=== PATIENT | female | born 2000 | race Caucasian/White ===

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

== ENCOUNTER 2020-01-02 17:16 | Emergency (ER) | payer MEDICAID, SELFPAY ==
[2020-01-02 17:26] VITALS: BP 118/65; PULSE 107; RESP 18; TEMP 36.7; O2SAT 96
--- NOTE | 2020-01-02 17:37 | ED.GENADUL_ITS ---
Discharge Plan Disposition Patient Disposition: HOME Condition: Good Discharge Details Chief Complaint: EarProblem Clinical Impression: Strep pharyngitis Primary Care Provider: Monica Vuong ED Provider: Tyler Liao Home Meds and New Rx's Prescriptions: New amoxicillin-pot clavulanate [Augmentin] 875-125 mg tablet 1 tab PO BID Qty: 20 RF: 0 loratadine 10 mg capsule 10 mg PO DAILY Qty: 14 RF: 0 No Action Nexplanon 68 mg implant 1 implant SBD ONCE Qty: 1 RF: 0 Discharge Instructions Instructions: Strep Throat (ED) Additional Instructions: At this time you do have notable strep throat. You have no mono, and your flu test is negative. Please take the Augmentin as directed. Please take [id number] 10 mg loratadine every day to help with the congestion in your ear. Please take 800 mg of ibuprofen and 600 mg of Tylenol together every 6 hours to help with the pain. Drink plenty of fluids. If you notice any worsening of your symptoms, or any new symptoms such as vomiting, diarrhea, fever, chills, shortness of breath, chest pain, numbness, weakness, or fainting , please return immediately to the emergency department for reevaluation. Please follow up with your primary care provider as soon as possible for reassessment and reevaluation. As always, it was a pleasure participating in your medical care today. Referrals: Monica Vuong [Primary Care Provider] - Discharge Data Discharge Date/Time-TO BE ENTERED AT DEPARTURE: 01/02/20 18:50 Medical Decision Making 19-year-old female presents with 18 hours of throat pain and left-sided ear pain. Physical exam demonstrates an enlarged left tonsil, but palpation shows no evidence of peritonsillar mass or abscess, uvula is midline. No signs of airway compromise or drooling or stridor. No meningeal signs. Left ear d emonstrates mild erythema and serous fluid with minimal bulging. Strep test is positive, influenza is negative, Monospot test is negative. Signs and symptoms clinically consistent with strep throat, and mild left ear irritation. Recommend NSAIDs, loratadine for drainage, and Augmentin. First dose of Augmentin was given here. Discussed red flags for which to return. I have extensively reviewed the treatment plan and discharge instructions with the patient. I have addressed all patient concerns at this time. The patient was made aware of what symptoms to monitor for that would warrant a return to the emergency department. Discussed the plan with the patient, they demonstrate verbal understanding and agreement with our assessment and plan at this time. HPI General Date/Time Provider Initiated Documentation: 01/02/20 17:28 . HPI Narrative: 19-year-old female presents today for evaluation of sore throat and left ear pain. Symptoms have been present for the last 18 to 24 hours. Started with a mild left-sided sore throat and then has now caused ear pressure and ear pain with no discharge. She denies any neck pain or headache. She denies any cough, shortness of breath, she does admit to subjective fever and chills. She does admit to fatigue, but not severe or debilitating. She denies any recent contacts with mono. She denies any difficulty breathing or swallowing. No other complaints at this time. Related Data Home Medications Medication Instructions Recorded Confirmed etonogestrel 68 mg subdermal 1 implant SBD ONCE #1 each 11/02/18 11/11/19 implant amoxicillin-pot clavulanate 1 tab PO BID #20 tab 01/02/20 [Augmentin] loratadine 10 mg PO DAILY #14 cap 01/02/20 Previous Rx's Medication Instructions Recorded etonogestrel 68 mg subdermal 1 implant SBD ONCE #1 each 11/02/18 implant amoxicillin-pot clavulanate 1 tab PO BID #20 tab 01/02/20 [Augmentin] loratadine 10 mg PO DAILY #14 cap 01/02/20 Allergies Allergy/AdvReac Type Severity Reaction Status Date / Time No Known Allergies Allergy Unverified 01/02/20 17:31 General Stated Complaint: EarProblem SHEEBA: 4 Review of Systems All systems reviewed & are unremarkable except as noted in HPI and below [facility] Social History Smoking/Tobacco Use Status: Current every day Tobacco Type: e-cigarettes Alcohol Intake: current Alcohol Intake frequency: holidays/special occasions only Drug use: Rarely Substance use type: marijuana Do you feel safe at home: Yes Do you feel safe in your relationship?: Yes Female Reproductive History Menstrual control method: none and implanted History History 2 Para 1 Hx # Term Pregnancies Multiple births Hx # Pregnancies Ectopic pregnancies AB induced Hx Number of Living Children AB spontaneous Exam Narrative Exam Narrative: 1.Const: Well-nourished, Well-developed, appearing stated age 2.Eyes: PERRL, no conjunctival injection, and symmetrical lids. 3.ENT: Atraumatic external nose and ears. Moist MM. Neck: Symmetric, trachea midline, No thyromegaly. Patient does demonstrate a notably enlarged left tonsil, however direct palpation shows no evidence of peritonsillar abscess, swelling, or fluctuance. Uvula is midline. Mild exudate noted on tonsil on the left, minimal exudate noted on the right. No other lesions. No evidence of airway compromise or drooling. No swelling or mass in the neck. Left ear demonstrates notable erythema, minimal clear serous fluid, minimal bulging, no purulent fluid. Patient demonstrates good movement of cervical neck. There is no nuchal rigidity, no nuchal tenderness. Patient is able to flex the neck without any difficulty or significant pain. Negative Kernig's and Brudzinski sign. 4.CVS: +S1/S2, No murmurs or gallops. Peripheral pulses 2+ and equal in all extremities. Brisk capillary refill in all extremities. 5.RESP: Unlabored respiratory effort. Clear to auscultation bilaterally. No wheezes rales or rhonchi 6.GI: Soft, Nontender/Nondistended, No hepatosplenomegaly. No guarding or rebound. 7.MSK: Normocephalic/Atraumatic, Extremities w/o deformity or ttp No cyanosis or clubbing, Normal movement of all extremities 8.Skin: Warm, Dry. No rashes or lesions. 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 Sensation grossly intact, no focal neurologic deficits. 10.Psych: (AAO) x3. Appropriate mood and affect Course Vital Signs Vital signs: Vital Signs Temperature 36.7 C 01/02/20 17: Pulse 107 H 01/02/20 17: Respiratory Rate 18 01/02/20 17: Blood Pressure 118/65 01/02/20 17: Pulse Oximetry 96 01/02/20 17: Temperature 36.7 C 01/02/20 17: Temperature Source Skin 01/02/20 17: Pulse 107 H 01/02/20 17:26 Respiratory Rate 18 01/02/20 17:26 Respiratory Effort Non-Labored 01/02/20 17:29 Blood Pressure 118/65 01/02/20 17:26 Blood Pressure Position Sitting 01/02/20 17:26 Pulse Oximetry 96 01/02/20 17:26 Oxygen Delivery Method Room Air 01/02/20 17:26 Oxygen Flow Rate 0 01/02/20 17:26 Pain Level 9 01/02/20 17:30 Lab/Test Results Lab/Test Results: 01/02/20 17:33 Nasopharynx Influenza Types A,B Antigen - Pending
[2020-01-02 18:10] LABS: Mono Screening Negative (Negative)
[2020-01-02] MEDS: Ibuprofen 800 MG TAB PO (18:23)
[2020-01-02] MEDS: Acetaminophen 500 MG TAB 1000 MG PO (18:23)
[2020-01-02] MEDS: Amoxicillin 875/Clav. 125 TAB PO (18:33)
== END 2020-01-02 18:50 | disposition home or self-care (01) ==
PROVIDERS: Emergency Provider Student in an Organized Health Care Education/Training Program; PCP Nurse Practitioner Family
DX: J02.0 Streptococcal pharyngitis (principal); H92.02 Otalgia, left ear
CPT/HCPCS: 36415; 87449; 87880; 99283; 86308

== ENCOUNTER 2020-02-10 11:57 | Emergency (ER) | payer MEDICAID, SELFPAY ==
[2020-02-10 12:01] VITALS: BP 129/85; PULSE 81; RESP 16; TEMP 36.3; O2SAT 96
--- NOTE | 2020-02-10 12:26 | W.ED.GENAD ---
Discharge Plan Disposition Patient Disposition: HOME Condition: Stable Discharge Details Chief Complaint: Sorethroat Clinical Impression: Pharyngitis Primary Care Provider: Monica Vuong ED Provider: Orlando Culver Home Meds and New Rx's Prescriptions: New amoxicillin-pot clavulanate 875-125 mg tablet 1 tab PO BID 10 Days Qty: 20 RF: 0 Continued Nexplanon 68 mg implant 1 implant SBD ONCE Qty: 1 RF: 0 No Action amoxicillin-pot clavulanate [Augmentin] 875-125 mg tablet 1 tab PO BID Qty: 14 RF: 0 amoxicillin-pot clavulanate [Augmentin] 875-125 mg tablet 1 tab PO BID Qty: 20 RF: 0 Discharge Instructions Instructions: Pharyngitis (ED) Additional Instructions: Small, frequent sips of fluids to maintain hydration Tylenol and/or ibuprofen as needed for pain or discomfort. Return for difficulty swallowing, worsening discomfort, or any other acute concerns Stop the previously prescribed amoxicillin. We will place you on Augmentin. You are given a single one-time dose of long-acting steroid aid in decreasing your inflammatory response. Medical Decision Making 19-year-old female with history of previous strep pharyngitis, now with 3 days of recurrent symptoms which she was placed on amoxicillin by her primary care. She has right ear discomfort and right throat discomfort. She denied a change to voice, no drooling, no difficulty breathing. Her exam is reassuring but is consistent with a mild pharyngitis. Do not feel that repeat strep swab will assist in management. I will provide her with a one-time dose of dexamethasone for its anti-inflammatory properties and switch her to previously tolerated course of Augmentin. She is stable and appropriate for discharge. Addendum: Received a call from the pharmacy, that the patient had already been taking Augmentin. She was switched to azithromycin. HPI General Mode of arrival: ambulatory. Date/Time Provider Initiated Documentation: 02/10/20 12:14. Limitations to Documentation: no limitations. Information obtained by: patient. History of Present Illness 19 year old F presents to the emergency department with the chief complaint of Right sore throat for 3 days, on amoxicillin, described as similar to prior episodes, Quality is described as dull, and is localized to the neck. Patient reports no radiation. Patient started experiencing this day(s) and it has been constant. No relieving factors improve symptom(s), No exacerbating factors reported . Patient notes loss of appetite; denies chest pain, cough, fever/chills, malaise, nausea/vomiting and shortness of breath. Patient did receive the following treatments prior to arrival, other (Amoxicillin) Related Data Home Medications Medication Instructions Recorded Confirmed etonogestrel 68 mg subdermal 1 implant SBD ONCE #1 each 11/02/18 02/10/20 implant amoxicillin-pot clavulanate 1 tab PO BID #20 tab 01/02/20 02/10/20 [Augmentin] amoxicillin 875 mg-potassium 1 tab PO BID #14 tab 02/08/20 02/10/20 clavulanate 125 mg tablet amoxicillin-pot clavulanate 1 tab PO BID 10 Days #20 tab 02/10/20 Previous Rx's Medication Instructions Recorded etonogestrel 68 mg subdermal 1 implant SBD ONCE #1 each 11/02/18 implant amoxicillin-pot clavulanate 1 tab PO BID #20 tab 01/02/20 [Augmentin] amoxicillin 875 mg-potassium 1 tab PO BID #14 tab 02/08/20 clavulanate 125 mg tablet amoxicillin-pot clavulanate 1 tab PO BID 10 Days #20 tab 02/10/20 Allergies Allergy/AdvReac Type Severity Reaction Status Date / Time No Known Allergies Allergy Unverified 01/02/20 17:31 General Stated Complaint: Sorethroat SHEEBA: 4 Review of Systems Narrative: No cough, no travel, otherwise well. [facility], LAT[facility] Medical History Depression Headache PREMENSTRAL Suicide attempt Social History Smoking/Tobacco Use Status: Current every day Tobacco Type: e-cigarettes Alcohol Intake: current Alcohol Intake frequency: holidays/special occasions only Drug use: Rarely Substance use type: marijuana Do you feel safe at home: Yes Do you feel safe in your relationship?: Yes Female Reproductive History Menstrual control method: none and implanted History History 2 Para 1 Hx # Term Pregnancies Multiple births Hx # Pregnancies Ectopic pregnancies AB induced Hx Number of Living Children AB spontaneous Exam Narrative Exam Narrative: GEN: awake, alert, oriented 3. Pleasant, well groomed, interactive. HEAD: Normocephalic, atraumatic ENT: Mucous membranes moist, oropharynx with mildly enlarged tonsils, no asymmetry, mild erythema, no significant exudate, tympanic membranes clear, External ear exam unremarkable EYES: PERRL, EOMI NECK: Full ROM, no MONET, no menigismus CHEST/RESP: Nontender, clear to auscultation bilateral, no wheeze/rhonchi/rales CARDIOVASCULAR: RRR, no murmur, rub isaias. 2+ Rad pulse bilateral EXT: Full ROM, no edema, no rash Neuro: Grossly normal neurologic exam, conversant, interactive. Psych: Speech fluent, thoughts congruent, affect normal Course Vital Signs Vital signs: Vital Signs Temperature 36.3 C L 02/10/20 12:01 Pulse 81 02/10/20 12:01 Respiratory Rate 16 02/10/20 12:01 Blood Pressure 129/85 02/10/20 12:01 Pulse Oximetry 96 02/10/20 12:01 Temperature 36.3 C L 02/10/20 12:01 Temperature Source Tympanic 02/10/20 12:01 Pulse 81 02/10/20 12:01 Respiratory Rate 16 02/10/20 12:01 Respiratory Effort Non-Labored 02/10/20 12:06 Blood Pressure 129/85 02/10/20 12:01 Blood Pressure Position Sitting 02/10/20 12:01 Pulse Oximetry 96 02/10/20 12:01 Oxygen Delivery Method Room Air 02/10/20 12:01 Oxygen Flow Rate 0 02/10/20 12:01 Pain Level 8 02/10/20 12:01
[2020-02-10] MEDS: Dexamethasone 4 MG TAB 8 MG PO (12:33)
== END 2020-02-10 12:40 | disposition home or self-care (01) ==
PROVIDERS: Emergency Provider Emergency Medicine; PCP Nurse Practitioner Family
DX: J02.9 Acute pharyngitis, unspecified (principal)
CPT/HCPCS: 99283; J8540

== ENCOUNTER 2020-02-27 10:41 | Emergency (ER) | payer MEDICAID, SELFPAY ==
[2020-02-27 10:45] VITALS: BP 110/61; PULSE 100; RESP 16; TEMP 36.2; O2SAT 95
[2020-02-27 10:48] VITALS: RESP 16; TEMP 36.2; O2SAT 95
--- NOTE | 2020-02-27 10:50 | ED.GENADUL_ITS ---
Discharge Plan Disposition Patient Disposition: HOME Condition: Stable Discharge Details Chief Complaint: Nausea/Vomit/Diar Clinical Impression: Nausea & vomiting, Diarrhea Primary Care Provider: Monica Vuong ED Provider: Rk Munroe Home Meds and New Rx's Prescriptions: New ondansetron HCl [Zofran] 4 mg tablet 4 mg PO Q8H PRNQty: 10 RF: 0 No Action amoxicillin-pot clavulanate [Augmentin] 875-125 mg tablet 1 tab PO BID Qty: 14 RF: 0 Nexplanon 68 mg implant 1 implant SBD ONCE Qty: 1 RF: 0 amoxicillin-pot clavulanate [Augmentin] 875-125 mg tablet 1 tab PO BID Qty: 20 RF: 0 Discharge Instructions Instructions: Acute Diarrhea (ED), Acute Nausea and Vomiting (ED) Additional Instructions: Zofran as directed. [id number] Imodium as directed. Clear liquid diet, advance as tolerated. Please watch for new or worsening symptoms and return to the ER for any concerns. I strongly recommend reaching out your primary care provider for prompt outpatient reevaluation next available appointment. Medical Decision Making 19-year-old female reports nausea, vomiting, diarrhea for the past 6-7 hours. Denies any pain whatsoever. Denies fever. Denies recent travel or sick exposure. Clinically she appears well, nontoxic, no clinical signs of dehydration. Abdomen is soft, nonsurgical. She does report drinking over the past 48 hours more alcohol than she typically does, this certainly could play into her diagnosis such as a alcoholic gastritis. Given her benign abdomen, diagnoses such as cholecystitis, appendicitis, etc. far less likely. Does not seem to be related, no lower abdominal discomfort whatsoever. Very well could be a gastroenteritis. Will give IV fluids, Zofran, obtain routine laboratory values and reassess. Patient is already chewing on ice and reques ting water. Laboratory values are unremarkable for emergent process. Upon reevaluation she was chewing ice and drinking a small bit of water. She reports objectively feeling better but did have one episode of dry heaving. 10 mg IV Reglan given. Upon reevaluation she tolerated ice and water without difficulty, no more dry heaving. Patient reports that she feels relatively better, remains pain-free. Discussed that symptoms have been only present for the past 7 hours or so and that this very well may last for 2-3 days. Recommend clear liquid diet, advancing as tolerated. [id number] Imodium for diarrhea although she has had no diarrhea here in the ER. Will provide prescription for Zofran. Patient comfortable this plan and has no additional questions or concerns Medical Records Medical records reviewed: Yes I reviewed the patient's medical records. HPI General Mode of arrival: ambulatory . Date/Time Provider Initiated Documentation: 02/27/20 10:42 . Limitations to Documentation: no limitations . Information obtained by: patient . HPI Narrative: 19-year-old female presented to the ER reporting nausea, vomiting, diarrhea that began around 4:00 this morning. She denies any pain whatsoever. Denies recent travel or sick contacts. She reports that 2 days ago she had 5 or 6 alcoholic drinks, again yesterday she had 5 or 6 alcoholic drinks, last drink was around 11 PM. She reports that she stayed up all night and did not sleep whatsoever. Her symptoms then began around 4 AM. She denies any fever, abdominal pain, back pain, dysuria, hematuria. Reports 10 episodes of nausea and/or vomiting since 4 AM. She denies any vaginal bleeding or discharge. No additional concerns at this time Related Data Home Medications Medication Instructions Recorded Confirmed etonogestrel 68 mg subdermal 1 implant SBD ONCE #1 each 11/02/18 02/10/20 implant amoxicillin-pot clavulanate 1 tab PO BID #20 tab 01/02/20 02/10/20 [Augmentin] amoxicillin 875 mg-potassium 1 tab PO BID #14 tab 02/08/20 02/10/20 clavulanate 125 mg tablet ondansetron HCl [Zofran] 4 mg PO Q8H PRN #10 tab 02/27/20 Previous Rx's Medication Instructions Recorded etonogestrel 68 mg subdermal 1 implant SBD ONCE #1 each 11/02/18 implant amoxicillin-pot clavulanate 1 tab PO BID #20 tab 01/02/20 [Augmentin] amoxicillin 875 mg-potassium 1 tab PO BID #14 tab 02/08/20 clavulanate 125 mg tablet ondansetron HCl [Zofran] 4 mg PO Q8H PRN #10 tab 02/27/20 Allergies Allergy/AdvReac Type Severity Reaction Status Date / Time No Known Allergies Allergy Unverified 01/02/20 17:31 General Stated Complaint: Nausea/Vomit/Diar SHEEBA: 3 Review of Systems Constitutional Constitutional: Denies fatigue, Denies fever(s) and Denies headache(s) ENT Ears, Nose, Mouth, and Throat: Denies headache(s) and Denies sore throat Cardiovascular Cardiovascular: Denies chest pain and Denies dyspnea Respiratory Respiratory: Denies cough and Denies dyspnea Gastrointestinal Gastrointestinal: Denies abdominal pain, Reports diarrhea, Reports nausea and Reports vomiting Genitourinary Genitourinary: Denies dysuria and Denies vaginal discharge Musculoskeletal Musculoskeletal: Denies back pain and Denies myalgias Integumentary/Breasts Skin/Breast: Denies rash Neurologic Neurologic: Denies headache(s) Endocrine Endocrine: Denies fatigue [facility] Medical History Depression Headache PREMENSTRAL Suicide attempt Surgical History D&E Social History Smoking/Tobacco Use Status: Current every day Tobacco Type: e-cigarettes Alcohol Intake: never Drug use: Rarely Substance use type: does not use Do you feel safe at home: Yes Do you feel safe in your relationship?: Yes Female Reproductive History Menstrual control method: none and implanted History History 2 Para 1 Hx # Term Pregnancies Multiple births Hx # Pregnancies Ectopic pregnancies AB induced Hx Number of Living Children AB spontaneous Exam Const General: cooperative, healthy appearing, comfortable and no acute distress Orientation: alert, awake and oriented x3 HENMT Head: normal to inspection, normocephalic and atraumatic Mouth: moist mucous membranes Throat: posterior oropharynx normal Eyes Conjunctivae: conjunctivae normal Neck Neck: normal visual inspection, full ROM, trachea midline and supple Resp Effort & Inspection: normal respiratory effort and able to speak in complete sentences Auscultation: clear to auscultation bilaterally Cardio Rate: regular rate Rhythm: regular rhythm GI Inspection: normal to inspection Palpation: soft, not firm, no guarding, not rigid and nontender Auscultation: normal bowel sounds Back/Spine/Pelvis Back: no CVA tenderness and No back tenderness Skin General skin exam: no rashes or lesions noted Neuro General: patient alert, patient awake, moves all extremities and no focal motor deficits Cognition: normal cognition Speech: speech normal Gait: normal gait Motor: muscle tone normal throughout Sensory Exam: no sensory deficits noted Psych Appearance: grossly normal Mental Status: mental status grossly normal Course Vital Signs Vital signs: Vital Signs Temperature 36.2 C L 02/27/20 10:45 Pulse 100 H 02/27/20 10:45 Respiratory Rate 16 02/27/20 10:45 Blood Pressure 110/61 02/27/20 10:45 Pulse Oximetry 95 02/27/20 10:45 Temperature 36.2 C L 02/27/20 10:45 Temperature Source Tympanic 02/27/20 10:45 Pulse 100 H 02/27/20 10:45 Respiratory Rate 16 02/27/20 10:45 Respiratory Effort Non-Labored 02/27/20 10:47 Blood Pressure 110/61 02/27/20 10:45 Blood Pressure Position Sitting 02/27/20 10:45 Pulse Oximetry 95 02/27/20 10:45 Oxygen Delivery Method Room Air 02/27/20 10:45 Oxygen Flow Rate 0 02/27/20 10:45 Pain Level 0 02/27/20 10:45
[2020-02-27] MEDS: Normal Saline 1,000 ML 1000 ML IV (11:04)
[2020-02-27] MEDS: Ondansetron 4 MG/2 ML VIAL IVP (11:04)
--- NOTE | 2020-02-27 11:05 | NUR.NOTE ---
Nursing Note: One IV is located in the Left FA. Left AC was charted incorrectly.
[2020-02-27 11:22] LABS: Abs Immature Grans 0.03 k/cumm (0.0-0.09); Absolute Basophil Count 0.04 k/cumm (0.0-0.2); Absolute Eosinophil Count 0.08 k/cumm (0.0-0.7); Absolute Lymphocyte Count 1.53 k/cumm (1.2-3.4); Absolute Monocyte Count 0.39 k/cumm (0.11-0.7); Absolute Neutrophil Count 8.28 k/cumm (1.2-6.7); Basophils % 0.4; Eosinophils % 0.8; HCT 43.1 % (36.0-46.0); HGB 15.2 g/dL (12.0-15.5); Immature Grans % 0.3 %; Lymphocytes % 14.8; Mean Corp. HGB Concentration 35.3 g/dL (32.0-36.0); Mean Corpuscular Hemoglobin 31.7 pg (27.0-33.0); Mean Corpuscular Volume 89.8 fL (80-95); Mean Platelet Volume 10.8 fL (8.0-11.0); Monocytes % 3.8; Neutrophils % 79.9; Platelet Count 375 x1000/uL (130-400); RBC Distribution Width 13.3 % (11.7-14.6); White Blood Cell Count 10.35 k/cumm (4.4-10.8)
[2020-02-27 11:37] LABS: ALT 26 U/L (14-59); AST 21 U/L (15-37); Albumin 4.6 g/dL (3.4-5.0); Alkaline Phosphatase 88 U/L (46-116); Anion Gap 14.8 mmol/L (3-11); BUN 10 mg/dL (7-18); Bilirubin, Total 0.5 mg/dL (0.2-1.0); CO2 22.2 mmol/L (21.0-32.0); CREATININE 0.98 mg/dL (0.55-1.02); Calcium 9.4 mg/dL (8.5-10.1); Chloride 103 mmol/L (98-107); Glucose 114 mg/dL (74-106); Lipase 46 U/L (73-393); Sodium 140 mmol/L (136-145); Total Protein 8.9 g/dL (6.4-8.2)
[2020-02-27] MEDS: Metoclopramide 10 MG/2 ML VIAL IVP (11:55)
[2020-02-27 12:01] LABS: Bilirubin Negative (Negative); Blood Negative (Negative); Clarity Clear (Clear); Glucose Negative (Negative); Ketones Negative (Negative); Leukocyte Esterase Trace (Negative); Nitrite Negative (Negative); Specific Gravity 1.015 (1.005-1.025); Urobilinogen 0.2 EU/dL (Up TO 0.2); pH 8.5 (5-8)
[2020-02-27 12:02] LABS: Epithelial Cells Many HPF (Negative)
[2020-02-27 12:03] LABS: C & S Indicated? No/Sq. Contamination
== END 2020-02-27 12:40 | disposition home or self-care (01) ==
PROVIDERS: Emergency Provider Physician Assistant; PCP Nurse Practitioner Family
DX: R11.2 Nausea with vomiting, unspecified (principal); R19.7 Diarrhea, unspecified
CPT/HCPCS: 80053; 81025; 83690; 96361; 96374; 96375; 99284; 81003; 81015; 85025; J2405; J2765

== ENCOUNTER 2021-04-08 15:33 | Emergency (ER) | payer MEDICAID, SELFPAY ==
[2021-04-08 15:45] VITALS: BP 120/83; PULSE 98; RESP 20; TEMP 36.5; O2SAT 97
--- NOTE | 2021-04-08 15:55 | ED.GENADUL_ITS ---
Discharge Plan Disposition Patient Disposition: HOME Condition: Improving Discharge Details Clinical Impression: Acute bronchitis Primary Care Provider: Monica Vuong ED Provider: Zaida Fraga Home Meds and New Rx's Prescriptions: New prednisone 20 mg tablet See Rx Instructions .ROUTE .COMPLEX Qty: 12 RF: 0 benzonatate [Tessalon Perles] 100 mg capsule 100 mg PO TID PRN (Reason: cough) Qty: 14 RF: 0 albuterol sulfate 90 mcg/actuation aerosol powdr breath activated 2 inh IH Q6H PRN (Reason: shortness of breath or wheezing) Qty: 1 RF: 0 amoxicillin-pot clavulanate [Augmentin] 875-125 mg tablet 1 tab PO BID 7 Days Qty: 14 RF: 0 Continued Nexplanon 68 mg implant 1 implant SBD ONCE Qty: 1 RF: 0 Discharge Instructions Instructions: Acute Bronchitis (ED) Additional Instructions: Drink plenty of fluids and get plenty of rest. Alternate tylenol and motrin as needed and directed for pain. Your prescriptions have been sent electronically to your pharmacy. Call the pharmacy to make sure your prescriptions are ready before pickup. Take the prescriptions as directed. If you have no relief in symptoms over the next 2 days, you can start the oral antibiotics and take as directed until finished. Follow-up with your primary care doctor in 1 week. Return to the emergency department with any worsening or new concerning symptoms. Discharge Data Discharge Physician: Zaida Fraga Medical Decision Making <Zaida Fraga, - Last Filed: 04/08/21 17:53> 20-year-old female with a history of exercise-induced asthma presents for cough and shortness of breath for the past 4 days. Patient appears comfortable and nontoxic. She is afebrile. She is speaking in full sentences. She has inspiratory and expiratory wheezing with rhonchi throughout. Normal ENT exam. History and presentation does not appear consistent with PE or ACS. Suspect most likely bronchitis and/or underlying pneumonia. We will give a DuoNeb, oral steroids and obtain a urine test and chest x-ray. Chest x-ray negative. Urine preg negative. Patient reassessed and she feels much better and feels good to go home. Prescriptions for oral steroids, Tessalon Perles and albuterol inhaler sent electronically to her pharmacy. She has plenty of albuterol inhaler at home. A prescription for antibiotics was also sent to the pharmacy as she vapes and occasionally smokes marijuana. She is advised that she can start with the oral steroids 1st, and if her symptoms not improve in the next 2 days, to consider starting the antibiotics. Advised to follow up with the primary care doctor for re-evaluation. Usual and customary return precautions given prior to discharge. Medical Records Medical records reviewed: Yes I reviewed the patient's medical records. Imaging Data Radiologic Study: Radiologist's impression: XR Chest Exam date and time: 04/08/2021 4:20 PM Age: 20 years old Clinical indication: Other: Cough, wheezing, SOB, R/O acute disease TECHNIQUE: Imaging protocol: XR of the chest. Views: 2 views. COMPARISON: CR XR CHEST 1V IN DI DEPT 11/11/2019 2:14 PM FINDINGS: Lungs: The lungs are clear. There is no pulmonary vascular congestion. Pleural spaces: There are no pleural effusions present. There is no evidence of pneumothorax. Heart/Mediastinum: The cardiomediastinal silhouette is within normal limits. Bones/joints: Unremarkable. IMPRESSION: No active cardiopulmonary disease identified. Lab Data Lab results reviewed: Yes I reviewed the patient's lab results. HPI <Zaida Fraga, - Last Filed: 04/08/21 17:53> General Mode of arrival: ambulatory . Date/Time Provider Initiated Documentation: 04/08/21 15:34 . Limitations to Documentation: no limitations . Information obtained by: patient . HPI Narrative: Patient is a 20-year-old female with a history of exercise-induced asthma presents with cough with yellow sputum, shortness of breath, wheezing and chest pain that occurs with coughing for the past several days. Patient states her symptoms started with scratchy dry throat and then progressed to cough. She states cough is occasionally dry but sometimes productive of yellow sputum. She states sometimes her cough is continual and so forceful that she vomits. She states the cough is worse when she lays down at night. She states the wheezing is bothering her the most. She states the chest pain only occurs with coughing. She denies any chest pain at present. Patient was seen at the [facility] for symptoms and had a neb treatment with improvement of her symptoms. She was referred here for further evaluation. Related Data Home Medications Medication Instructions Recorded Confirmed etonogestrel 68 mg subdermal 1 implant SBD ONCE #1 each 11/02/18 04/08/21 implant albuterol sulfate 2 inh IH Q6H PRN #1 each 04/08/21 amoxicillin-pot clavulanate 1 tab PO BID 7 Days #14 tab 04/08/21 [Augmentin] benzonatate [Tessalon Perles] 100 mg PO TID PRN #14 cap 04/08/21 prednisone See Rx Instructions .ROUTE 04/08/21 .COMPLEX #12 tab Previous Rx's Medication Instructions Recorded etonogestrel 68 mg subdermal 1 implant SBD ONCE #1 each 11/02/18 implant albuterol sulfate 2 inh IH Q6H PRN #1 each 04/08/21 amoxicillin-pot clavulanate 1 tab PO BID 7 Days #14 tab 04/08/21 [Augmentin] benzonatate [Tessalon Perles] 100 mg PO TID PRN #14 cap 04/08/21 prednisone See Rx Instructions .ROUTE 04/08/21 .COMPLEX #12 tab Allergies Allergy/AdvReac Type Severity Reaction Status Date / Time No Known Allergies Allergy Unverified 04/08/21 15:52 General Stated Complaint: RespSymp SHEEBA: 3 Review of Systems <Zaida Fraga DO - Last Filed: 04/08/21 17:53> All systems reviewed & are unremarkable except as noted in HPI and below Constitutional Constitutional: Reports as per HPI, Denies chills and Denies fever(s) Eyes Eyes: Denies blurry vision ENT Ears, Nose, Mouth, and Throat: Denies dizziness, Denies sore throat and Denies throat swelling Cardiovascular Cardiovascular: Denies chest pain and Reports dyspnea Respiratory Respiratory: Reports cough and Reports dyspnea Gastrointestinal Gastrointestinal: Denies abdominal pain, Denies diarrhea and Denies vomiting Genitourinary Genitourinary: Denies hematuria and Denies dysuria Musculoskeletal Musculoskeletal: Denies back pain and Denies numbness Integumentary/Breasts Skin/Breast: Denies lesions and Denies rash Neurologic Neurologic: Denies dizziness, Denies localized weakness and Denies numbness Allergic/Immunologic Allergic/Immunologic: Denies throat swelling PFS <DO Melida Villarreal Last Filed: 04/08/21 17:53> Medical History (Updated 04/08/21 @ 17:42 by Zaida Fraga DO) Depression Headache PREMENSTRAL Suicide attempt Surgical History D&E Social History Smoking/Tobacco Use Status: Current every day Tobacco Type: e-cigarettes Smoking risk assessment performed?: Yes Alcohol Intake: never Drug use: Rarely Substance use type: does not use Do you feel safe at home: Yes Do you feel safe in your relationship?: Yes Female Reproductive History Menstrual control method: none and implanted History History 2 Para 1 Hx # Term Pregnancies Multiple births Hx # Pregnancies Ectopic pregnancies AB induced Hx Number of Living Children AB spontaneous Exam <Zaida Fraga DO - Last Filed: 04/08/21 17:53> Const General: cooperative, healthy appearing and no acute distress HENMT Head: normal to inspection Face and sinus: normal facial exam Eyes General: appearance normal, both eyes and all related structures Pupils: PERRL EOM: EOM intact bilaterally Neck Neck: normal visual inspection and No submandibular swelling Lymphatic: no lymphadenopathy noted Chest Chest: normal inspection of the chest and no tenderness Resp Effort & Inspection: normal respiratory effort and able to speak in complete sentences Auscultation: rhonchi and wheezes expiratory wheezes and inspiratory wheezes Cardio Rate: regular rate Rhythm: regular rhythm GI Inspection: normal to inspection Palpation: soft, not firm, not rigid and nontender Auscultation: normal bowel sounds Skin General skin exam: no rashes or lesions noted Neuro General: patient alert, patient awake and patient oriented x3 Cognition: normal cognition Speech: speech normal Motor: muscle tone normal throughout Sensory Exam: no sensory deficits noted Extrem General: normal to inspection, full ROM, capillary refill normal, no calf tenderness bilaterally and no edema Psych Appearance: grossly normal Mental Status: mental status grossly normal Speech and Movement: speech and movement normal Affect: normal affect Course <Zaida Fraga DO - Last Filed: 04/08/21 17:53> Vital Signs Vital signs: Vital Signs Temperature 97.7 F 04/08/21 15:45 Pulse 98 H 04/08/21 15:45 Respiratory Rate 20 04/08/21 15:45 Blood Pressure 120/83 04/08/21 15:45 Pulse Oximetry 97 04/08/21 15:45 Temperature 97.7 F 04/08/21 15:45 Temperature Source Temporal Artery Scan 04/08/21 15:45 Pulse 98 H 04/08/21 15:45 Respiratory Rate 20 04/08/21 15:45 Respiratory Effort Non-Labored 04/08/21 15:53 Blood Pressure 120/83 04/08/21 15:45 Blood Pressure Position Sitting 04/08/21 15:45 Pulse Oximetry 97 04/08/21 15:45 Oxygen Delivery Method Room Air 04/08/21 15:45 Oxygen Flow Rate 0 04/08/21 15:45 Pain Level 6 04/08/21 15:45
--- NOTE | 2021-04-08 16:15 | DI.RAD_ITS ---
Exam(s) XR CHEST 2V PA LATERAL EXAM: XR CHEST 2V PA LATERAL CLINICAL HISTORY: cough, wheezing, sob, r/o acute disease TECHNIQUE: 2D digital imaging was performed. COMPARISON: No exams were available for comparison FINDINGS: MEDIASTINUM: Normal. HEART: Normal. PULMONARY VASCULATURE: Normal. LUNGS: Clear. PLEURAL SPACE: No pleural effusion or pneumothorax. BONE:Within normal limits for the patient's age. OTHER FINDINGS:Normal. IMPRESSION: No acute pulmonary findings. DATA REPOSITORY: RADIATION DOSE DELIVERED:
[2021-04-08] MEDS: predniSONE 20 MG TAB 60 MG PO (16:52)
[2021-04-08] MEDS: Albuterol/Ipratropium 3 ML UPD VIAL UPD (16:52)
[2021-04-08] MEDS: Ketorolac 60 MG/2 ML VIAL IM (16:52)
--- NOTE | 2021-04-08 17:16 | DI.VRAD_ITS ---
PROCEDURE INFORMATION: Exam: XR Chest Exam date and time: 04/08/2021 4:20 PM Age: 20 years old Clinical indication: Other: Cough, wheezing, SOB, R/O acute disease TECHNIQUE: Imaging protocol: XR of the chest. Views: 2 views. COMPARISON: CR XR CHEST 1V IN DI DEPT 11/11/2019 2:14 PM FINDINGS: Lungs: The lungs are clear. There is no pulmonary vascular congestion. Pleural spaces: There are no pleural effusions present. There is no evidence of pneumothorax. Heart/Mediastinum: The cardiomediastinal silhouette is within normal limits. Bones/joints: Unremarkable. IMPRESSION: No active cardiopulmonary disease identified. Dictated and Authenticated by: Alexys Carey MD. Ordering:SHIKHA Cerda MD
[2021-04-08 23:32] VITALS: BP 120/83; PULSE 98; RESP 20; TEMP 36.5; O2SAT 97
== END 2021-04-08 17:50 | disposition home or self-care (01) ==
PROVIDERS: Emergency Provider Physician Assistant; PCP Nurse Practitioner Family
DX: J20.9 Acute bronchitis, unspecified (principal)
CPT/HCPCS: 81025; 94640; 96372; 99284; 71046; 99283; J1885; J7512; J7620

== ENCOUNTER 2021-04-08 17:07 | Outpatient (REF) | payer MEDICAID, SELFPAY ==
[2021-04-10 13:43] LABS: COVID-19 RT-PCR UVMMC Result Negative (Negative)
== END 2021-04-08 17:08 | disposition home or self-care (01) ==
LOC: LBN 17:07
PROVIDERS: PCP Nurse Practitioner Family; Visit Provider Physician Assistant Medical
DX: Z20.822 Contact with and (suspected) exposure to COVID-19 (principal); J06.9 Acute upper respiratory infection, unspecified
CPT/HCPCS: U0003

== ENCOUNTER 2021-05-16 08:06 | Emergency (ER) | payer MEDICAID, SELFPAY ==
[2021-05-16 08:11] VITALS: BP 120/76; PULSE 92; RESP 18; TEMP 36.6; O2SAT 95
--- NOTE | 2021-05-16 08:14 | ED.GENADUL_ITS ---
Discharge Plan Disposition Patient Disposition: HOME Condition: Stable Discharge Details Clinical Impression: Cough Primary Care Provider: Monica Vuong ED Provider: Rk Munroe Home Meds and New Rx's Prescriptions: New prednisone 20 mg tablet 60 mg PO DAILY 5 Days Qty: 15 RF: 0 loratadine-pseudoephedrine [Claritin-D 24 Hour] 10-240 mg tablet extended release 24 hr 1 tab PO DAILY Qty: 14 RF: 0 Continued Nexplanon 68 mg implant 1 implant SBD ONCE Qty: 1 RF: 0 albuterol sulfate 90 mcg/actuation aerosol powdr breath activated 2 inh IH Q6H PRN (Reason: shortness of breath or wheezing) Qty: 1 RF: 0 Discharge Instructions Instructions: Acute Cough (ED) Additional Instructions: Chest x-ray is being read by radiology, if official read is positive I will contact you and initiate antibiotic therapy. Otherwise I would like you to take prednisone and Claritin-D as directed. Zlob-oiy-lsiuavm Tylenol and/or Motrin for discomfort as directed. Gnty-bpy-lkhomvj cough medication such as Delsym for symptomatic control as directed. I would also like you to quit vaping. Please watch for new or worsening symptoms and return to the ER for any concerns. Be sure not to use your albuterol inhaler any more than directed. Lastly, contact your primary care provider on Tuesday to discuss your ongoing symptoms and need for outpatient reevaluation. Discharge Data Discharge Date/Time-TO BE ENTERED AT DEPARTURE: 05/16/21 10:06 Medical Decision Making 20-year-old female, current vapor, history of exercise-induced asthma, presents with cough over the past 3 days. Clinically she appears well, nontoxic, is afebrile, heart rate in the 90s, O2 sat in the mid to high 90s on room air. Patient has been using her albuterol inhaler more than directed, did have a few scattered wheezes that cleared with coughing. Will obtain chest x-ray to rule out pneumonia and obtain a Covid swab. No breathing treatment required now I had initially ordered a POC test. Patient reports that she has not been sexually active for at least 2 years, will obtain x-ray without test. X-ray read by me as negative, awaiting official x-ray The pat has been delayed because of high volume, will not make the patient wait any longer. We will provide her a prescription for a dose burst of steroids, antihistamine and decongestant, and recommend [id number]-[id number] Tylenol and/or Motrin as well as a cough suppressant. If x-rays over read by radiology as positive I will personally call the patient. We did discuss the importance of quarantine until Covid test has come back negative. We also discussed vaping cessation. X-ray read by radiology as negative after the patient was discharged. No need to initiate antibiotics Medical Records Medical records reviewed: Yes I reviewed the patient's medical records. Imaging Data Radiologic Study: Attestation: I personally reviewed and interpreted this imaging study as follows: Imaging: X-Ray Radiologist's impression: Exam: XR Chest Exam date and time: 05/16/2021 8:40 AM Age: 20 years old Clinical indication: Cough TECHNIQUE: Imaging protocol: XR of the chest. Views: 1 view. COMPARISON: CR XR CHEST 2V PA LATERAL 04/08/2021 5:01 PM FINDINGS: Lungs: Unremarkable. No consolidation. Pleural spaces: Unremarkable. No pleural effusion. No pneumothorax. Heart/Mediastinum: Unremarkable. No cardiomegaly. Bones/joints: Unremarkable. IMPRESSION: No acute findings HPI General Mode of arrival: ambulatory . Date/Time Provider Initiated Documentation: 05/16/21 08:07 . Limitations to Documentation: no limitations . Information obtained by: patient . HPI Narrative: This is a 20-year-old female, past medical history that includes asthma, depression, currently vapes daily, presenting to the ER complaining of a 3-day history of cough, runny nose, ear congestion, mild clear-yellow sputum. Patient states that she has been using her albuterol inhaler more than directed. She was seen in the ER in early April for similar symptoms, ended up taking Tessalon Perles and prednisone, never filled the antibiotic prescription. She states that her symptoms are resolved completely. Denies recent illness or contacts. Reports that she has had the Covid vaccine. She denies fever, chest pain, shortness of breath, pain or swelling in her legs Related Data Home Medications Medication Instructions Recorded Confirmed etonogestrel 68 mg subdermal 1 implant SBD ONCE #1 each 11/02/18 05/16/21 implant albuterol sulfate 2 inh IH Q6H PRN #1 each 04/08/21 05/16/21 loratadine-pseudoephedrine 1 tab PO DAILY #14 tab 05/16/21 [Claritin-D 24 Hour] prednisone 60 mg PO DAILY 5 Days #15 tab 05/16/21 Previous Rx's Medication Instructions Recorded etonogestrel 68 mg subdermal 1 implant SBD ONCE #1 each 11/02/18 implant albuterol sulfate 2 inh IH Q6H PRN #1 each 04/08/21 loratadine-pseudoephedrine 1 tab PO DAILY #14 tab 05/16/21 [Claritin-D 24 Hour] prednisone 60 mg PO DAILY 5 Days #15 tab 05/16/21 Allergies Allergy/AdvReac Type Severity Reaction Status Date / Time No Known Allergies Allergy Unverified 05/16/21 08:18 General SHEEBA: 3 Review of Systems Constitutional Constitutional: Denies fever(s) ENT Ears, Nose, Mouth, and Throat: Denies sore throat Cardiovascular Cardiovascular: Denies chest pain and Denies dyspnea Respiratory Respiratory: Reports cough and Denies dyspnea Gastrointestinal Gastrointestinal: Denies abdominal pain, Denies nausea and Denies vomiting Integumentary/Breasts Skin/Breast: Denies erythema [facility] Medical History Depression Headache PREMENSTRAL Suicide attempt Surgical History D&E Social History Smoking/Tobacco Use Status: Current every day Tobacco Type: e-cigarettes Smoking risk assessment performed?: Yes Alcohol Intake: never Drug use: Occasionally Substance use type: marijuana Do you feel safe at home: Yes Do you feel safe in your relationship?: Yes Female Reproductive History Menstrual control method: none and implanted History History 2 Para 1 Hx # Term Pregnancies Multiple births Hx # Pregnancies Ectopic pregnancies AB induced Hx Number of Living Children AB spontaneous Exam Const General: cooperative, healthy appearing, comfortable and no acute distress Orientation: alert and awake HENMT Head: normal to inspection, normocephalic and atraumatic Ears: external ears normal, TM's normal bilaterally and EAC's normal Face and sinus: normal facial exam Mouth: moist mucous membranes Throat: posterior oropharynx normal Eyes General: appearance normal, both eyes and all related structures Conjunctivae: conjunctivae normal Neck Neck: normal visual inspection, full ROM, trachea midline and supple Resp Effort & Inspection: normal respiratory effort and able to speak in complete sentences Auscultation: wheezes (Scattered, rare, clear with coughing) Cardio Rate: regular rate Rhythm: regular rhythm Skin General skin exam: no rashes or lesions noted Neuro General: patient alert, patient awake, moves all extremities and no focal motor deficits Sensory Exam: no sensory deficits noted Psych Appearance: grossly normal Mental Status: mental status grossly normal
--- NOTE | 2021-05-16 08:30 | DI.RAD_ITS ---
Exam(s) XR PORTABLE CHEST AP EXAM: XR PORTABLE CHEST AP CLINICAL HISTORY: cough TECHNIQUE: 2D digital imaging was performed. COMPARISON: CR,XR XR CHEST 2V PA LATERAL from 04/08/2021 FINDINGS: MEDIASTINUM: Normal. HEART: Normal. PULMONARY VASCULATURE: Normal. LUNGS: Clear. PLEURAL SPACE: No pleural effusion or pneumothorax. BONE:Within normal limits for the patient's age. OTHER FINDINGS:Normal. IMPRESSION: No acute pulmonary findings. DATA REPOSITORY: RADIATION DOSE DELIVERED:
--- NOTE | 2021-05-16 08:46 | NUR.NOTE ---
reports she is unable to void, states she has not been sexually active in years. provider notified and will proceed with xray
[2021-05-16 09:15] VITALS: RESP 15; O2SAT 95
[2021-05-16 10:03] VITALS: BP 114/69; PULSE 88; RESP 16; TEMP 36.5; O2SAT 97
--- NOTE | 2021-05-16 10:10 | DI.VRAD_ITS ---
PROCEDURE INFORMATION: Exam: XR Chest Exam date and time: 05/16/2021 8:40 AM Age: 20 years old Clinical indication: Cough TECHNIQUE: Imaging protocol: XR of the chest. Views: 1 view. COMPARISON: CR XR CHEST 2V PA LATERAL 04/08/2021 5:01 PM FINDINGS: Lungs: Unremarkable. No consolidation. Pleural spaces: Unremarkable. No pleural effusion. No pneumothorax. Heart/Mediastinum: Unremarkable. No cardiomegaly. Bones/joints: Unremarkable. IMPRESSION: No acute findings. Dictated and Authenticated by: Riley Alan MD. Ordering:SARA Beckman MD
[2021-05-17 11:59] LABS: COVID-19 RT-PCR UVMMC Result Negative (Negative)
== END 2021-05-16 10:06 | disposition home or self-care (01) ==
PROVIDERS: Emergency Provider Physician Assistant; PCP Nurse Practitioner Family
DX: R05 Cough (principal); F17.290 Nicotine dependence, other tobacco product, uncomplicated; Z20.822 Contact with and (suspected) exposure to COVID-19; Z03.818 Encounter for observation for suspected exposure to other biological agents ruled out
CPT/HCPCS: 99283; U0003; 71045

== ENCOUNTER 2021-08-12 07:34 | Emergency (ER) | payer MEDICAID, SELFPAY ==
[2021-08-12 07:51] VITALS: BP 131/83; PULSE 95; RESP 16; TEMP 36.5; O2SAT 97
--- NOTE | 2021-08-12 07:54 | W.ED.GENAD ---
Discharge Plan Disposition Patient Disposition: HOME Condition: Stable Discharge Details Clinical Impression: Bronchitis Primary Care Provider: Kalpesh Gusman ED Provider: Rk Munroe Home Meds and New Rx's Prescriptions: New prednisone 20 mg tablet 60 mg PO DAILY 5 Days Qty: 15 RF: 0 Continued Nexplanon 68 mg implant 1 implant SBD ONCE Qty: 1 RF: 0 albuterol sulfate 90 mcg/actuation aerosol powdr breath activated 2 inh IH Q6H PRN (Reason: shortness of breath or wheezing) Qty: 1 RF: 0 loratadine-pseudoephedrine [Claritin-D 24 Hour] 10-240 mg tablet extended release 24 hr 1 tab PO DAILY Qty: 14 RF: 0 Discharge Instructions Instructions: Acute Bronchitis (ED) Additional Instructions: Prednisone as directed. Fcwt-rgk-qqxsnnd medications for symptomatic control such as cough medication, antihistamine, and decongestant. I do recommend a smoking-and vaping. Chest x-ray unremarkable, no clear indication for antibiotic therapy. Covid test is pending. Please watch for new or worsening symptoms and return to the ER for any concerns. Otherwise I recommend reaching out your primary care provider to discuss your ER visit, ongoing symptoms, and need for outpatient reevaluation. Medical Decision Making 21-year-old female, past medical history of asthma, current vapor every day, presents to the ER for 4-day history of simply not feeling well, nasal congestion, cough, shortness of breath, yellow sputum. She has taken her albuterol and abxy-yem-bpgtirm [place]yn[place] with little relief. Clinically she appears well, nontoxic, pulse in the 90s, respiration 16, afebrile, O2 sat 97% on room air, full sentences. No indication for emergent breathing treatment. Will obtain a send out Covid swab and obtain 1 view chest x-ray to rule out pneumonia. If chest x-ray is unremarkable, likely viral in nature. Given her wheezing, current smoking, history of asthma, I do believe a burst dose of steroids is reasonable. Also recommend that she takes vtmi-hmz-niichpn cough medication, antihistamines and decongestants as directed. Patient comfortable with this plan and has no additional questions or concerns. Chest x-ray read by me confirmed by radiology as negative. No clear indication for antibiotics. Will provide burst dose of steroids, recommend hkem-ckl-cbulufa medications, and we did discuss smoking cessation. Standard discharge and return precautions provided This documentation was generated using [employer] dictation system, please disregard any oddities of phrase or misspellings. Medical Records Medical records reviewed: Yes I reviewed the patient's medical records. Imaging Data Radiologic Study: Attestation: I personally reviewed and interpreted this imaging study as follows: Imaging: X-Ray Radiologist's impression: EXAM XR PORTABLE CHEST AP CLINICAL HISTORY cough TECHNIQUE 2D digital imaging was performed of the chest. [One image] was obtained. [An AP view] was obtained. COMPARISON [CR,XR XR PORTABLE CHEST AP from 05/16/2021] [] FINDINGS MEDIASTINUM: [Normal.] [] HEART: [Normal.] [] PULMONARY VASCULATURE: [Normal.] [] LUNGS: [Clear.] [] PLEURAL SPACE: [No pleural effusion or pneumothorax.] [] BONE:[Within normal limits for the patient's age.] [] OTHER FINDINGS:[Normal.] [] IMPRESSION [No acute pulmonary findings HPI General Mode of arrival: ambulatory. Date/Time Provider Initiated Documentation: 08/12/21 07:54. Limitations to Documentation: no limitations. Information obtained by: patient. HPI Narrative: This is a 21-year-old female, past medical history that includes asthma, anxiety and depression, which she describes as multiple episodes of bronchitis, presenting to the ER today for evaluation of a cough over the past 4 days, productive with a yellow sputum, nasal congestion, simply not feeling well. She has used bujz-orb-muwhzja [place]yn[place] cold medication and her inhaler as directed. She denies headache, fever, ear pain, sore throat, chest pain, abdominal pain, nausea, dysuria, diarrhea, skin rash, pain or swelling in her leg. Patient states that she has had episodes where she coughs so harshly that she does vomit. Patient admits to vaping daily and smoking marijuana daily. She is vaccinated for Covid. States that her son was exposed to Covid last week at school but he tested negative. She denies any obvious sick contacts or recent travel. Patient states this feels the same as when she had bronchitis last time. Related Data Home Medications Medication Instructions Recorded Confirmed etonogestrel 68 mg subdermal 1 implant SBD ONCE #1 each 11/02/18 08/12/21 implant albuterol sulfate 2 inh IH Q6H PRN #1 each 04/08/21 08/12/21 loratadine-pseudoephedrine 1 tab PO DAILY #14 tab 05/16/21 08/12/21 [Claritin-D 24 Hour] prednisone 60 mg PO DAILY 5 Days #15 tab 08/12/21 Previous Rx's Medication Instructions Recorded etonogestrel 68 mg subdermal 1 implant SBD ONCE #1 each 11/02/18 implant albuterol sulfate 2 inh IH Q6H PRN #1 each 04/08/21 loratadine-pseudoephedrine 1 tab PO DAILY #14 tab 05/16/21 [Claritin-D 24 Hour] prednisone 60 mg PO DAILY 5 Days #15 tab 08/12/21 Allergies Allergy/AdvReac Type Severity Reaction Status Date / Time No Known Allergies Allergy Unverified 08/12/21 07:56 General SHEEBA: 4 Review of Systems Constitutional Constitutional: Denies fever(s) and Denies headache(s) ENT Ears, Nose, Mouth, and Throat: Denies headache(s), Denies neck pain and Denies sore throat Cardiovascular Cardiovascular: Denies chest pain and Reports dyspnea Respiratory Respiratory: Reports cough and Reports dyspnea Gastrointestinal Gastrointestinal: Denies abdominal pain, Denies nausea and Reports vomiting Genitourinary Genitourinary: Denies dysuria Musculoskeletal Musculoskeletal: Denies back pain and Denies neck pain Integumentary/Breasts Skin/Breast: Denies rash Neurologic Neurologic: Denies headache(s) [facility] Medical History (Updated 08/12/21 @ 09:16 by MIARA Mc) Depression Headache PREMENSTRAL Suicide attempt Surgical History D&E Social History Smoking/Tobacco Use Status: Current every day Tobacco Type: e-cigarettes Smoking risk assessment performed?: Yes Alcohol Intake: never Drug use: Occasionally Substance use type: marijuana Do you feel safe at home: Yes Do you feel safe in your relationship?: Yes Female Reproductive History Menstrual control method: none and implanted History History 2 Para 1 Hx # Term Pregnancies Multiple births Hx # Pregnancies Ectopic pregnancies AB induced Hx Number of Living Children AB spontaneous Exam Const General: cooperative, healthy appearing, comfortable and no acute distress Orientation: alert and awake [facility] Head: normal to inspection, normocephalic and atraumatic Ears: external ears normal, TM's normal bilaterally and EAC's normal General nose exam: external nose normal and nasal discharge clear Face and sinus: normal facial exam Mouth: oral mucosae normal and moist mucous membranes Teeth and gingiva: dentition normal Throat: posterior oropharynx normal Eyes General: appearance normal, both eyes and all related structures Conjunctivae: conjunctivae normal Neck Neck: normal visual inspection, full ROM, no meningeal signs, trachea midline and supple Resp Effort & Inspection: normal respiratory effort, able to speak in complete sentences and cough Quality of cough: dry (mild) Auscultation: wheezes (Rare, scattered throughout. Primarily clear with coughing) Cardio Rate: regular rate Rhythm: regular rhythm Skin General skin exam: no rashes or lesions noted Neuro General: patient alert, patient awake, moves all extremities and no focal motor deficits Cognition: normal cognition Speech: speech normal Gait: normal gait Sensory Exam: no sensory deficits noted Extrem General: normal to inspection, full ROM, no pedal edema and no calf tenderness Psych Appearance: grossly normal Mental Status: mental status grossly normal
--- NOTE | 2021-08-12 08:15 | DI.RAD_ITS ---
Exam(s) XR PORTABLE CHEST AP EXAM: XR PORTABLE CHEST AP CLINICAL HISTORY: cough TECHNIQUE: 2D digital imaging was performed of the chest. One image was obtained. An AP view was ob tained. COMPARISON: CR,XR XR PORTABLE CHEST AP from 05/16/2021 FINDINGS: MEDIASTINUM: Normal. HEART: Normal. PULMONARY VASCULATURE: Normal. LUNGS: Clear. PLEURAL SPACE: No pleural effusion or pneumothorax. BONE:Within normal limits for the patient's age. OTHER FINDINGS:Normal. IMPRESSION: No acute pulmonary findings. DATA REPOSITORY: RADIATION DOSE DELIVERED:
[2021-08-13 11:31] LABS: COVID-19 RT-PCR UVMMC Result Negative (Negative)
== END 2021-08-12 10:22 | disposition home or self-care (01) ==
PROVIDERS: Emergency Provider Physician Assistant; PCP Physician Assistant
DX: J20.9 Acute bronchitis, unspecified (principal); F17.290 Nicotine dependence, other tobacco product, uncomplicated; Z20.822 Contact with and (suspected) exposure to COVID-19
CPT/HCPCS: 99283; U0003; 71045

== ENCOUNTER 2021-10-14 16:38 | Outpatient (REF) | payer MEDICAID, SELFPAY ==
[2021-10-16 11:22] LABS: COVID-19 RT-PCR UVMMC Result Negative (Negative)
== END 2021-10-14 16:39 | disposition home or self-care (01) ==
LOC: LBN 16:38
PROVIDERS: PCP Physician Assistant; Visit Provider Nurse Practitioner Family
DX: Z20.822 Contact with and (suspected) exposure to COVID-19 (principal); R06.02 Shortness of breath
CPT/HCPCS: U0003

== ENCOUNTER 2021-12-01 17:52 | Emergency (ER) | payer MEDICAID, SELFPAY ==
[2021-12-01] VITALS (34 sets, daily range): BP systolic 101–119; BP diastolic 48–103; PULSE 86–148; RESP 9–40; TEMP 36.7–37.1; O2SAT 88–100
--- NOTE | 2021-12-01 18:30 | DI.RAD_ITS ---
Exam(s) XR PORTABLE CHEST AP EXAM: XR PORTABLE CHEST AP CLINICAL HISTORY: cough, shortness of breath. TECHNIQUE: 2D digital imaging was performed. COMPARISON: CR XR PORTABLE CHEST AP from 08/12/2021 FINDINGS: Heart size is upper normal. The mediastinum is not widened. Lungs are clear. No infiltrates nor obvious pleural effusions. IMPRESSION: No acute pulmonary findings on this single AP portable view of the chest. DATA REPOSITORY: RADIATION DOSE DELIVERED: All CT scans at this facility use at least one of these dose optimization techniques: automated exposure control; mA and/or kV adjustment per patient size (includes targeted e xams where dose is matched to clinical indication); or iterative reconstruction.
[2021-12-01] MEDS: predniSONE 20 MG TAB 40 MG PO (18:44)
[2021-12-01] MEDS: Albuterol/Ipratropium 3 ML UPD VIAL ×2 (18:44→18:45)
--- NOTE | 2021-12-01 18:48 | NUR.NOTE ---
Nursing Note: Pt finished nebulizer treatments, states feels much better, O2 sat 96% RA, Lung sounds - slight wheeze t/o, provider aware.
--- NOTE | 2021-12-01 19:03 | NUR.NOTE ---
Nursing Note: technician support [employer] to room for portable CXR.
--- NOTE | 2021-12-01 19:25 | DI.VRAD_ITS ---
PROCEDURE INFORMATION: Exam: XR Chest Exam date and time: 12/01/2021 6:34 PM Age: 21 years old Clinical indication: Other: Cough, shortness of breath TECHNIQUE: Imaging protocol: XR of the chest. Views: 1 view. COMPARISON: CR XR PORTABLE CHEST AP 08/12/2021 8:54 AM FINDINGS: Lungs: The lungs are clear. There is no pulmonary vascular congestion. Pleural spaces: There are no pleural effusions present. There is no evidence of pneumothorax. Heart/Mediastinum: The cardiomediastinal silhouette is within normal limits. Bones/joints: There may be minimal broad-based lower thoracic dextroscoliosis. IMPRESSION: No active cardiopulmonary disease identified. Dictated and Authenticated by: Alexys Carey MD. Ordering:CHRIST Colmenares MD
[2021-12-01] MEDS: Albuterol 2.5 MG/3 ML INH SOLN VIAL UPD (19:55)
[2021-12-01] MEDS: Ondansetron O.D.T. 4 MG TABEF PO (19:55)
--- NOTE | 2021-12-01 20:05 | W.ED.GENAD ---
Discharge Plan Disposition Patient Disposition: HOME Condition: Good Discharge Details Clinical Impression: Asthma, Bronchitis Primary Care Provider: Kalpesh Gusman ED Provider: Dedra Liu Home Meds and New Rx's Prescriptions: New prednisone 20 mg tablet 40 mg PO DAILY Qty: 10 RF: 0 Flovent Diskus 50 mcg/actuation blister with device 1 inh inhalation BID Qty: 60 RF: 0 albuterol sulfate 90 mcg/actuation HFA aerosol inhaler 1 inh inhalation ONCE Qty: 6.7 RF: 0 Continued Nexplanon 68 mg implant 1 implant SBD ONCE Qty: 1 RF: 0 albuterol sulfate 90 mcg/actuation aerosol powdr breath activated 2 inh IH Q6H PRN (Reason: shortness of breath or wheezing) Qty: 1 RF: 0 loratadine-pseudoephedrine [Claritin-D 24 Hour] 10-240 mg tablet extended release 24 hr 1 tab PO DAILY Qty: 14 RF: 0 Discharge Instructions Instructions: Asthma (ED), Acute Bronchitis (ED) Additional Instructions: Use the inhaler, 2 puffs with spacer every 4-6 hours Take the prednisone, you received a dose this evening, take your next dose tomorrow Increase fluid hydration I have written you for another albuterol inhaler should you need it Follow-up with the musical instrument mechanic listed below and your primary care physician Start taking the Flovent after you complete the prednisone Please return immediately should you have new or worsening complaints 48-hour recheck recommended Stand Alone Forms: PENDING COVID-19 TESTING, Work Release Referrals: Kiley Latham MD [ [facility] STAFF PHYSICIAN] - Discharge Data Discharge Date/Time-TO BE ENTERED AT DEPARTURE: 12/01/21 22:14 Medical Decision Making Patient appears well, but she is in mild respiratory distress Her heart rate initially is 97 Her oxygen saturation is 88% on room air She has inspiratory and expiratory wheezes and is mildly tachypneic She states that she actually feels better than when she presented previously for these episodes She has used her albuterol on several occasions this evening without alleviation in her symptoms. Patient was given 2 DuoNeb treatment and 1 additional albuterol treatment She has notably tachycardic after administration of duo nebs and albuterol, ~140s, she would not tachycardic and my suspicions for DVT is quite low as I suspect this was medication induced Covid swab is pending at this time I observe patient for approximately 3 and half hours as her disposition was not initially straightforward, however she is feeling marked improvement, her ambulatory saturation is 92% and she is requesting discharge home She does have family is able to observe and she will return immediately should she have new or worsening complaints He did think she will respond well to steroid, and placed on several days of steroids Given her current symptoms and a 21-year-old female, I do think she needs follow-up with pulmonology, and will place her on a Flovent inhaler after she has completed the prednisone for her keep her I will also give her another rescue inhaler with spacer, she is instructed on how to use spacer She will return immediately should she have new or worsening complaints She will use her albuterol inhaler, 2 puffs every 4 6 hours with spacer, she will use her prednisone taper I see no evidence of pneumonia or indication for antibiotics at this time Long discussion regarding need for smoking cessation performed HPI General Mode of arrival: ambulatory. Date/Time Provider Initiated Documentation: 12/01/21 18:05. Limitations to Documentation: no limitations. Information obtained by: patient. HPI Narrative: This 21-year-old female with history of bronchitis, tobacco dependence presents with report of cough and shortness of breath with wheezing, started 4 days prior to arrival. Denies any known sick contacts. Covid vaccinated and boosters. Denies fever or chills. Denies any hemoptysis. Has been using an inhaler at home without spacer. Denies prior history of coagulopathy. Denies any associated pleuritic chest pain. States her symptom presentation is similar to her prior episodes of bronchitis and feels as though she has these episodes every 3 months. 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 She states that she has been using her mother's albuterol inhaler. Denies recent flights, surgeries, long drives. Denies any pain or swelling. Related Data Home Medications Medication Instructions Recorded Confirmed etonogestrel 68 mg subdermal 1 implant SBD ONCE #1 each 11/02/18 12/01/21 implant albuterol sulfate 2 inh IH Q6H PRN #1 each 04/08/21 12/01/21 loratadine-pseudoephedrine 1 tab PO DAILY #14 tab 05/16/21 12/01/21 [Claritin-D 24 Hour] albuterol sulfate 1 inh INHALATION ONCE #6.7 g 12/01/21 fluticasone propionate [Flovent 1 inh INHALATION BID #60 ea 12/01/21 Diskus] prednisone 40 mg PO DAILY #10 tab 12/01/21 Previous Rx's Medication Instructions Recorded etonogestrel 68 mg subdermal 1 implant SBD ONCE #1 each 11/02/18 implant albuterol sulfate 2 inh IH Q6H PRN #1 each 04/08/21 loratadine-pseudoephedrine 1 tab PO DAILY #14 tab 05/16/21 [Claritin-D 24 Hour] albuterol sulfate 1 inh INHALATION ONCE #6.7 g 12/01/21 fluticasone propionate [Flovent 1 inh INHALATION BID #60 ea 12/01/21 Diskus] prednisone 40 mg PO DAILY #10 tab 12/01/21 Allergies Allergy/AdvReac Type Severity Reaction Status Date / Time No Known Allergies Allergy Unverified 12/01/21 18:08 General Stated Complaint: RespSymp SHEEBA: 3 Review of Systems All systems reviewed & are unremarkable except as noted in HPI and below PFSH All Active Problems (Updated 12/01/21 @ 21:55 by MAIRA Rey) Acute bronchitis (Acute) Cough (Acute) Bronchitis (Acute) Asthma (Chronic) Bronchitis (Acute) Tonsillitis (Acute) Strep pharyngitis (Acute) High risk sexual behavior in adolescent (Acute) Routine medical exam (Acute 01/07/14) Ureteral stone (Acute 04/09/16) Supervision of normal first (Acute 06/26/15) Psychosocial stressors (Acute 01/17/17) Primigravida in third trimester (Acute 12/22/15) Positive depression screening (Acute 09/03/14) 15 PUPP (pruritic urticarial papules and plaques of ) (Acute 01/12/16) Migraine headache (Acute 09/24/14) Encounter for visit (Acute 03/25/16) Encounter for management and injection of injectable progestin contraceptive (Acute 10/25/16) Difficulty of mother performing (Acute 10/25/16) Depression (Acute 01/07/14) Academic underachievement (Acute 09/24/14) related back pain in third trimester, antepartum (Acute) Medical History (Updated 12/01/21 @ 21:55 by MAIRA Rey) Depression Headache PREMENSTRAL Suicide attempt Surgical History D&E Social History Smoking/Tobacco Use Status: Current every day Tobacco Type: e-cigarettes Smoking risk assessment performed?: Yes Alcohol Intake: never Drug use: Occasionally Substance use type: marijuana Do you feel safe at home: Yes Do you feel safe in your relationship?: Yes Female Reproductive History Menstrual control method: none and implanted History History 2 Para 1 Hx # Term Pregnancies Multiple births Hx # Pregnancies Ectopic pregnancies AB induced Hx Number of Living Children AB spontaneous Exam Const General: cooperative, comfortable and no acute distress Chest Chest: normal inspection of the chest Resp Effort & Inspection: able to speak in complete sentences and tachypneic Auscultation: diminished lung sounds and wheezes Cardio Rate: regular rate Rhythm: regular rhythm Heart Sounds: no murmurs GI Inspection: normal to inspection Skin General skin exam: no rashes or lesions noted Neuro General: patient alert and patient oriented x3 Extrem Other: No calf swelling or tenderness Course Vital Signs Vital signs: Vital Signs Temperature 36.8 C 12/01/21 18:05 Pulse 97 H 12/01/21 18:05 Respiratory Rate 16 12/01/21 18:05 Blood Pressure 119/103 H 12/01/21 18:05 Pulse Oximetry 88 L 12/01/21 18:05 Temperature 36.8 C 12/01/21 18:05 Temperature Source Temporal Artery Scan 12/01/21 18:05 Pulse 112 H 12/01/21 19:16 Pulse 113 H 12/01/21 19:50 Respiratory Rate 18 12/01/21 19:50 Respiratory Effort Non-Labored 12/01/21 18:08 Respiratory Depth Normal 12/01/21 18:08 Blood Pressure 118/82 12/01/21 19:16 Blood Pressure Mean 88 12/01/21 19:16 Blood Pressure Position Sitting 12/01/21 18:05 Pulse Oximetry 95 12/01/21 19:50 Oxygen Delivery Method Room Air 12/01/21 18:05 Oxygen Flow Rate 0 12/01/21 18:05 Pain Level 8 12/01/21 18:05
[2021-12-03 13:28] LABS: COVID-19 RT-PCR UVMMC Result Negative (Negative)
== END 2021-12-01 22:14 | disposition home or self-care (01) ==
PROVIDERS: Emergency Provider Physician Assistant; PCP Physician Assistant
DX: J45.909 Unspecified asthma, uncomplicated (principal); J20.9 Acute bronchitis, unspecified; R06.03 Acute respiratory distress; R06.82 Tachypnea, not elsewhere classified; R05.1 Acute cough; F17.210 Nicotine dependence, cigarettes, uncomplicated
CPT/HCPCS: 94640; 99283; U0003; 71045; J7512; J7613; J7620

== ENCOUNTER → 2022-03-16 12:32 | Outpatient (CLI) | payer MEDICAID, SELFPAY ==
--- NOTE | 2022-03-16 14:46 | DI.CT_ITS ---
Exam(s) CT ABDOMEN PELVIS WO EXAM: CT ABDOMEN PELVIS WO CLINICAL HISTORY: ABD PAIN R10.9. TECHNIQUE: Imaging Protocol: Axial computed tomography images with coronal and sagittal reformatted images were created and reviewed CONTRAST MATERIAL: Intravenous: none Oral: Yes COMPARISON: CT ABD PELVIS WITH CONTRAST from 04/07/2016 FINDINGS: VISUALIZED LUNG BASES: No nodules nor pleural effusions evident. ABDOMEN: There is no ascites. LIVER: There are no obvious focal hepatic lesions evident of this noninfused study. GALLBLADDER/BILIARY: No obvious gallbladder pathology. CBD is not dilated. PANCREAS: No evidence of pancreatic mass nor dilatation of the pancreatic duct. SPLEEN: Spleen is not enlarged. No obvious intrasplenic lesions. ADRENALS: There are no significant adrenal masses. KIDNEYS:No cysts evident. No solid renal masses. No calculi in left kidney. There is a tiny 2 eddie meter nonobstructive calculi in the right kidney. ABDOMINAL AORTA: Abdominal aorta is not enlarged. LYMPH NODES: There is no retroperitoneal nor paraaortic adenopathy. ABDOMINAL WALL: No evidence of significant anterior abdominal wall nor inguinal hernia. GI: There is no evidence of bowel obstruction, free air, nor abscess. PELVIS: LYMPH NODES: There is no intrapelvic nor inguinal adenopathy. GI: No evidence of appendicitis.No evidence of sigmoid diverticulitis. URINARY BLADDER: No calculi nor obvious masses evident REPRODUCTIVE: Uterus appears unremarkable as does the left adnexa. There is a cyst in the right ovar y which measures 5 by 4 x 4.5 cm. No free fluid. OSSEOUS: No significant osseous lesions. No fractures. IMPRESSION: 1. There is a 5 x 4 cm cyst in the right ovary. No free fluid. Left ovary unremarkable. 2. There is a small 2 millimeter nonobstructive calculus in lower pole of the right kidney. I note t hat this patient had a large obstructive calculus in the lower right ureter as seen on CT scan of Apr. 3. No ascites evident. RADIATION DOSE DELIVERED: 829.8mGy.cm Total DLP DATA REPOSITORY: All CT scans at this facility are submitted to the National Radiology Data Registry (NRDR) Dose Index Registry (DIR) with the [employer] (ACR). RADIATION OPTIMIZATION: All CT scans at this facility use at least one of these dose optimization te chniques: automated exposure control; mA and/or kV adjustment per patient size (includes targeted exa ms where dose is matched to clinical indication); or iterative reconstruction.
[2022-03-16] MEDS: Barium Sulfate 2% W/V-Berry Smoothie 450 ML BTL 400 ML PO (14:57)
== END ==
PROVIDERS: PCP Physician Assistant; Visit Provider Nurse Practitioner Family
DX: R10.9 Unspecified abdominal pain (principal); N20.0 Calculus of kidney; N83.291 Other ovarian cyst, right side
CPT/HCPCS: 74176

== ENCOUNTER 2022-03-16 19:15 | Outpatient (REF) | payer MEDICAID, SELFPAY ==
[2022-03-16 14:16] LABS: Abs Immature Grans 0.03 10^3/uL (0.0-0.06); Absolute Basophil Count 0.07 10^3/uL (0.0-0.2); Absolute Eosinophil Count 0.95 10^3/uL (0.0-0.7); Absolute Monocyte Count 0.81 10^3/uL (0.1-0.8); Absolute Neutrophil Count 6.17 10^3/uL (1.2-6.7); Basophils % 0.7; Eosinophils % 9.2; HCT 42.3 % (36.0-46.0); HGB 14.1 g/dL (11.2-15.7); Immature Grans % 0.3; Lymphocytes % 22.3; MCH 29.8 pg (27.0-33.0); MCHC 33.3 % (32.0-36.0); MCV 89 fL (80-95); MPV 11.5 fL (8.0-11.0); Monocytes % 7.8; Neutrophils % 59.7; Platelet Count 246 10^3/uL (130-400); RBC 4.73 10^6/uL (3.93-5.22); RDW 13.2 % (11.7-14.6); RDW-SD 43.8 fL; WBC 10.33 10^3/uL (4.4-10.8)
[2022-03-16 14:28] LABS: ALT 29 U/L (14-59); AST 20 U/L (15-37); Albumin 4.2 g/dL (3.4-5.0); Alkaline Phosphatase 77 U/L (46-116); Amylase 58 U/L (25-115); Anion Gap 9.9 mmol/L (3-11); BUN 8 mg/dL (7-18); Bilirubin, Total 0.4 mg/dL (0.2-1.0); CO2 24.1 mmol/L (21.0-32.0); CREATININE 0.7 mg/dL (0.55-1.02); Calcium 8.8 mg/dL (8.5-10.1); Chloride 106 mmol/L (98-107); Glucose 78 mg/dL (74-106); Lipase 55 U/L (73-393); Potassium 3.6 mmol/L (3.5-5.1); Sodium 140 mmol/L (136-145); Total Protein 7.4 g/dL (6.4-8.2)
== END 2022-03-16 19:16 | disposition home or self-care (01) ==
LOC: LBN 19:15
PROVIDERS: PCP Physician Assistant; Visit Provider Nurse Practitioner Family
DX: R10.9 Unspecified abdominal pain (principal)
CPT/HCPCS: 80053; 83690; 82150; 85025

== ENCOUNTER → 2022-05-21 00:45 | Outpatient (CLI) | payer MEDICAID, SELFPAY | PROVIDERS: PCP Physician Assistant; Visit Provider Obstetrics & Gynecology ==

== ENCOUNTER 2022-08-22 15:35 | Emergency (ER) | payer MEDICAID, SELFPAY ==
[2022-08-22 15:50] VITALS: BP 119/70; PULSE 76; RESP 16; TEMP 36.9; O2SAT 97
--- NOTE | 2022-08-22 16:51 | ED.GENADUL_ITS ---
Discharge Plan Disposition Patient Disposition: HOME Condition: Stable Discharge Details Clinical Impression: COVID-19 Primary Care Provider: Kalpesh Gusman ED Provider: Dedra Liu Home Meds and New Rx's Prescriptions: New ondansetron HCl 4 mg tablet 4 mg PO Q8H PRN PRN3 Days Qty: 10 0RF dicyclomine 10 mg capsule 10 mg PO TID Qty: 10 0RF Continued Nexplanon 68 mg implant 1 implant SBD ONCE Qty: 1 0RF Rx Instructions: as a single dose sumatriptan [Imitrex] 20 mg/actuation spray,non-aerosol 20 mg intranasal Q2H PRN Rx Instructions: administer into one nostril as a single dose; if 2nd dose needed,administer into other nostril after at least 2 hrs, NTE 2 doses (40 mg) per episode Xulane 150-35 mcg/24 hr patch weekly 1 patch transdermal QWEEK Qty: 3 12RF Rx Instructions: apply once weekly for 3 weeks of a 4-week cycle Flovent Diskus 50 mcg/actuation blister with device 1 inh inhalation BID Qty: 60 0RF albuterol sulfate 90 mcg/actuation HFA aerosol inhaler 1 inh inhalation ONCE Qty: 6.7 0RF Discharge Instructions Instructions: Viral Syndrome (ED) Additional Instructions: Please continue to wear a mask until you are symptom free, even if you have reached the 10-day estephanie Take Zofran as needed for nausea and vomiting Take Bentyl as needed for pain You may also try taking Tums to see if it helps your symptoms Follow-up with your doctor if pain persistent greater than 7 days Return earlier should you have new or worsening complaints Stand Alone Forms: Work Release Discharge Data Discharge Date/Time-TO BE ENTERED AT DEPARTURE: 08/22/22 17:12 Medical Decision Making Patient has COVID, she is aware that her illness along its course She is supplied with a work note and isolation precautions She appears well sounds, she has mild abdominal tenderness, she will take Zofran as needed for nausea and vomiting She had return precautions reviewed and expressed understanding HPI General Date/Time Provider Initiated Documentation: 08/22/22 16:27 . HPI Narrative: This 22-year-old female presents with upper respiratory symptoms, cough, nausea and vomiting for the past 7 days. She was diagnosed with COVID today. Today history of asthma but is on day 7 of her illness. Denies any pelvic pain or vaginal bleeding. She also is complaining of some intermittent epigastric pain. Denies pain at this time. Vaccinated for COVID Related Data Home Medications Medication Instructions Recorded Confirmed etonogestrel 68 mg subdermal 1 implant subdermal ONCE #1 ea 11/02/18 03/23/22 implant (Nexplanon) albuterol sulfate 90 mcg/actuation 1 inh inhalation ONCE #6.7 grams 12/01/21 03/23/22 aerosol inhaler fluticasone propionate 50 1 inh inhalation BID #60 ea 12/01/21 03/23/22 mcg/actuation blister powder for inhalation (Flovent Diskus) norelgestromin 150 mcg-e.estradiol 1 patch transdermal QWEEK #3 ea 03/23/22 03/23/22 35 mcg/24 hr weekly transderm patch (Xulane) sumatriptan 20 mg/actuation nasal 20 mg intranasal Q2H PRN 03/23/22 03/23/22 spray (Imitrex) dicyclomine 10 mg capsule 10 mg PO TID #10 caps 08/22/22 ondansetron HCl 4 mg tablet 4 mg PO Q8H PRN PRN 3 days #10 tabs 08/22/22 Previous Rx's Medication Instructions Recorded etonogestrel 68 mg subdermal 1 implant subdermal ONCE #1 ea 11/02/18 implant (Nexplanon) albuterol sulfate 90 mcg/actuation 1 inh inhalation ONCE #6.7 grams 12/01/21 aerosol inhaler fluticasone propionate 50 1 inh inhalation BID #60 ea 12/01/21 mcg/actuation blister powder for inhalation (Flovent Diskus) norelgestromin 150 mcg-e.estradiol 1 patch transdermal QWEEK #3 ea 03/23/22 35 mcg/24 hr weekly transderm patch (Xulane) dicyclomine 10 mg capsule 10 mg PO TID #10 caps 08/22/22 ondansetron HCl 4 mg tablet 4 mg PO Q8H PRN PRN 3 days #10 tabs 08/22/22 Allergies Allergy/AdvReac Type Severity Reaction Status Date / Time No Known Allergies Allergy Unverified 03/23/22 09:46 General Stated Complaint: GenMedical SHEEBA: 3 Review of Systems All systems reviewed & are unremarkable except as noted in HPI and below PFSH All Active Problems (Updated 08/22/22 @ 16:55 by MAIRA Rey) COVID-19 (Acute) IBS (irritable bowel syndrome) (Chronic) Pelvic pain (Acute) Right ovarian cyst (Acute) Ureteral stone (Acute 04/09/16) Medical History (Updated 08/22/22 @ 16:55 by MAIRA Rey) Bronchitis Cough Depression (01/07/14) Migraine headache (09/24/14) Psychosocial stressors (01/17/17) Suicide attempt Tonsillitis Surgical History D&E Social History (Updated 03/23/22 @ 10:08 by Gabi Rausch) Smoking/Tobacco Use Status: Current every day Tobacco Type: e-cigarettes Smoking risk assessment performed?: Yes Alcohol Intake: current Alcohol Intake frequency: holidays/special occasions only Drug use: Daily Substance use type: marijuana Household members: family Number of Children: 1 current occupation: [employer] Sexually active: Yes Do you think of yourself as: straight/heterosexual Current gender identity: female What type of physical activity do you participate in: none Do you feel safe at home: Yes Do you feel safe in your relationship?: Yes Female Reproductive History Menstrual Age of Menarche: 10 Duration of menses: >10 days control method: none and implanted History History 2 Para 1 Hx # Term Pregnancies Multiple births Hx # Pregnancies Ectopic pregnancies AB induced Hx Number of Living Children AB spontaneous Past Pregnancies Del. Date GA/Weeks # Preg Succ Route Wgt Sex Labor Lgth Anesth esia Location [facility] 02/12/16 40 No vaginal 4082.331 g Male [facility] Delivery Date: 02/12/16 Last Updated by: Gabi Marinoett Exam Const General: cooperative, comfortable and no acute distress HENMT Mouth: oral mucosae normal Eyes Sclera: sclerae normal Resp Effort & Inspection: normal respiratory effort Auscultation: clear to auscultation bilaterally Cardio Rate: regular rate Rhythm: regular rhythm Skin General skin exam: no rashes or lesions noted Course Vital Signs Vital signs: Vital Signs Temperature 36.9 C 08/22/22 15:50 Pulse 76 08/22/22 15:50 Respiratory Rate 16 08/22/22 15:50 Blood Pressure 119/70 08/22/22 15:50 Pulse Oximetry 97 08/22/22 15:50 Temperature 36.9 C 08/22/22 15:50 Pulse 76 08/22/22 15:50 Respiratory Rate 16 08/22/22 15:50 Blood Pressure 119/70 08/22/22 15:50 Blood Pressure Position Sitting 08/22/22 15:50 Pulse Oximetry 97 08/22/22 15:50 Oxygen Delivery Method Room Air 08/22/22 15:50 Oxygen Flow Rate 0 08/22/22 15:50
[2022-08-22 16:54] VITALS: RESP 17
== END 2022-08-22 17:12 | disposition home or self-care (01) ==
PROVIDERS: Emergency Provider Physician Assistant; PCP Physician Assistant
DX: U07.1 COVID-19 (principal); F17.290 Nicotine dependence, other tobacco product, uncomplicated
CPT/HCPCS: 81025; 99283; 99284

== ENCOUNTER 2022-09-22 07:45 | Emergency (ER) | payer MEDICAID, SELFPAY ==
[2022-09-22 07:57] VITALS: BP 118/71; PULSE 75; RESP 18; TEMP 36.5; O2SAT 99
--- NOTE | 2022-09-22 08:33 | W.ED.GENAD ---
Discharge Plan Disposition Patient Disposition: Home Condition: Stable Discharge Details Clinical Impression: Vaginal bleeding Primary Care Provider: Kalpesh Gusman ED Provider: Rk Munroe Home Meds and New Rx's Prescriptions: Continued sumatriptan [Imitrex] 20 mg/actuation spray,non-aerosol 20 mg intranasal Q2H PRN Rx Instructions: administer into one nostril as a single dose; if 2nd dose needed,administer into other nostril after at least 2 hrs, NTE 2 doses (40 mg) per episode Flovent Diskus 50 mcg/actuation blister with device 1 inh inhalation BID Qty: 60 0RF albuterol sulfate 90 mcg/actuation HFA aerosol inhaler 1 inh inhalation ONCE Qty: 6.7 0RF dicyclomine 10 mg capsule 10 mg PO TID Qty: 10 0RF Discharge Instructions Instructions: Abnormal (Dysfunctional) Uterine Bleeding (ED) Additional Instructions: Laboratory values at this time reveal no obvious emergent process. [id number] anti-inflammatory medication as directed. Please watch for new or worsening symptoms and return to the ER for any concerns. I strongly recommend that you contact your women's health team later today to discuss your ER visit, ongoing symptoms, and need for outpatient reevaluation. Medical Decision Making This is a 22-year-old female, past medical history of IBS, right-sided ovarian cyst, chronic back pain, presenting to the ER reporting that her menstrual cycle began yesterday which was an appropriate time, although has been heavier bleeding than usual associated with some cramping, slightly worse on the right side. Patient states that she has had something like this in the past, diagnosed with a right ovarian cyst and was scheduled to have an outpatient ultrasound and follow-up with [employer] but life got busy. Today she wonders if the ovarian cyst may have gotten slightly larger. She denies recent illness or trauma, other signs of easy bleeding. She has not taken any medications for her symptoms. Patient states that previously she had an IUD and had a control implant in her arm but that was removed at a minimum of several months ago. She reports that she is sexually active with 1 partner, no risk of STDs. Clinically she appears well, nontoxic, abdomen soft, nontender, certainly nonsurgical, vital signs are hemodynamically stable. Based upon her overall presentation, extremely low suspicion for acute anemia, vaginal hemorrhage, ectopic , ovarian torsion, etc. Plan is to obtain routine screening laboratory values including CBC, CMP, urinalysis and test. If unremarkable will provide IV Toradol, recommend she contact her [employer] team to discuss her history of ovarian cyst, irregular bleeding, and need for outpatient follow-up. At this time given that she is hemodynamically stable, labs are unremarkable, abdomen is soft, nontender, I see no clear indication for emergent ultrasound here in the ER. Patient later tells me that her primary concern today is the amount of blood that she is losing, has a history of anemia, and is concerned of this. She was once again reassured that she appears hemodynamically stable. Discussed benign work-up with patient. Laboratory values are unremarkable for any obvious emergent process, no evidence of anemia. She received 30 IV Toradol. Standard discharge and return precautions were provided. Patient understands, is agreeable to this plan, and has no additional questions or concerns upon discharge. This documentation was generated using [employer]master dictation system, please disregard any oddities of phrase or misspellings. Medical Records Medical records reviewed: Yes I reviewed the patient's medical records. Lab Data Lab results reviewed: Yes I reviewed the patient's lab results. Labs: Laboratory Tests Range/Units 09/22/22 09/22/22 09/22/22 08:35 08:43 08:43 WBC (4.4-10.8) 10^3/uL 7.66 RBC (3.93-5.22) 10^6/uL 4.56 Hgb (11.2-15.7) g/dL 13.9 Hct (36.0-46.0) % 41.2 MCV (80-95) fL 90 MCH (27.0-33.0) pg 30.5 MCHC (32.0-36.0) % 33.7 RDW (11.7-14.6) % 13.4 Plt Count (130-400) 10^3/uL 267 MPV (8.0-11.0) fL 10.2 Immature Gran % 0.1 Neutrophils % 40.6 Lymphocytes % 39.2 Monocytes % 7.2 Eosinophils % 11.7 Basophils % 1.2 Nucleated RBC % (0.0-0.3) % 0.0 Absolute Neutrophils (1.2-6.7) 10^3/uL 3.11 Absolute Lymphocytes (1.2-3.4) 10^3/uL 3.00 Absolute Monocytes (0.1-0.8) 10^3/uL 0.55 Absolute Eosinophils (0.0-0.7) 10^3/uL 0.90 H Absolute Basophils (0.0-0.2) 10^3/uL 0.09 Sodium (136-145) mmol/L 143 Potassium (3.5-5.1) mmol/L 3.7 Chloride (98-107) mmol/L 106 Carbon Dioxide (21.0-32.0) mmol/L 28.1 Anion Gap (3-11) mmol/L 8.9 BUN (7-18) mg/dL 14 Creatinine (0.55-1.02) mg/dL 0.8 Est GFR (CKD-EPI 2020) (mL/min/1.73m2) 106.77 Glucose (74-106) mg/dL 83 Calcium (8.5-10.1) mg/dL 8.9 Total Bilirubin (0.2-1.0) mg/dL 0.2 AST (15-37) U/L 13 L ALT (14-59) U/L 19 Alkaline Phosphatase (46-116) U/L 71 Total Protein (6.4-8.2) g/dL 7.4 Albumin (3.4-5.0) g/dL 3.9 Urine Color (Yellow) Yellow Urine Clarity (Clear) Clear Urine pH (5-8) 7.0 Ur Specific [place] (1.005-1.025) >= 1.030 H Urine Protein (Negative) mg/dL Negative Urine Ketones (Negative) mg/dL Negative Urine Blood (Negative) Small H Urine Nitrite (Negative) Negative Urine Bilirubin (Negative) Negative Urine Urobilinogen (Up TO 0.2) EU/dL 0.2 Ur Leukocyte Esterase (Negative) Negative Urine RBC (0-2) HPF 3-5 H Urine WBC (0-5) HPF Negative Ur Epithelial Cells (Negative) HPF Few Urine Crystals (Negative) HPF Negative Urine Bacteria (Negative) HPF Negative Urine Casts (Negative) LPF Negative Urine Mucus (Negative) Trace Ur Culture Indicated? No Urine Glucose (Negative) mg/dL Negative Sign Out No HPI General Mode of arrival: ambulatory. Date/Time Provider Initiated Documentation: 09/22/22 08:04. Limitations to Documentation: no limitations. Information obtained by: patient and family. History of Present Illness 22 year old F presents to the emergency department with the chief complaint of Lower abdominal pain, vaginal bleeding, described as moderate, with intensity rated at 4. Quality is described as aching, and is localized to the abdomen and pelvis. Patient reports no radiation. Patient started experiencing this day(s) (1) and it has been intermittent. No relieving factors improve symptom(s), No exacerbating factors reported . Patient notes nausea/vomiting (Nausea, no vomiting). Patient did receive the following treatments prior to arrival, none Related Data Home Medications Medication Instructions Recorded Confirmed albuterol sulfate 90 mcg/actuation 1 inh inhalation ONCE #6.7 grams 12/01/21 09/22/22 aerosol inhaler fluticasone propionate 50 1 inh inhalation BID #60 ea 12/01/21 09/22/22 mcg/actuation blister powder for inhalation (Flovent Diskus) sumatriptan 20 mg/actuation nasal 20 mg intranasal Q2H PRN 03/23/22 09/22/22 spray (Imitrex) dicyclomine 10 mg capsule 10 mg PO TID #10 caps 08/22/22 09/22/22 Previous Rx's Medication Instructions Recorded albuterol sulfate 90 mcg/actuation 1 inh inhalation ONCE #6.7 grams 12/01/21 aerosol inhaler fluticasone propionate 50 1 inh inhalation BID #60 ea 12/01/21 mcg/actuation blister powder for inhalation (Flovent Diskus) dicyclomine 10 mg capsule 10 mg PO TID #10 caps 08/22/22 Allergies Allergy/AdvReac Type Severity Reaction Status Date / Time No Known Allergies Allergy Unverified 09/22/22 08:03 General Stated Complaint: [employer] SHEEBA: 3 Review of Systems Constitutional Constitutional: Denies fever(s) and Denies weakness Cardiovascular Cardiovascular: Denies chest pain and Denies dyspnea Respiratory Respiratory: Denies dyspnea Gastrointestinal Gastrointestinal: Reports abdominal pain, Denies melena, Denies hematochezia, Reports diarrhea (Chronic) and Denies vomiting Genitourinary Genitourinary: Reports abnormal vaginal bleeding, Denies dysuria and Denies vaginal discharge Musculoskeletal Musculoskeletal: Reports back pain (Chronic) Integumentary/Breasts Skin/Breast: Denies rash Neurologic Neurologic: Denies weakness Hematologic/Lymphatic Hematologic/Lymphatic: Denies easy bleeding and Denies easy bruising PFSH All Active Problems (Updated 09/22/22 @ 09:06 by MAIRA Mc) COVID-19 (Acute) Vaginal bleeding (Acute) IBS (irritable bowel syndrome) (Chronic) Pelvic pain (Acute) Right ovarian cyst (Acute) Ureteral stone (Acute 04/09/16) Medical History Bronchitis Cough Depression (01/07/14) Migraine headache (09/24/14) Psychosocial stressors (01/17/17) Suicide attempt Tonsillitis Surgical History D&E Social History Smoking/Tobacco Use Status: Current every day Tobacco Type: e-cigarettes Smoking risk assessment performed?: Yes Alcohol Intake: current Alcohol Intake frequency: holidays/special occasions only Drug use: Daily Substance use type: marijuana Household members: family Number of Children: 1 current occupation: [employer] Sexually active: Yes Do you think of yourself as: straight/heterosexual Current gender identity: female What type of physical activity do you participate in: none Do you feel safe at home: Yes Do you feel safe in your relationship?: Yes Female Reproductive History Menstrual Age of Menarche: 10 Duration of menses: >10 days control method: none and implanted History History 2 Para 1 Hx # Term Pregnancies Multiple births Hx # Pregnancies Ectopic pregnancies AB induced Hx Number of Living Children AB spontaneous Past Pregnancies Del. Date GA/Weeks # Preg Succ Route Wgt Sex Labor Lgth Anesthesia Location Prov [facility] 02/12/16 40 No vaginal 4082.331 g Male [facility] Delivery Date: 02/12/16 Last Updated by: Gabi Salgado Exam Const General: cooperative, healthy appearing, comfortable and no acute distress Orientation: alert and awake HENMT Head: normal to inspection, normocephalic and atraumatic Face and sinus: normal facial exam Mouth: moist mucous membranes Eyes General: appearance normal, both eyes and all related structures Conjunctivae: conjunctivae normal Neck Neck: normal visual inspection, full ROM, trachea midline and supple Resp Effort & Inspection: normal respiratory effort and able to speak in complete sentences Auscultation: clear to auscultation bilaterally Cardio Rate: regular rate Rhythm: regular rhythm GI Inspection: normal to inspection Palpation: soft, not firm, no guarding, no pulsatile masses and nontender Auscultation: normal bowel sounds General: deferred Back/Spine/Pelvis Back: no CVA tenderness and No back tenderness Skin General skin exam: no rashes or lesions noted Neuro General: patient alert, patient awake, moves all extremities and no focal motor deficits Cognition: normal cognition Speech: speech normal Gait: normal gait Sensory Exam: no sensory deficits noted Psych Appearance: grossly normal Mental Status: mental status grossly normal Course Vital Signs Vital signs: Vital Signs Temperature 36.5 C 09/22/22 07:57 Pulse 75 09/22/22 07:57 Respiratory Rate 18 09/22/22 07:57 Blood Pressure 118/71 09/22/22 07:57 Pulse Oximetry 99 09/22/22 07:57 Temperature 36.5 C 09/22/22 07:57 Temperature Source Temporal Artery Scan 09/22/22 07:57 Pulse 75 09/22/22 07:57 Respiratory Rate 18 09/22/22 07:57 Respiratory Effort Non-Labored 09/22/22 08:01 Blood Pressure 118/71 09/22/22 07:57 Blood Pressure Position Sitting 09/22/22 07:57 Pulse Oximetry 99 09/22/22 07:57 Oxygen Delivery Method Room Air 09/22/22 07:57 Oxygen Flow Rate 0 09/22/22 07:57 Pain Level 7 09/22/22 08:04
[2022-09-22 08:47] LABS: Bilirubin Negative (Negative); Blood Small (Negative); Clarity Clear (Clear); Glucose Negative (Negative); Ketones Negative (Negative); Leukocyte Esterase Negative (Negative); Nitrite Negative (Negative); Specific Gravity >= 1.030 (1.005-1.025); Urobilinogen 0.2 EU/dL (Up TO 0.2)
[2022-09-22 08:50] LABS: Abs Immature Grans 0.01 10^3/uL (0.0-0.06); Absolute Basophil Count 0.09 10^3/uL (0.0-0.2); Absolute Monocyte Count 0.55 10^3/uL (0.1-0.8); Absolute Neutrophil Count 3.11 10^3/uL (1.2-6.7); Basophils % 1.2; Eosinophils % 11.7; HCT 41.2 % (36.0-46.0); HGB 13.9 g/dL (11.2-15.7); Immature Grans % 0.1; Lymphocytes % 39.2; MCH 30.5 pg (27.0-33.0); MCHC 33.7 % (32.0-36.0); MCV 90 fL (80-95); MPV 10.2 fL (8.0-11.0); Monocytes % 7.2; Neutrophils % 40.6; Platelet Count 267 10^3/uL (130-400); RBC 4.56 10^6/uL (3.93-5.22); RDW 13.4 % (11.7-14.6); RDW-SD 44.6 fL; WBC 7.66 10^3/uL (4.4-10.8)
[2022-09-22 08:53] LABS: Bacteria Negative HPF (Negative); C & S Indicated? No; Casts Negative LPF (Negative); Crystals Negative HPF (Negative); Epithelial Cells Few HPF (Negative); Mucus Trace (Negative); WBC Negative HPF (0-5)
[2022-09-22] MEDS: Ketorolac 30 MG/ML VIAL IVP (09:05)
[2022-09-22 09:13] LABS: ALT 19 U/L (14-59); AST 13 U/L (15-37); Albumin 3.9 g/dL (3.4-5.0); Alkaline Phosphatase 71 U/L (46-116); Anion Gap 8.9 mmol/L (3-11); BUN 14 mg/dL (7-18); Bilirubin, Total 0.2 mg/dL (0.2-1.0); CO2 28.1 mmol/L (21.0-32.0); CREATININE 0.8 mg/dL (0.55-1.02); Calcium 8.9 mg/dL (8.5-10.1); Chloride 106 mmol/L (98-107); Estimated GFR 106.77 (mL/min/1.73m2); Glucose 83 mg/dL (74-106); Potassium 3.7 mmol/L (3.5-5.1); Sodium 143 mmol/L (136-145); Total Protein 7.4 g/dL (6.4-8.2)
== END 2022-09-22 09:37 | disposition home or self-care (01) ==
PROVIDERS: Emergency Provider Physician Assistant; PCP Physician Assistant
DX: N92.0 Excessive and frequent menstruation with regular cycle (principal); R10.9 Unspecified abdominal pain
CPT/HCPCS: 36415; 80053; 81025; 96374; 99284; 81003; 81015; 85025; 99283; J1885

== ENCOUNTER 2022-11-24 06:45 | Emergency (ER) | payer MEDICAID, SELFPAY ==
[2022-11-24 06:47] VITALS: BP 153/101; PULSE 86; RESP 20; TEMP 36.7; O2SAT 98
--- NOTE | 2022-11-24 07:30 | DI.RAD_ITS ---
Exam(s) XR PORTABLE CHEST AP EXAM: XR PORTABLE CHEST AP CLINICAL HISTORY: cough. TECHNIQUE: 2D digital imaging was performed. COMPARISON: CR,XR XR PORTABLE CHEST AP from 12/01/2021 FINDINGS: Single AP portable view. Heart size is upper normal. The mediastinum is not widened. Lungs are clear. No infiltrates nor obvious pleural effusions. IMPRESSION: No acute pulmonary findings on this single AP portable view of the chest. DATA REPOSITORY: RADIATION DOSE DELIVERED:
--- NOTE | 2022-11-24 07:36 | ED.GENADUL_ITS ---
Discharge Plan Disposition Patient Disposition: Home Condition: Stable Discharge Details Clinical Impression: Asthma exacerbation, Cough Primary Care Provider: Kalpesh Gusman ED Provider: Selvin Wilson Home Meds and New Rx's Prescriptions: New prednisone 20 mg tablet 60 mg PO DAILY 4 Days Qty: 12 0RF Continued sumatriptan [Imitrex] 20 mg/actuation spray,non-aerosol 20 mg intranasal Q2H PRN Rx Instructions: administer into one nostril as a single dose; if 2nd dose needed,administer into other nostril after at least 2 hrs, NTE 2 doses (40 mg) per episode Flovent Diskus 50 mcg/actuation blister with device 1 inh inhalation BID Qty: 60 0RF albuterol sulfate 90 mcg/actuation HFA aerosol inhaler 1 inh inhalation ONCE Qty: 6.7 0RF dicyclomine 10 mg capsule 10 mg PO TID Qty: 10 0RF Discharge Instructions Instructions: Asthma (ED) Additional Instructions: IF you still have symptoms Tuesday follow up with your primary care provider if you feel more ill, have worsening shortness of breath return to the emergency department Medical Decision Making 22 yo female with hx of asthma, ibs, who comes in with 2 days of feeling wheezing and shortness of breath and intermittent cough. no fevers, chills, chest pain/pressure, leg swelling. She used her inhaler without significant relief so came here. She arrives stable speaking in full sentences in no distress. No jvd, no leg swelling, no calf tenderness. She has diffuse wheezing in both lung torres, no murmurs. Given history and exam suspect asthma exacerba tion in the setting of a viral uri, will treat with duoneb, prednisone, and obtain xray and poc covid/flu. She has no findings on exam or history to suggest chf, acs. She is wells low and perc negative so doubt PE as well pt feels better, only has mild apical wheezing bilaterally now, xray unremarkable and poc covid/flu negative. She is stable for d/c, advised to f/u with pcp, return precautions given Differential Diagnosis Differential Diagnosis: uri, asthma exacerbation, pneumonia Imaging Data Radiologic Study: Attestation: I personally reviewed and interpreted this imaging study as follows: Imaging: X-Ray My impression: no acute findings Lab Data Lab results reviewed: Yes I reviewed the patient's lab results. HPI General Mode of arrival: ambulatory . Date/Time Provider Initiated Documentation: 11/24/22 06:46 . Limitations to Documentation: no limitations . Information obtained by: patient . History of Present Illness 22 year old F presents to the emergency department with the chief complaint of wheezing, described as moderate, Patient started experiencing this day(s) (2) and it has been constant. No relieving factors improve symptom(s), No exacerbating factors reported . Patient notes cough; denies chest pain and fever/chills. Patient did receive the following treatments prior to arrival, none Related Data Home Medications Medication Instructions Recorded Confirmed albuterol sulfate 90 mcg/actuation 1 inh inhalation ONCE #6.7 grams 12/01/21 11/24/22 aerosol inhaler fluticasone propionate 50 1 inh inhalation BID #60 ea 12/01/21 11/24/22 mcg/actuation blister powder for inhalation (Flovent Diskus) sumatriptan 20 mg/actuation nasal 20 mg intranasal Q2H PRN 03/23/22 11/24/22 spray (Imitrex) dicyclomine 10 mg capsule 10 mg PO TID #10 caps 08/22/22 11/24/22 prednisone 20 mg tablet 60 mg PO DAILY 4 days #12 tabs 11/24/22 Previous Rx's Medication Instructions Recorded albuterol sulfate 90 mcg/actuation 1 inh inhalation ONCE #6.7 grams 12/01/21 aerosol inhaler fluticasone propionate 50 1 inh inhalation BID #60 ea 12/01/21 mcg/actuation blister powder for inhalation (Flovent Diskus) dicyclomine 10 mg capsule 10 mg PO TID #10 caps 08/22/22 prednisone 20 mg tablet 60 mg PO DAILY 4 days #12 tabs 11/24/22 Allergies Allergy/AdvReac Type Severity Reaction Status Date / Time No Known Allergies Allergy Unverified 09/22/22 08:03 General Stated Complaint: RespSymp SHEEBA: 4 Review of Systems All systems reviewed & are unremarkable except as noted in HPI and below Constitutional Constitutional: Denies chills, Denies fever(s) and Denies weakness Cardiovascular Cardiovascular: Denies chest pain Gastrointestinal Gastrointestinal: Denies abdominal pain, Denies nausea and Denies vomiting Integumentary/Breasts Skin/Breast: Denies rash Neurologic Neurologic: Denies weakness Psychiatric Psychiatric: Denies depression PFSH All Active Problems (Updated 11/24/22 @ 09:09 by Selvin Wilson MD) COVID-19 (Acute) Asthma exacerbation (Acute) Cough (Acute) IBS (irritable bowel syndrome) (Chronic) Pelvic pain (Acute) Right ovarian cyst (Acute) Ureteral stone (Acute 04/09/16) Medical History Bronchitis Cough Depression (01/07/14) Migraine headache (09/24/14) Psychosocial stressors (01/17/17) Suicide attempt Tonsillitis Surgical History D&E Social History Smoking/Tobacco Use Status: Current every day Tobacco Type: e-cigarettes Smoking risk assessment performed?: Yes Alcohol Intake: current Alcohol Intake frequency: holidays/special occasions only Drug use: Daily Substance use type: marijuana Household members: family Number of Children: 1 current occupation: [employer] Sexually active: Yes Do you think of yourself as: straight/heterosexual Current gender identity: female What type of physical activity do you participate in: none Do you feel safe at home: Yes Do you feel safe in your relationship?: Yes Female Reproductive History Menstrual Age of Menarche: 10 Duration of menses: >10 days control method: none and implanted History History 2 Para 1 Hx # Term Pregnancies Multiple births Hx # Pregnancies Ectopic pregnancies AB induced Hx Number of Living Children AB spontaneous Past Pregnancies Del. Date GA/Weeks # Preg Succ Route Wgt Sex Labor Lgth Anesth esia Location [facility] 02/12/16 40 No vaginal 4082.331 g Male [facility] Delivery Date: 02/12/16 Last Updated by: Gabi Salgado Exam Const General: no acute distress Orientation: alert HENMT Head: normal to inspection Ears: external ears normal General nose exam: external nose normal Mouth: moist mucous membranes Eyes General: appearance normal, both eyes and all related structures Neck Neck: normal visual inspection Resp Effort & Inspection: normal respiratory effort and able to speak in complete sentences Auscultation: wheezes Cardio Rate: regular rate Heart Sounds: no murmurs Skin General skin exam: no rashes or lesions noted Neuro General: patient alert and patient oriented x3 Extrem General: normal to inspection Psych Mental Status: mental status grossly normal Course Vital Signs Vital signs: Vital Signs Temperature 36.7 C 11/24/22 06:47 Pulse 86 11/24/22 06:47 Respiratory Rate 20 11/24/22 06:47 Blood Pressure 153/101 H 11/24/22 06:47 Pulse Oximetry 98 11/24/22 06:47 Temperature 36.7 C 11/24/22 06:47 Temperature Source Tympanic 11/24/22 06:47 Pulse 86 11/24/22 06:47 Respiratory Rate 20 11/24/22 06:47 Respiratory Effort 11/24/22 06:53 Blood Pressure 153/101 H 11/24/22 06:47 Blood Pressure Position Sitting 11/24/22 06:47 Pulse Oximetry 98 11/24/22 06:47 Oxygen Delivery Method Room Air 11/24/22 06:47 Oxygen Flow Rate 0 11/24/22 06:47 Pain Level 6 11/24/22 06:47
[2022-11-24] MEDS: predniSONE 20 MG TAB 60 MG PO (07:43)
[2022-11-24 08:39] VITALS: RESP 4
[2022-11-24] MEDS: Albuterol/Ipratropium 3 ML UPD VIAL UPD (08:39)
== END 2022-11-24 09:16 | disposition home or self-care (01) ==
PROVIDERS: Emergency Provider Emergency Medicine; PCP Physician Assistant
DX: J45.901 Unspecified asthma with (acute) exacerbation (principal); Z79.51 Long term (current) use of inhaled steroids
CPT/HCPCS: 81025; 94640; 99283; 71045; 99284; J7512; J7620

== ENCOUNTER 2023-02-23 05:25 | Emergency (ER) | payer MEDICAID, SELFPAY ==
[2023-02-23 05:28] VITALS: BP 113/76; PULSE 70; RESP 17; TEMP 36.7; O2SAT 99
[2023-02-23 05:34] VITALS: RESP 16
--- NOTE | 2023-02-23 05:40 | ED.GENADUL_ITS ---
Discharge Plan Disposition Patient Disposition: Home Condition: Good Discharge Details Clinical Impression: Asthma exacerbation Primary Care Provider: Kalpesh Gusman ED Provider: Tyler Liao Home Meds and New Rx's Prescriptions: New prednisone 50 mg tablet 50 mg PO DAILY Qty: 5 0RF No Action sumatriptan [Imitrex] 20 mg/actuation spray,non-aerosol 20 mg intranasal Q2H PRN Rx Instructions: administer into one nostril as a single dose; if 2nd dose needed,administer into other nostril after at least 2 hrs, NTE 2 doses (40 mg) per episode Flovent Diskus 50 mcg/actuation blister with device 1 inh inhalation BID Qty: 60 0RF albuterol sulfate 90 mcg/actuation HFA aerosol inhaler 1 inh inhalation ONCE Qty: 6.7 0RF dicyclomine 10 mg capsule 10 mg PO TID Qty: 10 0RF Discharge Instructions Instructions: Asthma (ED) Additional Instructions: At this time your symptoms appear consistent with a mild asthma exacerbation. Please take the Symbicort inhaler, 2 puffs every 12 hours. If you do not notice any improvement over the next 48 to 72 hours, please take the prednisone as directed. You can continue to use your albuterol inhaler every 6 hours as needed. If you notice any worsening of your symptoms, or any new symptoms such as vomiting, diarrhea, fever, chills, shortness of breath, chest pain, numbness, weakness, or fainting , please return immediately to the emergency department for reevaluation. Please follow up with your primary care provider as soon as possible for reassessment and reevaluation. As always, it was a pleasure participating in your medical care today. Referrals: Kalpesh Gusman [Primary Care Provider] - Discharge Data Discharge Date/Time-TO BE ENTERED AT DEPARTURE: 02/23/23 05:55 Medical Decision Making 22-year-old female with a past medical history of asthma, right ovarian cyst, irritable bowel syndrome, presents today for evaluation of shortness of breath. Patient states that for the last week she has had what she feels is worsening of her asthma. It worsens during the evening. And will occasionally worsen when she is working. It is always resolved with breathing treatments and her inhaler, but it seems to be getting more frequent. She uses her albuterol inhaler only occasionally, 1 time per day for the last week. She denies any vomiting. She denies any pleuritic pain. She denies any hemoptysis. She does admit to mild cough. She denies any numbness or tingling. She does vape, but does not use tobacco products. No history of blood clots or PE. No oral contraceptive use. Denies PE risk factors such as recent long car rides, immobilization, recent surgery, prior history of DVT or PE, family history of PE or DVT, morbid obesity, exogenous estrogen and smoking, hemoptysis, history of cancer. Physical exam demonstrates well-appearing female, vital signs normal, PERC score 0. Wells score 0. Symptoms inconsistent with PE. Lungs are relatively clear. No significant wheezing rales or rhonchi. Bedside ultrasound was performed and demonstrates no evidence of B-lines or consolidation. Vital signs normal. Suspect mild asthma. As her symptoms appear to be on helped by her albuterol inhaler, I do feel that transition to a long-acting beta agonist with an inhaled steroid would be beneficial. We will start the patient on Symbicort. We will give a prescription for prednisone 50 mg daily for the next 5 days. Symptoms appear clinically inconsistent with pneumonia and are instead consistent with mild asthma exacerbation. Discussed red flags for which to return. I have extensively reviewed the treatment plan and discharge instructions with the patient. I have addressed all patient concerns at this time. The patient was made aware of what symptoms to monitor for that would warrant a return to the emergency department. Discussed the plan with the patient, they demonstrate verbal understanding and agreement with our assessment and plan at this time. The documentation in this chart was dictated using [employer]ur[employer] dictation software. Please excuse any dictation errors. HPI General Date/Time Provider Initiated Documentation: 02/23/23 05:28 . HPI Narrative: 22-year-old female with a past medical history of asthma, right ovarian cyst, irritable bowel syndrome, presents today for evaluation of shortness of breath. Patient states that for the last week she has had what she feels is worsening of her asthma. It worsens during the evening. And will occasionally worsen when she is working. It is always resolved with breathing treatments and her inhaler, but it seems to be getting more frequent. She uses her albuterol inhaler only occasionally, 1 time per day for the last week. She denies any vomiting. She denies any pleuritic pain. She denies any hemoptysis. She does admit to mild cough. She denies any numbness or tingling. She does vape, but does not use tobacco products. No history of blood clots or PE. No oral contraceptive use. Denies PE risk factors such as recent long car rides, immobilization, recent surgery, prior history of DVT or PE, family history of PE or DVT, morbid obesity, exogenous estrogen and smoking, hemoptysis, history of cancer. Related Data Home Medications Medication Instructions Recorded Confirmed albuterol sulfate 90 mcg/actuation 1 inh inhalation ONCE #6.7 grams 12/01/21 02/23/23 aerosol inhaler fluticasone propionate 50 1 inh inhalation BID #60 ea 12/01/21 02/23/23 mcg/actuation blister powder for inhalation (Flovent Diskus) sumatriptan 20 mg/actuation nasal 20 mg intranasal Q2H PRN 03/23/22 02/23/23 spray (Imitrex) dicyclomine 10 mg capsule 10 mg PO TID #10 caps 08/22/22 02/23/23 prednisone 50 mg tablet 50 mg PO DAILY #5 tabs 02/23/23 Previous Rx's Medication Instructions Recorded albuterol sulfate 90 mcg/actuation 1 inh inhalation ONCE #6.7 grams 12/01/21 aerosol inhaler fluticasone propionate 50 1 inh inhalation BID #60 ea 12/01/21 mcg/actuation blister powder for inhalation (Flovent Diskus) dicyclomine 10 mg capsule 10 mg PO TID #10 caps 08/22/22 prednisone 50 mg tablet 50 mg PO DAILY #5 tabs 02/23/23 Allergies Allergy/AdvReac Type Severity Reaction Status Date / Time No Known Allergies Allergy Unverified 09/22/22 08:03 General Stated Complaint: SOB SHEEBA: 3 Review of Systems All systems reviewed & are unremarkable except as noted in HPI and below PFSH All Active Problems COVID-19 (Acute) Asthma exacerbation (Acute) IBS (irritable bowel syndrome) (Chronic) Pelvic pain (Acute) Right ovarian cyst (Acute) Ureteral stone (Acute 04/09/16) Medical History Bronchitis Cough Depression (01/07/14) Migraine headache (09/24/14) Psychosocial stressors (01/17/17) Suicide attempt -2013 Tonsillitis Surgical History D&E Social History Smoking/Tobacco Use Status: Current every day Tobacco Type: e-cigarettes Smoking risk assessment performed?: Yes Alcohol Intake: current Alcohol Intake frequency: holidays/special occasions only Drug use: Daily Substance use type: marijuana Household members: family Number of Children: 1 current occupation: [employer] Sexually active: Yes Do you think of yourself as: straight/heterosexual Current gender identity: female What type of physical activity do you participate in: none Do you feel safe at home: Yes Do you feel safe in your relationship?: Yes Female Reproductive History Menstrual Age of Menarche: 10 Duration of menses: >10 days control method: none and implanted History History 2 Para 1 Hx # Term Pregnancies Multiple births Hx # Pregnancies Ectopic pregnancies AB induced Hx Number of Living Children AB spontaneous Past Pregnancies Del. Date GA/Weeks # Preg Succ Route Wgt Sex Labor Lgth Anesth esia Location [facility] 02/12/16 40 No vaginal 4082.331 g Male [facility] Delivery Date: 02/12/16 Last Updated by: Gabi Salgado Exam Narrative Exam Narrative: 1.Const: Well-nourished, Well-developed, appearing stated age 2.Eyes: PERRL, no conjunctival injection, and symmetrical lids. 3.ENT: Atraumatic external nose and ears. Moist MM. Neck: Symmetric, trachea midline, No thyromegaly. 4.CVS: +S1/S2, No murmurs or gallops. Peripheral pulses 2+ and equal in all extremities. Brisk capillary refill in all extremities. 5.RESP: Unlabored respiratory effort. Clear to auscultation bilaterally. No wheezes rales or rhonchi 6.GI: Soft, Nontender/Nondistended, No hepatosplenomegaly. No guarding or rebound. 7.MSK: Normocephalic/Atraumatic, Extremities w/o deformity or ttp No cyanosis or clubbing, Normal movement of all extremities 8.Skin: Warm, Dry. No rashes or lesions. 9.Neuro: herpetologist II-XII grossly intact. Sensation grossly intact, no focal neurologic deficits. 10.Psych: (AAO) x3. Appropriate mood and affect Course Vital Signs Vital signs: Vital Signs Temperature 36.7 C 02/23/23 05:28 Pulse 70 02/23/23 05:28 Respiratory Rate 17 02/23/23 05:28 Blood Pressure 113/76 02/23/23 05:28 Pulse Oximetry 99 02/23/23 05:28 Temperature 36.7 C 02/23/23 05:28 Temperature Source Temporal Artery Scan 02/23/23 05:28 Pulse 70 02/23/23 05:28 Respiratory Rate 16 02/23/23 05:34 Respiratory Effort Normal 02/23/23 05:34 Respiratory Depth Normal 02/23/23 05:34 Respiratory Pattern Normal 02/23/23 05:34 Blood Pressure 113/76 02/23/23 05:28 Blood Pressure Position Sitting 02/23/23 05:28 Pulse Oximetry 99 02/23/23 05:28 Oxygen Delivery Method Room Air 02/23/23 05:28 Oxygen Flow Rate 0 02/23/23 05:28 Pain Level 2 02/23/23 05:28
[2023-02-23] MEDS: Budesonide/Formoterol 160/4.5 6 GM 60 PUFF INH IH (05:50)
== END 2023-02-23 05:55 | disposition home or self-care (01) ==
LOC: ER 05:43
PROVIDERS: Emergency Provider Student in an Organized Health Care Education/Training Program; PCP Physician Assistant
DX: J45.901 Unspecified asthma with (acute) exacerbation (principal); F17.290 Nicotine dependence, other tobacco product, uncomplicated; Z79.51 Long term (current) use of inhaled steroids
CPT/HCPCS: 94640; 99283; 99284

== ENCOUNTER 2023-03-02 17:38 | Outpatient (REF) | payer MEDICAID, SELFPAY ==
[2023-03-02 20:24] LABS: HCT 39.5 % (36.0-46.0); HGB 14.1 g/dL (11.2-15.7); MCHC 35.7 % (32.0-36.0); MCV 87 fL (80-95); MPV 10.9 fL (8.0-11.0); Platelet Count 317 10^3/uL (130-400); RBC 4.55 10^6/uL (3.93-5.22); RDW 12.9 % (11.7-14.6); WBC 10.09 10^3/uL (4.4-10.8)
[2023-03-02 20:35] LABS: Iron 56 ug/dL (50-170)
[2023-03-02 20:46] LABS: Anion Gap 10.4 mmol/L (3-11); BUN 10 mg/dL (7-18); CO2 24.6 mmol/L (21.0-32.0); CREATININE 0.9 mg/dL (0.55-1.02); Calcium 9.5 mg/dL (8.5-10.1); Chloride 105 mmol/L (98-107); FREE T4 1.26 ng/dL (0.76-1.46); Glucose 81 mg/dL (74-106); Potassium 3.3 mmol/L (3.5-5.1); Sodium 140 mmol/L (136-145); TSH 1.52 uIU/mL (0.36-3.74)
== END 2023-03-02 17:39 | disposition home or self-care (01) ==
LOC: NCHCN 17:38
PROVIDERS: PCP Physician Assistant; Visit Provider Physician Assistant
DX: R53.83 Other fatigue (principal)
CPT/HCPCS: 80048; 85027; 83540; 84439; 84443

== ENCOUNTER 2023-09-25 17:22 | Emergency (ER) | payer MEDICAID, SELFPAY ==
[2023-09-25 17:26] VITALS: BP 132/71; PULSE 109; RESP 16; TEMP 36.9; O2SAT 100
--- NOTE | 2023-09-25 17:31 | ED.GENADUL_ITS ---
Discharge Plan Disposition Patient Disposition: Home Discharge Details Clinical Impression: Acute left otitis media Primary Care Provider: Kalpesh Gusman ED Provider: Lul Kruger Home Meds and New Rx's Prescriptions: New amoxicillin 875 mg tablet 875 mg PO BID Qty: 14 0RF No Action sumatriptan [Imitrex] 20 mg/actuation spray,non-aerosol 20 mg intranasal Q2H PRN Rx Instructions: administer into one nostril as a single dose; if 2nd dose needed,administer into other nostril after at least 2 hrs, NTE 2 doses (40 mg) per episode Flovent Diskus 50 mcg/actuation blister with device 1 inh inhalation BID Qty: 60 0RF albuterol sulfate 90 mcg/actuation HFA aerosol inhaler 1 inh inhalation ONCE Qty: 6.7 0RF Discharge Instructions Instructions: Ear Infection (ED) Additional Instructions: You may continue to take [id number] acetaminophen or ibuprofen as discussed for discomfort. Please take antibiotics as prescribed and for the full course of medication. Return to the emergency department for any new or significant worsening of symptoms otherwise if not improving by the end of your antibiotics follow-up with your primary care provider for recheck as needed Stand Alone Forms: Work Release Referrals: Kalpesh Gusman [Primary Care Provider] - (As needed for reassessment) Discharge Data Discharge Date/Time-TO BE ENTERED AT DEPARTURE: 09/25/23 17:43 Medical Decision Making Patient presenting to the emergency department for chief complaint of left ear pain. Patient reports 3 days ago she had beginning stages of left ear pain but and has been using [id number] medications but she has noted significant increase of discomfort and lack of improvement of symptoms. Patient states some associated intermittent dizziness otherwise denies all other symptoms. No significant contributing past medical history of concern. Physical exam shows findings consistent with left otitis media. Small amount of cerumen present bilateral but feel that removal will significantly worsen patient's discomfort at this time. Patient placed upon amoxicillin for otitis media that has not cleared in 3 days of conservative management and discussed with patient after resolution cerumen removal on an outpatient basis. After discussion of diagnosis and plan of care patient has no further needs, questions, or concerns and states clear understanding to return to the emergency department for any worsening symptoms. This documentation was generated using Aubreyation system, please disregard any oddities of phrase or misspellings. HPI General Mode of arrival: ambulatory . Date/Time Provider Initiated Documentation: 09/25/23 17:31 . Limitations to Documentation: no limitations . Information obtained by: patient and RN notes reviewed . History of Present Illness 23 year old F presents to the emergency department with the chief complaint of Left ear pain, described as moderate and severe, and is localized to the left. Patient started experiencing this day(s) (3) and it has been constant. No relieving factors improve symptom(s), No exacerbating factors reported . Patient notes no other symptoms.. Patient did receive the following treatments prior to arrival, NSAID Related Data Home Medications Medication Instructions Recorded Confirmed albuterol sulfate 90 mcg/actuation 1 inh inhalation ONCE #6.7 grams 12/01/21 09/25/23 aerosol inhaler fluticasone propionate 50 1 inh inhalation BID #60 ea 12/01/21 09/25/23 mcg/actuation blister powder for inhalation (Flovent Diskus) sumatriptan 20 mg/actuation nasal 20 mg intranasal Q2H PRN 03/23/22 09/25/23 spray (Imitrex) amoxicillin 875 mg tablet 875 mg PO BID #14 tabs 09/25/23 Previous Rx's Medication Instructions Recorded albuterol sulfate 90 mcg/actuation 1 inh inhalation ONCE #6.7 grams 12/01/21 aerosol inhaler fluticasone propionate 50 1 inh inhalation BID #60 ea 12/01/21 mcg/actuation blister powder for inhalation (Flovent Diskus) amoxicillin 875 mg tablet 875 mg PO BID #14 tabs 09/25/23 Allergies Allergy/AdvReac Type Severity Reaction Status Date / Time No Known Allergies Allergy Unverified 09/25/23 17:31 General Stated Complaint: EarProblem SHEEBA: 3 Review of Systems Constitutional Constitutional: Denies chills, Denies fever(s), Denies headache(s) and Denies malaise ENT Ears, Nose, Mouth, and Throat: Reports as per HPI, Reports dizziness, Denies ear discharge, Reports otalgia, Denies headache(s), Denies hoarseness, Denies nasal congestion, Denies sore throat and Denies throat swelling Respiratory Respiratory: Denies cough Gastrointestinal Gastrointestinal: Denies nausea and Denies vomiting Neurologic Neurologic: Reports dizziness and Denies headache(s) Allergic/Immunologic Allergic/Immunologic: Denies throat swelling PFSH All Active Problems Acute left otitis media (Acute) COVID-19 (Acute) IBS (irritable bowel syndrome) (Chronic) Pelvic pain (Acute) Right ovarian cyst (Acute) Ureteral stone (Acute 04/09/16) Medical History Bronchitis Cough Tonsillitis Psychosocial stressors (01/17/17) Migraine headache (09/24/14) Depression (01/07/14) Suicide attempt Surgical History D&E Social History Smoking/Tobacco Use Status: Current every day Tobacco Type: e-cigarettes Smoking risk assessment performed?: Yes Alcohol Intake: current Alcohol Intake frequency: holidays/special occasions only Drug use: Daily Substance use type: marijuana Household members: family Housing: house Number of Children: 1 current occupation: [employer] Sexually active: Yes Do you think of yourself as: straight/heterosexual Current gender identity: female What type of physical activity do you participate in: none Do you feel safe at home: Yes Do you feel safe in your relationship?: Yes Female Reproductive History Menstrual Age of Menarche: 10 Duration of menses: >10 days control method: none and implanted History History 2 Para 1 Hx # Term Pregnancies Multiple births Hx # Pregnancies Ectopic pregnancies AB induced Hx Number of Living Children AB spontaneous Past Pregnancies Del. Date GA/Weeks # Preg Succ Route Wgt Sex Labor Lgth Anesth esia Location Prov [facility] 02/12/16 40 No vaginal 4082.331 g Male [facility] Delivery Date: 02/12/16 Last Updated by: Gabi Salgado Exam Const General: cooperative, comfortable and no acute distress Orientation: alert and awake HENMT Head: normal to inspection, normocephalic and atraumatic Ears: hearing grossly normal bilaterally, TM normal on the right, mastoids normal, EAC abnormal (Small amount of cerumen bilateral) and TM abnormal bulging on the left, erythematous on the left and with loss of landmarks on the left General nose exam: external nose normal Face and sinus: no erythema Mouth: oral mucosae normal, no drooling, no muffled voice and no trismus Throat: posterior oropharynx normal Neck Neck: normal visual inspection, full ROM, no lymphadenopathy, no meningeal signs, trachea midline and supple Resp Effort & Inspection: normal respiratory effort and able to speak in complete sentences Skin General skin exam: no rashes or lesions noted and dry skin (warm) Neuro General: patient alert, patient awake and patient oriented x3 Speech: speech normal
[2023-09-25] MEDS: Amoxicillin 875 MG TAB PO (17:35)
== END 2023-09-25 17:43 | disposition home or self-care (01) ==
PROVIDERS: Emergency Provider Nurse Practitioner Family; PCP Physician Assistant
DX: H66.92 Otitis media, unspecified, left ear (principal)
CPT/HCPCS: 99283; 99284

== ENCOUNTER 2023-11-13 16:25 | Emergency (ER) | payer MEDICAID, SELFPAY ==
[2023-11-13 16:27] VITALS: BP 126/93; PULSE 131; O2SAT 98
[2023-11-13 16:34] VITALS: RESP 24
[2023-11-13] MEDS: Ondansetron 4 MG/2 ML VIAL IVP (16:53)
[2023-11-13] MEDS: diazePAM 10 MG/2 ML SYR 5 MG IVP (16:56)
[2023-11-13] MEDS: ALPRAZolam 0.5 MG TAB (17:09)
[2023-11-13] MEDS: Normal Saline 1,000 ML 1000 ML IV (17:10)
[2023-11-13] MEDS: Normal Saline Flush 10 ML SYR IVP (17:15)
[2023-11-13 17:20] VITALS: O2SAT 98
--- NOTE | 2023-11-13 17:27 | ED.GENADUL_ITS ---
HPI General Stated Complaint: GenMedical SHEEBA: 3 Date/Time Provider Initiated Documentation: 11/13/23 16:41. Limitations to Documentation: altered mental status. Information obtained by: patient and family. HPI Narrative: 23-year-old female with out significant past medical history presents for evaluation after accidentally and unknowingly ingesting hallucinogenic mushrooms. She reports that her cousin was really visiting recently and left food in the refrigerator. She ate this food not knowing that it had mushrooms in it. She states that she feels very uncomfortable. She feels very anxious. She says that she just wants it to stop. She is unable to tell me how much she ate or what the dosing of the mushrooms may have been. Boyfriend at bedside confirms the story. Related Data Home Medications Medication Instructions Recorded Confirmed albuterol sulfate 90 mcg/actuation 1 inh inhalation ONCE #6.7 grams 12/01/21 09/25/23 aerosol inhaler fluticasone propionate 50 1 inh inhalation BID #60 ea 12/01/21 09/25/23 mcg/actuation blister powder for inhalation (Flovent Diskus) sumatriptan 20 mg/actuation nasal 20 mg intranasal Q2H PRN 03/23/22 09/25/23 spray (Imitrex) amoxicillin 875 mg tablet 875 mg PO BID #14 tabs 09/25/23 Previous Rx's Medication Instructions Recorded albuterol sulfate 90 mcg/actuation 1 inh inhalation ONCE #6.7 grams 12/01/21 aerosol inhaler fluticasone propionate 50 1 inh inhalation BID #60 ea 12/01/21 mcg/actuation blister powder for inhalation (Flovent Diskus) amoxicillin 875 mg tablet 875 mg PO BID #14 tabs 09/25/23 Allergies Allergy/AdvReac Type Severity Reaction Status Date / Time No Known Allergies Allergy Unverified 11/13/23 16:30 PFSH All Active Problems (Updated 11/13/23 @ 18:07 by Petey Martinez MD) Anxiety (Chronic) Mushrooms causing toxic effect (Acute) COVID-19 (Acute) IBS (irritable bowel syndrome) (Chronic) Pelvic pain (Acute) Right ovarian cyst (Acute) Ureteral stone (Acute 04/09/16) Medical History Bronchitis Cough Tonsillitis Psychosocial stressors (01/17/17) Migraine headache (09/24/14) Depression (01/07/14) Suicide attempt Surgical History D&E Social History Smoking/Tobacco Use Status: Current every day Tobacco Type: e-cigarettes Smoking risk assessment performed?: Yes Alcohol Intake: current Alcohol Intake frequency: holidays/special occasions only Drug use: Daily Substance use type: marijuana Household members: family Housing: house Number of Children: 1 current occupation: [employer] Sexually active: Yes Do you think of yourself as: straight/heterosexual Current gender identity: female What type of physical activity do you participate in: none Do you feel safe at home: Yes Do you feel safe in your relationship?: Yes Female Reproductive History Menstrual Age of Menarche: 10 Duration of menses: >10 days control method: none and implanted History History 2 Para 1 Hx # Term Pregnancies Multiple births Hx # Pregnancies Ectopic pregnancies AB induced Hx Number of Living Children AB spontaneous Past Pregnancies Del. Date GA/Weeks # Preg Succ Route Wgt Sex Labor Lgth Anesth esia Location [facility] 02/12/16 40 No vaginal 4082.331 g Male [facility] Delivery Date: 02/12/16 Last Updated by: Gabi Salgado Exam Narrative Exam Narrative: Review of Systems: All systems reviewed & are unremarkable except as noted in HPI and below Well-developed, crying NACT PERRL, pupil sizes 4 to 5 mm bilaterally normal conjunctiva Tachycardia Unlabored respiratory effort, no hypoxia Nondistended abdomen Extremities w/o deformity, no cyanosis, no edema No rashes or lesions. no focal neurologic deficits Crying anxious, not responding to internal stimuli Course Vital Signs Vital signs: Vital Signs Pulse 131 H 11/13/23 16:27 Blood Pressure 126/93 H 11/13/23 16:27 Pulse Oximetry 98 11/13/23 16:27 Pulse 131 H 11/13/23 16:27 Respiratory Rate 24 11/13/23 16:34 Respiratory Pattern Tachypnea 11/13/23 16:34 Blood Pressure 126/93 H 11/13/23 16:27 Blood Pressure Position Sitting 11/13/23 16:27 Pulse Oximetry 98 11/13/23 17:20 Oxygen Delivery Method Room Air 11/13/23 17:20 Oxygen Flow Rate 0 11/13/23 16:27 Medical Decision Making Emergent evaluation of altered mental status secondary to hallucinogenic mushroom ingestion. There is no evidence of psychosis or trauma at this time. Patient just feels slightly anxious and agitated and wants me to take this feeling away. She is hemodynamically stable. Tachycardia likely secondary to her anxiety. IV was placed, fluids and benzodiazepines given. Will monitor for symptom improvement. 1730: Patient has received medications and states she is feeling much better. Lights turned down and advised her to rest we will continue to monitor. 1810: Patient reports that she is feeling much much better and would like to go home and continue resting. She will be discharged with 2 doses of 0.5 mg Ativan to take as needed for persistent symptoms. She is encouraged to drink lots of water and avoid taking any other drugs or alcohol. Quality:[facility] Health Related Social Needs: No Data to Display Discharge Plan Disposition Patient Disposition: Home Discharge Details Clinical Impression: Mushrooms causing toxic effect, Anxiety Primary Care Provider: Kalpesh Gusman ED Provider: Petey Martinez Home Meds and New Rx's Prescriptions: No Action sumatriptan [Imitrex] 20 mg/actuation spray,non-aerosol 20 mg intranasal Q2H PRN Rx Instructions: administer into one nostril as a single dose; if 2nd dose needed,administer into other nostril after at least 2 hrs, NTE 2 doses (40 mg) per episode amoxicillin 875 mg tablet 875 mg PO BID Qty: 14 0RF Flovent Diskus 50 mcg/actuation blister with device 1 inh inhalation BID Qty: 60 0RF albuterol sulfate 90 mcg/actuation HFA aerosol inhaler 1 inh inhalation ONCE Qty: 6.7 0RF Discharge Instructions Additional Instructions: Drink lots of water over the next few days. When you go home tonight, keep lights and sounds to a minimum. Reduce any excessive stimulation. You were discharged with 2 pills of Ativan to take as needed for continued anxiety.
[2023-11-13] MEDS: LORazepam 0.5 MG TAB PO (18:14)
[2023-11-13 18:17] VITALS: BP 106/60; PULSE 77; RESP 16; TEMP 36.2; O2SAT 98
== END 2023-11-13 18:23 | disposition home or self-care (01) ==
PROVIDERS: Emergency Provider Emergency Medicine; PCP Physician Assistant
DX: F41.9 Anxiety disorder, unspecified (principal); R41.82 Altered mental status, unspecified; T62.0X1A Toxic effect of ingested mushrooms, accidental (unintentional), initial encounter
CPT/HCPCS: 96361; 96374; 96375; 99284; 99283; J2405; J3360

== ENCOUNTER 2023-12-17 18:33 | Emergency (ER) | payer MEDICAID, SELFPAY ==
[2023-12-17 18:36] VITALS: BP 122/87; PULSE 112; RESP 18; TEMP 37.1; O2SAT 96
--- NOTE | 2023-12-17 18:45 | RT.EKG_ITS ---
APPROVED REPORT Exam: Resting ECG Reason for Exam: shaking Patient Location: E HR:78 bpm ECG Measurements Heart Rate 78 AXIS KS 140 P 45 QRSd 93 QRS 50 QT 382 T 30 QTc 436 Conclusion Sinus rhythm...normal P axis, V-rate 60- 99
--- OUTSIDE RECORDS SUMMARY | 2023-12-17 18:50 | XMS_ITS | Continuity of Care Document ---
Author Name Unknown Organization [facility] Address [address] [place] [address] Encounter LTTL_NH FIN NBR [id number] Date(s): 09/01/22 - 09/01/[address] [address]- Encounter Diagnosis Asthma exacerbation(Discharge Diagnosis) - 09/01/22 Discharge Disposition: Home or Self Care Attending Physician: Steven Baig MD Admitting Physician: Steven Baig MD Allergies, Adverse Reactions, Alerts No Known Medication Allergies Functional Status 09/01/22 Other exposure to Infectious Disease COV ID-19 Symptoms Present Medications albuterol 0 Refill(s) Start Date: 08/14/22 Status: Ordered azithromycin 250 mg oral tablet See Instruction, Oral, Daily, take 2 tabs on day 1 and 1 tabs on day 2-5, # 6 tab, 0 Refill(s), Pharmacy: [facility] #[id number], 157, cm, 09/01/22 12:34:00 EDT, Height/Length Dosing, 66, kg, 09/01/22 12:34:00 EDT, Weight Dosing Start Date: 09/01/22 Status: Ordered Combivent Respimat CFC free 20 mcg-100 mcg/inh inhalation aerosol 2 puffs, Inhale, QID, PRN shortness of breath, # 1 EA, 0 Refill(s), Pharmacy: [facility] #[id number], 157, cm, 09/01/22 12:34:00 EDT, Height/Length Dosing, 66, kg, 09/01/22 12:34:00 EDT, Weight Dosing Start Date: 09/01/22 Status: Ordered predniSONE 10 mg oral tablet See Instructions, 40mg PO QD x3 days, 30mg PO QDx 3days, 20mg PO QD x3days, 10mg PO QDx3 days, # 30cap, 0 Refill(s), Pharmacy: [facility] #[id number], 157, cm, 09/01/22 12:34:00 EDT, Height/Length Dosing, 66, kg, 09/01/22 12:34:00 EDT, Weight Do... Start Date: 09/01/22 Status: Ordered Results Laboratory List Name Date Test Urine Qual 09/01/22 SARS-CoV-2 (Covid-19) AG (Nerissa) POCT Most recent to oldest [Reference Range]: 1 SARS-CoV or CoV-2 (COVID-19) Ag (Nerissa) [Negative] Negative (09/01/22 12:58 PM) Employed in healthcare? Unknown *NA* (09/01/22 12:58 PM) Symptomatic as defined by CDC? Unknown *NA* (09/01/22 12:58 PM) Date of onset (Lab) Unknown *NA* (09/01/22 12:58 PM) Hospitalized due to COVID-19? Unknown *NA* (09/01/22 12:58 PM) In ICU? Unknown *NA* (09/01/22 12:58 PM) Group care resident? Unknown *NA* (09/01/22 12:58 PM) status? Unknown *NA* (09/01/22 12:58 PM) U hCG Ql [Negative] Negative (09/01/22 1:42 PM) Radiology Reports * Exam Date Time Procedure Performing Provider Status 09/01/22 2:36 PM XR Chest 2 Views Estella Miguel; Royce ( Verified) Notes: (XR Chest 2 Views) Reason For Exam: cough XR Chest 2 Views EXAM DESCRIPTION: XR Chest 2 Views 09/01/2022 INDICATION: COUGH TECHNIQUE: PA and lateral views of the chest. COMPARISON: 08/14/2022 FINDINGS: The lungs are well expanded and clear with no focal consolidation or pulmonary edema. The cardiomediastinal contour and pleural margins are within normal limits. IMPRESSION: No active chest disease. JOB #: [id number] Final Signed by: Lc Sykes MD Signed (Electronic Signature): 09/01/2022 2:51 pm Vital Signs Most recent to oldest [Reference Range]: 1 Temperature Temporal Artery [36-38 Deg C ] 36.6 Deg C (09/01/22 12:21 PM) Peripheral Pulse Rate [60-100 bpm] 80 bp m (09/01/22 12:21 PM) Respiratory Rate [12-24 br/min] 22 br/mi n (09/01/22 12:21 PM) Blood Pressure [90-140/60-90 mmHg] 121/7 0mmHg (09/01/22 12:21 PM) Weight 66.00 kg (09/01/22 12:21 PM) Weight Dosing 66.00 kg (09/01/22 12:34 PM) Height 157.000 cm (09/01/22 12:21 PM) Height/Length Dosing 157.000 cm (09/01/22 12:34 PM) Social History Social History Type Response Tobacco Current everyday tob acco user Tobacco Use:. Sex Hospital Discharge Instructions Patient Education 09/01/2022 13:54:25 Asthma, Adult Asthma, Adult Asthma is a long-term (chronic) condition that causes recurrent episodes in which the airways become tight and narrow. The airways are the passages that lead from the nose and mouth down into the lungs. Asthma episodes, also called asthma attacks, can cause coughing, wheezing, shortness of breath, and chest pain. The airways can also fill with mucus. During an attack, it can be difficult to breathe. Asthma attacks can range from minor to life threatening. Asthma cannot be cured, but medicines and lifestyle changes can help control it and treat acute attacks. What are the causes? This condition is believed to be caused by inherited (genetic) and environmental factors, but its exact cause is not known. There are many things that can bring on an asthma attack or make asthma symptoms worse (triggers). Asthma triggers are different for each person. Common triggers include: ??? Mold. ??? Dust. ??? Cigarette smoke. ??? Cockroaches. ??? Things that can cause allergy symptoms (allergens), such as animal dander or pollen from trees or grass. ??? Air pollutants such as household lacquer shader, wood smoke, smog, or chemical odors. ??? Cold air, weather changes, and winds (which increase molds and pollen in the air). ??? Strong emotional expressions such as crying or laughing hard. ??? Stress. ??? Certain medicines (such as aspirin) or types of medicines (such as beta-blockers). ??? Sulfites in foods and drinks. Foods and drinks that may contain sulfites include dried fruit, potato chips, and sparkling grape juice. ??? Infections or inflammatory conditions such as the flu, a cold, or inflammation of the nasal membranes (rhinitis). ??? Gastroesophageal reflux disease (GERD). ??? Exercise or strenuous activity. What are the signs or symptoms? Symptoms of this condition may occur right after asthma is triggered or many hours later. Symptoms include: ??? Wheezing. This can sound like whistling when you breathe. ??? Excessive nighttime or credit associate coughing. ??? Frequent or severe coughing with a common cold. ??? Chest tightness. ??? Shortness of breath. ??? Tiredness (fatigue) with minimal activity. How is this diagnosed? This condition is diagnosed based on: ??? Your medical history. ??? A physical exam. ??? Tests, which may include: ??? Lung function studies and pulmonary studies (spirometry). These tests can evaluate the flow of air in your lungs. ??? Allergy tests. ??? Imaging tests, such as X-rays. How is this treated? There is no cure for this condition, but treatment can help control your symptoms. Treatment for asthma usually involves: ??? Identifying and avoiding your asthma triggers. ??? Using medicines to control your symptoms. Generally, two types of medicines are used to treat asthma: ??? Controller medicines. These help prevent asthma symptoms from occurring. They are usually takenevery day. ??? Fast-acting reliever or rescue medicines. These quickly relieve asthma symptoms by widening thenarrow and tight airways. They are used as needed and provide short-term relief. ??? Using supplemental oxygen. This may be needed during a severe episode. ??? Using other medicines, such as: ??? Allergy medicines, such as antihistamines, if your asthma attacks are triggered by allergens. ??? Immune medicines (immunomodulators). These are medicines that help control the immune system. ??? Creating an asthma action plan. An asthma action plan is a written plan for managing and treating your asthma attacks. This plan includes: ??? A list of your asthma triggers and how to avoid them. ??? Information about when medicines should be taken and when their dosage should be changed. ??? Instructions about using a device called a peak flow meter. A peak flow meter measures how wellthe lungs are working and the severity of your asthma. It helps you monitor your condition. Follow these instructions at home: Controlling your home environment Control your home environment in the following ways to help avoid triggers and prevent asthma attacks: ??? Change your heating and air conditioning filter regularly. ??? Limit your use of fireplaces and wood stoves. ??? Get rid of pests (such as roaches and mice) and their droppings. ??? Throw away plants if you see mold on them. ??? Clean floors and dust surfaces regularly. Use unscented cleaning products. ??? Try to have someone else vacuum for you regularly. Stay out of rooms while they are being vacuumed and for a short while afterward. If you vacuum, use a dust mask from a [employer] store, a double-layered or microfilter vacuum smoking pipes cleaner bag, or a vacuum smoking pipes cleaner with a HEPA filter. ??? Replace carpet with wood, tile, or vinyl sina. Carpet can trap dander and dust. ??? Use allergy-proof pillows, mattress covers, and box spring covers. ??? Keep your bedroom a trigger-free room. ??? Avoid pets and keep windows closed when allergens are in the air. ??? Wash beddings every week in hot water and dry them in a dryer. ??? Use blankets that are made of polyester or cotton. ??? Clean bathrooms and darshan with bleach. If possible, have someone repaint the quinonez in these rooms with mold-resistant paint. Stay out of the rooms that are being cleaned and painted. ??? Wash your hands often with soap and water. If soap and water are not available, use hand professor of engineering. ??? Do not allow anyone to smoke in your home. General instructions ??? Take ohpy-nbr-pfcaadw and prescription medicines only as told by your health care provider. ??? Speak with your health care provider if you have questions about how or when to take the medicines. ??? Make note if you are requiring more frequent dosages. ??? Do not use any products that contain nicotine or tobacco, such as cigarettes and e-cigarettes. If you need help quitting, ask your health care provider. Also, avoid being exposed to secondhand smoke. ??? Use a peak flow meter as told by your health care provider. Record and keep track of the readings. ??? Understand and use the asthma action plan to help minimize, or stop an asthma attack, without needing to seek medical care. ??? Make sure you stay up to date on your yearly vaccinations as told by your health care provider.This may include vaccines for the flu and pneumonia. ??? Avoid outdoor activities when allergen counts are high and when air quality is low. ??? Wear a ski mask that covers your nose and mouth during outdoor winter activities. Exercise indoors on cold days if you can. ??? Warm up before exercising, and take time for a cool-down period after exercise. ??? Keep all follow-up visits as told by your health care provider. This is important. Where to find more information ??? For information about asthma, turn to the Centers for Disease Control and Prevention at www.cdc.gov/asthma/faqs ??? For air quality information, turn to AirNow at airnow.gov Contact a health care provider if: ??? You have wheezing, shortness of breath, or a cough even while you are taking medicine to prevent attacks. ??? The mucus you cough up (sputum) is thicker than usual. ??? Your sputum changes from clear or white to yellow, green, michelle, or bloody. ??? Your medicines are causing side effects, such as a rash, itching, swelling, or trouble breathing. ??? You need to use a reliever medicine more than 2???3 times a week. ??? Your peak flow reading is still at 50???79% of your personal best after following your action plan for 1 hour. ??? You have a fever. Get help right away if: ??? You are getting worse and do not respond to treatment during an asthma attack. ??? You are short of breath when at rest or when doing very little physical activity. ??? You have difficulty eating, drinking, or talking. ??? You have chest pain or tightness. ??? You develop a fast heartbeat or palpitations. ??? You have a bluish color to your lips or fingernails. ??? You are light-headed or dizzy, or you faint. ??? Your peak flow reading is less than 50% of your personal best. ??? You feel too tired to breathe normally. Summary ??? Asthma is a long-term (chronic) condition that causes recurrent episodes in which the airways become tight and narrow. These episodes can cause coughing, wheezing, shortness of breath, and chest pain. ??? Asthma cannot be cured, but medicines and lifestyle changes can help control it and treat acuteattacks. ??? Make sure you understand how to avoid triggers and how and when to use your medicines. ??? Asthma attacks can range from minor to life threatening. Get help right away if you have an asthma attack and do not respond to treatment with your usual rescue medicines. This information is not intended to replace advice given to you by your health care provider. Make sure you discuss any questions you have with your health care provider. Document Revised: 07/24/2021 Document Reviewed: 02/25/2021 [employer] Patient Education ?? 2021 [employer]. Follow Up Care 09/01/2022 12:21:35 With:Follow up with primary care provider Address:Unknown When:1 month XR Chest 2 Views * Lc Sykes MD: VERIFY, VERIFY Event Display: Report EXAM DESCRIPTION: XR Chest 2 Views 09/01/2022 INDICATION: COUGH TECHNIQUE: PA and lateral views of the chest. COMPARISON: 08/14/2022 FINDINGS: The lungs are well expanded and clear with no focal consolidation or pulmonary edema. The cardiomediastinal contour and pleural margins are within normal limits. IMPRESSION: No active chest disease. JOB #: [id number] Final Signed by: Lc Sykes MD Signed (Electronic Signature): 09/01/2022 2:51 pm
--- OUTSIDE RECORDS SUMMARY | 2023-12-17 18:51 | XMS_ITS | Continuity of Care Document ---
Author Name Unknown Organization [facility] Address [address] [place] [address] Encounter LTTL_NH FIN NBR [id number] Date(s): 08/14/22 - 08/14/22 [facility] [address] [place], [place] [address] Encounter Diagnosis Asthma exacerbation(Discharge Diagnosis) - 08/14/22 Nausea(Discharge Diagnosis) - 08/14/22 Discharge Disposition: Discharge to Hospice-Home Allergies, Adverse Reactions, Alerts No Known Medication Allergies Functional Status 08/14/22 Other exposure to Infectious Disease Non e Medications !-Zofran ODT 4 mg oral tablet, disintegrating 4 mg = 1 tab, Oral, every 8 hr, PRN as needed for nausea/vomiting, # 12 tab, 0 Refill(s) Start Date: 08/14/22 Status: Ordered !-Zofran ODT 4 mg oral tablet, disintegrating 4 mg = 1 tab, Oral, every 8 hr, PRN as needed for nausea/vomiting, # 12 tab, 0 Refill(s), Pharmacy:[facility] #[id number], 160, cm, 08/14/22 15:02:00 EDT, Height/Length Dosing, 68.04, kg, 08/14/22 15:02:00 EDT, Weight Dosing Start Date: 08/14/22 Status: Ordered albuterol 0 Refill(s) Start Date: 08/14/22 Status: Ordered predniSONE 10 mg oral tablet See Instruction, Oral, Daily, 4 tabs daily x3 days, 3 tabs daily x3 days, 2 tabs daily x3 days, 1 tab daily x3 days, # 30 tab, 0 Refill(s) Start Date: 08/14/22 Status: Ordered predniSONE 10 mg oral tablet See Instruction, Oral, Daily, 4 tabs daily x3 days, 3 tabs daily x3 days, 2 tabs daily x3 days, 1 tab daily x3 days, # 30 tab, 0 Refill(s), Pharmacy: [facility] #[id number], 160, cm, 08/14/22 15:02:00 EDT, Height/Length Dosing, 68.04, kg, ... Start Date: 08/14/22 Status: Ordered Mental Status 08/14/22 Eye Opening Response Riley Spontaneous ly Best Verbal Response Riley Oriented Best Motor Response Friendship Obeys comman ds Riley Coma Score 15 Results Laboratory List Name Date Test Urine Qual 08/14/22 SARS-CoV-2 (Covid-19) AG (Nerissa) POCT Urinalysis with Micro if Indicated and C ulture if Indicated 08/14/22 .Manual Differential (LTTL) 08/14/22 CBC w/ Diff 08/14/22 Comprehensive Metabolic Panel 08/14/22 Lipase Level 08/14/22 Most recent to oldest [Reference Range]: 1 WBC [4.8-10.8 K/mcL] 10.8 K/mcL (08/14/22 3:47 PM) RBC [4.20-6.10 Million/mcL] 4.55 Million /mcL (08/14/22 3:47 PM) Segs Man 51 *NA* (08/14/22 3:47 PM) Lymph Man 31 *NA* (08/14/22 3:47 PM) [place] Man 4 *NA* (08/14/22 3:47 PM) Eos Man 11 *NA* (08/14/22 3:47 PM) BUN [8-26 mg/dL] 13 mg/dL (08/14/22 3:47 PM) UA Color [Yellow] Yellow (08/14/22 4:20 PM) Glucose Level [74-106 mg/dL] 83 mg/dL (08/14/22 3:47 PM) Lymph, Atyp Man 3 *NA* (08/14/22 3:47 PM) Potassium Level [3.5-5.1 mmol/L] 3.6 mmo l/L (08/14/22 3:47 PM) MCV [80.0-99.0 fL] 88.4 fL (08/14/22 3:47 PM) UA Urobilinogen [0.2] 0.2 (08/14/22 4:20 PM) RBC Morph [Normal] Normal (08/14/22 3:47 PM) UA Bili [Negative] Negative (08/14/22 4:20 PM) UA Ketones [Negative] Negative (08/14/22 4:20 PM) AST [15-41 IntlUnit/L] 24 IntlUnit/L (08/14/22 3:47 PM) ALT [14-54 IntlUnit/L] 19 IntlUnit/L (08/14/22 3:47 PM) MCHC [32.0-36.0 g/dL] 34.6 g/dL (08/14/22 3:47 PM) Osmolality [275-295 mOsm/kg] 273 mOsm/kg *LOW* (08/14/22 3:47 PM) Sodium Level [134-143 mmol/L] 137 mmol/L (08/14/22 3:47 PM) UA Leuk Est [Negative] Negative (08/14/22 4:20 PM) UA Nitrite [Negative] Negative (08/14/22 4:20 PM) UA Glucose [Negative] Negative (08/14/22 4:20 PM) Hct [37.0-52.0 %] 40.2 % (08/14/22 3:47 PM) Lipase Level [18-51 unit/L] 35 unit/L (08/14/22 3:47 PM) Calcium Level [8.9-10.3 mg/dL] 9.6 mg/dL (08/14/22 3:47 PM) Albumin Level [3.5-5.0 g/dL] 4.5 g/dL (08/14/22 3:47 PM) Protein Total [6.5-8.1 g/dL] 7.9 g/dL (08/14/22 3:47 PM) UA Protein [Negative] Negative (08/14/22 4:20 PM) MCH [27.0-31.0 pg] 30.5 pg (08/14/22 3:47 PM) Bilirubin Total [0.2-1.2 mg/dL] 0.8 mg/d L (08/14/22 3:47 PM) Hgb [12.0-18.0 g/dL] 13.9 g/dL (08/14/22 3:47 PM) Alk Phos [38-130 IntlUnit/L] 62 IntlUnit /L (08/14/22 3:47 PM) UA Blood [Negative] Negative (08/14/22 4:20 PM) MPV [7.4-10.4 fL] 10.3 fL (08/14/22 3:47 PM) UA Spec Grav 1.020 *NA* (08/14/22 4:20 PM) Platelets [130-400 K/mcL] 339 K/mcL (08/14/22 3:47 PM) CO2 [22-32 mmol/L] 25 mmol/L (08/14/22 3:47 PM) UA pH 7.00 *NA* (08/14/22 4:20 PM) eGFR Non-AA 127 *NA* (08/14/22 3:47 PM) eGFR AA 127 *NA* (08/14/22 3:47 PM) UA Appear [Clear] Cloudy *ABN* (08/14/22 4:20 PM) Chloride Level [98-111 mmol/L] 103 mmol/ L (08/14/22 3:47 PM) RDW-CV [11.5-14.5 %] 13.0 % (08/14/22 3:47 PM) A/G Ratio 1.3 *NA* (08/14/22 3:47 PM) BUN/Creat Ratio [8.0-20.0] 19.4 (08/14/22 3:47 PM) Globulin 3.4 *NA* (08/14/22 3:47 PM) Urine Srce Clean Catch (08/14/22 4:20 PM) Abs Baso Man 0 *NA* (08/14/22 3:47 PM) Abs Eos Man 1 *NA* (08/14/22 3:47 PM) Abs Lymph Man 3 *NA* (08/14/22 3:47 PM) Abs [place] Man 0 *NA* (08/14/22 3:47 PM) Abs Neut Man 6 *NA* (08/14/22 3:47 PM) Creatinine Level [0.44-1.00 mg/dL] 0.67 mg/dL (08/14/22 3:47 PM) Plt Estimation Normal (08/14/22 3:47 PM) SARS-CoV or CoV-2 (COVID-19) Ag (Nerissa) [Negative] Negative (08/14/22 4:30 PM) Employed in healthcare? Unknown *NA* (08/14/22 4:30 PM) Symptomatic as defined by CDC? Unknown *NA* (08/14/22 4:30 PM) Date of onset (Lab) Unknown *NA* (08/14/22 4:30 PM) Hospitalized due to COVID-19? Unknown *NA* (08/14/22 4:30 PM) In ICU? Unknown *NA* (08/14/22 4:30 PM) Group care resident? Unknown *NA* (08/14/22 4:30 PM) status? Unknown *NA* (08/14/22 4:30 PM) Anion Gap [3.0-12.0] 9.0 (08/14/22 3:47 PM) Baso Man 0 *NA* (08/14/22 3:47 PM) U hCG Ql [Negative] Negative (08/14/22 4:38 PM) Radiology Reports * Exam Date Time Procedure Performing Provider Status 08/14/22 5:12 PM XR Chest 2 Views Selvin Eckert; Au th (Verified) Notes: (XR Chest 2 Views) Reason For Exam: Abdominal Pain XR Chest 2 Views PROCEDURE INFORMATION: Exam: XR Chest Exam date and time: 08/14/2022 5:12 PM Age: 22 years old Clinical indication: Other: Abdominal pain TECHNIQUE: Imaging protocol: Radiologic exam of the chest. Views: 2 views. COMPARISON: CT CHEST WO CONTRAST 07/13/2022 9:12 AM FINDINGS: Lungs: Unremarkable. No consolidation. Pleural spaces: Unremarkable. No pleural effusion. No pneumothorax. Heart/Mediastinum: Unremarkable. No cardiomegaly. Bones/joints: Unremarkable. IMPRESSION: No acute findings. THIS DOCUMENT HAS BEEN ELECTRONICALLY SIGNED BY PANTERA MORALES MD on 08/14/2022 06:30 PM Final Signed by: DomainUser, Generated Signed (Electronic Signature): 08/14/2022 6:30 pm Vital Signs Most recent to oldest [Reference Range]: 1 2 Temperature Temporal Artery [36-38 Deg C ] 36.8 Deg C (08/14/22 2:48 PM) Peripheral Pulse Rate [60-100 bpm] 75 bp m (08/14/22 4:32 PM) 56 bpm *LOW* (08/14/22 2:48 PM) Respiratory Rate [12-24 br/min] 16 br/mi n (08/14/22 4:32 PM) 16 br/min (08/14/22 2:48 PM) Blood Pressure [90-140/60-90 mmHg] 109/6 5mmHg (08/14/22 4:32 PM) 115/92mmHg (08/14/22 2:48 PM) Patient Position BP Sitting (08/14/22 4:32 PM) Weight 68.04 kg (08/14/22 2:48 PM) Weight Dosing 68.04 kg (08/14/22 3:02 PM) Height 160.000 cm (08/14/22 2:48 PM) Height/Length Dosing 160.000 cm (08/14/22 3:02 PM) Social History Social History Type Response Tobacco Current everyday tob acco user Tobacco Use:. Sex Hospital Discharge Instructions Follow Up Care 08/14/2022 14:48:50 With:Return to the Emergency Department Address: When: only if needed With:Follow up with primary care provider Address: When: only if needed XR Chest 2 Views * Vahe, Generated: VERIFY, VERIFY Event Display: Report PROCEDURE INFORMATION: Exam: XR Chest Exam date and time: 08/14/2022 5:12 PM Age: 22 years old Clinical indication: Other: Abdominal pain TECHNIQUE: Imaging protocol: Radiologic exam of the chest. Views: 2 views. COMPARISON: CT CHEST WO CONTRAST 07/13/2022 9:12 AM FINDINGS: Lungs: Unremarkable. No consolidation. Pleural spaces: Unremarkable. No pleural effusion. No pneumothorax. Heart/Mediastinum: Unremarkable. No cardiomegaly. Bones/joints: Unremarkable. IMPRESSION: No acute findings. THIS DOCUMENT HAS BEEN ELECTRONICALLY SIGNED BY PANTERA MORALES MD on 08/14/2022 06:30 PM Final Signed by: Sukumar Cotter Signed (Electronic Signature): 08/14/2022 6:30 pm
--- OUTSIDE RECORDS SUMMARY | 2023-12-17 18:51 | XMS_ITS | Continuity of Care Document ---
Author Name Unknown Organization [facility] Address [address] [place] [address] Encounter [facility] FIN NBR [id number] Date(s): 11/24/22 - 11/24/22 [facility] [address] [place] [address], [place] [address] Encounter Diagnosis Asthma exacerbation(Discharge Diagnosis) - 11/24/22 Discharge Disposition: Home or Self Care Attending Physician: Fariba Kline MD Admitting Physician: Fariba Kline MD Allergies, Adverse Reactions, Alerts No Known Medication Allergies Functional Status 11/24/22 Other exposure to Infectious Disease Non e Medications albuterol 0 Refill(s) Start Date: 08/14/22 Status: Ordered albuterol 2.5 mg/3 mL (0.083%) inhalation solution 2.5 mg = 3 mL, NEB, every 6 hr, PRN as needed for wheezing, # 90 mL, 0 Refill(s), Pharmacy: [facility], 158, cm, 11/24/22 20:13:00 EST, Height/Length Dosing, 65.77, kg, 11/24/22 20:13:00 EST, Weight Dosing Start Date: 11/24/22 Status: Ordered azithromycin 250 mg oral tablet See Instruction, Oral, Daily, take 2 tabs on day 1 and 1 tabs on day 2-5, # 6 tab, 0 Refill(s), Pharmacy: [facility] #[id number], 157, cm, 09/01/22 12:34:00 EDT, Height/Length Dosing, 66, kg, 09/01/22 12:34:00 EDT, Weight Dosing Start Date: 09/01/22 Status: Ordered azithromycin 250 mg oral tablet 250 mg = 1 tab, Oral, Daily, # 4 tab, 0 Refill(s), Pharmacy: [facility], 158, cm, 11/24/22 20:13:00 EST, Height/Length Dosing, 65.77, kg, 11/24/22 20:13:00 EST, Weight Dosing Start Date: 11/24/22 Stop Date: 11/28/22 Status: Ordered Combivent Respimat CFC free 20 mcg-100 mcg/inh inhalation aerosol 2 puffs, Inhale, QID, PRN shortness of breath, # 1 EA, 0 Refill(s), Pharmacy: [facility] #[id number], 157, cm, 09/01/22 12:34:00 EDT, Height/Length Dosing, 66, kg, 09/01/22 12:34:00 EDT, Weight Dosing Start Date: 09/01/22 Status: Ordered predniSONE 10 mg oral tablet See Instructions, 40mg PO QD x3 days, 30mg PO QDx 3days, 20mg PO QD x3days, 10mg PO QDx3 days, # 30cap, 0 Refill(s), Pharmacy: [facility] #[id number], 157, cm, 09/01/22 12:34:00 EDT, Height/Length Dosing, 66, kg, 09/01/22 12:34:00 EDT, Weight Do... Start Date: 09/01/22 Status: Ordered Vital Signs Most recent to oldest [Reference Range]: 1 2 3 Temperature Temporal Artery [36-38 Deg C] 36.7 Deg C (11/24/22 7:55 PM) Peripheral Pulse Rate [60-100 bpm] 90 bpm (11/24/22 9:56 PM) 90 bpm (11/24/22 9:19 PM) 90 bpm (11/24/22 7:55 PM) Respiratory Rate [12-24 br/min] 22 br/min (11/24/22 7:55 PM) Blood Pressure [90-140/60-90 mmHg] 113/80mmHg (11/24/22 9:56 PM) 97/54mmHg (11/24/22 9:19 PM) 118/75mmHg (11/24/22 7:55 PM) Mean Arterial Pressure Cuff 91 mmHg (11/24/22 9:56 PM) 68 mmHg (11/24/22 9:19 PM) Weight Dosing 65.77 kg (11/24/22 8:13 PM) Weight Estimated 65.77 kg (11/24/22 7:55 PM) Height/Length Dosing 158.000 cm (11/24/22 8:13 PM) Height/Length Estimated 158.000 cm (11/24/22 7:55 PM) Social History Social History Type Response Tobacco Current everyday tob acco user Tobacco Use:. Sex Hospital Discharge Instructions Patient Education 11/24/2022 21:03:51 How to Use a Nebulizer, Adult How to Use a Nebulizer, Adult A nebulizer is a device that turns liquid medicine into a mist or vapor that you can breathe in (inhale). This medicine helps to open the air passages in your lungs. You may need to use a nebulizer if you have an acute breathing illness, such as pneumonia. A nebulizer may also be used to treat chronic conditions, such as asthma or chronic obstructive pulmonarydisease (COPD). There are different kinds of nebulizers. With some nebulizers, you breathe in medicine through a mouthpiece. With others, you get medicine through a mask that fits over your nose and mouth. What are the risks? If you use a nebulizer that does not fit right or is not cleaned properly, it can cause some problems, including: ??? Infection. ??? Eye irritation. ??? Delivery of too much medicine or not enough medicine. ??? Mouth irritation. Supplies needed: ??? Air compressor (nebulizer machine). ??? Nebulizer medicine cup (reservoir)and tubing. ??? Mouthpiece or face mask. ??? Soap and water. ??? Sterile or distilled water. ??? Clean towel. How to use a nebulizer Preparing a nebulizer Take these steps before using your nebulizer: 1. Read the piggery worker's instructions for your nebulizer, as machines vary. 2. Check your medicine. Make sure it has not and is not damaged in any way. 3. Wash your hands with soap and water. 4. Put all of the parts of your nebulizer on a sturdy, flat surface. 5. Connect the tubing to the nebulizer machine and to the reservoir. 6. Measure the liquid medicine according to instructions from your health care provider. Pour the liquid into the reservoir. 7. Attach the mouthpiece or mask. 8. Test the nebulizer by turning it on to make sure that a spray comes out. Then, turn it off. Using a nebulizer Be sure to stop the machine at any time if you start coughing or if the medicine foams or bubbles. 1. Sit in an upright, relaxed position. 2. If your nebulizer has a mask, put it over your nose and mouth. It should fit somewhat snugly, with no gaps around the nose or cheeks where medicine could escape. If you use a mouthpiece, put it inyour mouth. Press your lips firmly around the mouthpiece. 3. Turn on the nebulizer. 4. Some nebulizers have a finger valve. If yours does, cover up the air hole so the air gets to thenebulizer. 5. Once the medicine begins to mist out, take slow, deep breaths. If there is a finger valve, release it at the end of your breath. 6. Continue taking slow, deep breaths until the medicine in the nebulizer is gone and no mist appears. Cleaning a nebulizer The nebulizer and all of its parts must be kept very clean. If the nebulizer and its parts are not cleaned properly, bacteria can grow inside of them. If you inhale the bacteria, you can get sick. Follow the piggery worker's instructions for cleaning your nebulizer. For most nebulizers, you should follow these guidelines: ??? Clean the mouthpiece or mask and the reservoir by: ??? Rinsing them after each use. Use sterile or distilled water. ??? Washing them 1???2 times a week using soap and warm water. ??? Do not wash the tubing. ??? After you rinse or wash them, place the parts on a clean towel and let them air-dry completely.After they dry, reconnect the pieces and turn the nebulizer on without any medicine in it. Doing this will blow air through the equipment to help dry it out. ??? Store the nebulizer in a clean and dust-free place. ??? Check the filter at least one time every week. Replace the filter if it looks dirty. Follow these instructions at home ??? Use your nebulizer only as told by your health care provider. Do not use the nebulizer more than directed by your health care provider. ??? Do not use any products that contain nicotine or tobacco, such as cigarettes, e-cigarettes, andchewing tobacco. If you need help quitting, ask your health care provider. ??? Keep all follow-up visits as told by your health care provider. This is important. Where to find more information ? ? Allergy & Asthma Network: allergyasthmanetwork.org ??? [employer]: www.lung.org Contact a health care provider if: ??? You have trouble using the nebulizer. ??? Your nebulizer foams or stops working. ??? Your nebulizer does not create a mist after you add medicine and turn it on. Get help right away if: ??? You continue to have trouble breathing. ??? Your breathing gets worse during a nebulizer treatment. These symptoms may represent a serious problem that is an emergency. Do not wait to see if the symptoms will go away. Get medical help right away. Call your local emergency services (911 in the [place] Do not drive yourself to the hospital. Summary ??? A nebulizer is a device that turns liquid medicine into a mist (vapor) that you can breathe in (inhale). ??? Measure the liquid medicine according to instructions from your health care provider. Pour the liquid into the part of the nebulizer that holds the medicine (reservoir). ??? Once the medicine begins to mist out, take slow, deep breaths. ??? Rinse or wash the mouthpiece or mask and the reservoir after each use, and allow them to air-dry completely. This information is not intended to replace advice given to you by your health care provider. Make sure you discuss any questions you have with your health care provider. Document Revised: 07/06/2021 Document Reviewed: 12/03/2020 [employer] Patient Education ?? 2021 [employer]. 11/24/2022 21:03:45 Pulse Oximetry Pulse Oximetry Pulse oximetry is a technology that measures the oxygen saturation level in the blood through the skin without the need for a blood sample. This may also be referred to as oxygen level. The device used to measure the oxygen level is called a pulse oximeter. This device also measures the heart rate (pulse). Pulse oximetry helps to assess: ??? Current oxygen level, including low blood oxygen levels (hypoxemia). ??? The need for or effectiveness of oxygen therapy or other treatments, including the need for more or less oxygen. ??? Blood flow (circulation) to different parts of the body. ??? Oxygen level during activity. What are the benefits? Benefits of pulse oximetry include: ??? Not needing a blood sample to measure the oxygen level. ??? The test does not hurt. ??? Having the option to measure oxygen level continuously or as needed. ??? An alarm to tell you when your oxygen levels are out of range if pulse oximetry is continuous. What are the risks? The risks associated with pulse oximetry are rare. However, there is a risk of skin sores if the sensor is left in the same spot for long periods of time. What happens during the test? Pulse oximetry is done using a pulse oximeter device with a light sensor attached. ??? One side of the sensor passes a red beam of light through the skin, and the other side of the sensor measures the amount of light that is absorbed while it passes through. The sensor is connectedto the pulse oximeter. ??? The pulse oximeter uses the information from the sensor to calculate the percentage of blood cells carrying oxygen in the blood. ??? The sensor is placed on an area of the body where the beam of light can easily pass through theskin. ??? For adults and children, the sensor is usually a clip placed on a finger, with the light centered over the nail bed. The sensor may also be placed on an earlobe or toe. ??? For babies, the sensor is usually a sticky tape strip that is placed around areas such as the sole of a foot or the palm of a hand. What can I expect after the test? The pulse oximetry results should be available right away. ??? If your pulse oximetry results are low, you may need to use oxygen. ??? The pulse oximetry results are a percentage. The normal value may vary depending on your medical condition. ??? Most healthy people have oxygen saturation levels between 95% and 100%. ??? Low oxygen saturation levels are below 90%. This may happen in people with lung conditions, such as long-term (chronic) obstructive pulmonary disease (COPD). What can affect the accuracy of the oximetry reading? Pulse oximetry depends on the amount of light absorbed as it passes through skin tissue. Because ofthis, the accuracy of this measurement can be affected by one or more of the following: ??? Factors such as: ??? Dark nail tajik or artificial nails. ??? Very dark skin. ??? Shivering or too much movement. ??? Bright, artificial lighting. ??? Chronic smoking and recent breathing-in (inhalation) of smoke or carbon monoxide. ??? Conditions such as: ??? Cool skin or poor blood flow to the area where the sensor is placed. ??? Sweating or very warm skin in the area where the sensor is placed. ??? Anemia, or low levels of hemoglobin or red blood cells. ??? Polycythemia vera. This is a bone marrow disease that causes high levels of red blood cells, white blood cells, and platelets. If a more accurate measurement is needed, a blood sample will be taken. Summary ??? Pulse oximetry uses a device to measure the oxygen level in the blood. ??? Pulse oximetry does not hurt. The risks associated with pulse oximetry are rare. ??? Most healthy people have oxygen levels between 95% and 100%. A low oxygen saturation level is below 90%. ??? People with low oxygen levels may need supplemental oxygen. This information is not intended to replace advice given to you by your health care provider. Make sure you discuss any questions you have with your health care provider. Document Revised: 01/26/2022 Document Reviewed: 01/26/2022 [employer] [facility] Patient Education ?? 2021 [employer]. 11/24/2022 21:03:36 Asthma, Adult Asthma, Adult Asthma is a [...] grass. ??? Air pollutants such as household environmental health technologist, wood smoke, smog, or chemical odors. ??? [...] when you breathe. ??? Excessive nighttime or rehabilitation therapist coughing. ??? Frequent or severe coughing with [...] vacuum, use a dust mask from a hardware store, a double-layered or microfilter vacuum airplane cleaner bag, or a vacuum airplane cleaner with a HEPA filter. ??? Replace [...] and water are not available, use hand architectural draftsman. ??? Do not allow anyone to smoke in your home. General instructions ??? Take culu-tzw-dphyrdk and prescription medicines only as told by [...] provider. Document Revised: 07/24/2021 Document Reviewed: 02/25/2021 [employer] Patient Education ?? 2021 [employer]. Follow Up Care 11/24/2022 19:55:30 With:Follow-up with your primary care Address: When:1 week Comments:Follow-up with your primary care as needed, they will be able to reevaluate if necessaryReturn to ED if concerns Physician Emergency department Note * MAIRA Harris: PERFORM Event Display: ED Note Physician Authored Date: [id number] LENNY MURPHY :2000 Age:22 years Sex:Female Visit Date:11/24/2022 Basic Information Time Seen: MAIRA Harris / 11/24/2022 20:10 Chief Complaint Pt to ED With complaints of SOB x2 days and hemoptisis. Pt was seen for same at [facility] and diagnosed with bronchitis. Pt has been started on prednisone and antibiotics and has had one dose of each. Pt reports anxiety. History Of Present Illness: Patient is alert oriented moderately ill-appearing female who presents the emergency department having been evaluated??earlier today by [facility] and found to have bronchitis.?? Patient has history of asthma utilizes??albuterol inhaler??and has frequent??exacerbations.?? She is just not closely followed by primary care per her admission Patient returns here for further evaluation??as she is closer to this hospital feels as though her breath is worsening??and felt as though she needed to be reevaluated.?? She has had no fevers but has had congestion and cough she notes some blood-tinged sputum??but was told that her x-ray was negative??for pneumonia. ??They treated her with steroids at that time and??azithromycin and sent her??tofollow-up with primary care. Review of Systems: Upper respiratory symptoms as stated HPI Physical Exam Vitals & Measurements T:??36.7?C ??(Temporal Artery)?? HR:??90??(Peripheral)?? RR:??22?? BP:??113/80?? SpO2:??95%?? HT:??158.000??cm?? WT:??65.77??kg??(Estimated)?? Pain Score:??5?? O2 Therapy:??Room air?? Patient alert oriented age-appropriate well-nourished nontoxic Normocephalic atraumatic Neck supple nontender EOM intact, PERRLA, sclera nonicteric Clear to auscultation bilaterally Regular rate and rhythm no murmurs Normal gait and station, normal strength all extremities Neuro exam intact without focal deficit Appropriate mood and affect Medical Decision Making: She has had a single DuoNeb and a single albuterol nebulizer treatment here, she is given a repeat dose of steroids here in the emergency department??and after approximately 2 hours she feels significantly better. ??Her oxygen remains 94% consistently.?? She has had several episodes where she dips below but this is when she is laying on her side and in a position. Patient feels comfortable with discharge and will follow up with her primary care. Procedure No Qualifying Data Assessment/Plan 1.??Asthma exacerbation??J45.901 Patient at this time??will be continually evaluated by primary care,??at this time??she will be given a prescription for albuterol nebulizer treatments which she will??purchase nebulizer at the pharmacy tomorrow and utilize this. ??She will continue to utilize her nebulizer treatments??as needed thereafter. ??She will utilize her albuterol tonight until this can be achieved She will be given a prescription for azithromycin which she states was not called into the pharmacyand will continue the 40 mg of prednisone that was??called into the pharmacy for her from [facility]. ??She will return to the emergency department for any new or worsening symptoms. Orders: albuterol 2.5 mg/3 mL (0.083%) inhalation solution, 2.5 mg = 3 mL, NEB, every 6 hr, PRN as needed for wheezing, # 90 mL, 0 Refill(s), Pharmacy: [facility], 158, cm, 11/24/22 20:13:00 EST,Height/Length Dosing, 65.77, kg, 11/24/22 20:13:00 EST, Weight Dosing azithromycin 250 mg oral tablet, 250 mg = 1 tab, Oral, Daily, # 4 tab, 0 Refill(s), Pharmacy: [facility], 158, cm, 11/24/22 20:13:00 EST, Height/Length Dosing, 65.77, kg, 11/24/22 20:13:00 EST, Weight Dosing Discharge Patient, 11/24/22 22:01:00 EST Patient Education How to Use a Nebulizer, Adult Pulse Oximetry Asthma, Adult Follow Up With When Contact Information Follow-up with your primary care Within 1 week Additional Instructions: Follow-up with your primary care as needed, they will be able to reevaluate if necessary Return to ED if concerns Medication Reconciliation Changed albuterol ?? albuterol (albuterol 2.5 mg/3 mL (0.083%) inhalation solution)3 Milliliters Nebulized inhalation (inhale using nebulizer) every 6 hours as needed as needed for wheezing. Refills: 0. ?? azithromycin (azithromycin 250 mg oral tablet)1 tab Oral (given by mouth) every day for 4 Days. Refills: 0. ?? azithromycin (azithromycin 250 mg oral tablet)See Instruction Oral (given by mouth) every day. take2 tabs on day 1 and 1 tabs on day 2-5. Refills: 0. ?? Unchanged ipratropium-albuterol (Combivent Respimat CFC free 20 mcg-100 mcg/inh inhalation aerosol)2 Puffs Inhale (breathe in) 4 times a day as needed shortness of breath. Refills: 0. ?? predniSONE (predniSONE 10 mg oral tablet)40mg PO QD x3 days, 30mg PO QDx 3days, 20mg PO QD x3days, 10mg PO QDx3 days. Refills: 0. Problem List/Past Medical History Ongoing No qualifying data Historical No qualifying data Medication Administration Given albuterol, 2.5 mg, NEB ipratropium-albuterol 0.5 mg-2.5 mg/3 mL inhalation solution, 3 mL, NEB predniSONE, 40 mg, Oral Allergies No Known Medication Allergies Social History Electronic Cigarette/Vaping Electronic Cigarette Use: Use, within last 90 days. Substance Use Marijuana Tobacco Current everyday tobacco user Tobacco Use:. Electronically Signed on 11/24/22 10:55 PM MAIRA Harris Emergency department Discharge instructions * MAIRA Harris: PERFORM Event Display: ED Discharge Information Authored Date: [id number] LENNY MURPHY :2000 Age:22 years Sex:Female Visit Date:11/24/2022 Discharge Instructions We would like to thank you for allowing us to assist you with your healthcare needs. The following includes patient education materials and information regarding your injury/illness. Diagnosis from Today's Visit Asthma exacerbation Discharge Vitals Temperature??(Temporal Artery) 98.1 ??F (36.7 ??C) Heart Rate??(Peripheral) 90 Respiratory Rate?? 22 Blood Pressure?? 113/80?? Height?? 62.20 in (158.000 cm) Weight??(Estimated) 145.02 lb (65.77 kg) Allergies No Known Medication Allergies What to Do Next Instructions from Your Care Team Medications have been sent to the pharmacy We will use [facility] pharmacy as I know that they have nebulizers for sale.?? Pick 1 up tomorrow to utilize in place of your inhaler Continue your steroids as prescribed Azithromycin is sent to the pharmacy as well Return to the emergency department for??any concerning findings??and oxygenation less than 90% consistently. You Need to Schedule the Following Appointments Follow Up with??Follow-up with your primary care When:??Within 1 week Why: Follow-up with your primary care as needed, they will be able to reevaluate if necessary Return to ED if concerns You were treated today on an emergency basis; it may be schneider to contact your primary care provider to notify them of your visit today. You may have been referred to your regular doctor or a specialist, please follow up as instructed. If your condition worsens or you can't get in to see the doctor, contact the Emergency Department. Medications What How Much When Instructions Next Dose Changed albuterol Changed albuterol (albuterol 2.5 mg/ 3 mL (0.083%) inhalation solution) 3 Milliliters Nebulized inhalation (inhale using nebulizer) Every 6 hours as needed for as needed for wheezing Pickup at [facility] Changed azithromycin (azithromycin 250 mg oral tablet) See Instruction Oral (given by mouth) Every day take 2 tabs on day 1 and 1 tabs on day 2-5 ?? Changed azithromycin (azithromycin 250 mg oral tablet) 1 tab Oral (given by mouth) Every day Duration: 4 Days Pickup at [facility] Unchanged ipratropium-albuterol (Combivent Respimat CFC free 20 mcg-100 mcg/ inh inhalation aerosol) 2 Puffs Inhale (breathe in) 4 times a day as needed for shortness of breath Unchanged predniSONE (predniSONE 10 mg oral tablet) See instructions 40mg PO QD x3 days, 30mg PO QDx 3days, 20mg PO QD x3days, 10mg PO QDx3 days ?? Pharmacy Information [facility]: [address] [place] [address] [phone] Education Materials How to Use a Nebulizer, Adult A nebulizer is a device that turns liquid medicine into a mist or vapor that you can breathe in (inhale). This medicine helps to open the air passages in your lungs. You may need to use a nebulizer if you have an acute breathing illness, such as pneumonia. A nebulizer may also be used to treat chronic conditions, such as asthma or chronic obstructive pulmonarydisease (COPD). There are different kinds of nebulizers. With some nebulizers, you breathe in medicine through a mouthpiece. With others, you get medicine through a mask that fits over your nose and mouth. What are the risks? If you use a nebulizer that does not fit right or is not cleaned properly, it can cause some problems, including: ? Infection. ? Eye irritation. ? Delivery of too much medicine or not enough medicine. ? Mouth irritation. Supplies needed: ? Air compressor (nebulizer machine). ? Nebulizer medicine cup (reservoir)and tubing. ? Mouthpiece or face mask. ? Soap and water. ? Sterile or distilled water. ? Clean towel. How to use a nebulizer Preparing a nebulizer Take these steps before using your nebulizer: 1.?? Read the piggery worker's instructions for your nebulizer, as machines vary. 2.?? Check your medicine. Make sure it has not and is not damaged in any way. 3.?? Wash your hands with soap and water. 4.?? Put all of the parts of your nebulizer on a sturdy, flat surface. 5.?? Connect the tubing to the nebulizer machine and to the reservoir. 6.?? Measure the liquid medicine according to instructions from your health care provider. Pour the liquid into the reservoir. 7.?? Attach the mouthpiece or mask. 8.?? Test the nebulizer by turning it on to make sure that a spray comes out. Then, turn it off. Using a nebulizer Be sure to stop the machine at any time if you start coughing or if the medicine foams or bubbles. 1.?? Sit in an upright, relaxed position. 2.?? If your nebulizer has a mask, put it over your nose and mouth. It should fit somewhat snugly, with no gaps around the nose or cheeks where medicine could escape. If you use a mouthpiece, put it in your mouth. Press your lips firmly around the mouthpiece. 3.?? Turn on the nebulizer. 4.?? Some nebulizers have a finger valve. If yours does, cover up the air hole so the air gets to the nebulizer. 5.?? Once the medicine begins to mist out, take slow, deep breaths. If there is a finger valve, release it at the end of your breath. 6.?? Continue taking slow, deep breaths until the medicine in the nebulizer is gone and no mist appears. Cleaning a nebulizer The nebulizer and all of its parts must be kept very clean. If the nebulizer and its parts are not cleaned properly, bacteria can grow inside of them. If you inhale the bacteria, you can get sick. Follow the piggery worker's instructions for cleaning your nebulizer. For most nebulizers, you should follow these guidelines: ? Clean the mouthpiece or mask and the reservoir by: ? Rinsing them after each use. Use sterile or distilled water. ? Washing them 1???2 times a week using soap and warm water. ? Do not wash the tubing. ? After you rinse or wash them, place the parts on a clean towel and let them air- dry completely. After they dry, reconnect the pieces and turn the nebulizer on without any medicine in it. Doing this will blow air through the equipment to help dry it out. ? Store the nebulizer in a clean and dust-free place. ? Check the filter at least one time every week. Replace the filter if it looks dirty. Follow these instructions at home ? Use your nebulizer only as told by your health care provider. Do not use the nebulizer more than directed by your health care provider. ? Do not use any products that contain nicotine or tobacco, such as cigarettes, e- cigarettes, and chewing tobacco. If you need help quitting, ask your health care provider. ? Keep all follow-up visits as told by your health care provider. This is important. Where to find more information ? Allergy & Asthma Network: allergyasthmanetwork.org ? [employer]: www.lung.org Contact a health care provider if: ? You have trouble using the nebulizer. ? Your nebulizer foams or stops working. ? Your nebulizer does not create a mist after you add medicine and turn it on. Get help right away if: ? You continue to have trouble breathing. ? Your breathing gets worse during a nebulizer treatment. These symptoms may represent a serious problem that is an emergency. Do not wait to see if the symptoms will go away. Get medical help right away. Call your local emergency services (911 in the [place] Do not drive yourself to the hospital. Summary ? A nebulizer is a device that turns liquid medicine into a mist (vapor) that you can breathe in (inhale). ? Measure the liquid medicine according to instructions from your health care provider. Pour the liquid into the part of the nebulizer that holds the medicine (reservoir). ? Once the medicine begins to mist out, take slow, deep breaths. ? Rinse or wash the mouthpiece or mask and the reservoir after each use, and allow them to air-dry completely. This information is not intended to replace advice given to you by your health care provider. Make sure you discuss any questions you have with your health care provider. Document Revised: 07/06/2021 Document Reviewed: 12/03/2020 [employer] Patient Education ?? 2021 [employer] Pulse Oximetry Pulse oximetry is a technology that measures the oxygen saturation level in the blood through the skin without the need for a blood sample. This may also be referred to as oxygen level. The device used to measure the oxygen level is called a pulse oximeter. This device also measures the heart rate (pulse). Pulse oximetry helps to assess: ? Current oxygen level, including low blood oxygen levels (hypoxemia). ? The need for or effectiveness of oxygen therapy or other treatments, including the need for more orless oxygen. ? Blood flow (circulation) to different parts of the body. ? Oxygen level during activity. What are the benefits? Benefits of pulse oximetry include: ? Not needing a blood sample to measure the oxygen level. ? The test does not hurt. ? Having the option to measure oxygen level continuously or as needed. ? An alarm to tell you when your oxygen levels are out of range if pulse oximetry is continuous. What are the risks? The risks associated with pulse oximetry are rare. However, there is a risk of skin sores if the sensor is left in the same spot for long periods of time. What happens during the test? Pulse oximetry is done using a pulse oximeter device with a light sensor attached. ? One side of the sensor passes a red beam of light through the skin, and the other side of the sensor measures the amount of light that is absorbed while it passes through. The sensor is connected to the pulse oximeter. ? The pulse oximeter uses the information from the sensor to calculate the percentage of blood cells carrying oxygen in the blood. ? The sensor is placed on an area of the body where the beam of light can easily pass through the skin. ? For adults and children, the sensor is usually a clip placed on a finger, with the light centered over the nail bed. The sensor may also be placed on an earlobe or toe. ? For babies, the sensor is usually a sticky tape strip that is placed around areas such as the sole of a foot or the palm of a hand. What can I expect after the test? The pulse oximetry results should be available right away. ? If your pulse oximetry results are low, you may need to use oxygen. ? The pulse oximetry results are a percentage. The normal value may vary depending on your medical condition. ? Most healthy people have oxygen saturation levels between 95% and 100%. ? Low oxygen saturation levels are below 90%. This may happen in people with lung conditions, such aslong-term (chronic) obstructive pulmonary disease (COPD). What can affect the accuracy of the oximetry reading? Pulse oximetry depends on the amount of light absorbed as it passes through skin tissue. Because ofthis, the accuracy of this measurement can be affected by one or more of the following: ? Factors such as: ? Dark nail tajik or artificial nails. ? Very dark skin. ? Shivering or too much movement. ? Bright, artificial lighting. ? Chronic smoking and recent breathing-in (inhalation) of smoke or carbon monoxide. ? Conditions such as: ? Cool skin or poor blood flow to the area where the sensor is placed. ? Sweating or very warm skin in the area where the sensor is placed. ? Anemia, or low levels of hemoglobin or red blood cells. ? Polycythemia vera. This is a bone marrow disease that causes high levels of red blood cells, white blood cells, and platelets. If a more accurate measurement is needed, a blood sample will be taken. Summary ? Pulse oximetry uses a device to measure the oxygen level in the blood. ? Pulse oximetry does not hurt. The risks associated with pulse oximetry are rare. ? Most healthy people have oxygen levels between 95% and 100%. A low oxygen saturation level is below90%. ? People with low oxygen levels may need supplemental oxygen. This information is not intended to replace advice given to you by your health care provider. Make sure you discuss any questions you have with your health care provider. Document Revised: 01/26/2022 Document Reviewed: 01/26/2022 [employer] Patient Education ?? 2021 [employer] Asthma, Adult Asthma is a long-term (chronic) [...] different for each person. Common triggers include: ? Mold. ? Dust. ? Cigarette smoke. ? Cockroaches. ? Things that can cause allergy symptoms (allergens), such as animal dander or pollen from trees or grass. ? Air pollutants such as household environmental health technologist, wood smoke, smog, or chemical odors. ? Cold air, weather changes, and winds (which increase molds and pollen in the air). ? Strong emotional expressions such as crying or laughing hard. ? Stress. ? Certain medicines (such as aspirin) or types of medicines (such as beta-blockers). ? Sulfites in foods and drinks. Foods and drinks that may contain sulfites include dried fruit, potato chips, and sparkling grape juice. ? Infections or inflammatory conditions such as the flu, a cold, or inflammation of the nasal membranes (rhinitis). ? Gastroesophageal reflux disease (GERD). ? Exercise or strenuous activity. What are the signs or symptoms? Symptoms of this condition may occur right after asthma is triggered or many hours later. Symptoms include: ? Wheezing. This can sound like whistling when you breathe. ? Excessive nighttime or rehabilitation therapist coughing. ? Frequent or severe coughing with a common cold. ? Chest tightness. ? Shortness of breath. ? Tiredness (fatigue) with minimal activity. How is this diagnosed? This condition is diagnosed based on: ? Your medical history. ? A physical exam. ? Tests, which may include: ? Lung function studies and pulmonary studies (spirometry). These tests can evaluate the flow of air in your lungs. ? Allergy tests. ? Imaging tests, such as X-rays. How is this treated? There is no cure for this condition, but treatment can help control your symptoms. Treatment for asthma usually involves: ? Identifying and avoiding your asthma triggers. ? Using medicines to control your symptoms. Generally, two types of medicines are used to treat asthma: ? Controller medicines. These help prevent asthma symptoms from occurring. They are usually taken every day. ? Fast-acting reliever or rescue medicines. These quickly relieve asthma symptoms by widening the narrow and tight airways. They are used as needed and provide short-term relief. ? Using supplemental oxygen. This may be needed during a severe episode. ? Using other medicines, such as: ? Allergy medicines, such as antihistamines, if your asthma attacks are triggered by allergens. ? Immune medicines (immunomodulators). These are medicines that help control the immune system. ? Creating an asthma action plan. An asthma action plan is a written plan for managing and treating your asthma attacks. This plan includes: ? A list of your asthma triggers and how to avoid them. ? Information about when medicines should be taken and when their dosage should be changed. ? Instructions about using a device called a peak flow meter. A peak flow meter measures how well thelungs are working and the severity of your asthma. It helps you monitor your condition. Follow these instructions at home: Controlling your home environment Control your home environment in the following ways to help avoid triggers and prevent asthma attacks: ? Change your heating and air conditioning filter regularly. ? Limit your use of fireplaces and wood stoves. ? Get rid of pests (such as roaches and mice) and their droppings. ? Throw away plants if you see mold on them. ? Clean floors and dust surfaces regularly. Use unscented cleaning products. ? Try to have someone else vacuum for you regularly. Stay out of rooms while they are being vacuumed and for a short while afterward. If you vacuum, use a dust mask from a hardware store, a double-layered or microfilter vacuum airplane cleaner bag, or a vacuum airplane cleaner with a HEPA filter. ? Replace carpet with wood, tile, or vinyl sina. Carpet can trap dander and dust. ? Use allergy-proof pillows, mattress covers, and box spring covers. ? Keep your bedroom a trigger-free room. ? Avoid pets and keep windows closed when allergens are in the air. ? Wash beddings every week in hot water and dry them in a dryer. ? Use blankets that are made of polyester or cotton. ? Clean bathrooms and darshan with bleach. If possible, have someone repaint the quinonez in these rooms with mold-resistant paint. Stay out of the rooms that are being cleaned and painted. ? Wash your hands often with soap and water. If soap and water are not available, use hand architectural draftsman. ? Do not allow anyone to smoke in your home. General instructions ? Take [id number] and prescription medicines only as told by your health care provider. ? Speak with your health care provider if you have questions about how or when to take the medicines. ? Make note if you are requiring more frequent dosages. ? Do not use any products that contain nicotine or tobacco, such as cigarettes and e-cigarettes. If you need help quitting, ask your health care provider. Also, avoid being exposed to secondhand smoke. ? Use a peak flow meter as told by your health care provider. Record and keep track of the readings. ? Understand and use the asthma action plan to help minimize, or stop an asthma attack, without needing to seek medical care. ? Make sure you stay up to date on your yearly vaccinations as told by your health care provider. This may include vaccines for the flu and pneumonia. ? Avoid outdoor activities when allergen counts are high and when air quality is low. ? Wear a ski mask that covers your nose and mouth during outdoor winter activities. Exercise indoors on cold days if you can. ? Warm up before exercising, and take time for a cool-down period after exercise. ? Keep all follow-up visits as told by your health care provider. This is important. Where to find more information ? For information about asthma, turn to the Centers for Disease Control and Prevention at www.cdc.gov/asthma/faqs ? For air quality information, turn to [employer] at airCoContest.gov Contact a health care provider if: ? You have wheezing, shortness of breath, or a cough even while you are taking medicine to prevent attacks. ? The mucus you cough up (sputum) is thicker than usual. ? Your sputum changes from clear or white to yellow, green, michelle, or bloody. ? Your medicines are causing side effects, such as a rash, itching, swelling, or trouble breathing. ? You need to use a reliever medicine more than 2???3 times a week. ? Your peak flow reading is still at 50???79% of your personal best after following your action plan for 1 hour. ? You have a fever. Get help right away if: ? You are getting worse and do not respond to treatment during an asthma attack. ? You are short of breath when at rest or when doing very little physical activity. ? You have difficulty eating, drinking, or talking. ? You have chest pain or tightness. ? You develop a fast heartbeat or palpitations. ? You have a bluish color to your lips or fingernails. ? You are light-headed or dizzy, or you faint. ? Your peak flow reading is less than 50% of your personal best. ? You feel too tired to breathe normally. Summary ? Asthma is a long-term (chronic) condition that causes recurrent episodes in which the airways become tight and narrow. These episodes can cause coughing, wheezing, shortness of breath, and chest pain. ? Asthma cannot be cured, but medicines and lifestyle changes can help control it and treat acute attacks. ? Make sure you understand how to avoid triggers and how and when to use your medicines. ? Asthma attacks can range from minor to [...] provider. Document Revised: 07/24/2021 Document Reviewed: 02/25/2021 [employer] Patient Education ?? 2021 [employer] Tests Performed Medications and Immunizations Administered Given albuterol, 2.5 mg, NEB ipratropium-albuterol 0.5 mg-2.5 mg/3 mL inhalation solution, 3 mL, NEB predniSONE, 40 mg, Oral Patient/Nail Setter Signature Patient Name:LENNY MURPHY I have received this information and my questions have been answered. Patient/Nail Setter Name: Patient/Nail Setter Signature: Relationship to Patient: Witness Name/Signature: Date: Electronically Signed on: 11/24/2022 22:04 ESTSigned by:
--- OUTSIDE RECORDS SUMMARY | 2023-12-17 18:51 | XMS_ITS | Continuity of Care Document ---
Author Name Unknown Organization [facility] Address [address] [place] [address] Encounter [facility] NBR [id number] Date(s): 01/16/23 - 01/16/23 [facility] [address] [place], [place] [address] Encounter Diagnosis Vaginal discharge(Discharge Diagnosis) - 01/16/23 Dyspareunia in female(Discharge Diagnosis) - 01/16/23 Musculoskeletal chest pain(Discharge Diagnosis) - 01/16/23 Wheezing(Discharge Diagnosis) - 01/16/23 Discharge Disposition: Home or Self Care Attending Physician: Blanca Templeton PA-C Allergies, Adverse Reactions, Alerts No Known Medication Allergies Assessment and Plan Future Scheduled Tests Laboratory* Vaginitis Panel DNA Probe (BD Affirm) 01/16/23 * Chlamydia trachomatis and Neisseria gonorrhoeae (GeneXpert) 01/16/23 Functional Status 01/16/23 Other exposure to Infectious Disease Non e Medications albuterol 0 Refill(s) Start Date: 08/14/22 Status: Ordered albuterol 2.5 mg/3 mL (0.083%) inhalation solution 2.5 mg = 3 mL, NEB, every 6 hr, PRN as needed for wheezing, # 90 mL, 0 Refill(s), Pharmacy: [facility], 158, cm, 11/24/22 20:13:00 EST, Height/Length Dosing, 65.77, kg, 11/24/22 20:13:00 EST, Weight Dosing Start Date: 11/24/22 Status: Ordered azithromycin 250 mg oral tablet See Instruction, Oral, Daily, take 2 tabs on day 1 and 1 tabs on day 2-5, # 6 tab, 0 Refill(s), Pharmacy: [facility] #[id number], 157, cm, 09/01/22 12:34:00 EDT, Height/Length Dosing, 66, kg, 09/01/22 12:34:00 EDT, Weight Dosing Start Date: 09/01/22 Status: Ordered azithromycin 250 mg oral tablet 250 mg = 1 tab, Oral, Daily, # 4 tab, 0 Refill(s), Pharmacy: [facility], 158, cm, 11/24/22 20:13:00 EST, Height/Length Dosing, 65.77, kg, 11/24/22 20:13:00 EST, Weight Dosing Start Date: 11/24/22 Stop Date: 11/28/22 Status: Ordered Combivent Respimat CFC free 20 mcg-100 mcg/inh inhalation aerosol 2 puffs, Inhale, QID, PRN shortness of breath, # 1 EA, 0 Refill(s), [id number], 157, cm, 09/01/22 12:34:00 EDT, Height/Length Dosing, 66, kg, 09/01/22 12:34:00 EDT, Weight Dosing Start Date: 09/01/22 Status: Ordered metroNIDAZOLE 0.75% vaginal gel with applicator 1 anne, VAG, every night at bedtime, # 70 g, 0 Refill(s), Pharmacy: [id number], 158, cm, 11/24/22 20:13:00 EST, Height/Length Dosing, 65.77, kg, 11/24/22 20:13:00 EST, Weight Dosing Start Date: 01/16/23 Stop Date: 01/21/23 Status: Ordered predniSONE 10 mg oral tablet See Instruction, Oral, Daily, 4 tabs daily x3 days, 3 tabs daily x3 days, 2 tabs daily x3 days, 1 tab daily x3 days, # 30 tab, 0 Refill(s), Pharmacy: [facility], 158, cm, 11/24/22 20:13:00 EST,Height/Length Dosing, 65.77, kg, 11/24/22 20:13:00... Start Date: 01/16/23 Status: Ordered predniSONE 10 mg oral tablet See Instructions, 40mg PO QD x3 days, 30mg PO QDx 3days, 20mg PO QD x3days, 10mg PO QDx3 days, # 30cap, 0 Refill(s), Pharmacy: [facility] #[id number], 157, cm, 09/01/22 12:34:00 EDT, Height/Length Dosing, 66, kg, 09/01/22 12:34:00 EDT, Weight Do... Start Date: 09/01/22 Status: Ordered Vital Signs Most recent to oldest [Reference Range]: 1 Temperature Tympanic [36.6-37.9 Deg C] 3 6.7 Deg C (01/16/23 9:06 AM) Peripheral Pulse Rate [60-100 bpm] 79 bp m (01/16/23 9:06 AM) Respiratory Rate [12-24 br/min] 16 br/mi n (01/16/23 9:06 AM) Blood Pressure [90-140/60-90 mmHg] 110/7 4mmHg (01/16/23 9:06 AM) Weight 74.39 kg (01/16/23 9:06 AM) Weight Measured (lbs) 164.002 lb (01/16/23 9:06 AM) Height 160.02 cm (01/16/23 9:06 AM) Height/Length Measured (inches) 63 inch (01/16/23 9:06 AM) BSA Measured 1.82 m2 (01/16/23 9:06 AM) Body Mass Index 29.05 kg/m2 (01/16/23 9:06 AM) Social History Social History Type Response Tobacco Current everyday tob acco user Tobacco Use:. Sex Hospital Discharge Instructions Patient Education 01/16/2023 08:49:21 Chest Wall Pain Chest Wall Pain Chest wall pain is pain in or around the bones and muscles of your chest. Sometimes, an injury causes this pain. Excessive coughing or overuse of arm and chest muscles may also cause chest wall pain.Sometimes, the cause may not be known. This pain may take several weeks or longer to get better. Follow these instructions at home: Managing pain, stiffness, and swelling ??? If directed, put ice on the painful area: ??? Put ice in a plastic bag. ??? Place a towel between your skin and the bag. ??? Leave the ice on for 20 minutes, 2???3 times per day. Activity ??? Rest as told by your health care provider. ??? Avoid activities that cause pain. These include any activities that use your chest muscles or your abdominal and side muscles to lift heavy items. Ask your health care provider what activities are safe for you. General instructions ??? Take gjpq-kae-ltubynm and prescription medicines only as told by your health care provider. ??? Do not use any products that contain nicotine or tobacco, such as cigarettes, e-cigarettes, andchewing tobacco. These can delay healing after injury. If you need help quitting, ask your health care provider. ??? Keep all follow-up visits as told by your health care provider. This is important. Contact a health care provider if: ??? You have a fever. ??? Your chest pain becomes worse. ??? You have new symptoms. Get help right away if: ??? You have nausea or vomiting. ??? You feel sweaty or light-headed. ??? You have a cough with mucus from your lungs (sputum) or you cough up blood. ??? You develop shortness of breath. These symptoms may represent a serious problem that is an emergency. Do not wait to see if the symptoms will go away. Get medical help right away. Call your local emergency services (911 in the [place] Do not drive yourself to the hospital. Summary ??? Chest wall pain is pain in or around the bones and muscles of your chest. ??? Depending on the cause, it may be treated with ice, rest, medicines, and avoiding activities that cause pain. ??? Contact a health care provider if you have a fever, worsening chest pain, or new symptoms. ??? Get help right away if you feel light-headed or you develop shortness of breath. These symptomsmay be an emergency. This information is not intended to replace advice given to you by your health care provider. Make sure you discuss any questions you have with your health care provider. Document Revised: 01/08/2022 Document Reviewed: 01/08/2022 Elsevier Patient Education ?? 2021 [employer] Physician Outpatient Note * Blanca Templeton PA-C: PERFORM Event Display: Office Clinic Note Physician Authored Date: [id number] LISA MURPHY :2000 Age:22 years Sex:Female Visit Date:01/16/2023 Chief Complaint Pt presents with sensation of chest caving in whenever she does anything strenuous x 1 week. Works at [employer]. Notes pulsating pelvic pain, especially when she has sex, present for past 3 mornings and rest of day. History of Present Illness Patient is a 22-year-old female history of??asthma??and tobacco use that presents to the urgent care office today with??5 to 6-day history of??nonradiating??anterior chest pain??which she describes as a??soreness. ??Pain is worse??with coughing??and when she raises her upper extremities??above her head or carries??any weight. ??In the last week she has??ceased vaping, and noted a dry nonproductive cough.?? Associated wheezing and tightness??that responds well to albuterol??but is needing to usethe albuterol??multiple times a day.?No exertional chest pain, shortness of breath or dizziness.?No fever chills, nausea or vomiting. ??Not on oral contraceptive. ??No recent travel. ??No recent procedure??surgery. ??No history of DVT or PE.?? No family history of sudden cardiac . ?? She is also been experiencing 3 days of??anterior??pelvic pain that is worse??after intercourse.?Associated??malodorous??discharge. ??Menses are regular,??just 2 weeks ago.?? Not on OCP.?Same sexual partner for the last 2 years.?? No history of STI in the past.?? She has had ovarian cysts,feels similar. ??No history of endometriosis. Physical Exam Vitals & Measurements T:??36.7?C ??(Tympanic)?? HR:??79??(Peripheral)?? RR:??16?? BP:??110/74?? SpO2:??98%?? HT:??160.02??cm?? WT:??74.39??kg?? BMI:??29.05?? Pain Score:??7?? BSA:??1.82?? Medical Decision Making: Chest pain: 22-year-old female??with 1 week history of??nonexertional??chest pain??with wheezing.?Differential includes musculoskeletal etiology versus??pleuritic (coughing - asthma) versus anxiety.?She is low risk for??pulmonary embolism, dissection, pneumothorax, esophageal rupture, AMI??giv en her age??and lack of risk factors. ??She has normal vital signs here in the office, good clinical appearance. ??I do not recommend any work-up at this time. ??I will start her on??oral prednisone??for symptom management.?? Side effects of prednisone were discussed with patient. ?? Acute pelvic pain: 22-year-old sexually active female??with 3 days of anterior pelvic pain??worse with intercourse??with associated??discharge.?? Affirm positive for Gardnerella, consistent with bacterial vaginosis.?? Start Flagyl suppositories??x5 nights.?? If there is persistent pelvic pain, she should consider??following up with [facility]OL SPECIALIST.?? Patient agreeable with this plan. Assessment/Plan 1.??Vaginal discharge??N89.8 Ordered: metroNIDAZOLE 0.75% vaginal gel with applicator, 1 anne, VAG, every night at bedtime, # 70 g, 0 Refill(s), Pharmacy: [facility] #[facility], 158, cm, 11/24/22 20:13:00 EST, Height/Length Dosing, 65.77, kg, 11/24/22 20:13:00 EST, Weight Dosing predniSONE 10 mg oral tablet, See Instruction, Oral, Daily, 4 tabs daily x3 days, 3 tabs daily x3 days, 2 tabs daily x3 days, 1 tab daily x3 days, # 30 tab, 0 Refill(s), Pharmacy: [facility] #[facility], 158, cm, 11/24/22 20:13:00 EST, Height/Length Dosing, 65.77, kg, 11/24/22 20:13:00... Chlamydia trachomatis and Neisseria gonorrhoeae (GeneXpert), Urine, Routine Collect, 01/16/23, Once, Nurse collect, Print Label, Vaginal discharge, Order for future visit HCG, Urine POC, 01/16/23 9:31:00 EDT, Vaginal discharge, 01/16/23 9:31:00 EDT Vaginitis Panel DNA Probe (BD Affirm), Vaginal, Routine Collect, 01/16/23, Once, Nurse collect, Print Label, Vaginal discharge, Order for future visit ?? 2.??Dyspareunia in female??N94.10 Ordered: metroNIDAZOLE 0.75% vaginal gel with applicator, 1 anne, VAG, every night at bedtime, # 70 g, 0 Refill(s), Pharmacy: [facility], 158, cm, 11/24/22 20:13:00 EST, Height/Length Dosing, 65.77, kg, 11/24/22 20:13:00 EST, Weight Dosing predniSONE 10 mg oral tablet, See Instruction, Oral, Daily, 4 tabs daily x3 days, 3 tabs daily x3 days, 2 tabs daily x3 days, 1 tab daily x3 days, # 30 tab, 0 Refill(s), Pharmacy: [facility], 158, cm, 11/24/22 20:13:00 EST, Height/Length Dosing, 65.77, kg, 11/24/22 20:13:00... ?? 3.??Musculoskeletal chest pain??R07.89 Ordered: metroNIDAZOLE 0.75% vaginal gel with applicator, 1 anne, VAG, every night at bedtime, # 70 g, 0 Refill(s), Pharmacy: [facility] #[facility], 158, cm, 11/24/22 20:13:00 EST, Height/Length Dosing, 65.77, kg, 11/24/22 20:13:00 EST, Weight Dosing predniSONE 10 mg oral tablet, See Instruction, Oral, Daily, 4 tabs daily x3 days, 3 tabs daily x3 days, 2 tabs daily x3 days, 1 tab daily x3 days, # 30 tab, 0 Refill(s), Pharmacy: [facility] #[facility], 158, cm, 11/24/22 20:13:00 EST, Height/Length Dosing, 65.77, kg, 11/24/22 20:13:00... ?? 4.??Wheezing??R06.2 Ordered: metroNIDAZOLE 0.75% vaginal gel with applicator, 1 anne, VAG, every night at bedtime, # 70 g, 0 Refill(s), Pharmacy: [facility] #[facility], 158, cm, 11/24/22 20:13:00 EST, Height/Length Dosing, 65.77, kg, 11/24/22 20:13:00 EST, Weight Dosing predniSONE 10 mg oral tablet, See Instruction, Oral, Daily, 4 tabs daily x3 days, 3 tabs daily x3 days, 2 tabs daily x3 days, 1 tab daily x3 days, # 30 tab, 0 Refill(s), Pharmacy: [facility] #[facility], 158, cm, 11/24/22 20:13:00 EST, Height/Length Dosing, 65.77, kg, 11/24/22 20:13:00... ?? Patient Instructions To whom it may concern, ? Please excuse Lisa's absence from work??today January 16, 2023 due to illness. ?? Blanca Templeton PA-C Future Orders Chlamydia trachomatis and Neisseria gonorrhoeae (GeneXpert), Urine, Routine Collect, 01/16/23, Once, Nurse collect, Print Label, Vaginal discharge, Order for future visit Vaginitis Panel DNA Probe (BD Affirm), Vaginal, Routine Collect, 01/16/23, Once, Nurse collect, Print Label, Vaginal discharge, Order for future visit Patient Education Chest Wall Pain Problem List/Past Medical History Ongoing No qualifying data Historical No qualifying data Medications albuterol albuterol 2.5 mg/3 mL (0.083%) inhalation solution, 2.5 mg= 3 mL, NEB, every 6 hr, PRN azithromycin 250 mg oral tablet, See Instruction, Oral, Daily azithromycin 250 mg oral tablet, 250 mg= 1 tab, Oral, Daily Combivent Respimat CFC free 20 mcg-100 mcg/inh inhalation aerosol, 2 puffs, Inhale, QID, PRN metroNIDAZOLE 0.75% vaginal gel with applicator, 1 anne, VAG, every night at bedtime predniSONE 10 mg oral tablet, See Instruction, Oral, Daily predniSONE 10 mg oral tablet, See Instructions Allergies No Known Medication Allergies Social History Electronic Cigarette/Vaping Electronic Cigarette Use: Use, within last 90 days. Substance Use Marijuana Tobacco Current everyday tobacco user Tobacco Use:. Electronically Signed on 01/16/23 02:40 PM Blanca Templeton PA-C Outpatient Summary note * Blanca Templeton PA-C: PERFORM Event Display: Ambulatory Patient Summary Authored Date: [id number] LISA MURPHY :2000 Age:22 years Sex:Female Visit Date:01/16/2023 Ambulatory Visit Instructions We would like to thank you for allowing us to assist you with your healthcare needs. The following includes patient education materials and information regarding your injury/illness. After you leave the office, you may get your health information including your test results, physician notes and discharge information by accessing your Patient Portal. Your Next Steps Instructions From Your Care Team To whom it may concern, ? Please excuse Lisa's absence from work??today January 16, 2023 due to illness. ?? Blanca Templeton PA-C Medications What How Much When Why Instructions Changed predniSONE (predniSONE 10 mg oral tablet) See Instruction Oral (given by mouth) Every day Vaginal discharge Dyspareunia in female Musculoskeletal chest pain Wheezing 4 tabs daily x3 days, 3 tabs daily x3 days, 2 tabs daily x3 days, 1 tab daily x3 days ?? Pickup at [id number] Changed predniSONE (predniSONE 10 mg oral tablet) See instructions 40mg PO QD x3 days, 30mg PO QDx 3days, 20mg PO QD x3days, 10mg PO QDx3 days ?? Unchanged albuterol Unchanged albuterol (albuterol 2.5 mg/ 3 mL (0.083%) inhalation solution) 3 Milliliters Nebulized inhalation (inhale using nebulizer) Every 6 hours as needed for as needed for wheezing Unchanged azithromycin (azithromycin 250 mg oral tablet) See Instruction Oral (given by mouth) Every day take 2 tabs on day 1 and 1 tabs on day 2-5 ?? Unchanged azithromycin (azithromycin 250 mg oral tablet) 1 tab Oral (given by mouth) Every day Duration: 4 Days Unchanged ipratropium-albuterol (Combivent Respimat CFC free 20 mcg-100 mcg/ inh inhalation aerosol) 2 Puffs Inhale (breathe in) 4 times a day as needed for shortness of breath Pharmacy Information [facility]: [id number] [facility] [place], [place] [id number] [phone] Your Summary Your Diagnosis Vaginal discharge Dyspareunia in female Musculoskeletal chest pain Wheezing Your Care Team Attending Physician - Blanca Templeton PA-C Discharge Vitals Temperature??(Tympanic) 98.1 ??F (36.7 ??C) Heart Rate??(Peripheral) 79 Respiratory Rate?? 16 Blood Pressure?? 110/74?? Height?? 63.00 in (160.02 cm) Weight?? 164.03 lb (74.39 kg) BMI?? 29.05 Allergies No Known Medication Allergies Education Materials Chest Wall Pain Chest wall pain is pain in or around the bones and muscles of your chest. Sometimes, an injury causes this pain. Excessive coughing or overuse of arm and chest muscles may also cause chest wall pain.Sometimes, the cause may not be known. This pain may take several weeks or longer to get better. Follow these instructions at home: Managing pain, stiffness, and swelling ? If directed, put ice on the painful area: ? Put ice in a plastic bag. ? Place a towel between your skin and the bag. ? Leave the ice on for 20 minutes, 2???3 times per day. Activity ? Rest as told by your health care provider. ? Avoid activities that cause pain. These include any activities that use your chest muscles or your abdominal and side muscles to lift heavy items. Ask your health care provider what activities are safe for you. General instructions ? Take kcgh-daw-fkyhcbn and prescription medicines only as told by your health care provider. ? Do not use any products that contain nicotine or tobacco, such as cigarettes, e- cigarettes, and chewing tobacco. These can delay healing after injury. If you need help quitting, ask your health care provider. ? Keep all follow-up visits as told by your health care provider. This is important. Contact a health care provider if: ? You have a fever. ? Your chest pain becomes worse. ? You have new symptoms. Get help right away if: ? You have nausea or vomiting. ? You feel sweaty or light-headed. ? You have a cough with mucus from your lungs (sputum) or you cough up blood. ? You develop shortness of breath. These symptoms may represent a serious problem that is an emergency. Do not wait to see if the symptoms will go away. Get medical help right away. Call your local emergency services (911 in the [place] Do not drive yourself to the hospital. Summary ? Chest wall pain is pain in or around the bones and muscles of your chest. ? Depending on the cause, it may be treated with ice, rest, medicines, and avoiding activities that cause pain. ? Contact a health care provider if you have a fever, worsening chest pain, or new symptoms. ? Get help right away if you feel light-headed or you develop shortness of breath. These symptoms maybe an emergency. This information is not intended to replace advice given to you by your health care provider. Make sure you discuss any questions you have with your health care provider. Document Revised: 01/08/2022 Document Reviewed: 01/08/2022 [employer] Patient Education ?? 2021 [employer]. Electronically Signed on: 01/16/2023 10:02 EDTSigned by:TAMI Templeton PA-C: PERFORM Event Display: Ambulatory Patient Summary Authored Date: [id number] LISA MURPHY :2000 Age:22 years Sex:Female Visit Date:01/16/2023 Ambulatory Visit Instructions We would like to thank you for allowing us to assist you with your healthcare needs. The following includes patient education materials and information regarding your injury/illness. After you leave the office, you may get your health information including your test results, physician notes and discharge information by accessing your Patient Portal. Your Next Steps Instructions From Your Care Team To whom it may concern, ? Please excuse Lisa's absence from work??today January 16, 2023 due to illness. ?? Blanca Templeton PA-C You Need to Complete the Following Chlamydia trachomatis and Neisseria gonorrhoeae (GeneXpert), Urine, Routine Collect, 01/16/23, Once, Nurse collect, Print Label, Vaginal discharge, Order for future visit Vaginitis Panel DNA Probe (BD Affirm), Vaginal, Routine Collect, 01/16/23, Once, Nurse collect, Print Label, Vaginal discharge, Order for future visit Medications What How Much When Instructions Unchanged albuterol Unchanged albuterol (albuterol 2.5 mg/ 3 mL (0.083%) inhalation solution) 3 Milliliters Nebulized inhalation (inhale using nebulizer) Every 6 hours as needed for as needed for wheezing Unchanged azithromycin (azithromycin 250 mg oral tablet) See Instruction Oral (given by mouth) Every day take 2 tabs on day 1 and 1 tabs on day 2-5 ?? Unchanged azithromycin (azithromycin 250 mg oral tablet) 1 tab Oral (given by mouth) Every day Duration: 4 Days Unchanged ipratropium-albuterol (Combivent Respimat CFC free 20 mcg-100 mcg/ inh inhalation aerosol) 2 Puffs Inhale (breathe in) 4 times a day as needed for shortness of breath Unchanged predniSONE (predniSONE 10 mg oral tablet) See instructions 40mg PO QD x3 days, 30mg PO QDx 3days, 20mg PO QD x3days, 10mg PO QDx3 days ?? Your Summary Your Diagnosis Vaginal discharge Dyspareunia in female Musculoskeletal chest pain Wheezing Your Care Team Attending Physician - Blanca Templeton PA-C Discharge Vitals Temperature??(Tympanic) 98.1 ??F (36.7 ??C) Heart Rate??(Peripheral) 79 Respiratory Rate?? 16 Blood Pressure?? 110/74?? Height?? 63.00 in (160.02 cm) Weight?? 164.03 lb (74.39 kg) BMI?? 29.05 Allergies No Known Medication Allergies Education Materials Chest Wall Pain Chest wall pain is pain in or around the bones and muscles of your chest. Sometimes, an injury causes this pain. Excessive coughing or overuse of arm and chest muscles may also cause chest wall pain.Sometimes, the cause may not be known. This pain may take several weeks or longer to get better. Follow these instructions at home: Managing pain, stiffness, and swelling ? If directed, put ice on the painful area: ? Put ice in a plastic bag. ? Place a towel between your skin and the bag. ? Leave the ice on for 20 minutes, 2???3 times per day. Activity ? Rest as told by your health care provider. ? Avoid activities that cause pain. These include any activities that use your chest muscles or your abdominal and side muscles to lift heavy items. Ask your health care provider what activities are safe for you. General instructions ? Take zjtd-sqo-xomrvzf and prescription medicines only as told by your health care provider. ? Do not use any products that contain nicotine or tobacco, such as cigarettes, e- cigarettes, and chewing tobacco. These can delay healing after injury. If you need help quitting, ask your health care provider. ? Keep all follow-up visits as told by your health care provider. This is important. Contact a health care provider if: ? You have a fever. ? Your chest pain becomes worse. ? You have new symptoms. Get help right away if: ? You have nausea or vomiting. ? You feel sweaty or light-headed. ? You have a cough with mucus from your lungs (sputum) or you cough up blood. ? You develop shortness of breath. These symptoms may represent a serious problem that is an emergency. Do not wait to see if the symptoms will go away. Get medical help right away. Call your local emergency services (911 in the [place] Do not drive yourself to the hospital. Summary ? Chest wall pain is pain in or around the bones and muscles of your chest. ? Depending on the cause, it may be treated with ice, rest, medicines, and avoiding activities that cause pain. ? Contact a health care provider if you have a fever, worsening chest pain, or new symptoms. ? Get help right away if you feel light-headed or you develop shortness of breath. These symptoms maybe an emergency. This information is not intended to replace advice given to you by your health care provider. Make sure you discuss any questions you have with your health care provider. Document Revised: 01/08/2022 Document Reviewed: 01/08/2022 [employer] Patient Education ?? 2021 [employer] Electronically Signed on: 01/16/2023 10:00 EDTSigned by: Patient Care team information Care Team Related Persons Name: CARLENE MURPHY
--- OUTSIDE RECORDS SUMMARY | 2023-12-17 18:51 | XMS_ITS | Continuity of Care Document ---
Author Name Unknown Organization [facility] Address [address] [place] [address] Care Team Providers Care Legal Compliance Officer Name Role Phone SARA BONILLA RPA Primary Care Physician Encounter [facility]_IA FIN NBR [id number] Date(s): 09/07/23 - 09/07/[address] [address]- Encounter Diagnosis Asthma exacerbation(Discharge Diagnosis) - 09/07/23 Unspecified asthma with (acute) exacerbation(Final) - Personal history of nicotine dependence(Final) - Discharge Disposition: Home or Self Care Attending Physician: Steven Baig MD Admitting Physician: Steven Baig MD Allergies, Adverse Reactions, Alerts No Known Medication Allergies Assessment and Plan Future Scheduled Tests Laboratory* Vaginitis Panel DNA Probe (BD Affirm) 01/16/23 * Chlamydia trachomatis and Neisseria gonorrhoeae (GeneXpert) 01/16/23 Medications albuterol 0 Refill(s) Start Date: 08/14/22 Status: Ordered albuterol 2.5 mg/3 mL (0.083%) inhalation solution 2.5 mg = 3 mL, NEB, every 6 hr, PRN as needed for wheezing, # 90 mL, 0 Refill(s), Pharmacy: [facility], 158, cm, 11/24/22 20:13:00 EST, Height/Length Dosing, 65.77, kg, 11/24/22 20:13:00 EST, Weight Dosing Start Date: 11/24/22 Status: Ordered azithromycin 250 mg oral tablet See Instruction, Oral, Daily, take 2 tabs on day 1 and 1 tabs on day 2-5, # 6 tab, 0 Refill(s), Pharmacy: [facility] #[id number], 157, cm, 09/01/22 12:34:00 EDT, Height/Length Dosing, 66, kg, 09/01/22 12:34:00 EDT, Weight Dosing Start Date: 09/01/22 Status: Ordered Combivent Respimat CFC free 20 mcg-100 mcg/inh inhalation aerosol 2 puffs, Inhale, QID, PRN shortness of breath, # 1 EA, 0 Refill(s), Pharmacy: [facility] #[id number], 157, cm, 09/01/22 12:34:00 EDT, Height/Length Dosing, 66, kg, 09/01/22 12:34:00 EDT, Weight Dosing Start Date: 09/01/22 Status: Ordered predniSONE 20 mg oral tablet 60 mg = 3 tab, Oral, Daily, # 15 tab, 0 Refill(s), Pharmacy: [facility] #[id number], 158, cm, 09/07/23 14:47:00 EDT, Height, 72.5, kg, 09/07/23 14:47:00 EDT, Weight Dosing Start Date: 09/07/23 Stop Date: 09/12/23 Status: Ordered Mental Status 09/07/23 Eye Opening Response Riley Spontaneous ly Best Verbal Response [place] Oriented Best Motor Response Riley Obeys comman ds Riley Coma Score 15 Problem List No Known Problems Vital Signs Most recent to oldest [Reference Range]: 1 2 3 Temperature Temporal Artery [36-38 Deg C] 36 Deg C (09/07/23 2:39 PM) Peripheral Pulse Rate [60-100 bpm] 82 bpm (09/07/23 3:30 PM) 74 bpm (09/07/23 3:00 PM) 70 bpm (09/07/23 2:39 PM) Respiratory Rate [12-24 br/min] 18 br/min (09/07/23 2:39 PM) Blood Pressure [90-140/60-90 mmHg] 113/85mmHg (09/07/23 3:30 PM) 93/65mmHg (09/07/23 3:00 PM) 118/88mmHg (09/07/23 2:39 PM) Mean Arterial Pressure, Cuff [65-140 mmHg] 94 mmHg (09/07/23 3:30 PM) 74 mmHg (09/07/23 3:00 PM) 98 mmHg (09/07/23 2:39 PM) Mean Arterial Pressure Cuff 96 mmHg (09/07/23 3:30 PM) 75 mmHg (09/07/23 3:00 PM) Weight 72.50 kg (09/07/23 2:39 PM) Weight Dosing 72.50 kg (09/07/23 2:47 PM) Height 158.000 cm (09/07/23 2:47 PM) 158.000 cm (09/07/23 2:39 PM) Body Mass Index 29.000 kg/m2 (09/07/23 2:39 PM) Social History Social History Type Response Tobacco Former tobacco user Tobacco Use:. Sex Hospital Discharge Instructions Patient Education 09/07/2023 15:33:50 Asthma, Adult Asthma, Adult Asthma is a long-term (chronic) condition that causes recurrent episodes in which the lower airwaysin the lungs become tight and narrow. The narrowing is caused by inflammation and tightening of thesmooth muscle around the lower airways. Asthma episodes, also called asthma attacks or asthma flares, may cause coughing, making high-pitched whistling sounds when you breathe, most often when you breathe out (wheezing), shortness of breath, and chest pain. The airways may produce extra mucus caused by the inflammation and irritation. During an attack, it can be difficult to breathe. Asthma attacks can range from minor to life-threatening. Asthma cannot be cured, but medicines and lifestyle changes can help control it and treat acute attacks. It is important to keep your asthma well controlled so the condition does not interfere with your daily life. What are the causes? This condition is believed to be caused by inherited (genetic) and environmental factors, but its exact cause is not known. What can trigger an asthma attack? Many things can bring on an asthma attack or make symptoms worse. These triggers are different for every person. Common triggers include: ??? Allergens and irritants like mold, dust, pet dander, cockroaches, pollen, air pollution, and chemical odors. ??? Cigarette smoke. ??? Weather changes and cold air. ??? Stress and strong emotional responses such as crying or laughing hard. ??? Certain medications such as aspirin or beta blockers. ??? Infections and inflammatory conditions, such as the flu, a cold, pneumonia, or inflammation of the nasal membranes (rhinitis). ??? Gastroesophageal reflux disease (GERD). What are the signs or symptoms? Symptoms may occur right after exposure to an asthma trigger or hours later and can vary by person.Common signs and symptoms include: ??? Wheezing. ??? Trouble breathing (shortness of breath). ??? Excessive nighttime or identifier horse coughing. ??? Chest tightness. ??? Tiredness (fatigue) with minimal activity. ??? Difficulty talking in complete sentences. ??? Poor exercise tolerance. How is this diagnosed? This condition is diagnosed based on: ??? A physical exam and your medical history. ??? Tests, which may include: ??? Lung function studies to evaluate the flow of air in your lungs. ??? Allergy tests. ??? Imaging tests, such as X-rays. How is this treated? There is no cure, but symptoms can be controlled with proper treatment. Treatment usually involves: ??? Identifying and avoiding your asthma triggers. ??? Inhaled medicines. Two types are commonly used to treat asthma, depending on severity: ??? Controller medicines. These help prevent asthma symptoms from occurring. They are taken every day. ??? Fast-acting reliever or rescue medicines. These quickly relieve asthma symptoms. They are used as needed and provide short-term relief. ??? Using other medicines, such as: ??? Allergy medicines, such as antihistamines, if your asthma attacks are triggered by allergens. ??? Immune medicines (immunomodulators). These are medicines that help control the immune system. ??? Using supplemental oxygen. This is only needed during a severe episode. ??? Creating an asthma action plan. An [...] your condition. Follow these instructions at home: ??? Take myns-mku-pwzwkjn and prescription medicines only as told by your health care provider. ??? Stay up to date on all vaccinations as recommended by your healthcare provider, including vaccines for the flu and pneumonia. ??? Use a peak flow meter and keep track of your peak flow readings. ??? Understand and use your asthma action plan to address any asthma flares. ??? Do not smoke or allow anyone to smoke in your home. Contact a health care provider if: ??? You have wheezing, shortness of breath, or a cough that is not responding to medicines. ??? Your medicines are causing side effects, such as a rash, itching, swelling, or trouble breathing. ??? You need to use a reliever medicine more than 2???3 times a week. ??? Your peak flow reading is still at 50???79% of your personal best after following your action plan for 1 hour. ??? You have a fever and shortness of breath. Get help right away if: ??? You [...] You feel too tired to breathe normally. These symptoms may be an emergency. Get help right away. Call 911. ??? Do not wait to see if the symptoms will go away. ??? Do not drive yourself to the hospital. Summary ??? Asthma is a long-term (chronic) condition that causes recurrent episodes in which the airways become tight and narrow. Asthma episodes, also called asthma attacks or asthma flares, can cause coughing, wheezing, shortness of breath, and chest pain. ??? Asthma cannot be cured, but medicines and lifestyle changes can help keep it well controlled and prevent asthma flares. ??? Make sure you understand how to avoid triggers and how and when to use your medicines. ??? Asthma attacks can range from minor to life-threatening. Get help right away if you have an asthma attack and do not respond to treatment with your usual rescue medicines. This information is not intended to replace advice given to you by your health care provider. Make sure you discuss any questions you have with your health care provider. Document Revised: 08/11/2022 Document Reviewed: 08/02/2022 [employer] Patient Education ?? 2022 [employer] Follow Up Care 09/07/2023 14:39:48 With:SARA BONILLA RPA Address: [address] [place] [phone] When:1 week Discharge instructions * Event Display: Discharge Instructions Physician Emergency department Note * Steven Baig MD: PERFORM Event Display: ED Note Physician Authored Date: [id number] LISA MURPHY :2000 Age:23 years Sex:Female Visit Date:09/07/2023 Primary Care Physician: SARA BONILLA RPA Basic Information Time Seen: Steven Baig MD / 09/07/2023 15:04 Chief Complaint Couple of days having asthma flare, audibly wheezing. Ran out of nebulizer, albuterol inhaler and symbicort, progressively worsening. History Of Present Illness: 23-year-old female with past medical history significant for asthma presents the ER complaining of coughing and wheezing.?? The patient ran out of her??Symbicort recently and cannot refill it for 6 more days due to insurance authorization.?? She says she had COVID in July and since then has been having more coughing and wheezing.?? Denies any fevers or chills. ??No pain or swelling in her legs. ??No recent travel or immobilization.?? She has not been hospitalized for asthma in the past. Review of Systems: CONSTITUTIONAL:??No fevers or chills. EYES:??No change in vision. ENT:??No sore throat. ??No headache. ??No neck pain. CARDIOVASCULAR:??No chest pain, palpitations or passing out episodes. RESPIRATORY:??No hemoptysis. GI:??No abdominal pain. ??No nausea, vomiting or diarrhea. :??No change in urination. SKIN:??No rash. NEUROLOGIC:??No focal numbness or weakness. LYMPH:??No swelling. ?? Review of systems otherwise as stated in HPI Physical Exam Vitals & Measurements T:??36?C ??(Temporal Artery)?? HR:??82??(Peripheral)?? RR:??18?? BP:??113/85?? SpO2:??100%?? HT:??158.000??cm?? WT:??72.50??kg?? BMI:??29.000?? Pain Score:??5?? O2 Therapy:??Room air?? GENERAL:??Awake and alert. ??No acute distress. HEENT:??Normocephalic, atraumatic. ??Mucous membranes are moist. HEART:??Regular rate and rhythm. ??S1 and S2. LUNGS:??Scattered expiratory wheezes bilaterally. ??No respiratory stress or accessory muscle usage. ??No rhonchi or rales. ABDOMEN:??Soft, nontender, nondistended. BACK:??Normal to inspection and nontender. EXTREMITIES:??Nontender and without edema. NEUROLOGIC:??Awake, alert, and oriented x3. ??Motor and sensory grossly intact. SKIN:??Warm and dry. Medical Decision Making: Asthma exacerbation. ??The patient likely has??asthma exacerbation due to post viral illness and??exacerbated by running out of her??Symbicort.?? She was given 2 DuoNebs here with improvement.?? Otherwise she is afebrile nontoxic-appearing with clear lungs and normal oxygen saturation and??we have low suspicion for bacterial pneumonia.?We discussed the risks and benefits of chest x-ray and have agreed to hold off.?? Symptoms are not suggestive of ACS or PE.?? We discussed treatment options with the patient and have agreed on dispensing an albuterol MDI for rescue inhaler??to be used this week as directed.?? We will additionally give her a burst of prednisone??for the asthma exacerbation. ??Otherwise she will refill her Symbicort??in 6 days as planned, follow-up with primary care, return for new or worsening symptoms that were discussed with her. Procedure No Qualifying Data Assessment/Plan 1.??Asthma exacerbation??J45.901 Orders: predniSONE 20 mg oral tablet, 60 mg = 3 tab, Oral, Daily, # 15 tab, 0 Refill(s), Pharmacy: [facility] #[id number], 158, cm, 09/07/23 14:47:00 EDT, Height, 72.5, kg, 09/07/23 14:47:00 EDT, Weight Dosing Patient Education Asthma, Adult Follow Up With When Contact Information SARA BONILLA RPA Within [address] [place] [phone] Additional Instructions: Medication Reconciliation New Prescription predniSONE (predniSONE 20 mg oral tablet)3 tab Oral (given by mouth) every day for 5 Days. Refills:0. ?? Unchanged albuterol ?? albuterol (albuterol 2.5 mg/3 mL (0.083%) inhalation solution)3 Milliliters Nebulized inhalation (inhale using nebulizer) every 6 hours as needed as needed for wheezing. Refills: 0. ?? azithromycin (azithromycin 250 mg oral tablet)See Instruction Oral (given by mouth) every day. take2 tabs on day 1 and 1 tabs on day 2-5. Refills: 0. ?? ipratropium-albuterol (Combivent Respimat CFC free 20 mcg-100 mcg/inh inhalation aerosol)2 Puffs Inhale (breathe in) 4 times a day as needed shortness of breath. Refills: 0. Problem List/Past Medical History Ongoing No chronic problems Historical No qualifying data Medication Administration Given albuterol 90 mcg/inh aerosol inhaler, 90 mcg, Inhale ipratropium-albuterol 0.5 mg-2.5 mg/3 mL inhalation solution, 3 mL, 3 mL, NEB predniSONE, 60 mg, Oral Allergies No Known Medication Allergies Social History Alcohol Never Electronic Cigarette/Vaping Electronic Cigarette Use: Use, within last 90 days. Use per Day: 26-50 Inhales/day. Substance Use Marijuana, Several times per day Tobacco Former tobacco user Tobacco Use:. Electronically Signed on 09/08/23 02:41 AM Steven Baig MD Emergency department Discharge instructions * Steven Baig MD: PERFORM Event Display: ED Discharge Information Authored Date: [id number] LISA MURPHY :2000 Age:23 years Sex:Female Visit Date:09/07/2023 Primary Care Physician: SARA BONILLA RPA Discharge Instructions We would like to thank you for allowing us to assist you with your healthcare needs. The following includes patient education materials and information regarding your injury/illness. Diagnosis from Today's Visit Asthma exacerbation Discharge Vitals Temperature??(Temporal Artery) 96.8 ??F (36 ??C) Heart Rate??(Peripheral) 82 Respiratory Rate?? 18 Blood Pressure?? 113/85?? Height?? 62.20 in (158.000 cm) Weight?? 159.86 lb (72.50 kg) BMI?? 29.000 Allergies No Known Medication Allergies What to Do Next You Need to Schedule the Following Appointments Follow Up with??SARA BONILLA RPA When:??Within 1 week Where: [address] [place] [phone] You were treated today on an emergency [...] What How Much When Instructions Next Dose Unchanged albuterol Unchanged albuterol (albuterol 2.5 mg/ 3 mL (0.083%) inhalation solution) 3 [place] Nebulized inhalation (inhale using nebulizer) Every 6 hours as needed for as needed for wheezing Unchanged azithromycin (azithromycin 250 mg oral tablet) See Instruction Oral (given by mouth) Every day take 2 tabs on day 1 and 1 tabs on day 2-5 ?? Unchanged ipratropium-albuterol (Combivent Respimat CFC free 20 mcg-100 mcg/ inh inhalation aerosol) 2 Puffs Inhale (breathe in) 4 times a day as needed for shortness of breath Education Materials Asthma, Adult Asthma is a long-term (chronic) condition that causes recurrent episodes in which the lower airwaysin the lungs become tight and narrow. The narrowing is caused by inflammation and tightening of thesmooth muscle around the lower airways. Asthma episodes, also called asthma attacks or asthma flares, may cause coughing, making high-pitched whistling sounds when you breathe, most often when you breathe out (wheezing), shortness of breath, and chest pain. The airways may produce extra mucus caused by the inflammation and irritation. During an attack, it can be difficult to breathe. Asthma attacks can range from minor to life-threatening. Asthma cannot be cured, but medicines and lifestyle changes can help control it and treat acute attacks. It is important to keep your asthma well controlled so the condition does not interfere with your daily life. What are the causes? This condition is believed to be caused by inherited (genetic) and environmental factors, but its exact cause is not known. What can trigger an asthma attack? Many things can bring on an asthma attack or make symptoms worse. These triggers are different for every person. Common triggers include: ? Allergens and irritants like mold, dust, pet dander, cockroaches, pollen, air pollution, and chemical odors. ? Cigarette smoke. ? Weather changes and cold air. ? Stress and strong emotional responses such as crying or laughing hard. ? Certain medications such as aspirin or beta blockers. ? Infections and inflammatory conditions, such as the flu, a cold, pneumonia, or inflammation of the nasal membranes (rhinitis). ? Gastroesophageal reflux disease (GERD). What are the signs or symptoms? Symptoms may occur right after exposure to an asthma trigger or hours later and can vary by person.Common signs and symptoms include: ? Wheezing. ? Trouble breathing (shortness of breath). ? Excessive nighttime or identifier horse coughing. ? Chest tightness. ? Tiredness (fatigue) with minimal activity. ? Difficulty talking in complete sentences. ? Poor exercise tolerance. How is this diagnosed? This condition is diagnosed based on: ? A physical exam and your medical history. ? Tests, which may include: ? Lung function studies to evaluate the flow of air in your lungs. ? Allergy tests. ? Imaging tests, such as X-rays. How is this treated? There is no cure, but symptoms can be controlled with proper treatment. Treatment usually involves: ? Identifying and avoiding your asthma triggers. ? Inhaled medicines. Two types are commonly used to treat asthma, depending on severity: ? Controller medicines. These help prevent asthma symptoms from occurring. They are taken every day. ? Fast-acting reliever or rescue medicines. These quickly relieve asthma symptoms. They are used as needed and provide short-term relief. ? Using other medicines, such as: ? Allergy medicines, such as antihistamines, if your asthma attacks are triggered by allergens. ? Immune medicines (immunomodulators). These are medicines that help control the immune system. ? Using supplemental oxygen. This is only needed during a severe episode. ? Creating an asthma action plan. An [...] your condition. Follow these instructions at home: ? Take ydgl-xku-qbyxolx and prescription medicines only as told by your health care provider. ? Stay up to date on all vaccinations as recommended by your healthcare provider, including vaccines for the flu and pneumonia. ? Use a peak flow meter and keep track of your peak flow readings. ? Understand and use your asthma action plan to address any asthma flares. ? Do not smoke or allow anyone to smoke in your home. Contact a health care provider if: ? You have wheezing, shortness of breath, or a cough that is not responding to medicines. ? Your medicines are causing side effects, such as a rash, itching, swelling, or trouble breathing. ? You need to use a reliever medicine more than 2???3 times a week. ? Your peak flow reading is still at 50???79% of your personal best after following your action plan for 1 hour. ? You have a fever and shortness of breath. Get help right away if: ? You [...] You feel too tired to breathe normally. These symptoms may be an emergency. Get help right away. Call 911. ? Do not wait to see if the symptoms will go away. ? Do not drive yourself to the hospital. Summary ? Asthma is a long-term (chronic) condition that causes recurrent episodes in which the airways become tight and narrow. Asthma episodes, also called asthma attacks or asthma flares, can cause coughing, wheezing, shortness of breath, and chest pain. ? Asthma cannot be cured, but medicines and lifestyle changes can help keep it well controlled and prevent asthma flares. ? Make sure you understand how to avoid triggers and how and when to use your medicines. ? Asthma attacks can range from minor to life-threatening. Get help right away if you have an asthma attack and do not respond to treatment with your usual rescue medicines. This information is not intended to replace advice given to you by your health care provider. Make sure you discuss any questions you have with your health care provider. Document Revised: 08/11/2022 Document Reviewed: 08/02/2022 [employer] Patient Education ?? 2022 [employer] Tests Performed Medications and Immunizations Administered Given ipratropium-albuterol 0.5 mg-2.5 mg/3 mL inhalation solution, 3 mL, 3 mL, NEB Patient/Ecommerce Merchandising Manager Signature Patient Name:LISA MURPHY I have received this information and my questions have been answered. Patient/Ecommerce Merchandising Manager Name: Patient/Ecommerce Merchandising Manager Signature: Relationship to Patient: Witness Name/Signature: Date: Electronically Signed on: 09/07/2023 16:34 EDTSigned by: Patient Care team information Care Team Personnel Name: SARA BONILLA RPA Position: No Access Member Role: Primary Care Physician Address: Address: [address] [place] [phone]- [place] Name: Steven Baig MD Position: Physician Member Role: ED Physician Address: Address: [address] [place] [id number] Name: Lisa Adler Position: Nurse Member Role: ED Nurse Care Team Related Persons Name: CARLENE MURPHY
--- OUTSIDE RECORDS SUMMARY | 2023-12-17 18:51 | XMS_ITS | Continuity of Care Document ---
Author Name Unknown Organization [facility] Address [address] [place] [address] Care Team Providers Care Gift Shop Manager Name Role Phone SARA BONILLA RPA Primary Care Physician Encounter [facility] FIN NBR [phone] Date(s): 04/26/23 - 04/26/[address] [address] Encounter Diagnosis Pain in thoracic spine(Discharge Diagnosis) - 04/26/23 Thoracolumbar back pain(Discharge Diagnosis) - 04/26/23 Discharge Disposition: Home or Self Care Attending Physician: Babak Abraham DO Admitting Physician: Babak Abraham DO Allergies, Adverse Reactions, Alerts No Known Medication Allergies Assessment and Plan Future Scheduled Tests Laboratory* Vaginitis Panel DNA Probe (BD Affirm) 01/16/23 * Chlamydia trachomatis and Neisseria gonorrhoeae (Gene[facility]) 01/16/23 Functional Status 04/26/23 Family Member Travel History No recent t ravel Recent Travel History No recent travel Other exposure to Infectious Disease Non e Medications albuterol 0 Refill(s) Start Date: 08/14/22 Status: Ordered albuterol 2.5 mg/3 mL (0.083%) inhalation solution 2.5 mg = 3 mL, NEB, every 6 hr, PRN as needed for wheezing, # 90 mL, 0 Refill(s), Pharmacy: [facility], 158, cm, 11/24/22 20:13:00 EST, Height/Length Dosing, 65.77, kg, 11/24/22 20:13:00 EST, Weight Dosing Start Date: 11/24/22 Status: Ordered azithromycin 250 mg oral tablet See Instruction, Oral, Daily, take 2 tabs on day 1 and 1 tabs on day 2-5, # 6 tab, 0 Refill(s), Pharmacy: [facility] #[id number], 157, cm, 09/01/22 12:34:00 EDT, Height/Length Dosing, 66, kg, 09/01/22 12:34:00 EDT, Weight Dosing Start Date: 09/01/22 Status: Ordered azithromycin 250 mg oral tablet 250 mg = 1 tab, Oral, Daily, # 4 tab, 0 Refill(s), Pharmacy: [facility], 158, cm, 11/24/22 20:13:00 EST, Height/Length Dosing, 65.77, kg, 11/24/22 20:13:00 EST, Weight Dosing Start Date: 11/24/22 Stop Date: 11/28/22 Status: Ordered Combivent Respimat CFC free 20 mcg-100 mcg/inh inhalation aerosol 2 puffs, Inhale, QID, PRN shortness of breath, # 1 EA, 0 Refill(s), Pharmacy: [facility] #[id number], 157, cm, 09/01/22 12:34:00 EDT, Height/Length Dosing, 66, kg, 09/01/22 12:34:00 EDT, Weight Dosing Start Date: 09/01/22 Status: Ordered ibuprofen 800 mg oral tablet 800 mg = 1 tab, Oral, every 6 hr, X 10 days, # 40 tab, 0 Refill(s), 05/06/23 11:30:00 EDT, Pharmacy: [id number], 160.02, cm, 04/26/23 9:27:00 EDT, Height/Length Dosing, 74.39, kg, 04/26/23 9:27:00 EDT, Weight Dosing Start Date: 04/26/23 Stop Date: 05/06/23 Status: Ordered metroNIDAZOLE 0.75% vaginal gel with applicator 1 anne, VAG, every night at bedtime, # 70 g, 0 Refill(s), Pharmacy: [id number], 158, cm, 11/24/22 20:13:00 EST, Height/Length Dosing, 65.77, kg, 11/24/22 20:13:00 EST, Weight Dosing Start Date: 01/16/23 Stop Date: 01/21/23 Status: Ordered predniSONE 10 mg oral tablet See Instruction, Oral, Daily, 4 tabs daily x3 days, 3 tabs daily x3 days, 2 tabs daily x3 days, 1 tab daily x3 days, # 30 tab, 0 Refill(s), Pharmacy: [id number], 158, cm, 11/24/22 20:13:00 EST,Height/Length Dosing, 65.77, kg, 11/24/22 20:13:00... Start Date: 01/16/23 Status: Ordered predniSONE 10 mg oral tablet See Instructions, 40mg PO QD x3 days, 30mg PO QDx 3days, 20mg PO QD x3days, 10mg PO QDx3 days, # 30cap, 0 Refill(s), Pharmacy: [facility] #[id number], 157, cm, 09/01/22 12:34:00 EDT, Height/Length Dosing, 66, kg, 09/01/22 12:34:00 EDT, Weight Do... Start Date: 09/01/22 Status: Ordered Mental Status 04/26/23 Eye Opening Response Riley Spontaneous ly Best Verbal Response Riley Oriented Best Motor Response [place] Obeys comman ds Riley Coma Score 15 Problem List No Known Problems Results Laboratory List Name Date CBC w/ Diff 04/26/23 Comprehensive Metabolic Panel 04/26/23 Lipase Level 04/26/23 Test Serum Qual 04/26/23 Automated Diff 04/26/23 Test Urine Qual 04/26/23 Urinalysis with Micro if Indicated and C ulture if Indicated 04/26/23 Most recent to oldest [Reference Range]: 1 WBC [4.8-10.8 K/mcL] 6.4 K/mcL (04/26/23 10:13 AM) RBC [4.20-5.40 Million/mcL] 4.24 Million /mcL (04/26/23 10:13 AM) Neutro Auto [42.2-75.2 %] 42.6 % (04/26/23 10:13 AM) Lymph Auto [20.5-51.1 %] 42.1 % (04/26/23 10:13 AM) [place] Auto [1.7-9.3 %] 6.7 % (04/26/23 10:13 AM) Basophil Auto [0.0-0.8 %] 0.8 % (04/26/23 10:13 AM) BUN [8-26 mg/dL] 10 mg/dL (04/26/23 10:13 AM) UA Color [Yellow] Yellow (04/26/23 9:17 AM) Glucose Level [74-106 mg/dL] 88 mg/dL (04/26/23 10:13 AM) Potassium Level [3.5-5.1 mmol/L] 3.3 mmo l/L *LOW* (04/26/23: AM) Baso Absolute [0.0-0.2 K/mcL] 0.0 K/mcL (04/26/23 10:13 AM) MCV [81.0-99.0 fL] 89.9 fL (04/26/23: AM) UA Urobilinogen [0.2] 0.2 (04/26/23: AM) UA Bili [Negative] Negative (04/26/23 9: AM) UA Ketones [Negative] Negative (04/26/23: AM) AST [15-41 IntlUnit/L] 21 IntlUnit/L (04/26/23 10:13 AM) ALT [14-54 IntlUnit/L] 16 IntlUnit/L (04/26/23 10:13 AM) MCHC [32.0-36.0 g/dL] 34.4 g/dL (04/26/23 10: AM) Osmolality [275-295 mOsm/kg] 270 mOsm/kg *LOW* (04/26/23: AM) Sodium Level [134-143 mmol/L] 136 mmol/L (04/26/23 10:13 AM) UA Leuk Est [Negative] Negative (04/26/23 9:17 AM) Lymph Absolute [1.2-3.4 K/mcL] 2.7 K/mcL (04/26/23:13 AM) UA Nitrite [Negative] Negative (04/26/23:17 AM) UA Glucose [Negative] Negative (04/26/23:17 AM) Hct [37.0-47.0 %] 38.1 % (04/26/23 10: AM) Lipase Level [18-51 unit/L] 26 unit/L 1 (04/26/23 10:13 AM) Calcium Level [8.9-10.3 mg/dL] 9.1 mg/dL (04/26/23 10:13 AM) [place]iposa Absolute [0.1-0.6 K/mcL] 0.4 K/mcL (04/26/23 10:13 AM) Albumin Level [3.5-5.0 g/dL] 4.3 g/dL (04/26/23 10:13 AM) Protein Total [6.5-8.1 g/dL] 7.4 g/dL (04/26/23 10:13 AM) UA Protein [Negative] Negative (04/26/23 9:17 AM) MCH [27.0-31.0 pg] 30.9 pg (04/26/23:13 AM) Neutro Absolute [1.4-6.5 K/mcL] 2.8 K/mc L (04/26/23 10:13 AM) Bilirubin Total [0.2-1.2 mg/dL] 0.6 mg/d L (04/26/23:13 AM) Hgb [12.0-16.0 g/dL] 13.1 g/dL (04/26/23 10:13 AM) Alk Phos [38-130 IntlUnit/L] 47 IntlUnit /L (04/26/23 10:13 AM) UA Blood [Negative] Negative (04/26/23 9:17 AM) MPV [7.4-10.4 fL] 10.1 fL (04/26/23 10:13 AM) UA Spec Grav 1.010 *NA* (04/26/23 9:17 AM) Platelets [130-400 K/mcL] 302 K/mcL (04/26/23 10:13 AM) CO2 [22-32 mmol/L] 23 mmol/L (04/26/23 10:13 AM) Eos Absolute [0.0-0.2 K/mcL] 0.5 K/mcL *HI* (04/26/23 10:13 AM) UA pH 7.00 *NA* (04/26/23 9:17 AM) UA Appear [Clear] Clear (04/26/23 9:17 AM) Chloride Level [98-111 mmol/L] 103 mmol/ L (04/26/23 10:13 AM) RDW-CV [11.5-14.5 %] 12.9 % (04/26/23 10:13 AM) A/G Ratio 1.4 *NA* (04/26/23 10:13 AM) BUN/Creat Ratio [8.0-20.0] 15.9 (04/26/23 10:13 AM) Globulin 3.1 *NA* (04/26/23 10:13 AM) hCG Qual Serum [Negative] Negative (04/26/23 10:13 AM) Imm Gran Absolute 0.01 *NA* (04/26/23 10:13 AM) Imm Gran Auto [0.0-0.5 %] 0.2 % (04/26/23 10:13 AM) Urine Srce Clean Catch (04/26/23 9:17 AM) Creatinine Level [0.44-1.00 mg/dL] 0.63 mg/dL (04/26/23 10:13 AM) Anion Gap [3.0-12.0] 10.0 (04/26/23 10:13 AM) Eos, Auto [0.00-3.00 %] 7.60 % *HI* (04/26/23 10:13 AM) U hCG Ql [Negative] Negative (04/26/23 9:17 AM) eGFR CKD-EPI [>=60 mL/min/1.73 m2] 129 m L/min/1.73 m2 (04/26/23 10:13 AM) 1Interpretive Data: Q-nvxjdv-r-benzoquinone imine (meabolite of Acetaminophen) will generate erroneously low lipase results in samples for patients that have taken toxic doses of acetaminophen. Vital Signs Most recent to oldest [Reference Range]: 1 Temperature Tympanic [36.6-37.9 Deg C] 3 6.2 Deg C *LOW* (04/26/23 9:12 AM) Peripheral Pulse Rate [60-100 bpm] 74 bp m (04/26/23 9:12 AM) Blood Pressure [90-140/60-90 mmHg] 114/4 8mmHg (04/26/23 9:12 AM) Weight 74.39 kg (04/26/23 9:12 AM) Weight Dosing 74.39 kg (04/26/23 9:27 AM) Height 160.020 cm (04/26/23 9:12 AM) Height/Length Dosing 160.020 cm (04/26/23 9:27 AM) Body Mass Index 29.000 kg/m2 (04/26/23 9:12 AM) Social History Social History Type Response Tobacco Current everyday tob acco user Tobacco Use:. Sex Hospital Discharge Instructions Patient Education 04/26/2023 10:29:49 Acute Back Pain, Adult Acute Back Pain, Adult Acute back pain is sudden and usually short-lived. It is often caused by an injury to the muscles and tissues in the back. The injury may result from: ??? A muscle, tendon, or ligament getting overstretched or torn. Ligaments are tissues that connectbones to each other. Lifting something improperly can cause a back strain. ??? Wear and tear (degeneration) of the spinal disks. Spinal disks are circular tissue that providecushioning between the bones of the spine (vertebrae). ??? Twisting motions, such as while playing sports or doing yard work. ??? A hit to the back. ??? Arthritis. You may have a physical exam, lab tests, and imaging tests to find the cause of your pain. Acute back pain usually goes away with rest and home care. Follow these instructions at home: Managing pain, stiffness, and swelling ??? Take hyze-fgl-eyksnfp and prescription medicines only as told by your health care provider. Treatment may include medicines for pain and inflammation that are taken by mouth or applied to the skin, or muscle relaxants. ??? Your health care provider may recommend applying ice during the first 24???48 hours after your pain starts. To do this: ??? Put ice in a plastic bag. ??? Place a towel between your skin and the bag. ??? Leave the ice on for 20 minutes, 2???3 times a day. ??? Remove the ice if your skin turns bright red. This is very important. If you cannot feel pain, heat, or cold, you have a greater risk of damage to the area. ??? If directed, apply heat to the affected area as often as told by your health care provider. Usethe heat source that your health care provider recommends, such as a moist heat pack or a heating pad. ??? Place a towel between your skin and the heat source. ??? Leave the heat on for 20???30 minutes. ??? Remove the heat if your skin turns bright red. This is especially important if you are unable to feel pain, heat, or cold. You have a greater risk of getting burned. Activity ??? Do not stay in bed. Staying in bed for more than 1???2 days can delay your recovery. ??? Sit up and stand up straight. Avoid leaning forward when you sit or hunching over when you stand. ??? If you work at a desk, sit close to it so you do not need to lean over. Keep your chin tucked in. Keep your neck drawn back, and keep your elbows bent at a 90-degree angle (right angle). ??? Sit high and close to the steering wheel when you drive. Add lower back (lumbar) support to your car seat, if needed. ??? Take short walks on even surfaces as soon as you are able. Try to increase the length of time you walk each day. ??? Do not sit, drive, or integration software developer one place for more than 30 minutes at a time. Sitting or standing for long periods of time can put stress on your back. ??? Do not drive or use heavy machinery while taking prescription pain medicine. ??? Use proper lifting techniques. When you bend and lift, use positions that put less stress on your back: ??? Bend your knees. ??? Keep the load close to your body. ??? Avoid twisting. ??? Exercise regularly as told by your health care provider. Exercising helps your back heal fasterand helps prevent back injuries by keeping muscles strong and flexible. ??? Work with a physical therapist to make a safe exercise program, as recommended by your health care provider. Do any exercises as told by your physical therapist. Lifestyle ??? Maintain a healthy weight. Extra weight puts stress on your back and makes it difficult to havegood posture. ??? Avoid activities or situations that make you feel anxious or stressed. Stress and anxiety increase muscle tension and can make back pain worse. Learn ways to manage anxiety and stress, such as through exercise. General instructions ??? Sleep on a firm mattress in a comfortable position. Try lying on your side with your knees slightly bent. If you lie on your back, put a pillow under your knees. ??? Keep your head and neck in a straight line with your spine (neutral position) when using electronic equipment like smartphones or pads. To do this: ??? Raise your smartphone or pad to look at it instead of bending your head or neck to look down. ??? Put the smartphone or pad at the level of your face while looking at the screen. ??? Follow your treatment plan as told by your health care provider. This may include: ??? Cognitive or behavioral therapy. ??? Acupuncture or massage therapy. ??? Meditation or yoga. Contact a health care provider if: ??? You have pain that is not relieved with rest or medicine. ??? You have increasing pain going down into your legs or buttocks. ??? Your pain does not improve after 2 weeks. ??? You have pain at night. ??? You lose weight without trying. ??? You have a fever or chills. ??? You develop nausea or vomiting. ??? You develop abdominal pain. Get help right away if: ??? You develop new bowel or bladder control problems. ??? You have unusual weakness or numbness in your arms or legs. ??? You feel faint. These symptoms may represent a serious problem that is an emergency. Do not wait to see if the symptoms will go away. Get medical help right away. Call your local emergency services (911 in the [place] Do not drive yourself to the hospital. Summary ??? Acute back pain is sudden and usually short-lived. ??? Use proper lifting techniques. When you bend and lift, use positions that put less stress on your back. ??? Take nbre-kzq-ttqfpme and prescription medicines only as told by your health care provider, andapply heat or ice as told. This information is not intended to replace advice given to you by your health care provider. Make sure you discuss any questions you have with your health care provider. Document Revised: 01/15/2022 Document Reviewed: 01/15/2022 Elsevier Patient Education ?? 2021 [employer] Follow Up Care 04/26/2023 09:12:44 With:SARA BONILLA RPA Address: [address] [place] [phone] When:1 to 2 weeks Discharge instructions * Event Display: Discharge Instructions Physician Emergency department Note * Babak Abraham DO W: PERFORM, MODIFY Event Display: ED Note Physician Authored Date: [id number] LENNY MURPHY :2000 Age:22 years Sex:Female Visit Date:04/26/2023 Primary Care Physician: SARA BONILLA RPA Basic Information Time Seen: Babak Abraham DO / 04/26/2023 09:22 Chief Complaint x 1 hr ??right upper back pain , denies injury . History Of Present Illness: This is??a 22-year-old??female PMH ureterolithiasis presents to the emergency department with??right flank discomfort. ??She states she went to bed last night??without event and slept with her 7-year-old son.?? She is unsure whether or not he kicked her or slept in an awkward position??overnight.?When she does states she started to experience pain when she awoke from sleep overnight.?? The pain is primarily in her right flank region??radiating around to the right mid abdominal region.?? The pain is exacerbated by certain rotational and side bending movements of the thoracolumbar spine.??No overlying rash. ??Denies any trauma. ??No fever/chills.?? No history of IVDU.?? No dysuria, vaginal bleeding or vaginal discharge.?? FDLMP April 18. ??No association??or exacerbation with eating.?? Did not have anything to eat today as she was??anorexic.?? No nausea, vomiting, melena or hematochezia. ??No constipation or diarrhea. Review of Systems: As documented in HPI. Physical Exam Vitals & Measurements T:??36.2?C ??(Tympanic)?? HR:??74??(Peripheral)?? BP:??114/48?? SpO2:??100%?? HT:??160.020??cm?? WT:??74.39??kg?? BMI:??29.000?? GENERAL: This is a very pleasant young female??in??right flank discomfort??with radiation to the right mid abdomen. SKIN: Warm and dry. No rash. HEENT: Normocephalic, atraumatic. ??PERRLA, EOMI, no conjunctival injection, no scleral icterus. ??TMs not examined. ??Nares are without congestion or rhinorrhea. ??No posterior pharyngeal erythema or tonsillar exudate. ??Dentition grossly intact. ??Mucous membranes are moist. NECK: Supple. HEART: Regular rate and rhythm. ??S1 and S2. No murmur. LUNGS: Clear to auscultation bilaterally. ??No respiratory distress. ABDOMEN: Non-distended, minimal tenderness right-middle abdomen without guarding, rebound or rigidity. ??Salmon sign negative. ??No McBurney's point tenderness. ??Psoas negative. ??Obturator negative. ??Rovsing sign negative. BACK: No midline TLS spine tenderness.?(+)ve R??CVAT. ??No SI tenderness. EXTREMITIES: No unilateral leg swelling or posterior calf tenderness. No edema. NEUROLOGIC: GCS 15. CN III-XII intact without acute focal neurological deficit. Medical Decision Making: Right flank pain.?? Differential diagnosis includes ureterolithiasis, pyelonephritis, UTI,??gallbladder pathology,??thoracolumbar musculoskeletal??strain, myofascial strain.?? Will obtain screening laboratory work-up,??urinalysis,??and as needed imaging. Procedure No Qualifying Data Reexamination/Reevaluation 11:30 AM: Patient had improved symptoms with treatments provided in the emergency department.?? Urinalysis did not demonstrate any evidence of dehydration, hematuria or infectious process.?? Lower pretest probability of ureterolithiasis.?? There is shared decision making decided to forego any CT oscar ging and proceed with conservative management.?? To that end we will provide her with ibuprofen 800mg every 6 hours as well as recommended taking Tylenol 1 g every 6 hours.?? Recommended return to the emergency department with any new or worsening symptoms or for any concerns you may have. Assessment/Plan 1.??Thoracolumbar back pain??M54.50 Ordered: ibuprofen 800 mg oral tablet, 800 mg = 1 tab, Oral, every 6 hr, X 10 days, # 40 tab, 0 Refill(s), 05/06/23 11:30:00 EDT, Pharmacy: [id number], 160.02, cm, 04/26/23 9:27:00 EDT, Height/Length Dosing, 74.39, kg, 04/26/23 9:27:00 EDT, Weight Dosing ?? Pain in thoracic spine??M54.6 ?? Orders: Dilaudid, 0.5 mg = 0.25 mL, IV Push, Injection, every 20 min for 3 doses, PRN pain, moderate, FirstDose: 04/26/23 10:05:00 EDT, Stop Date: Limited # of times, Physician Stop Normal Saline Flush, 10 mL, IV Flush, Injection, As Directed, PRN line driver, First Dose: 04/26/23 10:06:00 EDT, Routine Sodium Chloride 0.9% 1,000 mL, Total Volume (mL): 1,000, 1,000 mL, Soln-IV, IV, 125 mL/hr, Start Date: 04/26/23 10:05:00 EDT, 74.39 kg, Populate Charting Weight From Order, 1.82, m2 Sodium Chloride 0.9% 1,000 mL, Total Volume (mL): 1,000, 1,000 mL, Soln-IV, IV Bolus, 999 mL/hr, Start Date: 04/26/23 10:05:00 EDT, 74.39 kg, Populate Charting Weight From Order, 1.82, m2 Peripheral IV Insertion, 04/26/23 10:05:00 EDT Urine Test POC, 04/26/23 9:48:00 EDT, Stop date 04/26/23 9:48:00 EDT, 04/26/23 9:48:00 EDT Vital Signs, 04/26/23 10:05:00 EDT, Once, Stop date 04/26/23 10:05:00 EDT, Q15min until stable and SBP greater than 90, then Q1hour Patient Education Acute Back Pain, Adult Follow Up With When Contact Information SARA BONILLA RPA Within 1 to [address] [place] [phone] Additional Instructions: Medication Reconciliation Unchanged albuterol ?? albuterol (albuterol 2.5 mg/3 mL (0.083%) inhalation solution)3 Milliliters Nebulized inhalation (inhale using nebulizer) every 6 hours as needed as needed for wheezing. Refills: 0. ?? azithromycin (azithromycin 250 mg oral tablet)See Instruction Oral (given by mouth) every day. take2 tabs on day 1 and 1 tabs on day 2-5. Refills: 0. ?? azithromycin (azithromycin 250 mg oral tablet)1 tab Oral (given by mouth) every day for 4 Days. Refills: 0. ?? ipratropium-albuterol (Combivent Respimat CFC free 20 mcg-100 mcg/inh inhalation aerosol)2 Puffs Inhale (breathe in) 4 times a day as needed shortness of breath. Refills: 0. ?? metroNIDAZOLE topical (metroNIDAZOLE 0.75% vaginal gel with applicator)1 Application Vaginal (in the vagina) every night at bedtime for 5 Days. Refills: 0. ?? predniSONE (predniSONE 10 mg oral tablet)See Instruction Oral (given by mouth) every day. 4 tabs daily x3 days, 3 tabs daily x3 days, 2 tabs daily x3 days, 1 tab daily x3 days. Refills: 0. ?? predniSONE (predniSONE 10 mg oral tablet)40mg PO QD x3 days, 30mg PO QDx 3days, 20mg PO QD x3days, 10mg PO QDx3 days. Refills: 0. Problem List/Past Medical History Ongoing No chronic problems Historical No qualifying data Allergies No Known Medication Allergies Social History Electronic Cigarette/Vaping Electronic Cigarette Use: Use, within last 90 days. Substance Use Marijuana, Several times per day Tobacco Current everyday tobacco user Tobacco Use:. Family History Non-Contributory Lab Results CBC and Differential?? LATEST RESULTS?? HISTORICAL RESULTS?? WBC?? 04/26/23 10:13?? 6.4?? 08/14/22?? 10.8?? RBC?? 04/26/23 10:13?? 4.24?? 08/14/22?? 4.55?? Hgb?? 04/26/23 10:13?? 13.1?? 08/14/22?? 13.9?? Hct?? 04/26/23 10:13?? 38.1?? 08/14/22?? 40.2?? MCV?? 04/26/23 10:13?? 89.9?? 08/14/22?? 88.4?? MCH?? 04/26/23 10:13?? 30.9?? 08/14/22?? 30.5?? MCHC?? 04/26/23 10:13?? 34.4?? 08/14/22?? 34.6?? RDW-CV?? 04/26/23 10:13?? 12.9?? 08/14/22?? 13.0?? Platelets?? 04/26/23 10:13?? 302?? 08/14/22?? 339?? MPV?? 04/26/23 10:13?? 10.1?? 08/14/22?? 10.3?? Neutro Auto?? 04/26/23 10:13?? 42.6? Lymph Auto?? 04/26/23 10:13?? 42.1? [place] Auto?? 04/26/23 10:13?? 6.7? Eos, Auto?? 04/26/23 10:13?? 7.60 ??High? Basophil Auto?? 04/26/23 10:13?? 0.8? Imm Gran Auto?? 04/26/23 10:13?? 0.2? Neutro Absolute?? 04/26/23 10:13?? 2.8? Lymph Absolute?? 04/26/23 10:13?? 2.7? [place] Absolute?? 04/26/23 10:13?? 0.4? Eos Absolute?? 04/26/23 10:13?? 0.5 ??High? Baso Absolute?? 04/26/23 10:13?? 0.0? Imm Gran Absolute?? 04/26/23 10:13?? 0.01? Routine Chemistry?? LATEST RESULTS?? HISTORICAL RESULTS?? Sodium Level?? 04/26/23 10:13?? 136?? 08/14/22?? 137?? Potassium Level?? 04/26/23 10:13?? 3.3 ??Low?? 08/14/22?? 3.6?? Chloride Level?? 04/26/23 10:13?? 103?? 08/14/22?? 103?? CO2?? 04/26/23 10:13?? 23?? 08/14/22?? 25?? Alk Phos?? 04/26/23 10:13?? 47?? 08/14/22?? 62?? AST?? 04/26/23 10:13?? 21?? 08/14/22?? 24?? ALT?? 04/26/23 10:13?? 16?? 08/14/22?? 19?? BUN?? 04/26/23 10:13?? 10?? 08/14/22?? 13?? Glucose Level?? 04/26/23 10:13?? 88?? 08/14/22?? 83?? Creatinine Level?? 04/26/23 10:13?? 0.63?? 08/14/22?? 0.67?? BUN/Creat Ratio?? 04/26/23 10:13?? 15.9?? 08/14/22?? 19.4?? eGFR CKD-EPI?? 04/26/23 10:13?? 129? Calcium Level?? 04/26/23 10:13?? 9.1?? 08/14/22?? 9.6?? Protein Total?? 04/26/23 10:13?? 7.4?? 08/14/22?? 7.9?? Albumin Level?? 04/26/23 10:13?? 4.3?? 08/14/22?? 4.5?? Globulin?? 04/26/23 10:13?? 3.1?? 08/14/22?? 3.4?? A/G Ratio?? 04/26/23 10:13?? 1.4?? 08/14/22?? 1.3?? Bilirubin Total?? 04/26/23 10:13?? 0.6?? 08/14/22?? 0.8?? Anion Gap?? 04/26/23 10:13?? 10.0?? 08/14/22?? 9.0?? Lipase Level?? 04/26/23 10:13?? 26?? 08/14/22?? 35?? Osmolality?? 04/26/23 10:13?? 270 ??Low?? 08/14/22?? 273 ??Low? Testing?? LATEST RESULTS?? HISTORICAL RESULTS?? U hCG Ql?? 04/26/23 09:17?? Negative?? 09/01/22?? Negative?? hCG Qual Serum?? 04/26/23 10:13?? Negative? UA Macroscopic?? LATEST RESULTS?? HISTORICAL RESULTS?? Urine Srce?? 04/26/23 09:17?? Clean Catch?? 08/14/22?? Clean Catch?? UA Color?? 04/26/23 09:17?? Yellow?? 08/14/22?? Yellow?? UA Appear?? 04/26/23 09:17?? Clear?? 08/14/22?? Cloudy Abnormal?? UA Glucose?? 04/26/23 09:17?? Negative?? 08/14/22?? Negative?? UA Bili?? 04/26/23 09:17?? Negative?? 08/14/22?? Negative?? UA Ketones?? 04/26/23 09:17?? Negative?? 08/14/22?? Negative?? UA Spec Grav?? 04/26/23 09:17?? 1.010?? 08/14/22?? 1.020?? UA Blood?? 04/26/23 09:17?? Negative?? 08/14/22?? Negative?? UA pH?? 04/26/23 09:17?? 7.00?? 08/14/22?? 7.00?? UA Protein?? 04/26/23 09:17?? Negative?? 08/14/22?? Negative?? UA Urobilinogen?? 04/26/23 09:17?? 0.2?? 08/14/22?? 0.2?? UA Nitrite?? 04/26/23 09:17?? Negative?? 08/14/22?? Negative?? UA Leuk Est?? 04/26/23 09:17?? Negative?? 08/14/22?? Negative? Electronically Signed on 04/26/23 11:40 AM Babak Abraham DO Emergency department Discharge instructions * Babak Abraham DO: PERFORM Event Display: ED Discharge Information Authored Date: [id number] LENNY MURPHY :2000 Age:22 years Sex:Female Visit Date:04/26/2023 Primary Care Physician: SARA BONILLA RPA Discharge Instructions We would like to thank you for allowing us to assist you with your healthcare needs. The following includes patient education materials and information regarding your injury/illness. Diagnosis from Today's Visit Thoracolumbar back pain Pain in thoracic spine Discharge Vitals Temperature??(Tympanic) 97.2 ??F (36.2 ??C) Heart Rate??(Peripheral) 74 Blood Pressure?? 114/48?? Height?? 63.00 in (160.020 cm) Weight?? 164.03 lb (74.39 kg) BMI?? 29.000 Allergies No Known Medication Allergies What to Do Next Instructions from Your Care Team It appears you have thoracolumbar??myofascial strain??particularly in the right flank.?? It appearsafter laboratory work-up and urinalysis that you do not have any evidence of??gallbladder obstructive pathology, renal dysfunction, blood in your urine or??evidence of UTI.?? We discussed foregoing CT imaging and treat this as thoracolumbar musculoskeletal back pain in the interim with 800 mg ibuprofen every 6 hours??and Tylenol??1 g every 6 hours.?? Please perform gentle??back??stretching exercises??and refrain from any heavy lifting until resolution of your discomfort.?? Please follow-up withyour primary care physician for further evaluation and management.?? Return the emergency department with any new or worsening symptoms??or for any concerns may have. You Need to Schedule the Following Appointments Follow Up with??SARA BONILLA RPA When:??Within 1 to 2 weeks Where: [address] [place] [phone] You were treated today on an emergency [...] Emergency Department. Medications What How Much When Why Instructions Next Dose New ibuprofen (ibuprofen 800 mg oral tablet) 1 tab Oral (given by mouth) Every 6 hours Thoracolumbar back pain Duration: 10 Days Pickup at [facility] Unchanged albuterol Unchanged albuterol (albuterol 2.5 mg/ [...] as needed for shortness of breath Unchanged metroNIDAZOLE topical (metroNIDAZOLE 0.75% vaginal gel with applicator) 1 Application Vaginal (in the vagina) Every night at bedtime Vaginal discharge Dyspareunia in female Musculoskeletal chest pain Wheezing Duration: 5 Days Unchanged predniSONE (predniSONE 10 mg oral tablet) See Instruction Oral (given by mouth) Every day Vaginal discharge Dyspareunia in female Musculoskeletal chest pain Wheezing 4 tabs daily x3 days, 3 tabs daily x3 days, 2 tabs daily x3 days, 1 tab daily x3 days ?? Unchanged predniSONE (predniSONE 10 mg oral tablet) See instructions 40mg PO QD x3 days, 30mg PO QDx 3days, 20mg PO QD x3days, 10mg PO QDx3 days ?? Pharmacy Information [id number]: [address] [facility] [place] [id number] [phone] Education Materials Acute Back Pain, Adult Acute back pain is sudden and usually short-lived. It is often caused by an injury to the muscles and tissues in the back. The injury may result from: ? A muscle, tendon, or ligament getting overstretched or torn. Ligaments are tissues that connect bones to each other. Lifting something improperly can cause a back strain. ? Wear and tear (degeneration) of the spinal disks. Spinal disks are circular tissue that provide cushioning between the bones of the spine (vertebrae). ? Twisting motions, such as while playing sports or doing yard work. ? A hit to the back. ? Arthritis. You may have a physical exam, lab tests, and imaging tests to find the cause of your pain. Acute back pain usually goes away with rest and home care. Follow these instructions at home: Managing pain, stiffness, and swelling ? Take xdla-hin-dxxibxx and prescription medicines only as told by your health care provider. Treatment may include medicines for pain and inflammation that are taken by mouth or applied to the skin, or muscle relaxants. ? Your health care provider may recommend applying ice during the first 24???48 hours after your painstarts. To do this: ? Put ice in a plastic bag. ? Place a towel between your skin and the bag. ? Leave the ice on for 20 minutes, 2???3 times a day. ? Remove the ice if your skin turns bright red. This is very important. If you cannot feel pain, heat, or cold, you have a greater risk of damage to the area. ? If directed, apply heat to the affected area as often as told by your health care provider. Use theheat source that your health care provider recommends, such as a moist heat pack or a heating pad. ? Place a towel between your skin and the heat source. ? Leave the heat on for 20???30 minutes. ? Remove the heat if your skin turns bright red. This is especially important if you are unable to feel pain, heat, or cold. You have a greater risk of getting burned. Activity ? Do not stay in bed. Staying in bed for more than 1???2 days can delay your recovery. ? Sit up and stand up straight. Avoid leaning forward when you sit or hunching over when you stand. ? If you work at a desk, sit close to it so you do not need to lean over. Keep your chin tucked in. Keep your neck drawn back, and keep your elbows bent at a 90-degree angle (right angle). ? Sit high and close to the steering wheel when you drive. Add lower back (lumbar) support to your car seat, if needed. ? Take short walks on even surfaces as soon as you are able. Try to increase the length of time you walk each day. ? Do not sit, drive, or integration software developer one place for more than 30 minutes at a time. Sitting or standing for long periods of time can put stress on your back. ? Do not drive or use heavy machinery while taking prescription pain medicine. ? Use proper lifting techniques. When you bend and lift, use positions that put less stress on your back: ? Bend your knees. ? Keep the load close to your body. ? Avoid twisting. ? Exercise regularly as told by your health care provider. Exercising helps your back heal faster andhelps prevent back injuries by keeping muscles strong and flexible. ? Work with a physical therapist to make a safe exercise program, as recommended by your health care provider. Do any exercises as told by your physical therapist. Lifestyle ? Maintain a healthy weight. Extra weight puts stress on your back and makes it difficult to have good posture. ? Avoid activities or situations that make you feel anxious or stressed. Stress and anxiety increase muscle tension and can make back pain worse. Learn ways to manage anxiety and stress, such as through exercise. General instructions ? Sleep on a firm mattress in a comfortable position. Try lying on your side with your knees slightlybent. If you lie on your back, put a pillow under your knees. ? Keep your head and neck in a straight line with your spine (neutral position) when using electronicequipment like smartphones or pads. To do this: ? Raise your smartphone or pad to look at it instead of bending your head or neck to look down. ? Put the smartphone or pad at the level of your face while looking at the screen. ? Follow your treatment plan as told by your health care provider. This may include: ? Cognitive or behavioral therapy. ? Acupuncture or massage therapy. ? Meditation or yoga. Contact a health care provider if: ? You have pain that is not relieved with rest or medicine. ? You have increasing pain going down into your legs or buttocks. ? Your pain does not improve after 2 weeks. ? You have pain at night. ? You lose weight without trying. ? You have a fever or chills. ? You develop nausea or vomiting. ? You develop abdominal pain. Get help right away if: ? You develop new bowel or bladder control problems. ? You have unusual weakness or numbness in your arms or legs. ? You feel faint. These symptoms may represent a serious problem that is an emergency. Do not wait to see if the symptoms will go away. Get medical help right away. Call your local emergency services (911 in the [place] Do not drive yourself to the hospital. Summary ? Acute back pain is sudden and usually short-lived. ? Use proper lifting techniques. When you bend and lift, use positions that put less stress on your back. ? Take gkym-ksw-psmthgw and prescription medicines only as told by your health care provider, and apply heat or ice as told. This information is not intended to replace advice given to you by your health care provider. Make sure you discuss any questions you have with your health care provider. Document Revised: 01/15/2022 Document Reviewed: 01/15/2022 [employer] Patient Education ?? 2021 [employer] Tests Performed Medications and Immunizations Administered Given Sodium Chloride 0.9%, 1000 mL, IV Bolus Sodium Chloride 0.9%, 1000 mL, IV acetaminophen, 1000 mg, IV Piggyback ketorolac, 15 mg, IV Push ondansetron, 4 mg, IV Push Lab Test Name Test Result Date/Time WBC 6.4 K/mcL 04/26/2023 10:13 EDT RBC 4.24 Million/mcL 04/26/2023 10:13 EDT Hgb 13.1 g/dL 04/26/2023 10:13 EDT Hct 38.1 % 04/26/2023 10:13 EDT MCV 89.9 fL 04/26/2023 10:13 EDT MCH 30.9 pg 04/26/2023 10:13 EDT MCHC 34.4 g/dL 04/26/2023 10:13 EDT RDW-CV 12.9 % 04/26/2023 10:13 EDT Platelets 302 K/mcL 04/26/2023 10:13 EDT MPV 10.1 fL 04/26/2023 10:13 EDT Neutro Auto 42.6 % 04/26/2023 10:13 EDT Lymph Auto 42.1 % 04/26/2023 10:13 EDT Mariposa Auto 6.7 % 04/26/2023 10:13 EDT Eos, Auto 7.60 % 04/26/2023 10:13 EDT Basophil Auto 0.8 % 04/26/2023 10:13 EDT Imm Gran Auto 0.2 % 04/26/2023 10:13 EDT Neutro Absolute 2.8 K/mcL 04/26/2023 10:13 EDT Lymph Absolute 2.7 K/mcL 04/26/2023 10:13 EDT Mariposa Absolute 0.4 K/mcL 04/26/2023 10:13 EDT Eos Absolute 0.5 K/mcL 04/26/2023 10:13 EDT Baso Absolute 0.0 K/mcL 04/26/2023 10:13 EDT Imm Gran Absolute 0.01 04/26/2023 10:13 EDT Sodium Level 136 mmol/L 04/26/2023 10:13 EDT Potassium Level 3.3 mmol/L 04/26/2023 10:13 EDT Chloride Level 103 mmol/L 04/26/2023 10:13 EDT CO2 23 mmol/L 04/26/2023 10:13 EDT Alk Phos 47 IntlUnit/L 04/26/2023 10:13 EDT AST 21 IntlUnit/L 04/26/2023 10:13 EDT ALT 16 IntlUnit/L 04/26/2023 10:13 EDT BUN 10 mg/dL 04/26/2023 10:13 EDT Glucose Level 88 mg/dL 04/26/2023 10:13 EDT Creatinine Level 0.63 mg/dL 04/26/2023 10:13 EDT BUN/Creat Ratio 15.9 04/26/2023 10:13 EDT eGFR CKD-EPI 129 mL/min/1.73 m2 04/26/2023 10:13 EDT Calcium Level 9.1 mg/dL 04/26/2023 10:13 EDT Protein Total 7.4 g/dL 04/26/2023 10:13 EDT Albumin Level 4.3 g/dL 04/26/2023 10:13 EDT Globulin 3.1 04/26/2023 10:13 EDT A/G Ratio 1.4 04/26/2023 10:13 EDT Bilirubin Total 0.6 mg/dL 04/26/2023 10:13 EDT Anion Gap 10.0 04/26/2023 10:13 EDT Lipase Level 26 unit/L 04/26/2023 10:13 EDT Osmolality 270 mOsm/kg 04/26/2023 10:13 EDT U hCG Ql Negative 04/26/2023 09:17 EDT hCG Qual Serum Negative 04/26/2023 10:13 EDT Urine Srce Clean Catch 04/26/2023 09:17 EDT UA Color YELLOW. 04/26/2023 09:17 EDT UA Appear CLEAR. 04/26/2023 09:17 EDT UA Glucose NEGATIVE 04/26/2023 09:17 EDT UA Bili NEGATIVE 04/26/2023 09:17 EDT UA Ketones NEGATIVE 04/26/2023 09:17 EDT UA Spec Grav 1.010 04/26/2023 09:17 EDT UA Blood NEGATIVE 04/26/2023 09:17 EDT UA pH 7.00 04/26/2023 09:17 EDT UA Protein NEGATIVE 04/26/2023 09:17 EDT UA Urobilinogen 0.2 04/26/2023 09:17 EDT UA Nitrite NEGATIVE 04/26/2023 09:17 EDT UA Leuk Est NEGATIVE 04/26/2023 09:17 EDT Patient/Adjunct Nursing Faculty Signature Patient Name:LENNY MURPHY I have received this information and my questions have been answered. Patient/Adjunct Nursing Faculty Name: Patient/Adjunct Nursing Faculty Signature: Relationship to Patient: Witness Name/Signature: Date: Electronically Signed on: 04/26/2023 11:41 EDTSigned by:MARGARET Patient Care team information Care Team Personnel Name: SARA BONILLA RPA Position: No Access Member Role: Primary Care Physician Address: Address: [address], [place] [address] Name: Babak Abraham DO Position: Physician Member Role: Admitting Physician Address: Address: [address] [place] [address] Name: Eva Hernandez Position: Nurse Member Role: ED Nurse Care Team Related Persons Name: CARLENE MURPHY
--- OUTSIDE RECORDS SUMMARY | 2023-12-17 18:51 | XMS_ITS | Continuity of Care Document ---
Author Name Unknown Organization [facility] Address [address] [place] [address] Encounter LTTL_[place] FIN NBR [id number] Date(s): 02/02/23 - 02/02/23 [facility] [address] [place] [address]- Discharge Disposition: Home Allergies, Adverse Reactions, Alerts No Known Medication [...] 2-5, # 6 tab, 0 Refill(s), Pharmacy: [facility] #[id number], 157, cm, 09/01/22 12:34:00 EDT, Height/Length Dosing, [...] breath, # 1 EA, 0 Refill(s), Pharmacy: [facility] #[id number], 157, cm, 09/01/22 12:34:00 EDT, Height/Length Dosing, 66, kg, 09/01/22 12:34:00 EDT, Weight Dosing Start Date: 09/01/22 Status: Ordered metroNIDAZOLE 0.75% vaginal gel with applicator 1 anne, VAG, every night at bedtime, # 70 g, 0 Refill(s), Pharmacy: [id number], 158, cm, 11/24/22 20:13:00 EST, Height/Length Dosing, 65.77, kg, 11/24/22 20:13:00 EST, Weight Dosing Start Date: 01/16/23 Stop Date: 01/21/23 Status: Ordered predniSONE 10 mg oral tablet See Instruction, Oral, Daily, 4 tabs daily x3 days, 3 tabs daily x3 days, 2 tabs daily x3 days, 1 tab daily x3 days, # 30 tab, 0 Refill(s), Pharmacy: [facility], 158, cm, 11/24/22 20:13:00 EST,Height/Length Dosing, 65.77, kg, 11/24/22 20:13:00... Start Date: 01/16/23 Status: Ordered predniSONE 10 mg oral tablet See Instructions, 40mg PO QD x3 days, 30mg PO QDx 3days, 20mg PO QD x3days, 10mg PO QDx3 days, # 30cap, 0 Refill(s), Pharmacy: [facility] #[id number], 157, cm, 09/01/22 12:34:00 EDT, Height/Length Dosing, 66, kg, 09/01/22 12:34:00 EDT, Weight Do... Start Date: 09/01/22 Status: Ordered Social History Social History Type Response Tobacco Current everyday tob acco user Tobacco Use:. Sex Patient Care team information Care Team Related Persons Name: CARLENE MURPHY
--- OUTSIDE RECORDS SUMMARY | 2023-12-17 18:51 | XMS_ITS | Continuity of Care Document ---
Author Name Unknown Organization [facility] Address [address] [place] [address] Encounter LTTL_[place] FIN NBR [id number] Date(s): 01/16/23 - 01/16/23 [facility] [address] [place] [address]- Discharge Disposition: Home or Self Care Attending Physician: Blanca Templeton PA-C Admitting Physician: Blanca Templeton PA-C Allergies, Adverse Reactions, [...] wheezing, # 90 mL, 0 Refill(s), Pharmacy: [facility], 158, cm, 11/24/22 20:13:00 EST, Height/Length Dosing, 65.77, kg, 11/24/22 20:13:00 EST, Weight Dosing Start Date: 11/24/22 Status: Ordered azithromycin 250 mg oral tablet See Instruction, Oral, Daily, take 2 tabs on day 1 and 1 tabs on day 2-5, # 6 tab, 0 Refill(s), Pharmacy: [facility] #[id number], 157, cm, 09/01/22 12:34:00 EDT, Height/Length Dosing, 66, kg, 09/01/22 12:34:00 EDT, Weight Dosing Start Date: 09/01/22 Status: Ordered azithromycin 250 mg oral tablet 250 mg = 1 tab, Oral, Daily, # 4 tab, 0 Refill(s), Pharmacy: [facility], 158, cm, 11/24/22 20:13:00 EST, Height/Length Dosing, 65.77, kg, 11/24/22 20:13:00 EST, Weight Dosing Start Date: 11/24/22 Stop Date: 11/28/22 Status: Ordered Combivent Respimat CFC free 20 mcg-100 mcg/inh inhalation aerosol 2 puffs, Inhale, QID, PRN shortness of breath, # 1 EA, 0 Refill(s), Pharmacy: [facility] #[id number], 157, cm, 09/01/22 12:34:00 EDT, Height/Length Dosing, 66, kg, 09/01/22 12:34:00 EDT, Weight Dosing Start Date: 09/01/22 Status: Ordered metroNIDAZOLE 0.75% vaginal gel with applicator 1 anne, VAG, every night at bedtime, # 70 g, 0 Refill(s), Pharmacy: [facility], 158, cm, 11/24/22 20:13:00 EST, Height/Length Dosing, 65.77, kg, 11/24/22 20:13:00 EST, Weight Dosing Start Date: 01/16/23 Stop Date: 01/21/23 Status: Ordered predniSONE 10 mg oral tablet See Instruction, Oral, Daily, 4 tabs daily x3 days, 3 tabs daily x3 days, 2 tabs daily x3 days, 1 tab daily x3 days, # 30 tab, 0 Refill(s), Pharmacy: [facility], 158, cm, 11/24/22 20:13:00 EST,Height/Length Dosing, 65.77, kg, 11/24/22 20:13:00... Start Date: 01/16/23 Status: Ordered predniSONE 10 mg oral tablet See Instructions, 40mg PO QD x3 days, 30mg PO QDx 3days, 20mg PO QD x3days, 10mg PO QDx3 days, # 30cap, 0 Refill(s), Pharmacy: [facility] #[id number], 157, cm, 09/01/22 12:34:00 EDT, Height/Length Dosing, 66, kg, 09/01/22 12:34:00 EDT, Weight Do... Start Date: 09/01/22 Status: Ordered Results Laboratory List Name Date Vaginitis Panel DNA Probe (BD Affirm) 10/29 Chlamydia trachomatis and Neisseria gono rrhoeae ([facility]) 01/16/23 Most recent to oldest [Reference Range]: 1 Trichomonas-BD Affirm [Negative] Negativ e (01/16/23 9:50 AM) Gardnerella-BD Affirm [Negative] Positiv e *ABN* (01/16/23 9:50 AM) Jill Species -BD Affirm [Negative] Ne gative (01/16/23 9:50 AM) Chlamydia trachomatis DNA -[facility] [No t Detected] Not Detected (01/16/23 9:40 AM) Neisseria gonorrhoeae DNA -[facility] [No t Detected] Not Detected (01/16/23 9:40 AM) Social History Social History Type Response Tobacco Current everyday tob acco user Tobacco Use:. Sex Patient Care team information Care Team Related Persons Name: CARLENE MURPHY
[2023-12-17] MEDS: LORazepam 2 MG/ML VIAL 1 MG IM/IV (19:09)
[2023-12-17] MEDS: Lactated Ringers 1,000 ML 1000 ML IV (19:09)
--- NOTE | 2023-12-17 19:10 | ED.GENADUL_ITS ---
HPI General Mode of arrival: ambulatory . Date/Time Provider Initiated Documentation: 12/17/23 18:50 . Limitations to Documentation: no limitations . Information obtained by: patient . HPI Narrative: 23-year-old with history of anxiety disorder, smoker, here with chief complaint of disorientation. Patient notes she started Chantix last week and took 4-day course and then noticed that she was emotionally labile, confused and frequently crying. She was concerned this was secondary to the Chantix and stopped treatment 4 days ago. She notes symptoms seem to improve gradually over the past few days and then worse today. No new medications today. Patient notes confusion, memory difficulty, feels like like wax paper over her brain. She has associated nausea. Patient is currently menstruating. She started to have vaginal bleeding on 12/08/2023 and it has persisted, decreasing to now light bleeding. This is atypical for her. She states she is fairly regular and has her usual. On the of every month. She did have a usual period last month. Related Data Home Medications Medication Instructions Recorded Confirmed albuterol sulfate 90 mcg/actuation 1 inh inhalation ONCE #6.7 grams 12/01/21 12/17/23 aerosol inhaler sumatriptan 20 mg/actuation nasal 20 mg intranasal Q2H PRN 03/23/22 12/17/23 spray (Imitrex) budesonide-formoterol HFA 80 2 inh inhalation BID PRN 12/17/23 12/17/23 mcg-4.5 mcg/actuation aerosol inhaler (Symbicort) Previous Rx's Medication Instructions Recorded albuterol sulfate 90 mcg/actuation 1 inh inhalation ONCE #6.7 grams 12/01/21 aerosol inhaler Allergies Allergy/AdvReac Type Severity Reaction Status Date / Time No Known Allergies Allergy Unverified 12/17/23 18:41 General Stated Complaint: Nausea/Vomit/Diar SHEEBA: 3 Review of Systems Neurologic Neurologic: Reports as per HPI Psychiatric Psychiatric: Reports anxiety (severe) Exam Const General: cooperative and no acute distress HENMT Head: normocephalic and atraumatic Mouth: moist mucous membranes Eyes Conjunctivae: normal conjunctivae Sclera: normal sclerae EOM: EOM intact bilaterally Neck Neck: trachea midline Resp Auscultation: clear to auscultation bilaterally, no rales, no rhonchi and no wheezes Cardio Rate: regular rate and not tachycardic Rhythm: regular rhythm GI Palpation: soft, not firm, no guarding, no masses, not rigid and nontender Skin General skin exam: no rashes or lesions noted Neuro General: patient alert, patient awake, patient oriented x3 and tone normal Cranial Nerves: CN's II-XI intact bilaterally Cognition: normal cognition Speech: speech normal Motor: muscle tone normal throughout Sensory Exam: no sensory deficits noted Extrem General: no edema Psych Appearance: grossly normal Speech and Movement: speech and movement normal Course Vital Signs Vital signs: Vital Signs Temperature 37.1 C 12/17/23 18:36 Pulse 112 H 12/17/23 18:36 Respiratory Rate 18 12/17/23 18:36 Blood Pressure 122/87 12/17/23 18:36 Pulse Oximetry 96 12/17/23 18:36 Temperature 37.1 C 12/17/23 18:36 Pulse 112 H 12/17/23 18:36 Respiratory Rate 18 12/17/23 18:36 Respiratory Effort Normal 12/17/23 18:51 Blood Pressure 122/87 12/17/23 18:36 Pulse Oximetry 96 12/17/23 18:36 Medical Decision Making 1914 --23-year-old female with history of anxiety, recently started Chantix and was concerned she was having side effects including emotional lability and confu abiola, stop Chantix 4 days ago, symptoms were improving until today now worse. Patient has anxiety, confusion, nausea. Patient appears dehydrated on exam. I will give IV fluid bolus. Plan to treat anxiety and symptoms with Ativan 1 mg IV. Plan to reassess. I will check screening labs to assess for electrolyte abnormalities and thyroid dysfunction. Screening EKG was reviewed and interpreted by me: Please report, sinus rhythm 70 bpm, normal axis, nondiagnostic. 2029 --Labs reviewed: Patient is not . No anemia. TSH normal. UDS positive for THC. Patient does acknowledge marijuana use. Hypomagnesemia and hypokalemia noted. Patient was given magnesium and potassium supplementation. Patient reassessed and feeling much better. Plan for discharge with close outpatient follow-up with PCP. She was instructed to continue to stop using Chantix. Regarding her abnormal vaginal bleeding, I will have her follow-up with gynecology. Usual customary discharge instructions were reviewed with the patient. Quality:SDOH Health Related Social Needs: No Data to Display PFSH All Active Problems (Updated 12/17/23 @ 19:47 by Huey Rushing MD) Hypomagnesemia (Acute) Acute hypokalemia (Acute) Anxiety (Chronic) COVID-19 (Acute) IBS (irritable bowel syndrome) (Chronic) Pelvic pain (Acute) Right ovarian cyst (Acute) Ureteral stone (Acute 04/09/16) Medical History Bronchitis Cough Tonsillitis Psychosocial stressors (01/17/17) Migraine headache (09/24/14) Depression (01/07/14) Suicide attempt Surgical History D&E Social History Smoking/Tobacco Use Status: Current every day Tobacco Type: e-cigarettes Smoking risk assessment performed?: Yes Alcohol Intake: current Alcohol Intake frequency: holidays/special occasions only Drug use: Daily Substance use type: marijuana Household members: family Housing: house Number of Children: 1 current occupation: [employer] Sexually active: Yes Do you think of yourself as: straight/heterosexual Current gender identity: female What type of physical activity do you participate in: none Do you feel safe at home: Yes Do you feel safe in your relationship?: Yes Female Reproductive History Menstrual Age of Menarche: 10 Duration of menses: >10 days control method: none and implanted History History 2 Para 1 Hx # Term Pregnancies Multiple births Hx # Pregnancies Ectopic pregnancies AB induced Hx Number of Living Children AB spontaneous Past Pregnancies Del. Date GA/Weeks # Preg Succ Route Wgt Sex Labor Lgth Anesth esia Location Prov Complic 02/12/16 40 No vaginal 4082.331 g Male [facility] Delivery Date: 02/12/16 Last Updated by: Gabi Salgado Discharge Plan Disposition Patient Disposition: Home Condition: Stable Discharge Details Clinical Impression: Anxiety, Acute hypokalemia, Hypomagnesemia Primary Care Provider: Kalpesh Gusman ED Provider: Huey Rushing Home Meds and New Rx's Prescriptions: Continued sumatriptan [Imitrex] 20 mg/actuation spray,non-aerosol 20 mg intranasal Q2H PRN Rx Instructions: administer into one nostril as a single dose; if 2nd dose needed,administer into other nostril after at least 2 hrs, NTE 2 doses (40 mg) per episode budesonide-formoterol [Symbicort] 80-4.5 mcg/actuation HFA aerosol inhaler 2 inh inhalation BID PRN albuterol sulfate 90 mcg/actuation HFA aerosol inhaler 1 inh inhalation ONCE Qty: 6.7 0RF Discharge Instructions Instructions: Hypokalemia (ED), Hypomagnesemia (ED), Anxiety (ED) Additional Instructions: Please rest over the next 2 days. Please contact your primary care physician to arrange follow-up. Please contact gynecology to arrange follow-up. Call on Tuesday. Return to the ER immediately for any worsening or new concerning symptoms. Referrals: [facility] [Provider Group] Kalpesh Gusman [Primary Care Provider] -
[2023-12-17 19:11] LABS: Abs Immature Grans 0.02 10^3/uL (0.0-0.06); Absolute Basophil Count 0.04 10^3/uL (0.0-0.2); Absolute Eosinophil Count 0.27 10^3/uL (0.0-0.7); Absolute Lymphocyte Count 2.45 10^3/uL (1.2-3.4); Absolute Monocyte Count 0.58 10^3/uL (0.1-0.8); Absolute Neutrophil Count 5.72 10^3/uL (1.2-6.7); Basophils % 0.4; HCT 37.8 % (36.0-46.0); HGB 13.3 g/dL (11.2-15.7); Immature Grans % 0.2; MCH 30.2 pg (27.0-33.0); MCHC 35.2 % (32.0-36.0); MCV 86 fL (80-95); MPV 10.5 fL (8.0-11.0); Monocytes % 6.4; Platelet Count 280 10^3/uL (130-400); RBC 4.41 10^6/uL (3.93-5.22); RDW 12.5 % (11.7-14.6); RDW-SD 39.3 fL; WBC 9.08 10^3/uL (4.4-10.8)
[2023-12-17 19:34] LABS: ALT 20 U/L (14-59); AST 16 U/L (15-37); Albumin 4.1 g/dL (3.4-5.0); Alkaline Phosphatase 64 U/L (46-116); Anion Gap 13.8 mmol/L (3-11); BUN 7 mg/dL (7-18); Bilirubin, Total 0.6 mg/dL (0.2-1.0); CO2 22.2 mmol/L (21.0-32.0); CREATININE 0.8 mg/dL (0.55-1.02); Calcium 9.1 mg/dL (8.5-10.1); Chloride 106 mmol/L (98-107); Estimated GFR 106.11 (mL/min/1.73m2); Glucose 101 mg/dL (74-106); Magnesium 1.7 mg/dL (1.8-2.4); Potassium 3.1 mmol/L (3.5-5.1); Sodium 142 mmol/L (136-145); TSH (W/Ref FT4) 2.28 uIU/mL (0.36-3.74); Total Protein 7.7 g/dL (6.4-8.2)
[2023-12-17 19:59] LABS: *AMPHETAMINES SCREEN URINE Negative (Negative); *BARBITURATES SCREEN URINE Negative (Negative); *BENZODIAZEPINES SCREEN URINE Negative (Negative); Cannabinoids THC Positive (Negative); Cocaine Screen,Urine Negative (Negative); METHADONE URINE SCREEN Negative (Negative); OPIATES URINE SCREEN Negative (Negative)
[2023-12-17] MEDS: Magnesium Oxide 400 MG TAB 800 MG PO (20:00)
[2023-12-17 20:01] LABS: Tricyclic Antidepressants Negative (Negative)
[2023-12-17] MEDS: Potassium Chloride 20 MEQ TABCR 40 MEQ PO (20:44)
[2023-12-17 20:59] VITALS: BP 120/84; PULSE 79; RESP 18; O2SAT 99
== END 2023-12-17 20:59 | disposition home or self-care (01) ==
PROVIDERS: Emergency Provider Student in an Organized Health Care Education/Training Program; PCP Physician Assistant
DX: E83.42 Hypomagnesemia (principal); E87.6 Hypokalemia; F41.9 Anxiety disorder, unspecified; F17.290 Nicotine dependence, other tobacco product, uncomplicated
CPT/HCPCS: 80053; 80307; 93005; 96361; 96374; 99285; 83735; 84443; 85025; 93010; 99284; J2060

== ENCOUNTER 2023-12-31 14:31 | Emergency (ER) | payer MEDICAID, SELFPAY ==
[2023-12-31 14:36] VITALS: BP 132/87; PULSE 120; RESP 14; TEMP 36.7; O2SAT 98
--- NOTE | 2023-12-31 14:36 | ED.GENADUL_ITS ---
Discharge Plan Disposition Patient Disposition: Home Discharge Details Clinical Impression: Nausea vomiting and diarrhea, Leukopenia Primary Care Provider: Kalpesh Gusman ED Provider: Alexys Daly Home Meds and New Rx's Prescriptions: Continued sumatriptan [Imitrex] 20 mg/actuation spray,non-aerosol 20 mg intranasal Q2H PRN Rx Instructions: administer into one nostril as a single dose; if 2nd dose needed,administer into other nostril after at least 2 hrs, NTE 2 doses (40 mg) per episode budesonide-formoterol [Symbicort] 80-4.5 mcg/actuation HFA aerosol inhaler 2 inh inhalation BID PRN albuterol sulfate 90 mcg/actuation HFA aerosol inhaler 1 inh inhalation ONCE Qty: 6.7 0RF Discharge Instructions Instructions: Acute Nausea and Vomiting (ED) Additional Instructions: You were seen in the emergency department for your nausea vomiting and diarrhea. Your blood work shows that your kidneys are working well. As we discussed, if you develop a fever cannot eat or drink as result of nausea or vomiting or if you develop any worsening abdominal pain please return to the emergency department. Otherwise please follow-up with your primary care provider next week. A viral swab has been obtained to assess for COVID, influenza, and RSV. If any of these results are positive you will receive a call later this evening. These results will not change your management as you should go home and rest. For your pain please take medications as follows: 1. Take acetaminophen (Tylenol), 1,000 mg (two 500 mg tabs) every 6 hours [2. Take ibuprofen (Advil), 400 mg every 6 hours.] HPI General Date/Time Provider Initiated Documentation: 12/31/23 14:33 . HPI Narrative: MDM This is an overall very well-appearing normothermic but tachycardic 23-year-old female with epigastric tenderness, nausea, vomiting, and diarrhea consistent with possible pancreatitis based on elevated BMI and gastroenteritis given nausea vomiting and diarrhea. Patient will receive ondansetron and IV fluids. I considered necrotizing soft tissue infection however patient had no pain out of proportion. I considered appendicitis however the patient had no right lower quadrant tenderness. I considered ovarian torsion however the patient had no suprapubic discomfort. I considered ureterolithiasis given history of the same however the patient had no flank pain nor any lateralizing symptoms. No rash to suggest zoster. Bedside ultrasound reassuring against acute cholecystitis. Patient lacks vascular risk factors and so I am not concerned for aortic dissection. No trauma to suggest increased risk for ruptured spleen. No fevers nor dysuria to suggest pyelonephritis. No chest pain to suggest ACS. Not short of breath to suggest PE. Given no chest trauma doubt pneumothorax. No fevers no cough to suggest pneumonia. Based on the patient's reassuring presentation and physical exam I do not feel that she requires cross-sectional imaging at this juncture. 3:35 PM CBC shows leukopenia. No anemia. No thrombocytopenia. Leukopenia new compared to prior dated earlier this month.Comprehensive metabolic panel showing mild anion gap. No DARIA. No acute electrolyte no LFT abnormalities. Reassuring normal lipase not consistent with pancreatitis. Tachycardia resolved. No significant anemia to suggest acute blood loss anemia so I do not feel that the patient requires transfusion. Unclear the etiology of the patient's leukopenia. It could be reactive given her nausea and vomiting and diarrhea though leukocytosis would be more likely. Patient's absolute neutrophil count was 1040 which represents mild neutropenia. Given that her ANC was greater than 500 cells per microliter felt that further evaluation was appropriate as an outpatient. I did note concerns for sepsis patient in no signs of hemodynamic instability respiratory compromise or any clinical emergencies requiring immediate hospitalization. It certainly may be that what ever acute viral infection she has causing her nausea vomiting diarrhea may be causing transient mild neutropenia. Given no fevers and no risk factors for HIV I did not run an HIV test. 3:42 PM Negative hCG. 4:24 PM Patient felt markedly improved in the ED. Will call if her COVID influenza or RSV returned positive. Otherwise we will proceed with empiric trial of expectant outpatient management. I sent patient home with several days of ODT ondansetron's. Will advise PCP follow-up next week as needed. I met with the patient and explained her lab results. I updated her on her leukopenia and I advised ED return if she developed fevers worsening pain or had other concerns. I have asked health president of the [place] Clementine to have the patient seen next week by her primary care provider in the setting of her new leukopenia. I spoke with paint laboratory technician of this and she will complete a manual peripheral smear. 5pm Negative COVID, RSV, and influenza. Chronic conditions affecting the care of the patient: N/A History obtained from an outside historian: N/A External record [place] [facility] [place] Medications: Ondansetron famotidine ketorolac Social determinants of health affecting disposition: N/A Management discussed with: N/A Treatment/interventions considered: N/A Response to therapies provided: Improved symptoms in the ED. HPI This is a previously healthy 23-year-old female with reactive airway disease arriving to the emergency department via private vehicle with her fiscottie? in the setting of nausea vomiting diarrhea. Patient reports that she woke up this morning with the stomach flu. She said that she vomited this morning and cannot keep anything down. She endorses an epigastric pain. She has not had anything to eat or drink except for crackers and kimo toya. She reports having had her period throughout the month after taking Chantix. She has not had any recent falls. She denies chest pain. She did feel an exacerbation of her reactive airway disease earlier today as she was vomiting but does not feel short of breath at this point time. She vapes tobacco denies routine ethanol and tried alleviating her symptoms today with several puffs of marijuana. She has an 8-year-old son who is healthy and has not recently had similar symptoms. She has never had any surgeries to her abdomen. She has remotely had ureterolithiasis which did require urological intervention. She denies any flank pain dysuria. No rashes to abdomen. No routine medications beyond as needed albuterol. Her fiscottie? was sick several weeks ago with similar symptoms. He was seen in the emergency department in [place] and received IV fluids and IV nausea medications. She received all of her immunizations during childhood. No history of IV drug use. She is in a monogamous sexual relationship. Exam General: Well-appearing in no acute distress speaking in complete sentences. Head: Normocephalic, atraumatic. Eye: Extraocular eye movements intact. No conjunctival injection. No scleral icterus. Ear, nose, mouth, throat: Grossly normal inspection. Normal voice, handling secretions normally. Neck: Trachea midline. Cardiovascular: Well-perfused distal extremities. Regular rate and rhythm Respiratory: Nonlabored respiration. Clear lungs bilaterally. No wheezes. Gastrointestinal: Nondistended abdomen. Soft minimal epigastric and bilateral upper quadrant tenderness. Negative Salmon sign. No rash to abdomen. No rebound. No guarding. Musculoskeletal: No edema. Moving all 4 extremities spontaneously. Skin: Normal for age and race, grossly normal temperature and turgor. No acute rash. Neurologic: Alert and appropriate, no apparent acute deficits. Psychiatric: Mood and manner are appropriate. Grooming and personal hygiene are appropriate. Related Data Home Medications Medication Instructions Recorded Confirmed albuterol sulfate 90 mcg/actuation 1 inh inhalation ONCE #6.7 grams 12/01/21 12/31/23 aerosol inhaler sumatriptan 20 mg/actuation nasal 20 mg intranasal Q2H PRN 03/23/22 12/31/23 spray (Imitrex) budesonide-formoterol HFA 80 2 inh inhalation BID PRN 12/17/23 12/31/23 mcg-4.5 mcg/actuation aerosol inhaler (Symbicort) Previous Rx's Medication Instructions Recorded albuterol sulfate 90 mcg/actuation 1 inh inhalation ONCE #6.7 grams 12/01/21 aerosol inhaler Allergies Allergy/AdvReac Type Severity Reaction Status Date / Time varenicline [From Chantix] AdvReac Intermediate Other (See Verified 12/31/23 14:44 Comment) General SHEEBA: 3 Medical Decision Making Quality:SDOH Health Related Social Needs: No Data to Display PFSH All Active Problems (Updated 12/31/23 @ 16:30 by Alexys Daly MD) Leukopenia (Acute) Nausea vomiting and diarrhea (Acute) Hypomagnesemia (Acute) Acute hypokalemia (Acute) Anxiety (Chronic) COVID-19 (Acute) IBS (irritable bowel syndrome) (Chronic) Pelvic pain (Acute) Right ovarian cyst (Acute) Ureteral stone (Acute 04/09/16) Medical History Bronchitis Cough Tonsillitis Psychosocial stressors (01/17/17) Migraine headache (09/24/14) Depression (01/07/14) Suicide attempt Surgical History D&E Social History Smoking/Tobacco Use Status: Current every day Tobacco Type: e-cigarettes Smoking risk assessment performed?: Yes Alcohol Intake: current Alcohol Intake frequency: holidays/special occasions only Drug use: Daily Substance use type: marijuana Household members: family Housing: house Number of Children: 1 current occupation: [employer] Sexually active: Yes Do you think of yourself as: straight/heterosexual Current gender identity: female What type of physical activity do you participate in: none Do you feel safe at home: Yes Do you feel safe in your relationship?: Yes Female Reproductive History Menstrual Age of Menarche: 10 Duration of menses: >10 days control method: none and implanted History History 2 Para 1 Hx # Term Pregnancies Multiple births Hx # Pregnancies Ectopic pregnancies AB induced Hx Number of Living Children AB spontaneous Past Pregnancies Del. Date GA/Weeks # Preg Succ Route Wgt Sex Labor Lgth Anesth esia Location Prov Complic 02/12/16 40 No vaginal 4082.331 g Male [facility] Delivery Date: 02/12/16 Last Updated by: Gabi Salgado POCUS Exam (ED) Limited Gallbladder Exam DATE OF EXAM: 12/31/23 TIME OF EXAM: 15:20 PROVIDER THAT PERFORMED THE STUDY: Alexys Daly IS THIS A REPEAT EXAM DURING THIS ENCOUNTER: No REASON FOR VISIT: Abdominal pain VISUALIZED STRUCTURES: Gallbladder PERTINENT FINDINGS/IMPRESSION: No apparent abnormalities; No Cholecystitis, No Cholelithiasis, No Pericholecystic fluid and No thickening of the gallbladder wall Exam complete
[2023-12-31] MEDS: Famotidine 20 MG/2 ML VIAL 40 MG IVP (15:09)
[2023-12-31] MEDS: Normal Saline 1,000 ML 1000 ML IV (15:09)
[2023-12-31] MEDS: Ketorolac 15 MG/ML VIAL IVP (15:09)
[2023-12-31] MEDS: Ondansetron 4 MG/2 ML VIAL IVP (15:10)
[2023-12-31 15:19] LABS: Absolute Basophil Count 0.04 10^3/uL (0.0-0.2); Absolute Lymphocyte Count 0.87 10^3/uL (1.2-3.4); Absolute Monocyte Count 0.51 10^3/uL (0.1-0.8); Absolute Neutrophil Count 1.04 10^3/uL (1.2-6.7); Basophils % 1.4; Eosinophils % 10.9; HCT 42.5 % (36.0-46.0); HGB 14.8 g/dL (11.2-15.7); Lymphocytes % 31.5; MCHC 34.8 % (32.0-36.0); MCV 86 fL (80-95); MPV 10.7 fL (8.0-11.0); Monocytes % 18.5; Neutrophils % 37.7; Platelet Count 306 10^3/uL (130-400); RBC 4.93 10^6/uL (3.93-5.22); RDW 12.9 % (11.7-14.6); RDW-SD 40.4 fL
[2023-12-31 15:23] VITALS: PULSE 78; O2SAT 98
[2023-12-31 15:34] LABS: ALT 21 U/L (14-59); AST 15 U/L (15-37); Albumin 4.5 g/dL (3.4-5.0); Alkaline Phosphatase 73 U/L (46-116); Anion Gap 11.9 mmol/L (3-11); BUN 8 mg/dL (7-18); Bilirubin, Total 0.6 mg/dL (0.2-1.0); CO2 24.1 mmol/L (21.0-32.0); CREATININE 0.9 mg/dL (0.55-1.02); Calcium 9.6 mg/dL (8.5-10.1); Chloride 105 mmol/L (98-107); Estimated GFR 92.12 (mL/min/1.73m2); Glucose 101 mg/dL (74-106); Lipase 22 U/L (16-77); Potassium 3.5 mmol/L (3.5-5.1); Sodium 141 mmol/L (136-145); Total Protein 8.4 g/dL (6.4-8.2)
[2023-12-31 15:44] LABS: HCG Qual (Serum) Negative
--- NOTE | 2023-12-31 16:34 | NUR.NOTE ---
Referral faxed to [facility], Kalpesh Gsuman, for follow up to Low White Blood Count ,Leukopenia sometime next week
[2023-12-31 16:35] VITALS: BP 126/80; PULSE 72; RESP 18; TEMP 36.8; O2SAT 99
[2023-12-31] MEDS: Ondansetron O.D.T. 4 MG TABEF, 3 TABS/BTL PO (16:36)
[2023-12-31 16:47] LABS: COVID-19 PCR Negative (Negative); Influenza A PCR Negative (Negative); Influenza B PCR Negative (Negative); RSV PCR Negative (Negative)
[2023-12-31 16:48] LABS: Source Nasopharynx
[2023-12-31 17:13] LABS: Diff Comment Agrees w/ Instrument; RBC Morphology Normal
[2023-12-31 17:17] LABS: WBC 2.76 10^3/uL (4.4-10.8)
== END 2023-12-31 16:36 | disposition home or self-care (01) ==
PROVIDERS: Emergency Provider Emergency Medicine; PCP Physician Assistant
DX: R11.2 Nausea with vomiting, unspecified (principal); R19.7 Diarrhea, unspecified; R51.9 Headache, unspecified; D72.819 Decreased white blood cell count, unspecified
CPT/HCPCS: 76705; 80053; 83690; 87637; 96361; 96374; 96375; 99284; 84703; 85025; 99283; J1885; J2405

== ENCOUNTER 2024-02-18 17:34 | Emergency (ER) | payer MEDICAID, SELFPAY ==
[2024-02-18 17:38] VITALS: BP 133/84; PULSE 94; RESP 18; TEMP 36.5; O2SAT 100
--- NOTE | 2024-02-18 18:30 | RT.EKG_ITS ---
APPROVED REPORT Exam: Resting ECG Reason for Exam: weakness Patient Location: E HR:74 bpm ECG Measurements Heart Rate 74 AXIS NJ 162 P 23 QRSd 100 QRS 44 QT 394 T 28 QTc 436 Conclusion Sinus rhythm...normal P axis, V-rate 60- 99 Normal sinus rhythm at a rate of 74. Normal axis. NJ and QTc within normal limits. Interventricula r conduction delay. Compared to prior dated earlier this year interventricular conduction delay is n ew. T wave flattening in lead III similar to prior. No acute injury pattern. Appears similar to pr ior.
[2024-02-18 19:05] LABS: Abs Immature Grans 0.02 10^3/uL (0.0-0.06); Absolute Basophil Count 0.07 10^3/uL (0.0-0.2); Absolute Eosinophil Count 0.51 10^3/uL (0.0-0.7); Absolute Lymphocyte Count 2.74 10^3/uL (1.2-3.4); Absolute Neutrophil Count 5.47 10^3/uL (1.2-6.7); Basophils % 0.7; Eosinophils % 5.4; HGB 14.4 g/dL (11.2-15.7); Immature Grans % 0.2; Lymphocytes % 29.1; MCH 30.8 pg (27.0-33.0); MCHC 35.1 % (32.0-36.0); MCV 88 fL (80-95); MPV 10.2 fL (8.0-11.0); Monocytes % 6.4; Neutrophils % 58.2; Platelet Count 329 10^3/uL (130-400); RBC 4.67 10^6/uL (3.93-5.22); RDW 12.5 % (11.7-14.6); RDW-SD 40.6 fL; WBC 9.41 10^3/uL (4.4-10.8)
[2024-02-18 19:20] LABS: ALT 26 U/L (14-59); AST 17 U/L (15-37); Albumin 4.3 g/dL (3.4-5.0); Alkaline Phosphatase 88 U/L (46-116); Anion Gap 11.8 mmol/L (3-11); BUN 15 mg/dL (7-18); Bilirubin, Total 0.3 mg/dL (0.2-1.0); CO2 24.2 mmol/L (21.0-32.0); CREATININE 0.8 mg/dL (0.55-1.02); Chloride 105 mmol/L (98-107); Estimated GFR 106.11 (mL/min/1.73m2); Glucose 94 mg/dL (74-106); Potassium 3.5 mmol/L (3.5-5.1); Sodium 141 mmol/L (136-145); Total Protein 8.3 g/dL (6.4-8.2)
[2024-02-18 19:21] LABS: Bilirubin Negative (Negative); Blood Negative (Negative); Clarity Clear (Clear); Glucose Negative (Negative); Ketones Negative (Negative); Leukocyte Esterase Negative (Negative); Nitrite Negative (Negative); Specific Gravity <= 1.005 (1.005-1.025); Urobilinogen 0.2 mg/dL (Up to 0.2); pH 6.5 (5-8)
--- NOTE | 2024-02-18 19:47 | ED.GENADUL_ITS ---
Discharge Plan Disposition Patient Disposition: Home Condition: Stable Discharge Details Clinical Impression: Pre-syncope Primary Care Provider: Kalpesh Gusman ED Provider: Dedra Liu Home Meds and New Rx's Prescriptions: New penicillin V potassium 500 mg tablet 500 mg PO QID Qty: 40 0RF Continued sumatriptan [Imitrex] 20 mg/actuation spray,non-aerosol 20 mg intranasal Q2H PRN Rx Instructions: administer into one nostril as a single dose; if 2nd dose needed,administer into other nostril after at least 2 hrs, NTE 2 doses (40 mg) per episode budesonide-formoterol [Symbicort] 80-4.5 mcg/actuation HFA aerosol inhaler 2 inh inhalation BID PRN albuterol sulfate 90 mcg/actuation HFA aerosol inhaler 1 inh inhalation ONCE Qty: 6.7 0RF multivitamin [Daily Multi-Vitamin] Tablet 1 tab PO DAILY Discharge Instructions Instructions: Near Syncope (ED) Additional Instructions: Take ibuprofen and Tylenol for the next couple of days and see how you feel Low suspicion that this is a dental abscess, however if your dental pain worsens and you continue having the chills you could try taking antibiotics, yogurt daily while on the antibiotic Your labs are reassuring Please refer to the dental list I have supplied Return earlier should you have new or worsening complaints Referrals: Kalpesh Gusman [Primary Care Provider] - HPI General Date/Time Provider Initiated Documentation: 02/18/24 18:24 . HPI Narrative: 23-year-old female presents with report of feeling like she was going to pass out today. She has had chills and lightheadedness with some intermittent nausea. She took Tylenol this morning but has not taken it since that time. She denies known chance of . States that she also has bilateral upper dental pain, has not seen a dentist for many years per patient. Related Data Home Medications Medication Instructions Recorded Confirmed albuterol sulfate 90 mcg/actuation 1 inh inhalation ONCE #6.7 grams 12/01/21 02/18/24 aerosol inhaler sumatriptan 20 mg/actuation nasal 20 mg intranasal Q2H PRN 03/23/22 02/18/24 spray (Imitrex) budesonide-formoterol HFA 80 2 inh inhalation BID PRN 12/17/23 02/18/24 mcg-4.5 mcg/actuation aerosol inhaler (Symbicort) multivitamin (Daily Multi-Vitamin 1 tab PO DAILY 02/18/24 02/18/24 tablet) penicillin V potassium 500 mg 500 mg PO QID #40 tabs 02/18/24 tablet Previous Rx's Medication Instructions Recorded albuterol sulfate 90 mcg/actuation 1 inh inhalation ONCE #6.7 grams 12/01/21 aerosol inhaler penicillin V potassium 500 mg 500 mg PO QID #40 tabs 02/18/24 tablet Allergies Allergy/AdvReac Type Severity Reaction Status Date / Time varenicline [From Chantix] AdvReac Intermediate Other (See Verified 02/18/24 17:41 Comment) General Stated Complaint: DentalOral SHEEBA: 4 Course Vital Signs Vital signs: Vital Signs Temperature 36.5 C 02/18/24 17:38 Pulse 94 H 02/18/24 17:38 Respiratory Rate 18 02/18/24 17:38 Blood Pressure 133/84 02/18/24 17:38 Pulse Oximetry 100 02/18/24 17:38 Temperature 36.5 C 02/18/24 17:38 Temperature Source Temporal Artery Scan 02/18/24 17:38 Pulse 94 H 02/18/24 17:38 Respiratory Rate 18 02/18/24 17:38 Blood Pressure 133/84 02/18/24 17:38 Pulse Oximetry 100 02/18/24 17:38 Lab/Test Results Lab/Test Results: Laboratory Tests Range/Units 02/18/24 02/18/24 18:58 19:06 WBC (4.4-10.8) 10^3/uL 9.41 RBC (3.93-5.22) 10^6/uL 4.67 Hgb (11.2-15.7) g/dL 14.4 Hct (36.0-46.0) % 41.0 MCV (80-95) fL 88 MCH (27.0-33.0) pg 30.8 MCHC (32.0-36.0) % 35.1 RDW (11.7-14.6) % 12.5 Plt Count (130-400) 10^3/uL 329 MPV (8.0-11.0) fL 10.2 Immature Gran % 0.2 Neutrophils % 58.2 Lymphocytes % 29.1 Monocytes % 6.4 Eosinophils % 5.4 Basophils % 0.7 Nucleated RBC % (0.0-0.3) % 0.0 Absolute Neutrophils (1.2-6.7) 10^3/uL 5.47 Absolute Lymphocytes (1.2-3.4) 10^3/uL 2.74 Absolute Monocytes (0.1-0.8) 10^3/uL 0.60 Absolute Eosinophils (0.0-0.7) 10^3/uL 0.51 Absolute Basophils (0.0-0.2) 10^3/uL 0.07 Sodium (136-145) mmol/L 141 Potassium (3.5-5.1) mmol/L 3.5 Chloride (98-107) mmol/L 105 Carbon Dioxide (21.0-32.0) mmol/L 24.2 Anion Gap (3-11) mmol/L 11.8 H BUN (7-18) mg/dL 15 Creatinine (0.55-1.02) mg/dL 0.8 Est GFR (CKD-EPI 2020) (mL/min/1.73m2) 106.11 Glucose (74-106) mg/dL 94 Total Bilirubin (0.2-1.0) mg/dL 0.3 AST (15-37) U/L 17 ALT (14-59) U/L 26 Alkaline Phosphatase (46-116) U/L 88 Total Protein (6.4-8.2) g/dL 8.3 H Albumin (3.4-5.0) g/dL 4.3 Urine Color (Yellow) Yellow Urine Clarity (Clear) Clear Urine pH (5-8) 6.5 Ur Specific [place] (1.005-1.025) <= 1.005 Urine Protein (Neg-Trace) mg/dL Negative Urine Ketones (Negative) mg/dL Negative Urine Blood (Negative) Negative Urine Nitrite (Negative) Negative Urine Bilirubin (Negative) Negative Urine Urobilinogen (Up to 0.2) mg/dL 0.2 Ur Leukocyte Esterase (Negative) Negative Urine Glucose (Negative) mg/dL Negative POC- Test(urine) Negative Medical Decision Making 23-year-old female presenting with report of dental pain, chills, subjective fever, nausea, and feeling like she was get a pass out, EKG per my attendings documentation in my review does not show evidence of acute abnormality Diagnostic labs including CBC, CMP, urinalysis, and 's are all negative for acute abnormality Patient is feeling symptomatically improved, she has dental decay which is widespread but has a fracture to 16 without any evidence of deep space infection or abscess on exam, there is no soft palate induration, maintaining secretions, uvula midline COVID flu and RSV are pending, patient stable for discharge home at this time Will continue to take ibuprofen and Tylenol I did give patient a prescription for penicillin should her abdominal pain worsen and or fever persist She is encouraged to follow-up with dentist and her primary care physician next week and to return earlier should she have new or worsening complaints Patient is alert and oriented, lungs are clear to auscultation, cardiac rhythm regular Negative orthostatics, ambulatory steady gait, no acute distress Quality:SDOH Health Related Social Needs: No Data to Display PFSH All Active Problems (Updated 02/18/24 @ 19:48 by MAIRA Rey) Pre-syncope (Acute) COVID-19 (Acute) IBS (irritable bowel syndrome) (Chronic) Pelvic pain (Acute) Right ovarian cyst (Acute) Ureteral stone (Acute 04/09/16) Medical History Bronchitis Cough Tonsillitis Psychosocial stressors (01/17/17) Migraine headache (09/24/14) Depression (01/07/14) Suicide attempt Surgical History D&E Social History Smoking/Tobacco Use Status: Current every day Tobacco Type: e-cigarettes Smoking risk assessment performed?: Yes Alcohol Intake: current Alcohol Intake frequency: holidays/special occasions only Drug use: Daily Substance use type: marijuana Household members: family Housing: house Number of Children: 1 current occupation: [employer] Sexually active: Yes Do you think of yourself as: straight/heterosexual Current gender identity: female What type of physical activity do you participate in: none Do you feel safe at home: Yes Do you feel safe in your relationship?: Yes Female Reproductive History Menstrual Age of Menarche: 10 Duration of menses: >10 days control method: none and implanted History History 2 Para 1 Hx # Term Pregnancies Multiple births Hx # Pregnancies Ectopic pregnancies AB induced Hx Number of Living Children AB spontaneous Past Pregnancies Del. Date GA/Weeks # Preg Succ Route Wgt Sex Labor Lgth Anesth esia Location Prov Complic 02/12/16 40 No vaginal 4082.331 g Male [facility] Delivery Date: 02/12/16 Last Updated by: Gabi Salgado
[2024-02-18 19:55] LABS: COVID-19 PCR Negative (Negative); Influenza A PCR Negative (Negative); Influenza B PCR Negative (Negative); RSV PCR Negative (Negative)
[2024-02-18 19:56] LABS: Source Nasopharynx
[2024-02-18 20:14] VITALS: BP 133/84; PULSE 80; RESP 18; TEMP 36.5; O2SAT 100
[2024-02-18 20:32] VITALS: BP 124/76; PULSE 76; RESP 18; TEMP 36.5; O2SAT 100
== END 2024-02-18 20:32 | disposition home or self-care (01) ==
PROVIDERS: Emergency Provider Physician Assistant; PCP Physician Assistant
DX: K08.89 Other specified disorders of teeth and supporting structures (principal); R55 Syncope and collapse; F17.290 Nicotine dependence, other tobacco product, uncomplicated
CPT/HCPCS: 80053; 81025; 87637; 93005; 99284; 81003; 85025; 93010

== ENCOUNTER 2024-04-02 07:43 | Emergency (ER) | payer MEDICAID, SELFPAY ==
[2024-04-02 07:45] VITALS: BP 113/77; PULSE 93; RESP 16; TEMP 36.7; O2SAT 96
--- NOTE | 2024-04-02 08:29 | ED.GENADUL_ITS ---
Discharge Plan Disposition Patient Disposition: Home Condition: Stable Discharge Details Clinical Impression: Complex cyst of right ovary, Lower abdominal pain Primary Care Provider: Kalpesh Gusman ED Provider: Huey Rushing Home Meds and New Rx's Prescriptions: Continued sumatriptan [Imitrex] 20 mg/actuation spray,non-aerosol 20 mg intranasal Q2H PRN Rx Instructions: administer into one nostril as a single dose; if 2nd dose needed,administer into other nostril after at least 2 hrs, NTE 2 doses (40 mg) per episode budesonide-formoterol [Symbicort] 80-4.5 mcg/actuation HFA aerosol inhaler 2 inh inhalation BID PRN albuterol sulfate 90 mcg/actuation HFA aerosol inhaler 1 inh inhalation ONCE Qty: 6.7 0RF multivitamin [Daily Multi-Vitamin] Tablet 1 tab PO DAILY Discharge Instructions Instructions: Ovarian Cyst (ED), Abdominal Pain (ED) Additional Instructions: Please take acetaminophen (tylenol) - 650mg every 6 hours by mouth as needed for pain. Please take ibuprofen over the counter. Take 600mg by mouth every 6 hours as needed for pain. Please contact your primary care physician to arrange follow-up. Return to the ER immediately for any worsening or new concerning symptoms. Referrals: [facility] [Provider Group] Kalpesh Gusman [Primary Care Provider] - Discharge Data Discharge Date/Time-TO BE ENTERED AT DEPARTURE: 04/02/24 12:49 HPI General Mode of arrival: ambulatory . Date/Time Provider Initiated Documentation: 04/02/24 07:59 . Limitations to Documentation: no limitations . Information obtained by: patient . HPI Narrative: 23yo female with PMH significant for renal stone and PCOS with ovarian cysts presents with chief complaint of abominal pain. Patient notes that she was urinating and had some lower abdominal discomfort, she finished urinating and pain became severe. Pain localized to right suprapubic area. Pain was throbbing. Severe pain lasted 45 minutes and has not improved. Pain now mild to moderate. No hematuria. No associated vaginal bleeding or discharge. LMP was 5/6-12 and was normal. Normal BM yesterday. No fever. Related Data Home Medications Medication Instructions Recorded Confirmed albuterol sulfate 90 mcg/actuation 1 inh inhalation ONCE #6.7 grams 12/01/21 04/02/24 aerosol inhaler sumatriptan 20 mg/actuation nasal 20 mg intranasal Q2H PRN 03/23/22 04/02/24 spray (Imitrex) budesonide-formoterol HFA 80 2 inh inhalation BID PRN 12/17/23 04/02/24 mcg-4.5 mcg/actuation aerosol inhaler (Symbicort) multivitamin (Daily Multi-Vitamin 1 tab PO DAILY 02/18/24 04/02/24 tablet) Previous Rx's Medication Instructions Recorded albuterol sulfate 90 mcg/actuation 1 inh inhalation ONCE #6.7 grams 12/01/21 aerosol inhaler Allergies Allergy/AdvReac Type Severity Reaction Status Date / Time varenicline [From Chantix] AdvReac Intermediate Other (See Verified 04/02/24 07:52 Comment) General Stated Complaint: Urinary SHEEBA: 3 Review of Systems All systems reviewed & are unremarkable except as noted in HPI and below Constitutional Constitutional: Denies fever(s) Genitourinary Genitourinary: Reports as per HPI Exam Const General: cooperative and no acute distress HENIL Mouth: moist mucous membranes Eyes Conjunctivae: normal conjunctivae Sclera: normal sclerae Resp Auscultation: clear to auscultation bilaterally, no rales, no rhonchi and no wheezes Cardio Rate: regular rate and not tachycardic Rhythm: regular rhythm GI Palpation: soft, not firm, no guarding, no masses, not rigid and tender in the RLQ and suprapubicly Neuro General: patient alert, patient awake and tone normal Course Vital Signs Vital signs: Vital Signs Temperature 36.7 C 04/02/24 07:45 Pulse 93 H 04/02/24 07:45 Respiratory Rate 16 04/02/24 07:45 Blood Pressure 113/77 04/02/24 07:45 Pulse Oximetry 96 04/02/24 07:45 Temperature 36.7 C 04/02/24 07:45 Temperature Source Tympanic 04/02/24 07:45 Pulse 93 H 04/02/24 07:45 Respiratory Rate 16 04/02/24 07:45 Blood Pressure 113/77 04/02/24 07:45 Blood Pressure Position Sitting 04/02/24 07:45 Pulse Oximetry 96 04/02/24 07:45 Oxygen Delivery Method Room Air 04/02/24 07:45 Oxygen Flow Rate 0 04/02/24 07:45 Pain Level 7 04/02/24 07:45 Comment Reports she has not taken any APAP or ibuprofen because the pain was too bad 04/02/24 07:45 Medical Decision Making 839 -- 23yo female with history of renal stones and ovarian cysts with PCOS, here with suprapubic and RLQ abd pain that was severe and started post void this AM. Pain now improved. She is tender in RLQ and suprapubic area. No signs of peritonitis. Afebrile. I will treat pain with acetaminophen IV. Plan for CT of the abd and pelvis to assess for acute surgical pathology. --Labs reviewed: Urinalysis not consistent with stone or UTI. No leukocytosis. Mild hypokalemia. 1042 --CT of the abdomen pelvis interpreted by radiology:IMPRESSION: 1. Small ovarian cysts and minimal free fluid in the pelvis could be physiologic findings. Findings indicative of ovarian torsion are not apparent, but that remains a clinical diagnosis. 2. Otherwise, no obvious acute abnormality detected within the abdomen or pelvis. 3. No definite evidence of acute appendicitis. Plan for ultrasound of the pelvis. 1235 --pelvic ultrasound interpreted by radiology: Complex cyst right ovary, small free fluid, no torsion. Patient notes feeling better. Plan for discharge with outpatient follow-up. Usual customary discharge instructions were reviewed with the patient. Lab Data Lab results reviewed: Yes I reviewed the patient's lab results. Labs: Laboratory Tests Range/Units 04/02/24 04/02/24 08:30 09:03 WBC (4.4-10.8) 10^3/uL 5.37 RBC (3.93-5.22) 10^6/uL 4.08 Hgb (11.2-15.7) g/dL 12.5 Hct (36.0-46.0) % 36.6 MCV (80-95) fL 90 MCH (27.0-33.0) pg 30.6 MCHC (32.0-36.0) % 34.2 RDW (11.7-14.6) % 12.9 Plt Count (130-400) 10^3/uL 267 MPV (8.0-11.0) fL 10.3 Immature Gran % % 0.4 Neutrophils % % 44.3 Lymphocytes % % 39.3 Monocytes % % 8.0 Eosinophils % % 7.1 Basophils % % 0.9 Nucleated RBC % (0.0-0.3) % 0.0 Absolute Neutrophils (1.2-6.7) 10^3/uL 2.38 Absolute Lymphocytes (1.2-3.4) 10^3/uL 2.11 Absolute Monocytes (0.1-0.8) 10^3/uL 0.43 Absolute Eosinophils (0.0-0.7) 10^3/uL 0.38 Absolute Basophils (0.0-0.2) 10^3/uL 0.05 Sodium (136-145) mmol/L 139 Potassium (3.5-5.1) mmol/L 3.4 L Chloride (98-107) mmol/L 104 Carbon Dioxide (21.0-32.0) mmol/L 26.1 Anion Gap (3-11) mmol/L 8.9 BUN (7-18) mg/dL 10 Creatinine (0.55-1.02) mg/dL 0.7 Est GFR (CKD-EPI 2020) (mL/min/1.73m2) 124.55 Glucose (74-106) mg/dL 86 Calcium (8.5-10.1) mg/dL 8.5 Total Bilirubin (0.2-1.0) mg/dL 0.3 AST (15-37) U/L 15 ALT (14-59) U/L 24 Alkaline Phosphatase (46-116) U/L 73 Total Protein (6.4-8.2) g/dL 7.0 Albumin (3.4-5.0) g/dL 3.6 Lipase (16-77) U/L 25 Urine Color (Yellow) Yellow Urine Clarity (Clear) Clear Urine pH (5-8) 7.0 Ur Specific [place] (1.005-1.025) 1.020 Urine Protein (Neg-Trace) mg/dL Negative Urine Ketones (Negative) mg/dL Negative Urine Blood (Negative) Negative Urine Nitrite (Negative) Negative Urine Bilirubin (Negative) Negative Urine Urobilinogen (Up to 0.2) mg/dL 0.2 Ur Leukocyte Esterase (Negative) Negative Urine Glucose (Negative) mg/dL Negative Quality:SDOH Health Related Social Needs: No Data to Display PFSH All Active Problems (Updated 04/02/24 @ 12:41 by Huey Rushing MD) Lower abdominal pain (Acute) Complex cyst of right ovary (Acute) COVID-19 (Acute) IBS (irritable bowel syndrome) (Chronic) Pelvic pain (Acute) Right ovarian cyst (Acute) Ureteral stone (Acute 04/09/16) Medical History Bronchitis Cough Tonsillitis Psychosocial stressors (01/17/17) Migraine headache (09/24/14) Depression (01/07/14) Suicide attempt Surgical History D&E Social History Smoking/Tobacco Use Status: Current every day Tobacco Type: e-cigarettes Smoking risk assessment performed?: Yes Alcohol Intake: current Alcohol Intake frequency: holidays/special occasions only Drug use: Daily Substance use type: marijuana Household members: family Housing: house Number of Children: 1 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 Date GA/Weeks # Preg Succ Route Wgt Sex Labor Lgth Anesth esia Location Prov Complic 02/12/16 40 No vaginal 4082.331 g Male [facility] Delivery Date: 02/12/16 Last Updated by: Gabi Salgado
[2024-04-02 08:38] VITALS: BP 113/77; PULSE 93; RESP 16; TEMP 36.7; O2SAT 96
[2024-04-02 08:42] LABS: Abs Immature Grans 0.02 10^3/uL (0.0-0.06); Absolute Basophil Count 0.05 10^3/uL (0.0-0.2); Absolute Eosinophil Count 0.38 10^3/uL (0.0-0.7); Absolute Lymphocyte Count 2.11 10^3/uL (1.2-3.4); Absolute Monocyte Count 0.43 10^3/uL (0.1-0.8); Absolute Neutrophil Count 2.38 10^3/uL (1.2-6.7); Basophils % 0.9 %; Eosinophils % 7.1 %; HCT 36.6 % (36.0-46.0); HGB 12.5 g/dL (11.2-15.7); Immature Grans % 0.4 %; Lymphocytes % 39.3 %; MCH 30.6 pg (27.0-33.0); MCHC 34.2 % (32.0-36.0); MCV 90 fL (80-95); MPV 10.3 fL (8.0-11.0); Neutrophils % 44.3 %; Platelet Count 267 10^3/uL (130-400); RBC 4.08 10^6/uL (3.93-5.22); RDW 12.9 % (11.7-14.6); RDW-SD 42.6 fL; WBC 5.37 10^3/uL (4.4-10.8)
[2024-04-02 08:56] LABS: ALT 24 U/L (14-59); AST 15 U/L (15-37); Albumin 3.6 g/dL (3.4-5.0); Alkaline Phosphatase 73 U/L (46-116); Anion Gap 8.9 mmol/L (3-11); BUN 10 mg/dL (7-18); Bilirubin, Total 0.3 mg/dL (0.2-1.0); CO2 26.1 mmol/L (21.0-32.0); CREATININE 0.7 mg/dL (0.55-1.02); Calcium 8.5 mg/dL (8.5-10.1); Chloride 104 mmol/L (98-107); Estimated GFR 124.55 (mL/min/1.73m2); Glucose 86 mg/dL (74-106); Lipase 25 U/L (16-77); Potassium 3.4 mmol/L (3.5-5.1); Sodium 139 mmol/L (136-145)
[2024-04-02] MEDS: ACETAMINOPHEN 1,000 MG/100 ML BTL 400 MG IVPB (09:03)
[2024-04-02] MEDS: Lactated Ringers 1,000 ML 1000 ML IV (09:04)
[2024-04-02 09:12] LABS: Bilirubin Negative (Negative); Blood Negative (Negative); Clarity Clear (Clear); Glucose Negative (Negative); Ketones Negative (Negative); Leukocyte Esterase Negative (Negative); Nitrite Negative (Negative); Urobilinogen 0.2 mg/dL (Up to 0.2)
--- NOTE | 2024-04-02 09:15 | DI.CT_ITS ---
Exam(s) CT ABDOMEN PELVIS W EXAM: CT ABDOMEN PELVIS W CLINICAL HISTORY: suprapubic rlq abd pain. ttp rlq.. TECHNIQUE: Imaging Protocol: Axial computed tomography images with coronal and sagittal reformatted images were created and reviewed CONTRAST MATERIAL: Intravenous: Omnipaque 350 Contrast volume:100 ml Oral: yes / no COMPARISON: CT CT ABDOMEN PELVIS WO from 03/16/2022 FINDINGS: ABDOMEN and PELVIS: Lung Bases: No acute findings. Liver: Normal density. No suspicious mass. Gallbladder and biliary tract: No radiodense calculus. No biliary dilation. Pancreas: Normal density. No abnormal calcifications or inflammatory process. No evidence of mass. Spleen: Normal. Kidneys: Normal size, contour and axis. No radiodense stones. No obstructive uropathy. No suspicious masses seen. Adrenal glands: No masses seen. Vasculature: Abdominal aorta non-dilated. Soft tissues: Unremarkable. Bladder: No gross wall thickening. No calculi.No focal mass. Bowel: No obstruction. No bowel wall thickening. Appendix normal. Peritoneal cavity: Small amount of fluid in the low pelvis and around left ovary. No focal collectio n. No mesenteric inflammatory response. Bones: Unremarkable for age. Reproductive organs: Unremarkable. Lymph nodes: No pathologically enlarged lymph nodes. IMPRESSION:: No acute abnormality in the abdomen or pelvis. Small amount of fluid in the pelvis, ph ysiologic in this age group. No findings to indicate torsion. The appendix is normal. RADIATION DOSE DELIVERED: Total DLP DATA REPOSITORY: All CT scans at this facility are submitted to the National Radiology Data Registry (NRDR) Dose Index Registry (DIR) with the [employer] (ACR). RADIATION OPTIMIZATION: All CT scans at this facility use at least one of these dose optimization te chniques: automated exposure control; mA and/or kV adjustment per patient size (includes targeted exa ms where dose is matched to clinical indication); or iterative reconstruction.
[2024-04-02] MEDS: Normal Saline - Diluent 50 ML VIAL IJ (09:43)
[2024-04-02] MEDS: Omnipaque 350 MG/ML 100 ML BTL IJ (09:44)
--- NOTE | 2024-04-02 10:30 | DI.US_ITS ---
Exam(s) US PELVIS TRANSVAGINAL EXAM: US PELVIS TRANSVAGINAL CLINICAL HISTORY: pain right, assess for torsion TECHNIQUE: Transabdominal and transvaginal imaging was performed using standard protocol. COMPARISON: US POCUS EXAM from 12/31/[address] ABDOMEN PELVIS W from 04/02/2024 FINDINGS: UTERUS: Anteverted. 8.3 x 3.8 x 4.6 cm Endometrium: 2 mm Myometrium: Unremarkable. Cervix: Nabothian cysts. OVARIES: Right: Cyst or mass: Collapsing follicle the right ovary. Left: Cyst or mass: 2.5 centimeter maximal dimension simple cyst. DOPPLER: Color: Symmetric and uniform flow to both ovaries. No hyperemia. No evidence of torsion. CUL-DE-SAC: Free fluid: Mild fluid in the cul-de-sac. Trace amount of fluid adjacent to left ovary. IMPRESSION: 1. Normal-appearing uterus with endometrial stripe within normal limits. 2. No evidence of torsion. DATA REPOSITORY:
--- NOTE | 2024-04-02 10:33 | DI.VRAD_ITS ---
PROCEDURE INFORMATION: Exam: CT Abdomen And Pelvis With Contrast Exam date and time: 04/02/2024 9:42 AM Age: 23 years old Clinical indication: Suprapubic and right lower quadrant abd pain. Tender to palpation RLQ. TECHNIQUE: Imaging protocol: Computed tomography of the abdomen and pelvis with contrast. Contrast material: OMNIPAQUE 350; Contrast volume: 100 ml; Contrast route: INTRAVENOUS (IV); COMPARISON: CT ABDOMEN PELVIS WO 03/16/2022 2:46 PM FINDINGS: Imaged portion of the appendix is unremarkable. Bilateral ovarian cysts, likely physiologic. Minimal free fluid in the pelvis could also be physiologic. Gonadal vessels appear patent. The uterus is not enlarged. No evidence of bowel obstruction. No acute abnormality of the liver, spleen, pancreas, adrenal glands, or kidneys is identified. There is no biliary duct dilation or gallbladder wall thickening. Abdominal aorta is normal caliber. SMV, splenic vein, and portal vein are patent. No acute osseous abnormality identified. IMPRESSION: 1. Small ovarian cysts and minimal free fluid in the pelvis could be physiologic findings. Findings indicative of ovarian torsion are not apparent, but that remains a clinical diagnosis. 2. Otherwise, no obvious acute abnormality detected within the abdomen or pelvis. 3. No definite evidence of acute appendicitis. Dictated and Authenticated by: Nazario Sauer MD. Ordering:KAMILLE Arzate MD
[2024-04-02 12:42] VITALS: BP 115/74; PULSE 72; RESP 16; O2SAT 99
--- NOTE | 2024-04-02 12:42 | DI.VRAD_ITS ---
PROCEDURE INFORMATION: Exam: US Pelvis, Transvaginal, Non-obstetric Exam date and time: 04/02/2024 11:49 AM Age: 23 years old Clinical indication: Pelvic pain TECHNIQUE: Imaging protocol: Real-time transvaginal pelvic (non-obstetric) ultrasound with image documentation. Transvaginal imaging was used for better evaluation of the endometrium, adnexa, and/or cervix. COMPARISON: CT ABDOMEN PELVIS W 04/02/2024 9:42 AM FINDINGS: Uterus: The uterus measures approximately 8.3 x 3.8 x 4.6 cm. Endometrial stripe width of 3 mm within normal limits. Incidental note of 2 mm echogenic focus along the posterior endometrial surface. Subcentimeter nabothian cyst at the upper margin of the cervix. Right ovary: Right ovary measures approximately 3.9 x 2.6 x 2.6 cm and contains a mildly complex cyst that measures 2.2 cm maximum diameter. Right ovarian blood flow confirmed with color flow imaging and Doppler. Left ovary: Left ovary measures approximately 2.9 x 2.2 x 3.2 cm and contains a simple cyst that measures 2.5 cm maximum diameter. Left ovarian blood flow confirmed with color flow imaging and Doppler. Very mild free fluid in the cul-de-sac. IMPRESSION: Presumed bilateral functional ovarian cysts, the right ovarian cyst likely containing remnants of hemorrhage. No sonographic evidence of ovarian torsion, but that remains a diagnosis established clinically as intermittent torsion may not be detectable by ultrasound. Dictated and Authenticated by: Nazario Sauer MD. Ordering:KAMILLE Arzate MD
== END 2024-04-02 12:49 | disposition home or self-care (01) ==
PROVIDERS: Emergency Provider Student in an Organized Health Care Education/Training Program; PCP Physician Assistant
DX: R10.31 Right lower quadrant pain (principal); N83.291 Other ovarian cyst, right side; R10.30 Lower abdominal pain, unspecified; Z87.442 Personal history of urinary calculi
CPT/HCPCS: 36415; 80053; 81025; 83690; 96361; 96365; 96366; 99285; 74177; 76830; 76856; 81003; 85025; 99283; J0131; J3490

== ENCOUNTER 2024-05-03 20:57 | Outpatient (REF) | payer MEDICAID, SELFPAY | END 2024-05-03 20:58 | disposition home or self-care (01) | LOC: LBN 20:57 | PROVIDERS: PCP Physician Assistant; Visit Provider Physician Assistant Medical | DX: J02.9 Acute pharyngitis, unspecified (principal) | CPT/HCPCS: 87070 ==

== ENCOUNTER 2024-05-06 13:40 | Emergency (ER) | payer MEDICAID, SELFPAY ==
[2024-05-06 13:44] VITALS: BP 127/81; PULSE 91; RESP 16; TEMP 36.6; O2SAT 98
--- NOTE | 2024-05-06 14:14 | W.ED.GENAD ---
Discharge Plan Disposition Patient Disposition: Home Condition: Improving Discharge Details Chief Complaint: Sorethroat Clinical Impression: Laryngitis Primary Care Provider: Kalpesh Gusman ED Provider: Ponce Dennison Home Meds and New Rx's Prescriptions: No Action sumatriptan [Imitrex] 20 mg/actuation spray,non-aerosol 20 mg intranasal Q2H PRN Rx Instructions: administer into one nostril as a single dose; if 2nd dose needed,administer into other nostril after at least 2 hrs, NTE 2 doses (40 mg) per episode budesonide-formoterol [Symbicort] 80-4.5 mcg/actuation HFA aerosol inhaler 2 inh inhalation BID PRN albuterol sulfate 90 mcg/actuation HFA aerosol inhaler 1 inh inhalation ONCE Qty: 6.7 0RF multivitamin [Daily Multi-Vitamin] Tablet 1 tab PO DAILY Discharge Instructions Instructions: Laryngitis ED HPI General Date/Time Provider Initiated Documentation: 05/06/24 13:54. HPI Narrative: 23-year-old female presents with raspy voice and sore throat over the last couple of days, negative strep swab at urgent care as well as negative throat culture, denies shortness of breath nausea vomiting fevers chills or other systemic signs of illness. Was given what sounds like a dose of dexamethasone at urgent care Related Data Home Medications Medication Instructions Recorded Confirmed albuterol sulfate 90 mcg/actuation 1 inh inhalation ONCE #6.7 grams 12/01/21 05/06/24 aerosol inhaler sumatriptan 20 mg/actuation nasal 20 mg intranasal Q2H PRN 03/23/22 05/06/24 spray (Imitrex) budesonide-formoterol HFA 80 2 inh inhalation BID PRN 12/17/23 05/06/24 mcg-4.5 mcg/actuation aerosol inhaler (Symbicort) multivitamin (Daily Multi-Vitamin 1 tab PO DAILY 02/18/24 05/06/24 tablet) Previous Rx's Medication Instructions Recorded albuterol sulfate 90 mcg/actuation 1 inh inhalation ONCE #6.7 grams 12/01/21 aerosol inhaler Allergies Allergy/AdvReac Type Severity Reaction Status Date / Time varenicline [From Chantix] AdvReac Intermediate Other (See Verified 05/06/24 13:47 Comment) General Stated Complaint: Sorethroat SHEEBA: 4 Review of Systems Narrative: Review of Systems Constitutional: negative Eyes: negative ENT: Sore throat Cardiovascular: negative Respiratory: negative Gastrointestinal: negative : negative Musculoskeletal: negative Skin: negative Neurologic: negative Psych: negative Exam Narrative Exam Narrative: Physical Examination General: alert, awake, cooperative, resting comfortably, no acute distress HEENT: normocephalic, atraumatic; PERRL, EOM intact, conjunctiva normal; no nasal discharge; moist mucous membranes, oral and pharyngeal mucosa normal, tolerating secretions Neck: supple, trachea midline; full ROM Chest: normal to inspection Respiratory: normal respiratory effort, raspy voice, clear to auscultation, no wheezing, rales or rhonchi; no stridor Cardiac: regular rate, regular rhythm, S1S2 intact, no murmurs rubs or gallops GI: abdomen soft, non-tender, non-distended; no palpable mass or hepatosplenomegaly Skin: no lesions, rashes or trauma appreciated Neuro: AAOx3, normal speech, moving all extremities Psych: Appropriate mood and affect Course Vital Signs Vital signs: Vital Signs Temperature 36.6 C 05/06/24 13:44 Pulse 91 H 05/06/24 13:44 Respiratory Rate 16 05/06/24 13:44 Blood Pressure 127/81 05/06/24 13:44 Pulse Oximetry 98 05/06/24 13:44 Temperature 36.6 C 05/06/24 13:44 Pulse 91 H 05/06/24 13:44 Respiratory Rate 16 05/06/24 13:44 Respiratory Effort Normal 05/06/24 13:50 Blood Pressure 127/81 05/06/24 13:44 Pulse Oximetry 98 05/06/24 13:44 Pain Level 8 05/06/24 13:44 Medical Decision Making 23-year-old female presents with 3 days of sore throat and raspy voice, afebrile nontoxic no acute distress tolerating secretions no stridor, negative strep swab and negative culture at urgent care within the last day, was given a dose of dexamethasone, history physical consistent with viral laryngitis, lungs clear bilaterally no retractions no hypoxia low suspicion for bacterial pneumonia or bacterial pharyngitis, counseled patient at length regarding likely diagnosis and counseled regarding symptomatic care at home, home care instructions return precautions given Quality:SDOH Health Related Social Needs: No Data to Display PFSH All Active Problems (Updated 05/06/24 @ 14:25 by Ponce Dennison MD) Laryngitis (Acute) Fertility testing (Acute) COVID-19 (Acute) IBS (irritable bowel syndrome) (Chronic) Pelvic pain (Acute) Right ovarian cyst (Acute) Ureteral stone (Acute 04/09/16) Medical History Bronchitis Cough Tonsillitis Psychosocial stressors (01/17/17) Migraine headache (09/24/14) Depression (01/07/14) Suicide attempt Surgical History D&E Social History Smoking/Tobacco Use Status: Current every day Tobacco Type: e-cigarettes Smoking risk assessment performed?: Yes Alcohol Intake: current Alcohol Intake frequency: holidays/special occasions only Drug use: Daily Substance use type: marijuana Household members: family Housing: house Number of Children: 1 current occupation: [email or web address] Sexually active: Yes Do you think of yourself as: straight/heterosexual Current gender identity: female What type of physical activity do you participate in: none Do you feel safe at home: Yes Do you feel safe in your relationship?: Yes Female Reproductive History Menstrual Age of Menarche: 10 Duration of menses: >10 days control method: none and implanted History History 2 Para 1 Hx # Term Pregnancies Multiple births Hx # Pregnancies Ectopic pregnancies AB induced Hx Number of Living Children AB spontaneous Past Pregnancies Del. Date GA/Weeks # Preg Succ Route Wgt Sex Labor Lgth Anesthesia Location Prov Complic 02/12/16 40 No vaginal 4082.331 g Male [facility] Delivery Date: 02/12/16 Last Updated by: Gabi Salgado
== END 2024-05-06 14:29 | disposition home or self-care (01) ==
PROVIDERS: Emergency Provider Emergency Medicine; PCP Physician Assistant
DX: J02.9 Acute pharyngitis, unspecified (principal)
CPT/HCPCS: 99281; 99282

== ENCOUNTER 2024-08-26 12:43 | Emergency (ER) | payer MEDICAID, SELFPAY ==
--- OUTSIDE RECORDS SUMMARY | 2024-08-26 12:50 | XMS_ITS | Encounter Summary ---
Author Organization [facility] Address [address] [place] [address] Care Team Providers Care Organizational Development Manager Name Role Phone None, Provider Primary Care Provider Unavailmariela e Encounter Details Date Type Department Care Team (Late st Contact Info) Description 04/09/2021 Lab Requisition [facility] Pathology & Laboratory Medicine - [facility] [address] [place] [address] Outr Resulting Lab, Provider Social History Tobacco Use Types Packs/Day Years Used Date Smoking Tobacco: Never Smokeless Tobacco: Never Interpersonal Safety Answer Date Record ed Physically Hurt Never 06/09/2020 Verbally Threaten Not on file 06/09/2020 Sex and Gender Information Value Date Recorded Sex Assigned at Not on file Gender Identity Female 01/02/2024 21:03 EST Sexual Orientation Not on file documented as of this encounter Functional Status Functional Status Response Date of Assess ment Are you deaf or do you have serious difficulty h earing? No 01/06/2018 Are you blind or do you have serious difficulty seeing, even when wearing glasses? No 01/06/2018 Do you have serious difficul ty walking or climbing stairs? (5 years old or older) No 01/06/2018 Do you have difficulty dress ing or bathing? (5 years old or older) No 01/06/2018 Because of a physical, menta l, or emotional condition, do you have difficulty doing errands alone such as visiting a doctor's office or shopping? (15 years old or older) No 01/06/2018 Cognitive Status Response Date of Assessm ent Because of a physical, menta l, or emotional condition, do you have serious difficulty concentrating, remembering, or making decisions? (5 years old or older) No 01/06/2018 documented as of this encounter Plan of Treatment Not on file documented as of this encounter Procedures Procedure Name Priority Date/Time Associated Diagnosis Comments ZZCOVID-19 TEST [facility] PCR Today 04/08/2021 13:30 EDT COVID-19 TESTING Routine 04/08/2021 13:3 0 EDT documented in this encounter Results * COVID-19 TEST [facility] PCR (04/08/2021 13:30 EDT) Swab ENTIRE NASOPHARYNX / Unknown 04/08/2021 13:30 EDT 04/09/2021 15:38 EDT Provider Outr Resulting Lab MICROBIOLOGY - GENERAL ORDERABLES [facility] [address] [place] [id number] * COVID-19 TESTING (04/08/2021 13:30 EDT) COVID-19 rt-PCR Result Negative Negative 04/10/2021 13:38 EDT [facility] Comment: This test has not been FDA cleared or approved. This test has been authorized by FDA under an EUA for use by authorized laboratories. This test has been authorized only for detection of nucleic acid from 2019-nCoV, not for any other viruses or pathogens. This test is only authorized for the duration of the declaration that circumstances exist justifying the authorization of emergency use of in vitro diagnostic tests for detection and/or diagnosis of 2019-nCoV under section 564(b)(1) of Act, 21 U.S.C ?? 360bbb-3(b) (1), unless the authorization is terminated or revoked sooner. Negative results do not preclude 2019-nCoV infection and should not be used as the sole basis for treatment or other patient management decisions. Negative results must be combined with clinical observations, patient history, and epidemiological information. This test was developed and its performance characteristics determined by [facility]. It has not been cleared or approved by the US Food and Drug Administration. FDA does not require this test to go through premarket FDA review. This test is used for clinical purposes. It should not be regarded as investigational or for research. This laboratory is certified under the Clinical Laboratory Improvement Amendments (CLIA) as qualified to perform high complexity clinical laboratory testing. This test is based on the CDC COVID-19 Emergency Use Authorization (EUA) assay, with minor modification as defined by the FDA Performed on the [employer] 7 Pro RT-PCR System. Performing Lab [facility] 04/10/2021 13:38 EDT [facility] Swab 04/08/2021 13:3 0 EDT 04/09/2021 15:38 EDT Provider Outr Resulting Lab MICROBIOLOGY - GENERAL ORDERABLES [facility] [address] [place] [address] documented in this encounter Visit Diagnoses Not on filedocumented in this encounter Additional Health Concerns Infection Onset Date Last Indicated Resolved Time R/O COVID-19 01/02/2024 01/02/2024 01/02/2024 21:5 8 EST documented as of this encounter Care Teams Organizational Development Manager Relationship Specialty Start Date End Date None, Provider PCP - General 02/21/18 documented as of this encounter
--- OUTSIDE RECORDS SUMMARY | 2024-08-26 12:50 | XMS_ITS | Encounter Summary ---
Author Organization [facility] Address [address] [place] [address] Care Team Providers Care Head Grinder Name Role Phone None, Provider Primary Care Provider Lay e Encounter Details Date Type Department Care Team (Late st Contact Info) Description 12/02/2021 Lab Requisition [facility] Pathology & Laboratory Medicine - [facility] [address] [place] [address] Outr Resulting Lab, Provider Social History Tobacco [...] Priority Date/Time Associated Diagnosis Comments ZZCOVID-19 TEST [facility] PCR Today 12/01/2021 22:10 EST COVID-19 TESTING Routine 12/01/2021 22:1 0 EST documented in this encounter Results * COVID-19 TEST [facility] PCR (12/01/2021 22:10 EST) Swab 12/01/2021 22:1 0 EST 12/02/2021 17:04 EST Provider Outr Resulting Lab MICROBIOLOGY - GENERAL ORDERABLES [facility] [address] [place] [id number] * COVID-19 TESTING (12/01/2021 22:10 EST) COVID-19 rt-PCR Result Negative Negative 12/03/2021 13:23 EST [facility] Comment: This test has not [...] clinical observations, patient history, and epidemiological information. Testing was performed using the padma SARS-CoV-2 assay ([employer] on the Padma 6800 System Performing Lab Padma [address] [facility] 12/03/2021 13:23 EST [facility] Swab 12/01/2021 22:1 0 EST 12/02/2021 17:04 EST Provider Outr Resulting Lab MICROBIOLOGY - GENERAL ORDERABLES [facility] [address] [place] [address] documented in this encounter Visit Diagnoses Not on filedocumented in this encounter Additional Health Concerns Infection Onset Date Last Indicated Resolved Time R/O COVID-19 01/02/2024 01/02/2024 01/02/2024 21:5 8 EST documented as of this encounter Care Teams Head Grinder Relationship Specialty Start Date End Date None, Provider PCP - General 02/21/18 documented as of this encounter
--- OUTSIDE RECORDS SUMMARY | 2024-08-26 12:50 | XMS_ITS | Encounter Summary ---
Author Organization [facility] Address [address] [place] [address] Care Team Providers Care Glass Technician Name Role Phone None, Provider Primary Care Provider Unavailabl e Encounter Details Date Type Department Care Team (Latest Contact Info) Description 01/02/2024 Travel Social History Tobacco Use Types Packs/Day Years [...] on file documented as of this encounter Visit Diagnoses Not on filedocumented in this encounter Additional Health Concerns Infection Onset Date Last Indicated Resolved Time R/O COVID-19 01/02/2024 01/02/2024 01/02/2024 21:5 8 EST documented as of this encounter Care Teams Glass Technician Relationship Specialty Start Date End Date None, Provider PCP - General 02/21/18 documented as of this encounter
--- OUTSIDE RECORDS SUMMARY | 2024-08-26 12:50 | XMS_ITS | Referral Summary ---
Author Organization [facility] Address [address] [place] [address] Care Team Providers Care Physical Education Teacher Name Role Phone None, Provider Primary Care Provider Unavailabl e Allergies No known active allergies Medications Medication Sig Dispensed Refills Start Date End Date Status levonorgestrel (MIRENA) 20 mcg/24 hr (5 years) IUD 1 Each by intrauterine route continuous. 1 Each 01/06/2018 Active ibuprofen (MOTRIN) 600 mg tablet Take 1 Tab by mouth every 6 hours as needed for Pain. 0 01/06/2018 Active Additional Information Patient not taking.Reported on 02/21/2018 acetaminophen (TYLENOL) 325 mg tablet Take 2 Tabs by mouth every 6 hours as needed for Pain. 01/06/2018 Active Additional Information Patient not taking.Reported on 02/21/2018 inhalational spacing device (AEROCHAMBER) Inhale 1 Device as directed as needed. Use with a metered dose inhaler, as directed. May be dispensed with mask as appropriate. Active fluticasone (FLOVENT) 110 mcg/actuation inhaler Inhale 1 Puff as directed 2 times daily. 1 Inhaler 5 02/21/2018 Active albuterol 90 mcg/actuation inhaler Inhale 2 Puffs as directed every 4 hours as needed (cough or wheeze). Use with spacer 1 Inhaler 3 02/21/2018 Active Active Problems Problem Noted Date Diagnosed Date Mild persistent asthma without complication 02/05 Resolved Problems Problem Noted Date Diagnosed Date Resolved Date Encounter for elective termi nation of 01/06/2018 02/21/2018 Bronchospasm, acute 01/06/2018 02/22/20 18 Social History Tobacco Use Types Packs/Day Years Used Date Smoking Tobacco: Never Smokeless Tobacco: Never Interpersonal Safety Answer Date Record ed Physically Hurt Never 06/09/2020 Verbally Threaten Not on file 06/09/2020 Sex and Gender Information Value Date Recorded Sex Assigned at Not on file Gender Identity Female 01/02/2024 21:03 EST Sexual Orientation Not on file Last Filed Vital Signs Vital Sign Reading Time Taken Comments Blood Pressure 125/86 01/02/20242158 EST Pulse 88 01/02/20242158 EST Temperature 37.1 ??C (98.7 ??F) 01/02/20242158 EST Respiratory Rate 16 01/02/20242158 EST Oxygen Saturation 97% 01/02/20242158 EST Inhaled Oxygen Concentration - - Weight 72.6 kg (160 lb) 01/02/20242021 EST Height 160 cm (5' 3) 01/02/20242021 EST Body Mass Index 28.34 01/02/20242021 EST Functional Status Functional Status Response Date of Assess ment Are you deaf or do you have serious difficulty h earing? No 01/02/2024 Are you blind or do you have [...] (5 years old or older) No 01/06/2018 Plan of Treatment Not on file Administered Medications Advance Directives For more information, please contact: [phone] * Full Code (Latest Code Status on File) Date Activated Date Inactivated Comments 01/06/2018 22:03 01/07/2018 16:41 Question Answer Comments Reason for decision includes: Full code consistent with overall plan of care Who participated in the discussion? Not Discusse d * Full Code Date Activated Date Inactivated Comments 01/06/2018 13:56 01/06/2018 22:03 Question Answer Comments Reason for decision includes: Full code consistent with overall plan of care Who participated in the discussion? Patient Care Teams Physical Education Teacher Relationship Specialty Start Date End Date None, Provider PCP - General 02/21/18
--- OUTSIDE RECORDS SUMMARY | 2024-08-26 12:50 | XMS_ITS | Encounter Summary ---
Author Organization [facility] Address [address] [place] [address] Care Team Providers Care Prepared Foods Supervisor Name Role Phone None, Provider Primary Care Provider Unavailabl e Reason for Visit * Reason Comments Nausea Ambulatory to triage with family who is also sick with reports of nausea/vomiting/diarrhea starting yesterday/today. Denies sick contacts. Encounter Details Date Type Department Care Team ([facility] st Contact Info) Description 01/02/2024 20:49 EST - 01/02/2024 22:20 EST Emergency [facility] Emergency Department - Main [place] [address] [place] [address] Nausea vomiting and diarrhea (Primary Dx) Discharge Disposition: Home or Self Care Social History Tobacco Use Types Packs/Day Years Used Date Smoking Tobacco: Never Smokeless Tobacco: Never Interpersonal Safety Answer Date Record ed Physically Hurt Never 06/09/2020 Verbally Threaten Not on file 06/09/2020 Sex and Gender Information Value Date Recorded Sex Assigned at Not on file Gender Identity Female 01/02/2024 21:03 EST Sexual Orientation Not on file documented as of this encounter Last Filed Vital Signs Vital Sign Reading Time Taken Comments Blood Pressure 125/86 01/02/20242158 EST Pulse 88 01/02/20242158 EST Temperature 37.1 ??C (98.7 ??F) 01/02/20242158 EST Respiratory Rate 16 01/02/20242158 EST Oxygen Saturation 97% 01/02/20242158 EST Inhaled Oxygen Concentration - - Weight 72.6 kg (160 lb) 01/02/20242021 EST Height 160 cm (5' 3) 01/02/20242021 EST Body Mass Index 28.34 01/02/20242021 EST documented in this encounter Functional Status Functional Status Response [...] No 01/06/2018 documented as of this encounter Discharge Instructions * Discharge Instructions* Alvin Da Silva PA-C - 01/02/2024 21:55 EST I am sorry that you feel unwell. I think you have a viral illness that should resolve on its own, hopefully soon You may take Zofran, 1 tablet every 8 hours for nausea if needed You may take Tylenol for fever if needed Drink plenty of fluids Mild diet, advance as tolerated A test was negative Please return if you have severe abdominal pain or uncontrolled vomiting * Attachments The following attachments cannot be sent through Care Everywhere. * Gastroenteritis ([place]) documented in this encounter Medications at Time of Discharge Medication Sig Dispensed Refills Start Date End Date acetaminophen (TYLENOL) 325 mg tablet Take 2 Tabs by mouth every 6 hours as needed for Pain. 01/06/2018 albuterol 90 mcg/actuation inhaler Inhale 2 Puffs as directed every 4 hours as needed (cough or wheeze). Use with spacer 1 Inhaler 3 02/21/2018 fluticasone (FLOVENT) 110 mcg/actuation inhaler Inhale 1 Puff as directed 2 times daily. 1 Inhaler 5 02/21/2018 ibuprofen (MOTRIN) 600 mg tablet Take 1 Tab by mouth every 6 hours as needed for Pain. 0 01/06/2018 inhalational spacing device (AEROCHAMBER) Inhale 1 Device as directed as needed. Use with a metered dose inhaler, as directed. May be dispensed with mask as appropriate. documented as of this encounter Discharge Disposition Disposition Code Departure Means Destination Comment s Home or Self Nursing Home documented in this encounter ED Notes * Alvin Da Silva PA-C - 01/02/20242010 EST Emergency Department Visit Medical Decision Making Lisa Gabriel is a 23 y.o. female with history of asthma who presents to the ED for nausea, vomiting and diarrhea. She has had intermittent symptoms for the past 2 days. She notes some generalized abdominal pain. Reports chills. Denies urinary symptoms and is still voiding. She has been able to tolerate some p.o. She is here with family, all of whom have similar symptoms. She does report regular menstrual periods. Urine obtained, this is negative. She is otherwise healthy, tolerating some oral fluids, I do not think she needs. I do not think sheneeds imaging as 2 other family members are in the room seeking treatment with her at the same timeas well for same symptoms. Suspect a viral illness. She was given Zofran to go home with, encouraged to take fluids, return precautions discussed. Medical Decision Making Problems Addressed: Nausea vomiting and diarrhea: complicated acute illness or injury Amount and/or Complexity of Data Reviewed Labs: ordered. Risk Prescription drug management. Final diagnoses: Nausea vomiting and diarrhea Disposition: Discharged Chief complaint: Chief Complaint Patient presents with Nausea Ambulatory to triage with family who is also sick with reports of nausea/vomiting/diarrhea startingyesterday/today. Denies sick contacts. HPI Lisa Gabriel is a 23 y.o. female with history of asthma who presents to the ED for nausea, vomiting and diarrhea. She has had intermittent symptoms for the past 2 days. She notes some generalized abdominal pain. Reports chills. Denies urinary symptoms and is still voiding. She has been able to tolerate some p.o. She is here with family, all of whom have similar symptoms. She does report regular menstrual periods. History was provided by: the patient Records reviewed include: chart Patient's pertinent PMH, FH, SH were reviewed and edited as necessary. Nursing notes reviewed. A medical screening exam was performed. Physical Exam BP 125/86 Pulse 88 Temp 37.1 ??C (98.7 ??F) (Oral) Resp 16 Ht 160 cm (63) Wt 72.6 kg (160 lb) SpO2 97% BMI 28.34 kg/m?? Physical Exam Vitals and nursing note reviewed. Constitutional: General: She is not in acute distress. Appearance: She is well-developed. She is not ill-appearing or toxic-appearing. HENT: Head: Atraumatic. Cardiovascular: Rate and Rhythm: Normal rate. Pulmonary: Effort: Pulmonary effort is normal. No respiratory distress. Abdominal: Palpations: Abdomen is soft. Tenderness: There is abdominal tenderness (mild, generalized). There is no guarding or rebound. Musculoskeletal: Cervical back: Normal range of motion. Skin: General: Skin is warm and dry. Neurological: Mental Status: She is alert and oriented to person, place, and time. Motor: Motor function is intact. Procedures Procedures documented in this encounter Plan of Treatment Not on file documented as of this encounter Procedures Procedure Name Priority Date/Time Associated Diagnosis Comments POCT TEST, CLINITEK STAT 01/02/2024 21:40 EST POCT CSN BARCODE URINE PREG TEST STAT 01/02/2024 21:38 EST POCT TEST, CLINITEK ORDER STAT 01/02/2024 21:38 EST ZZCOVID-19 TEST [facility] PCR STAT 01/02/2024 20:59 EST COVID-19 TESTING STAT 01/02/2024 20:5 9 EST ZZHN INFLUENZA A AND B, RSV PCR STAT 01/02/2024 20:59 EST documented in this encounter Results * POCT TEST, CLINITEK (01/02/2024 21:40 EST) UPT Result Negative Negative 01/02/2024 21:46 EST [facility] HN LAB COMMENT (CLINITEK, UPT) Test performed at Emergency Department 01/02/2024 21:46 EST [facility] Comment:False negative resul ts may occur in women who are beyond 5-8 weeks gestation. Diagnosis of should be based on a correlation of test results with typical clinical signs and symptoms. Urine URINE SPECIMEN OBTAINED BY CLEAN CATCH PROCEDURE / Unknown 01/02/2024 21:40 EST 01/02/2024 21:46 EST Alvin Da Silva PA-C POINT OF CARE TEST O RDERABLES Performing Organization Address [facility] de Phone Number [facility] [address] [place] [address] * POCT CSN BARCODE URINE PREG TEST (01/02/2024 21:38 EST) Urine URINE SPECIMEN OBTAINED BY CLEAN CATCH PROCEDURE / Unknown Urine Collect / Unknown 01/02/2024 21:38 EST 01/02/2024 21:38 EST Alvin Da Silva PA-C LAB INFO SERVICE AND SUPPORT & PHONE RESULT Performing Organization Address [facility] de Phone Number [facility] [address] [place] [id number] * COVID-19 TEST [facility] PCR (01/02/2024 20:59 EST) Swab NASOPHARYNGEAL STRUCTURE / Unknown Swab / Unknown 01/02/2024 20:59 EST 01/02/2024 21:04 EST Ene Us MD MICROBIOLOGY - GEN ERAL ORDERABLES Performing Organization Address [facility] de Phone Number [facility] [address] [place] [address] * COVID-19 TESTING (01/02/2024 20:59 EST) COVID-19 rt-PCR Result Negative Negative 01/02/2024 21:58 EST [facility] Comment: This test has not been FDA cleared or approved. This test has been authorized by FDA under an EUA for use by authorized laboratories. This test has been authorized only for detection of nucleic acid from 2019-, not for any other viruses or pathogens. [...] clinical observations, patient history, and epidemiological information. Performed on the [employer] GeneXpert Instrument Performing Lab GeneXpert [facility] 01/02/2024 21:58 EST [facility] Swab NASOPHARYNGEAL STRUCTURE / Unknown Swab / Unknown 01/02/2024 20:59 EST 01/02/2024 21:04 EST Ene Us MD MICROBIOLOGY - GEN ERAL ORDERABLES Performing Organization Address [facility] Co de Phone Number [facility] [address] [place] [address] * INFLUENZA A AND B,RSV PCR (01/02/2024 20:59 EST) FLU A RNA Result (FLARES) Negative Negative 01/02/2024 21:58 EST [facility] FLU B RNA Result (FLBRES) Negative Negative 01/02/2024 21:58 EST [facility] RSV RNA Result (RSVRES) Negative Negative 01/02/2024 21:58 EST [facility] Swab NASOPHARYNGEAL STRUCTURE / Unknown Swab / Unknown 01/02/2024 20:59 EST 01/02/2024 21:04 EST Ene Us MD MICROBIOLOGY - GEN ERAL ORDERABLES Performing Organization Address [facility] Co de Phone Number [facility] [address] [place] [address] documented in this encounter Visit Diagnoses Diagnosis Nausea vomiting and diarrhea- Primary Diarrhea documented in this encounter Administered Medications Inactive Administered Medications - up to 3 most recent administrations Medication Order MAR Action Action Date Dose Rate Site ondansetron (ZOFRAN-ODT) disintegrating tablet 4 mg 4 mg, oral, NOW X1, 1 dose, On 01/02/24 at 2145, STAT Given 01/02/2024 21:41 EST 4 mg ondansetron 4 mg ODT tab STARTER PACK 1 Package, oral, NOW X1, 1 dose, On 01/02/24 at 2145, STAT Given 01/02/2024 21:54 EST 1 Package documented in this encounter Active and Recently Administered Medications Times are shown in EST. Scheduled Medication Order 12/31/2023 01/01/2024 01/02/2024 ondansetron (ZOFRAN-ODT) disintegrating tablet 4 mg (COMPLETED) 4 mg, oral, NOW X1, 1 dose, On Tue01/02/24 at 2145, STAT 2141 (Given - Provid er: Baron Cooper RN) ondansetron 4 mg ODT tab STARTER PACK (COMPLETED) 1 Package, oral, NOW X1, 1 dose, On Tue01/02/24 at 2145, STAT 2154 (Given - Provid er: Baron Cooper RN) documented in this encounter Additional Health Concerns Infection Onset Date Last Indicated Resolved Time R/O COVID-19 01/02/2024 01/02/2024 01/02/2024 21:5 8 EST documented as of this encounter Care Teams Prepared Foods Supervisor Relationship Specialty Start Date End Date None, Provider PCP - General 02/21/18 documented as of this encounter
--- OUTSIDE RECORDS SUMMARY | 2024-08-26 12:50 | XMS_ITS | Encounter Summary ---
Author Organization [facility] Address [address] [place] [address] Care Team Providers Care Gasoline Engine Inspector Name Role Phone None, Provider Primary Care Provider Unavailmariela e Encounter Details Date Type Department Care Team (Late st Contact Info) Description 10/15/2021 Lab Requisition [facility] Pathology & Laboratory Medicine - [facility] [address] [place] [address] Outr Resulting Lab, Provider Social History Tobacco [...] Priority Date/Time Associated Diagnosis Comments ZZCOVID-19 TEST [facility] PCR Today 10/14/2021 16:20 EST COVID-19 TESTING Routine 10/14/2021 16:2 0 EST documented in this encounter Results * COVID-19 TEST [facility] PCR (10/14/2021 16:20 EST) Swab 10/14/2021 16:2 0 EST 10/15/2021 17:06 EST Provider Outr Resulting Lab MICROBIOLOGY - GENERAL ORDERABLES [facility] [address] [place] [id number] * COVID-19 TESTING (10/14/2021 16:20 EST) COVID-19 rt-PCR Result Negative Negative 10/16/2021 11:15 EST [facility] Comment: This test has [...] performed using the padma SARS-CoV-2 assay ([employer] on the Padma 6800 System Performing Lab Padma 6800 [facility] 10/16/2021 11:15 EST [facility] Swab 10/14/2021 16:2 0 EST 10/15/2021 17:06 EST Provider Outr Resulting Lab MICROBIOLOGY - GENERAL ORDERABLES [facility] [address] [place] [address] documented in this encounter Visit Diagnoses Not on filedocumented in this encounter Additional Health Concerns Infection Onset Date Last Indicated Resolved Time R/O COVID-19 01/02/2024 01/02/2024 01/02/2024 21:5 8 EST documented as of this encounter Care Teams Gasoline Engine Inspector Relationship Specialty Start Date End Date None, Provider PCP - General 02/21/18 documented as of this encounter
--- OUTSIDE RECORDS SUMMARY | 2024-08-26 12:50 | XMS_ITS | Encounter Summary ---
Author Organization [facility] Address [address] [place] [address] Care Team Providers Care Smart Grid Engineer Name Role Phone None, Provider Primary Care Provider Unavailmariela e Encounter Details Date Type Department Care Team (Late st Contact Info) Description 05/16/2021 Lab Requisition [facility] Pathology & Laboratory Medicine - [facility] [address] [place] [address] Outr Resulting Lab, Provider Social History Tobacco [...] Priority Date/Time Associated Diagnosis Comments ZZCOVID-19 TEST [facility] PCR Today 05/16/2021 9:02 EDT COVID-19 TESTING Routine 05/16/2021 9:02 EDT documented in this encounter Results * COVID-19 TEST [facility] PCR (05/16/2021 9:02 EDT) Swab ENTIRE NASOPHARYNX / Unknown 05/16/2021 9:02 EDT 05/16/2021 22:16 EDT Provider Outr Resulting Lab MICROBIOLOGY - GENERAL ORDERABLES [facility] [address] [place] [address] * COVID-19 TESTING (05/16/2021 9:02 EDT) COVID-19 rt-PCR Result Negative Negative 05/17/2021 11:[address] [facility] Comment: This test has not [...] history, and epidemiological information. Performed on the [employer] Fusion instrument Performing Lab [facility] 05/17/2021 11:[address] [facility] Swab 05/16/2021 9:02 EDT 05/16/2021 22:16 EDT Provider Outr Resulting Lab MICROBIOLOGY - GENERAL ORDERABLES [facility] [address] [place] [address] documented in this encounter Visit Diagnoses Not on filedocumented in this encounter Additional Health Concerns Infection Onset Date Last Indicated Resolved Time R/O COVID-19 01/02/2024 01/02/2024 01/02/2024 21:5 8 EST documented as of this encounter Care Teams Smart Grid Engineer Relationship Specialty Start Date End Date None, Provider PCP - General 02/21/18 documented as of this encounter
--- OUTSIDE RECORDS SUMMARY | 2024-08-26 12:50 | XMS_ITS | Encounter Summary ---
Author Organization [facility] Address [address] [place] [address] Care Team Providers Care Irrigator Sprinkling System Name Role Phone None, Provider Primary Care Provider Unavailabl e Encounter Details Date Type Department Care Team (Late st Contact Info) Description 02/21/2018 8:56 EDT - 02/21/2018 23:59 EDT Hospital Encounter [facility] - [address] [id number] Bharat Mazariegos MD [address] [place] [address] [facility], [facility] Lab Bronchospasm Discharge Disposition: Auto Discharge Social History Tobacco Use Types Packs/Day Years Used Date Smoking Tobacco: Never Smokeless Tobacco: Never Sex and Gender Information Value Date Recorded [...] 01/06/2018 documented as of this encounter Discharge Diagnoses Diagnosis J98.01 Acute bronchospasm-J98.01[ICD-10-CM] documented in this encounter Medications at Time [...] May be dispensed with mask as appropriate. levonorgestrel (MIRENA) 20 mcg/24 hr (5 years) IUD 1 Each by intrauterine route continuous. 1 Each 01/06/2018 documented as of this encounter Discharge Disposition Disposition Code Departure Means Destination Auto Discharge Home documented in this encounter Progress Notes * Yessica Mishra RT - 02/21/2018 0945 EDT Testing was performed and recorded in [facility]. See complete report in scanned documents. documented in this encounter Plan of Treatment Not on file documented as of this encounter Procedures Procedure Name Priority Date/Time Associated Diagnosis Comments PULMONARY FUNCTION REPORT - SCANNED 02/22/2018 7:00 EDT PULMONARY FUNCTION REPORT - SCANNED 02/21/2018 9:47 EDT documented in this encounter Results * PULMONARY FUNCTION REPORT - SCANNED (02/22/2018 7:00 EDT) 02/22/2018 7:00 EDT Scan 2 Ag Service Manager PROCEDURE/MINOR CHANEL GICAL ORDERABLES * PULMONARY FUNCTION REPORT - SCANNED (02/21/2018 9:47 EDT) 02/21/2018 9:47 EDT Scan 2 Ag Service Manager PROCEDURE/MINOR CHANEL GICAL ORDERABLES documented in this encounter Visit Diagnoses Diagnosis Bronchospasm Acute bronchospasm documented in this encounter Administered Medications Inactive Administered Medications - up to 3 most recent administrations Medication Order MAR Action Action Date Dose Rate Site albuterol inhaler 2 Puff 2 Puff, inhalation, Once (Without Time Specified), 1 dose, Starting on Tue02/21/18 at 1015, Until Tue02/21/18 at 0930, Routine Given 02/21/2018 9:30 EDT 2 Puffs documented in this encounter Orders Medications Ordered That Agapito ht Not Have Been Administered Count Last Ordered Date First Ordered Date albuterol inhaler 2 Puff 1 02/21/2018 documented in this encounter Care Teams Irrigator Sprinkling System Relationship Specialty Start Date End Date None, Provider PCP - General 02/21/18 documented as of this encounter
--- OUTSIDE RECORDS SUMMARY | 2024-08-26 12:50 | XMS_ITS | Clinical Summary ---
Author Organization [facility] Address [address] [place] [address] Care Team Providers Care Director Security Management Name Role Phone None, Provider Primary Care [...] 01/06/2018 02/21/2018 Bronchospasm, acute 01/06/2018 02/22/20 18 Surgical History Surgery Date Site/Laterality Comments LITHOTRIPSY Medical History Medical History Date Comments Nephrolithiasis Encounter for elective termination of 01/06/2018 Otitis media Pneumonia Family History Medical History Relation Comments Asthma Paternal Grandmother Allergic Rhinitis Neg Hx Relation Status Comments Father Alive Mother Alive Paternal Grandmother Alive Social History Tobacco Use Types Packs/Day Years Used Date Smoking Tobacco: Never Smokeless Tobacco: Never Interpersonal Safety Answer Date Record ed Physically Hurt Never 06/09/2020 Verbally Threaten Not on file 06/09/2020 Sex and Gender Information Value Date Recorded Sex Assigned at Not on file Gender Identity Female 01/02/2024 21:03 EST Sexual Orientation Not on file Obstetrics History Para Term AB IAB SAB Ectopic Multiple Livin g Live Births 2 1 1 0 1 1 0 0 0 1 1 Date Outcome GA Total Labor Labor/2nd/3rd Weight Sex Type Anes PTL Audrey A1 A5 Name Clin IAB 2016 Term 40w0 d 4082 g (9 lb) M Vag-S pont Living Last Filed Vital Signs Vital Sign Reading Time Taken Comments Blood Pressure 125/86 01/02/20242158 EST Pulse 88 01/02/20242158 EST Temperature 37.1 ??C (98.7 ??F) 01/02/20242158 EST Respiratory Rate 16 01/02/20242158 EST Oxygen Saturation 97% 01/02/20242158 EST Inhaled Oxygen Concentration - - Weight 72.6 kg (160 lb) 01/02/20242021 EST Height 160 cm (5' 3) 01/02/20242021 EST Body Mass Index 28.34 01/02/20242021 EST Plan of Treatment Health Maintenance Due Date Last Done Comments Asthma Action Plan 2000 Hepatitis C Screen 2000 Lung Function Test (Spirometry) 02/21/2019 8 Hepatitis B Vaccine (1 of 3 - 19+ 3-dose series) 05/18 COVID-19 Vaccine ( season) 2024 Advance Directives For more information, please contact: [phone] * Full Code (Latest Code Status on [...] participated in the discussion? Patient Care Teams Director Security Management Relationship Specialty Start Date End Date None, Provider PCP - General 02/21/18
--- OUTSIDE RECORDS SUMMARY | 2024-08-26 12:50 | XMS_ITS | Encounter Summary ---
Author Organization [facility] Address [address] [place] [address] Care Team Providers Care Hand Edger Name Role Phone None, Provider Primary Care Provider Lay e Encounter Details Date Type Department Care Team (Late st Contact Info) Description 08/12/2021 Lab Requisition [facility] Pathology & Laboratory Medicine - [facility] [address] [place] [address] Outr Resulting Lab, Provider Social History Tobacco [...] Priority Date/Time Associated Diagnosis Comments ZZCOVID-19 TEST [facility] PCR Today 08/12/2021 8:25 EDT COVID-19 TESTING Routine 08/12/2021 8:25 EDT documented in this encounter Results * COVID-19 TEST [facility] PCR (08/12/2021 8:25 EDT) Swab ENTIRE NASOPHARYNX / Unknown 08/12/2021 8:25 EDT 08/12/2021 17:54 EDT Provider Outr Resulting Lab MICROBIOLOGY - GENERAL ORDERABLES [facility] [address] [place] [address] * COVID-19 TESTING (08/12/2021 8:25 EDT) COVID-19 rt-PCR Result Negative Negative 08/13/2021 11:23 EDT [facility] Comment: This test has not [...] was performed using the padma SARS-CoV-2 assay ([employer] on the Padma 6800 System Performing Lab Padma 6800 [facility] 08/13/2021 11:23 EDT [facility] Swab 08/12/2021 8:25 EDT 08/12/2021 17:54 EDT Provider Outr Resulting Lab MICROBIOLOGY - GENERAL ORDERABLES [facility] [address] [place] [address] documented in this encounter Visit Diagnoses Not on filedocumented in this encounter Additional Health Concerns Infection Onset Date Last Indicated Resolved Time R/O COVID-19 01/02/2024 01/02/2024 01/02/2024 21:5 8 EST documented as of this encounter Care Teams Hand Edger Relationship Specialty Start Date End Date None, Provider PCP - General 02/21/18 documented as of this encounter
--- OUTSIDE RECORDS SUMMARY | 2024-08-26 12:50 | XMS_ITS | Encounter Summary ---
Author Organization [facility] Address [address] [place] [address] Care Team Providers Care Trailhead Construction Worker Name Role Phone None, Provider Primary Care Provider Unavailabl e Reason for Visit * Reason Onset Date Comments Appointment Related 09/12/2018 Encounter Details Date Type Department Care Team (Late st Contact Info) Description 09/12/2018 [facility] - [address] [address] None, Provider Appointment Related Social History Tobacco Use Types Packs/Day Years [...] No 01/06/2018 documented as of this encounter Miscellaneous Notes * Telephone Encounter - Emy Cuevas - 09/12/2018 1502 EST Called to setup [facility]. Mom answered stating that Lisa no longer lived there, but she would tell her to call back to schedule. documented in this encounter Plan of Treatment Not on file documented as of this encounter Visit Diagnoses Not on filedocumented in this encounter Additional Health Concerns Infection Onset Date Last Indicated Resolved Time R/O COVID-19 01/02/2024 01/02/2024 01/02/2024 21:5 8 EST documented as of this encounter Care Teams Trailhead Construction Worker Relationship Specialty Start Date End Date None, Provider PCP - General 02/21/18 documented as of this encounter
--- OUTSIDE RECORDS SUMMARY | 2024-08-26 12:50 | XMS_ITS | Continuity of Care Document ---
Author Organization [facility] Address [address] [place] [address] Care Team Providers Care Asp Net C Developer Name Role Phone SARA BONILLA RPA Primary Care Physician Encounter [facility] NBR [id number] Date(s): 07/11/24 - 07/11/24 [facility] Ambulatory Clinics [address] [place], [place] [address] Encounter Diagnosis Pain, dental(Discharge Diagnosis) - 07/11/24 Other specified disorders of teeth and supporting structures(Final) - Discharge Disposition: Home or Self Care Attending Physician: Teressa Raines PA-C Allergies, Adverse Reactions, Alerts No Known Medication Allergies Assessment and Plan Extracted from: Title:[facility] Urgent Care Office Visit Note Author:Galen Raines PA-C Date:07/11/24 1.??Pain, dental??K08.89 ??Patient presenting describing 2 weeks of dental pain, worsening over the past 24 hours.?? She does appear to have a fractured tooth on exam. ??There is no obvious fluctuance or abscess.?? She will be started on Augmentin??until she is able to see her dentist. ??She understands that she will require definitive care via her dentist.?? She was given an injection of Toradol today to help??while antibiotics are taking effect. ??Advised that she not take any other NSAIDs for the next 24 hours.?? She can take Tylenol as needed for breakthrough pain.?? For any ongoing or worsening symptoms, especially should patient develop any fever, chills or recommended recheck.?? She will follow-up as needed Ordered: amoxicillin-clavulanate 875 mg-125 mg oral tablet, 1 tab, Oral, every 12 hr, # 20 tab, 0 Refill(s), Pharmacy: [id number], 158, cm, 09/07/23 14:47:00 EDT, Height, 72.5, kg, 09/07/23 14:47:00 EDT, Weight Dosing ketorolac, 15 mg, Intramuscular, Once, First Dose: 07/11/24 15:00:00 EDT, Stop Date: 07/11/24 15:00:00 EDT, Physician Stop, Routine ?? Medications albuterol 0 Refill(s) Start Date: 08/14/22 Status: Ordered albuterol 2.5 mg/3 mL (0.083%) inhalation solution 2.5 mg = 3 mL, NEB, every 6 hr, PRN as needed for wheezing, # 90 mL, 0 Refill(s), Pharmacy: [facility], 158, cm, 11/24/22 20:13:00 EST, Height/Length Dosing, 65.77, kg, 11/24/22 20:13:00 EST, Weight Dosing Start Date: 11/24/22 Status: Ordered amoxicillin-clavulanate 875 mg-125 mg oral tablet 1 tab, Oral, every 12 hr, # 20 tab, 0 Refill(s), Pharmacy: [id number], 158, cm, 09/07/23 14:47:00 EDT, Height, 72.5, kg, 09/07/23 14:47:00 EDT, Weight Dosing Start Date: 07/11/24 Stop Date: 07/21/24 Status: Ordered azithromycin 250 mg oral tablet See Instruction, Oral, Daily, take 2 tabs on day 1 and 1 tabs on day 2-5, # 6 tab, 0 Refill(s), Pharmacy: [email or web address] #[id number], 157, cm, 09/01/22 12:34:00 EDT, Height/Length Dosing, 66, kg, 09/01/22 12:34:00 EDT, Weight Dosing Start Date: 09/01/22 Status: Ordered Combivent Respimat CFC free 20 mcg-100 mcg/inh inhalation aerosol 2 puffs, Inhale, QID, PRN shortness of breath, # 1 EA, 0 Refill(s), Pharmacy: [email or web address] #[id number], 157, cm, 09/01/22 12:34:00 EDT, Height/Length Dosing, 66, kg, 09/01/22 12:34:00 EDT, Weight Dosing Start Date: 09/01/22 Status: Ordered Imitrex 0 Refill(s) Start Date: 07/11/24 Status: Ordered predniSONE 20 mg oral tablet 60 mg = 3 tab, Oral, Daily, # 15 tab, 0 Refill(s), Pharmacy: [facility], 158, cm, 09/07/23 14:47:00 EDT, Height, 72.5, kg, 09/07/23 14:47:00 EDT, Weight Dosing Start Date: 09/07/23 Stop Date: 09/12/23 Status: Ordered Problem List No Known Problems Vital Signs Most recent to oldest [Reference Range]: 1 Temperature Tympanic [36.6-38.1 Deg C] 3 5.6 Deg C *LOW* (07/11/24 2:13 PM) Peripheral Pulse Rate [60-100 bpm] 71 bp m (07/11/24 2:13 PM) Respiratory Rate [12-24 br/min] 18 br/mi n (07/11/24 2:13 PM) Blood Pressure [90-140/60-90 mmHg] 122/8 0mmHg (07/11/24 2:13 PM) Mean Arterial Pressure, Cuff [65-140 mmH g] 94 mmHg (07/11/24 2:13 PM) Social History Social History Type Response Tobacco Former tobacco user Tobacco Use:. Sex Sex Representation Female (finding) Physician Outpatient Note * Teressa Raines PA-C: PERFORM Event Display: Office Clinic Note Physician Authored Date: [id number] LENNY MURPHY :2000 Age:24 years Sex:Female Visit Date:07/11/2024 Primary Care Physician: SARA BONILLA RPA Chief Complaint L upper back tooth pain. ??states she broke part of her tooth she has called the dentist cannot getin until Aug 09 unable to sleep or eat and is giving her a headache History of Present Illness This is a 24-year-old female who presents for evaluation of dental pain.?? Patient reports that??for the past couple of weeks she has had a throbbing, aching pain in her left upper??back tooth.?? Yesterday she was eating??and broke part of her tooth.?? Her pain has since worsened.?? He continues tofeel like a deep, aching throb.?? Denies any hot or cold sensitivity. ??Has not had any fever or chills.?? Sleeping and eating has been difficult due to the pain. ??She is developing headaches due tothe pain.?? She Physical Exam Vitals & Measurements T:??35.6?C ??(Tympanic)?? HR:??71??(Peripheral)?? RR:??18?? BP:??122/80?? SpO2:??100%?? Pain Score:??10?? General: A&O x 3, well-built and hydrated, no acute distress Eyes: PERRLA, no redness or drainage Ears: auditory canals non-tender bilaterally, bilateral TMs translucent and pearly archuleta Face: no facial swelling Nose: nares moist and patent Mouth: moist mucous membranes without lesions Throat: oropharynx and tonsils without erythema or exudate Neck:?? supple, no lymphadenopathy Oral:??Decent dentition throughout.?? Tooth #17 is fractured??and decayed at the gumline.?? There is mild tenderness, erythema, edema surrounding??this tooth. ??There is no fluctuance or abscess. ??Airway is patent Chest: symmetric rise Heart: normal S1S2, no murmurs, rubs, gallops Lungs: equal and symmetric respiratory effort, lungs clear to auscultation without wheezes, rales, rhonchi Assessment/Plan 1.??Pain, dental??K08.89 ??Patient presenting describing 2 weeks of dental pain, worsening over the past 24 hours.?? She does appear to have a fractured tooth on exam. ??There is no obvious fluctuance or abscess.?? She will be started on Augmentin??until she is able to see her dentist. ??She understands that she will require definitive care via her dentist.?? She was given an injection of Toradol today to help??while antibiotics are taking effect. ??Advised that she not take any other NSAIDs for the next 24 hours.?? She can take Tylenol as needed for breakthrough pain.?? For any ongoing or worsening symptoms, especially should patient develop any fever, chills or recommended recheck.?? She will follow-up as needed Ordered: amoxicillin-clavulanate 875 mg-125 mg oral tablet, 1 tab, Oral, every 12 hr, # 20 tab, 0 Refill(s),Pharmacy: [facility], 158, cm, 09/07/23 14:47:00 EDT, Height, 72.5, kg, 09/07/23 14:47:00 EDT, Weight Dosing ketorolac, 15 mg, Intramuscular, Once, First Dose: 07/11/24 15:00:00 EDT, Stop Date: 07/11/24 15:00:00 EDT, Physician Stop, Routine ?? Problem List/Past Medical History Ongoing No chronic problems Historical No qualifying data Medications albuterol albuterol 2.5 mg/3 mL (0.083%) inhalation solution, 2.5 mg= 3 mL, Nebulized Inhalation, every 6 hr,PRN amoxicillin-clavulanate 875 mg-125 mg oral tablet, 1 tab, Oral, every 12 hr azithromycin 250 mg oral tablet, See Instruction, Oral, Daily Combivent Respimat CFC free 20 mcg-100 mcg/inh inhalation aerosol, 2 puffs, Inhale, QID, PRN Imitrex ketorolac, 15 mg, Intramuscular, Once predniSONE 20 mg oral tablet, 60 mg= 3 tab, Oral, Daily Allergies No Known Medication Allergies Social History Alcohol Never Electronic Cigarette/Vaping Electronic Cigarette Use: Use, within last 90 days. Use per Day: 26-50 Inhales/day. Substance Use Marijuana, Several times per day Tobacco Former tobacco user Tobacco Use:. Electronically Signed on 07/11/2024 14:45 EDT Teressa Raines PA-C Patient Care team information Care Team Personnel Name: SARA BONILLA RPA Position: No Access Member Role: Primary Care Physician Address: [address] [place], [place] [address] Care Team Related Persons Name: CARLENE MURPHY Insurance Providers Guarantor name: LENNY MURPHY Health Plan Information #: 1 Payer: [place] [place] Member Number: [id number] Policy Number: NA Health Plan Information #: 2 Payer: [place] [place] Member Number: [id number] Policy Number: NA Health Plan Information #: 3 Payer: [place] [place] Member Number: [id number] Policy Number: NA
--- OUTSIDE RECORDS SUMMARY | 2024-08-26 12:51 | XMS_ITS | Encounter Summary ---
Author Organization [facility] Address [address] [place] [address] Care Team Providers Care M1 Armor Crewman Name Role Phone None, Provider Primary Care Provider Unavailabl e Reason for Visit * Reason Comments Asthma * Referral (3 - 10 Business Days) - Closed Specialty Diagnoses / Procedures Referred By Contdarío t Referred To Contact Pediatric Pulmonology Diagnoses Bronchospasm, acute Batsheva Hurtado MD [address] [facility] [address] [place] [address] [facility] Pedi Pulmonary [address] [place] [address] Referral ID Status Reason Start Date Expiration Date V isits Requested Visits Authorized [id number] Closed Specialty Services Required 01/07/2018 1 1 Encounter Details Date Type Department Care Team (Late st Contact Info) Description 02/21/2018 9:45 EDT Office Visit [facility] Pediatric Pulmonary - Main [address] [address] Bharat Mazariegos MD [address] [place] [address] Mild persistent asthma without complication (Primary Dx) Social History Tobacco Use Types Packs/Day Years Used Date Smoking Tobacco: Never Smokeless Tobacco: Never Sex and Gender Information Value Date Recorded Sex Assigned at Not on file Gender Identity Female 01/02/2024 21:03 EST Sexual Orientation Not on file documented as of this encounter Last Filed Vital Signs Vital Sign Reading Time Taken Comments Blood Pressure 101/62 02/21/2018 0945 EDT Pulse 67 02/21/2018 0945 EDT Temperature - - Respiratory Rate - - Oxygen Saturation 98% 02/21/201845 EDT Inhaled Oxygen Concentration - - Weight 60.4 kg (133 lb 2.5 oz) 02/21/2018 0945 E DT Height 161 cm (5' 3.39) 02/21/2018 0945 EDT Body Mass Index 23.3 02/21/201845 EDT Body Mass Index Percentile 71.97% 02/21/2018 094 5 EDT Growth Chart: [facility] (Girls, 2- 20 Years) documented in this encounter Functional Status Functional [...] No 01/06/2018 documented as of this encounter Ordered Prescriptions Prescription Sig Dispensed Refills Start Date End Da te albuterol 90 mcg/actuation inhaler Inhale 2 Puffs as directed every 4 hours as needed (cough or wheeze). Use with spacer 1 Inhaler 3 02/21/2018 fluticasone (FLOVENT) 110 mcg/actuation inhaler Inhale 1 Puff as directed 2 times daily. 1 Inhaler 5 02/21/2018 documented in this encounter Progress Notes * Bharat Mazariegos MD - 02/21/201845 EDT Images from the original note were not included. Pediatric Pulmonology Bharat Mazariegos M.D., Jr Barraza, Batsheva Irby M.D, James Harris M.D., Carleen Friend M.D. [address] [address] Encounter Date: 02/21/2018 Provider None No address on file Lisa is a 17 y.o. female who we were asked to see in consultation by Corina Sky for evaluation of asthma. Lisa is accompanied by her grandmother who also contributed to the history. Subjective: Lisa is seen today in clinic for evaluation of asthma. Lisa had a history of coughing andwheezing as an infant and young child that was treated with nebulized medications. She had been exposed to heavy cigarette smoke, but then was adopted by her grandparents and has been in a smoke freeenvironment. During early school aged years, she was healthy. In middle school, she began to develop exertional chest tightness and cough, but this was never treated. She reports that her colds are typically prolonged with a lingering cough that follows resolution of her nasal symptoms, sometimes for several weeks. She is currently recovering from a cold 3 weeks ago and has still had some cough. She has never received oral steroids for her respiratory symptoms. Lisa gave to her son two years ago and did not experience asthmatic symptoms during . She did have shortness of breath, but this was attributed to her excessive weight gain. She had recently become again this year and underwent a termination in January. She was acutely symptomatic at the time of surgery and was prescribed albuterol and Flovent which were used for one week. She has been trying to exercise and premedicates with albuterol and spacer. This helps a little,but she still reports eventual chest tightness, cough and shortness of breath. She has not had fatigue, decrease in energy and wheeze. She has had no cough during sleep. Airway Risk Factors Lisa was never intubated. There are no cutaneous hemangiomas. There are no periods of apnea and cyanosis. There are no symptoms with eating or drinking. Prior Evaluations and Treatment: Previous evaluations have not been performed. Prior hospitalizations: None Prior x-rays: unsure Procedures performed: None Prior therapy Albuterol MDI and Flovent with mild improvement. Environmental History: Home construction: no Heating System: baseboard Pets: 2 cats, dog No dust mite covers in use. Carpets: hardwood floors Environmental Tobacco Exposure: no Medication Use: Rescue/quick relief medicines: ?? Albuterol MDI. Lisa has needed to use this medication weekly. Preventive/long-term control: ?? N/A (Flovent was stopped) Description of medication technique is adequate. Exacerbating Factors: Typical triggers include exercise, colds. History of atopic disorders: atopic dermatitis Allergy symptoms are absent. Lisa has had no recurrent sinus or ear infections. Gastroesophageal reflux symptoms are absent. Other abdominal complaints include none. Review of Systems: Positive for: congestion, cough, shortness of breath, exertional symptoms Negative for: fever, chills, fatigue, malaise, eye redness, eye watering, sore throat, wheezing, abdominal pain, wet burps, vomiting, decreased appetite A complete review of systems was obtained and was negative except listed above. Past Medical and Surgical History Past Medical History: Diagnosis Date ??? Encounter for elective termination of 01/06/2018 ??? Nephrolithiasis Past Surgical History: Procedure Laterality Date ??? LITHOTRIPSY Past Medical and Surgical History were updated in [facility] Medications Outpatient Prescriptions Marked as Taking for the 02/21/18 encounter (Office Visit) with Bharat Mazariegos MD Medication Sig Dispense Refill ??? albuterol 90 mcg/actuation inhaler Inhale 1-2 Puffs as directed every 4 hours as needed for Wheezing. 1 Inhaler 1 ??? inhalational spacing device (AEROCHAMBER) Inhale 1 Device as directed as needed. Use with a metered dose inhaler, as directed. May be dispensed with mask as appropriate. ??? levonorgestrel (MIRENA) 20 mcg/24 hr (5 years) IUD 1 Each by intrauterine route continuous. 1 Each 0 Allergies No Known Allergies Family Medical History No family history on file. Social History Living Conditions Weekdays Safety and Environmental Exposures Objective Data BP 101/62 Pulse 67 Ht 161 cm (63.39) Wt 60.4 kg (133 lb 2.5 oz) SpO2 98% BMI 23.3 kg/m2 General Appearance: well appearing, alert, no acute distress Head: normocephalic, atraumatic Eye: no injection, no discharge Ear: TM's clear bilaterally, canals clear bilaterally Nose: mucosal erythema, no discharge Mouth\Throat: moist mucosa, 2-3+ tonsils, oropharynx without exudate, erythema or thrush Lymph Nodes: no lymphadenopathy Chest\Lungs: Air entry is good bilaterally, wheezing is not appreciated, crackles are not appreciated, no retractions, expiratory phase is within normal limits, cough is absent Abdomen: normoactive bowel sounds are present Heart: S1/S2 RRR and no murmur Skin: Warm and dry, Cyanosis is absent MSK:Clubbing is absent Diagnostic Data PFTs: PFTS (Before Albuterol Treatment) FVC (L): 3.88 liters FVC % Pred: 105 FEV1 (L): 3.02 liters FEV 1 % Pred: 93 FEF 25-75% (L/scc): 2.54 FEF 25-75% Pred: 65 PFTS (After Albuterol Treatment) FVC (L) (After Albuterol): 3.93 liters FVC % Pred (After Albuterol): 107 FEV1 (L) (After Albuterol): 3.15 liters FEV 1 % Pred (After Albuterol): 96 FEF 25-75% (L/scc) (After Albuterol): 2.92 FEF 25-75% Pred (After Albuterol): 74 X-rays: No x-rays were reviewed during this encounter Assessment and Plan Lisa is a 17 y.o. female with probable viral induced and exercise induced asthma. Spirometry was performed for the first time and showed normal vital capacity with mild airflow limitation. Therewas a small but not significant improvement in airflow following bronchodilator. She does not report symptoms that are suspicious for allergy or CALLIE. 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 Based on the frequency and severity of symptoms, Lisa would be classified as having mild persistent asthma. Lisa is a candidate for chronic maintenance therapy. I discussed the following treatment plan with Lisa and her grandmother. Asthma ?? Maintenance (Green) Medications: - fluticasone (FLOVENT) 110mcg 2 inhalations twice daily with spacer ?? Rescue (Yellow) Medications: albuterol MDI2 inhalations every 4 hours ?? Emergency (Red) Medications:albuterol MDI 4 puffs ?? Albuterol 2 puffs with spacer prior to exercise ?? Seasonal Influenza Vaccine: recommended each fall ?? Return to clinic in 2-3 months. Symptomatic treatments reviewed. Patient's condition, differential diagnosis, and Treatment Plan reviewed. Teaching provided for the listed diagnoses and/or medications. Action plan given and discussed. Spacer use discussed. Triggers and risk factors discussed. Counselled regarding the risks of smoke exposure. Please feel free to contact us with questions or comments regarding [facility] care. Sincerely, Bharat Mazariegos MD documented in this encounter Plan of Treatment Not on file documented as of this encounter Visit Diagnoses Diagnosis Mild persistent asthma without complication- Primary Unspecified asthma documented in this encounter Discontinued Medications Medication Sig Discontinue Reason Start Date End Da te ondansetron (ZOFRAN) 4 mg tablet Take 1 Tab by mouth every 4 hours as needed for Nausea. 01/05/2018 02/21/2018 methylPREDNISolone (MEDROL) 8 mg tablet Please take 4 tabs by mouth twice daily for 2 days, then 2 tabs by mouth twice daily for 2 days then 1 tab by mouth twice daily for 2 days and then 1 tab per mouth daily for 2 days. Therapy completed 01/07/2018 02/21/2018 fluticasone (FLOVENT) 110 mcg/actuation inhaler Inhale 2 Puffs as directed 2 times daily. 01/07/2018 02/21/2018 albuterol 90 mcg/actuation inhaler Inhale 1-2 Puffs as directed every 4 hours as needed for Wheezing. Reorder 01/07/2018 02/21/2018 documented as of this encounter Historical Medications * This list may reflect changes made after this encounter. Medication Sig Dispensed Refills Start Date End Date inhalational spacing device (AEROCHAMBER) Inhale 1 Device as directed as needed. Use with a metered dose inhaler, as directed. May be dispensed with mask as appropriate. added in this encounter Care Teams M1 Armor Crewman Relationship Specialty Start Date End Date None, Provider PCP - General 02/21/18 documented as of this encounter
--- OUTSIDE RECORDS SUMMARY | 2024-08-26 12:51 | XMS_ITS | Clinical Summary ---
Author Organization [facility] [place] [address] Care Team Providers Care Suture Polisher Name Role Phone Carolyn Obrien APRN Primary Care Provider [phone] Allergies No known active allergies Medications Medication Sig Dispensed Refills Start Date End Date Status SUMAtriptan (IMITREX) 25 mg Tablet Take 25 mg by mouth as needed for Migraine. Active acetaminophen (TYLENOL) 325 mg Tablet Take 650 mg by mouth. 01/06/2018 Act candy albuterol 90 mcg/actuation HFA Aerosol Inhaler Inhale 2 puffs into the lungs. 02/21/2018 Active fluticasone (FLOVENT) 110 mcg/actuation HFA Aerosol Inhaler Inhale 1 puff into the lungs. 02/21/2018 Active ibuprofen (ADVIL;MOTRIN) 600 mg Tablet Take 600 mg by mouth. 01/06/2018 Act candy inhalational spacing device Spacer Inhale 1 Device into the lungs. Active levonorgestrel (MIRENA) 20 mcg/24 hr (5 years) IUD 1 each by Intrauterine route. 01/06/2018 Active Active Problems Problem Noted Date Diagnosed Date Numbness 11/12/2019 Verruca vulgaris 03/03/2015 Social History Tobacco Use Types Packs/Day Years Used Date Smoking Tobacco: Never Sex and Gender Information Value Date Recorded Sex Assigned at Not on file Gender Identity Not on file Sexual Orientation Not on file Last Filed Vital Signs Vital Sign Reading Time Taken Comments Blood Pressure 129/80 11/12/2019 2:05 AM EST Pulse 84 11/11/2019 7:30 PM EST Temperature 36.9 ??C (98.4 ??F) 11/12/2019 2:05 AM ES T Respiratory Rate 16 11/12/2019 12:12 AM EST Oxygen Saturation 99% 11/12/2019 2:05 AM EST Inhaled Oxygen Concentration - - Weight 60.8 kg (134 lb) 09/20/2018 4:01 PM EST Height - - Body Mass Index - - Plan of Treatment Health Maintenance Due Date Last Done Comments Chlamydia Screening 2015 HPV vaccine (1 - 3-dose series) 2015 HIV screen 2018 Hepatitis C Screening 2018 Hepatitis B vaccine (0-59 yrs) (1) 2019 Tetanus/Diphtheria/Pertussis Vaccines (1 - Tdap) 05/18 PAP Smear 2021 Covid-19 Vaccine (1 - 2022- season) 2024 Influenza (Flu) vaccine (1 o f 1 - Influenza standard series) 07/08/2024 Care Teams Suture Polisher Relationship Specialty Start Date End Date Carolyn Obrien APRN PCP - General Family Medicine 09/20/18
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
--- OUTSIDE RECORDS SUMMARY | 2024-08-26 12:51 | XMS_ITS | Encounter Summary ---
Author Organization [facility] [place] [address] Care Team Providers Care Professor Of Poultry Science Name Role Phone Carolyn Obrien APRN Primary Care Provider [phone] Encounter Details Date Type Department Care Team (Late st Contact Info) Description 11/12/2019 12:45 AM EST Ancillary Procedure Radiology Library at [facility] [place] [id number] Social History Tobacco Use Types Packs/Day Years Used Date Smoking Tobacco: Never Sex and Gender Information Value Date Recorded Sex Assigned at Not on file Gender Identity Not on file Sexual Orientation Not on file documented as of this encounter Plan of Treatment Not on file documented as of this encounter Procedures Procedure Name Priority Date/Time Associated Diagnosis Comments REQUEST FOR 2ND READ CT HEAD AND SPINE STAT 11/11/2019 6:43 PM EST documented in this encounter Results * Request For 2nd Read CT Head [...] the head and cervical spine performed at [facility] on 11/11/2019 at 1:44 PM. Reinterpretation requested [...] of the head and cervical spine performedat [facility] on 11/11/2019 at 1:44 PM.Reinterpretation requested by [...] number below. Electronically signed by: [facility] [place] ([phone]),at 11/11/2019 7:00 PM Carl Chan MD IMG OUTSIDE INTERPRE TATION ORDERABLES documented in this encounter Visit Diagnoses Not on filedocumented in this encounter Care Teams Professor Of Poultry Science Relationship Specialty Start Date End Date Carolyn Obrien APRN PCP - General Family Medicine 09/20/18 documented as of this encounter
--- OUTSIDE RECORDS SUMMARY | 2024-08-26 12:51 | XMS_ITS | Encounter Summary ---
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 the screening result was positive but has not yet been confirmed by a highly-specific method. As with any screen, occasional false positive results from cross-reacting substances may occur. Not for Medico-Legal Purposes. Cocaine Screen, Urine None Detected None Detected [facility] Comment: The cocaine metabolites screen detects benzoylecgonine (Cocaine Metabolite) at concentrations >150 ng/mL. A ? Presumptive Positive? result indicates that the screening result was positive but has not yet been confirmed by a highly-specific method. As with any screen, occasional false positive results from cross-reacting substances may occur. Not for Medico-Legal Purposes. Methadone Metabolites Screen, Urine None Detected None Detected [facility] Comment: The methadone metabolite screen detects EDDP (major methadone metabolite) at concentrations >100 ng/mL. A ? Presumptive Positive? result indicates that the screening result was positive but has not yet been confirmed by a highly-specific method. As with any screen, occasional false positive results from cross-reacting substances may occur. Not for Medico-Legal Purposes. Opiate Screen, Urine None Detected None Detected [facility] Comment: The opiates screen detects opiates at concentrations >300 ng/mL. Please note that oxycodone, oxymorphone, fentanyl, tramadol, and other synthetic opioids are not detected by the opiate screen. A ? Presumptive Positive? result indicates that the screening result was positive but has not yet been confirmed by a highly-specific method. As with any screen, occasional false positive results from cross-reacting substances may occur. Not for Medico-Legal Purposes. Cannabinoid Screen, Urine Presumptive Pos(A) None Detected [facility] Comment: The marijuana metabolites screen detects the THC metabolite (75-pbj-5-carboxy-delta 9-THC) at concentrations >20 ng/mL. A ? Presumptive Positive? result indicates that the screening result was positive but has not yet been confirmed by a highly-specific method. As with any screen, occasional false positive results from cross-reacting substances may occur. Not for Medico-Legal Purposes. Oxycodone Screen, Urine None Detected None Detected [facility] Comment: The oxycodone screen detects oxycodone and oxymorphone at concentrations >100 ng/mL. A ? Presumptive Positive? result indicates that the screening result was positive but has not yet been confirmed by a highly-specific method. As with any screen, occasional false positive results from cross-reacting substances may occur. Not for Medico-Legal Purposes. Buprenorphine Screen, Urine None Detected None Detected [facility] Comment: The buprenorphine screen detects buprenorphine at concentrations >5 ng/mL. A ? Presumptive Positive? result indicates that the screening result was positive but has not yet been confirmed by a highly-specific method. As with any screen, occasional false positive results from cross-reacting substances may occur. Not for Medico-Legal Purposes. Fentanyl Screen, Urine None Detected None Detected [facility] Comment: The fentanyl screen detects fentanyl at concentrations >2 ng/mL. A ? Presumptive Positive? result indicates that the screening result was positive but has not yet been confirmed by a highly-specific method. As with any screen, occasional false positive results from cross-reacting substances may occur. Not for Medico-Legal Purposes. Tricyclics Screen, Urine None Detected None Detected [facility] Comment: The tricyclics screen detects tricyclic antidepressants at concentrations >150 ng/mL. Not all tricyclics cross-react equally with the antibody used in this screen. A ? Presumptive Positive? result indicates that the screening result was positive but has not yet been confirmed by a highly-specific method. As with any screen, occasional false positive results from cross-reacting substances may occur. Not for Medico-Legal Purposes. Ethanol Screen, Urine None Detected None Detected [facility] Comment:This urine ethanol a ssay detects ethanol at concentrations >/= 100 mg/L. Amphetamines Screen, Urine None Detected None Detected [facility] Comment: The amphetamine screen detects d-amphetamine and d-methamphetamine at concentrations >300 ng/mL. A ? Presumptive Positive? result indicates that the screening result was positive but has not yet been confirmed by a highly-specific method. As with any screen, occasional false positive results from cross-reacting substances may occur. Not for Medico-Legal Purposes. Adulterants Screen, Urine None Detected None Detected [facility] Comment: No adulteration or dilution of this urine sample was detected. All urine samples submitted for urine drugs of abuse analysis are tested for creatinine concentration, pH, and for the presence of oxidants, nitrites, and chromate. Urine specimen (specimen) 09/20/2018 5:36 PM EST 09/20/2018 5:53 PM EST Narrative Resulting Agency Comment Spec In Lab Clara Slade MD CHEMISTRY ORDERABLES [facility] [place] [address] * Rapid Drug Screen, Urine (SHANNON Request) (09/20/2018 5:36 PM EST) SHANNON Conf Requested No [facility] SHANNON Requested See Comment [facility] Comment:Refer to Rapid Drug Screen w/o Confirmation, Urine for results. Urine specimen (specimen) 09/20/2018 5:36 PM EST 09/20/2018 5:53 PM EST Narrative Resulting Agency Comment Spec In Lab Clara Slade MD URINE ORDERABLES [facility] [place] [address] * Urinalysis with reflex Culture (09/20/2018 5:35 PM EST) Glucose, Urine Dipstick Negative Negative mg/dL [facility] Protein, Urine Dipstick Negative Negative mg/dL [facility] Bilirubin, Urine Dipstick Negative Negative mg/dL [facility] Comment: Clinical correlation required for positive Urine Bilirubin results as false positive may occur with some drugs and drug related products. If a false positive is suspected a serum total bilirubin should be considered if clinically indicated. Urobilinogen, Urine Dipstick Normal Normal mg/dL [facility] pH, Urn (dipstick) 5.0 5.0 - 8.0 [facility] Blood, Urine Dipstick Negative Negative mg/dL [facility] Ketone, Urine Dipstick Negative Negative mg/dL [facility] Nitrite, Urine Dipstick Negative Negative [facility] Leukocytes, Urine Dipstick Negative Negative [facility] Appearance, Urine Dipstick Clear Clear [facility] Specific [place] Urine Automated 1.029 1.002 - 1.030 [facility] Color, Urine Dipstick Yellow Yellow [facility] Reflex to Culture No [facility] Urine specimen obtained by clean catch procedure (specimen) 09/20/2018 5:35 PM EST 09/20/2018 5:53 PM EST Narrative Resulting Agency Comment Spec In Lab Clara Slade MD URINE ORDERABLES [facility] [place] [address] * POCT urine (09/20/2018) POC Urine HCG Negative Negative - Negative POC Control Internal Controls Acceptable 09/20/2018 Clara Slade MD POINT OF CARE TEST O RDERABLES documented in this encounter Visit Diagnoses Diagnosis Anxiety Anxiety state, unspecified documented in this encounter Care Teams Accounts Payable Lead Relationship Specialty Start Date End Date Carolyn Obrien APRN PCP - General Family Medicine 09/20/18 documented as of this encounter
--- OUTSIDE RECORDS SUMMARY | 2024-08-26 12:51 | XMS_ITS | Encounter Summary ---
Author Organization [facility] Address [address] [place] [address] Care Team Providers Care Child Welfare Counselor Name Role Phone Monica Vuong APRN Primary Care Provider [phone] Reason for Visit * Reason Onset Date Comments Pre-visit Orders 02/20/2018 Encounter Details Date Type Department Care Team ([facility] st Contact Info) Description 02/20/2018 Orders Only [facility] Pediatric Pulmonary - Main [place] [address] [place] [address] Jessika Marlow, RN [address] [place] [address] Bronchospasm (Primary Dx) Social History Tobacco Use Types [...] as of this encounter Visit Diagnoses Diagnosis Bronchospasm- Primary Acute bronchospasm documented in this encounter Care Teams Child Welfare Counselor Relationship Specialty Start Date End Date Monica Vuong APRN [address] [place] [address] PCP - General 01/06/18 02/20/18 documented as of this encounter
--- OUTSIDE RECORDS SUMMARY | 2024-08-26 12:51 | XMS_ITS | Encounter Summary ---
Author Organization [facility] [place] [address] Care Team Providers Care Track Repair Laborer Name Role Phone Carolyn Obrien APRN Primary Care Provider [phone] Encounter Details Date Type Department Care Team (Late st Contact Info) Description 11/11/2019 4:10 PM EST Ancillary Procedure Radiology Library at [facility] [place] [id number] Social History Tobacco Use Types Packs/Day Years Used Date Smoking Tobacco: Never Sex and Gender Information Value Date Recorded Sex Assigned at Not on file Gender Identity Not on file Sexual Orientation Not on file documented as of this encounter Plan of Treatment Not on file documented as of this encounter Procedures Procedure Name Priority Date/Time Associated Diagnosis Comments FILM LIBRARY STORAGE ONLY DX KNEE STAT 11/11/2019 3:58 PM EST documented in this encounter Results * Film Library- Storage Only DX Knee (11/11/2019 3:58 PM EST) Narrative RAD - 11/11/2019 3:58 PM EST This exam is auto-finalizing. It's purpose is for storage only. Clara Herzog MD IMG FILM LIBRARY ORD ERABLES [place] documented in this encounter Visit Diagnoses Not on filedocumented in this encounter Care Teams Track Repair Laborer Relationship Specialty Start Date End Date Carolyn Obrien APRN PCP - General Family Medicine 09/20/18 documented as of this encounter
--- OUTSIDE RECORDS SUMMARY | 2024-08-26 12:51 | XMS_ITS | Encounter Summary ---
Author Organization [facility] [place] [address] Care Team Providers Care Rigging Up Man Name Role Phone Greer Burton MD Primary Care Provider [phone] Reason for Visit * Reason Comments Verrucous Vulgaris Encounter Details Date Type Department Care Team (Late st Contact Info) Description 03/03/2015 10:15 AM EDT Office Visit Dermatology at [address] [address] Bao Smart MD [address] [place] [address], [facility] [place] [address] Verruca vulgaris Discharge Disposition: Home Social History Tobacco Use Types Packs/Day Years Used Date Smoking Tobacco: Never Sex and Gender Information Value Date Recorded Sex Assigned at Not on file Gender Identity Not on file Sexual Orientation Not on file documented as of this encounter Progress Notes * Bao Smart MD - 03/03/2015 10:37 AM EDT Problem: Followup verruca vulgaris. Lisa follows up and states that after last seeing me in 2005 all of the warts except for three on her right hand did resolve. Apparently Lisa's dad tried to use Freeze Away without success for these warts. I had previously used oral vitamin A, somantadine, Aldara cream, and Canthacur PS. Physical examination reveals verruca still present at the locations as diagramed on the accompanying flow sheet, three 4 to 5-mm verrucous papules. Assessment and Plan: Verruca vulgaris. a. Today LN2 times three applied to each of the three sites. b. Patient tolerated well. c. Recommend I see her again in two weeks for repeat check. d. Band-Aids placed over each site to minimize irritation once she leaves the office. Discussed post LN2 wound care. e. Could consider electrodesiccation if after two or three treatments these do not resolve with aggressive LN2 therapy. COPY: Greer Burton M.D. documented in this encounter Plan of Treatment Not on file documented as of this encounter Visit Diagnoses Diagnosis Verruca vulgaris Viral warts, unspecified documented in this encounter Care Teams Rigging Up Man Relationship Specialty Start Date End Date Greer Burton MD [facility] [address] [facility] [place] [address] PCP - General 09/29/10 03/31/15 documented as of this encounter
--- OUTSIDE RECORDS SUMMARY | 2024-08-26 12:51 | XMS_ITS | Encounter Summary ---
Author Organization [facility] Address [address] [place] [address] Care Team Providers Care Supervisor [employer] Name Role Phone Monica Vuong APRN Primary Care Provider [phone] Reason for Referral * Referral (3 - 10 Business Days) - Closed Specialty Diagnoses / Procedures Referred By Contac t Referred To Contact Pediatric Pulmonology Diagnoses Bronchospasm, acute Batsheva Hurtado MD [address] [facility] [address] [place] [address] [facility] [address] [place] [address] Referral ID Status Reason Start Date Expiration Date V isits Requested Visits Authorized [id number] Closed Specialty Services Required 01/07/2018 1 1 Question Answer Reason for Request: Asthma, PFTs. Recently with bronchospasm following outpatient procedure requring inpatient admission, steroid taper and steroid inhaler. Please evaluate and treat * (Routine) - Receiving Office to Obtain Authorization Specialty Diagnoses / Procedures Referred By Contac t Referred To Contact Khadra Hermosillo MD [address] [place] [address] Referral ID Status Reason Start Date Expiration Date Visits Requested Visits Authorized [id number] Receiving Office to Obtain Authorization Specialty Services Required 01/06/2018 1 1 * (Routine) - Receiving Office to Obtain Authorization Specialty Diagnoses / Procedures Referred By Contac t Referred To Contact Khadra Hermosillo MD [address] [address] Referral ID Status Reason Start Date Expiration Date Visits Requested Visits Authorized [id number] Receiving Office to Obtain Authorization Specialty Services Required 01/06/2018 1 1 Comments Call 911 anytime you think you may need emergency care. For example, call if: - You passed out (lost consciousness). - You have severe trouble breathing. - You have sudden chest pain and shortness of breath, or you cough up blood. Call your doctor now or seek immediate medical care if: - You have bright red vaginal bleeding that soaks one or more pads in an hour for two consecutive hours, or you have large clots. - You have foul-smelling discharge from your vagina. - You are sick to your stomach or cannot keep fluids down. - You have pain that does not get better after you take pain medicine. - You have loose stitches, or your incision comes open. - You have signs of infection, such as: - Increased pain, swelling, warmth, or redness. - Red streaks leading from the incision. - Pus draining from the incision. - A fever greater than 100.4 degrees F (38 degrees C). - You have signs of a blood clot, such as: - Pain in your calf, back of the knee, thigh, or groin. - Redness and swelling in your leg or groin. - You have trouble passing urine or stool, especially if you have pain or swelling in your lower belly. Watch closely for changes in your health, and be sure to contact your doctor if: - You do not have a bowel movement after taking a laxative. - You have hot flashes, sweating, flushing, or a fast heartbeat, but no fever. Encounter Details Date Type Department Care Team (Late st Contact Info) Description 01/06/2018 13:20 EST - 01/07/2018 14:30 EST Hospital Encounter [facility] Medicine Unit [address] [place] [address] Corina Rodriguez MD [address] [facility] [address] [place] [address] Bronchospasm, acute (Primary Dx); Encounter for elective termination of Discharge Disposition: Home or Self Care Social History Tobacco Use Types Packs/Day Years Used Date Smoking Tobacco: Never Smokeless Tobacco: Never Sex and Gender Information Value Date Recorded Sex Assigned at Not on file Gender Identity Female 01/02/2024 21:03 EST Sexual Orientation Not on file documented as of this encounter Last Filed Vital Signs Vital Sign Reading Time Taken Comments Blood Pressure 111/64 01/07/2018 1342 EST Pulse 80 01/07/2018 0434 EST Temperature 35.6 ??C (96.1 ??F) 01/07/2018 1342 EST Respiratory Rate 16 01/07/2018 0946 EST Oxygen Saturation 96% 01/07/2018 1342 EST Inhaled Oxygen Concentration - - Weight 59 kg (130 lb) 01/06/2018 2222 EST Height 160 cm (5' 3) 01/06/2018 2222 EST Body Mass Index 23.03 01/06/2018 2222 EST Body Mass Index Percentile 70.17% 01/06/2018 222 2 EST Growth Chart: [facility] (Girls, 2- 20 Years) documented in [...] as of this encounter Discharge Diagnoses Diagnosis Z33.2 Encounter for elective termination of -Z33.2[ICD-10-CM] Z30.430 Encounter for insertion of intrauterine contraceptive device-Z30.430[ICD-10-CM] Z3A.21 21 weeks gestation of -Z3A.21[ICD-10-CM] J98.01 Acute bronchospasm-J98.01[ICD-10-CM] Z87.442 Personal history of urinary calculi-Z87.442[ICD-10-CM] documented in this encounter Discharge Summaries * Corina Rodriguez MD - 01/06/2018 1848 EST Admission Date: 01/06/18 Discharge Date: 01/07/18 Chief Complaint: Desired termination of Principal Procedure: Dilation and Evacuation for termination of , Mirena IUD insertion Secondary Procedure: None Condition at Discharge: Good Hospital Course: Lisa Gabriel is a 17 y.o. year old female who was admitted to the gynecology service following a D&E with Mirena IUD insertion which was complicated by bronchospasm intra-operatively requiring bronchodilators and subsequently ongoing persistent severe cough and dyspnea in PACU. Anesthesia team recommended duonebs, solumedrol, and overnight admission for observation. Respiratory care was consulted in PACU and recommended overnight observation with continued pulmonary toilet. She was admitted to the floor overnight. She was weaned off O2 and sats remained > 97% onRA. She was subsequently discharged home on HD 2/ POD 1 with a medrol taper, flovent and albuterol.A referral to pediatric pulmonology was placed. Relevant Studies at Discharge: Pathology pending Last Lab Results at Discharge: None Discharge Summary Completed: Batsheva Hurtado M.D. PGY4 Pager [phone] Attestation statement: I discussed the patient with the resident/fellow at the time of the visit. Iagree with the findings and the plan of care documented in the resident's/fellow's note. Corina Rodriguez MD documented in this encounter Medications at Time of Discharge Medication Sig Dispensed Refills Start Date End Date acetaminophen (TYLENOL) 325 mg tablet Take 2 Tabs by mouth every 6 hours as needed for Pain. 01/06/2018 ibuprofen (MOTRIN) 600 mg tablet Take 1 Tab by mouth every 6 hours as needed for Pain. 0 01/06/2018 levonorgestrel (MIRENA) 20 mcg/24 hr (5 years) IUD 1 Each by intrauterine route continuous. 1 Each 01/06/2018 albuterol 90 mcg/actuation inhaler Inhale 1-2 Puffs as directed every 4 hours as needed for Wheezing. 1 Inhaler 1 01/07/2018 02/21/2018 fluticasone (FLOVENT) 110 mcg/actuation inhaler Inhale 2 Puffs as directed 2 times daily. 1 Inhaler 2 01/07/2018 02/21/2018 methylPREDNISolone (MEDROL) 8 mg tablet Please take 4 tabs by mouth twice daily for 2 days, then 2 tabs by mouth twice daily for 2 days then 1 tab by mouth twice daily for 2 days and then 1 tab per mouth daily for 2 days. 32 Tab 01/07/2018 02/21/2018 ondansetron (ZOFRAN) 4 mg tablet Take 1 Tab by mouth every 4 hours as needed for Nausea. 6 Tab 01/05/2018 02/21/2018 documented as of this encounter Ordered Prescriptions Prescription Sig Dispensed Refills Start Date End Da te acetaminophen (TYLENOL) 325 mg tablet Take 2 Tabs by mouth every 6 hours as needed for Pain. 01/06/2018 ibuprofen (MOTRIN) 600 mg tablet Take 1 Tab by mouth every 6 hours as needed for Pain. 0 01/06/2018 levonorgestrel (MIRENA) 20 mcg/24 hr (5 years) IUD 1 Each by intrauterine route continuous. 1 Each 01/06/2018 methylPREDNISolone (MEDROL) 8 mg tablet Please take 4 tabs by mouth twice daily for 2 days, then 2 tabs by mouth twice daily for 2 days then 1 tab by mouth twice daily for 2 days and then 1 tab per mouth daily for 2 days. 32 Tab 01/07/2018 02/21/2018 albuterol 90 mcg/actuation inhaler Inhale 1-2 Puffs as directed every 4 hours as needed for Wheezing. 1 Inhaler 1 01/07/2018 02/21/2018 fluticasone (FLOVENT) 110 mcg/actuation inhaler Inhale 2 Puffs as directed 2 times daily. 1 Inhaler 2 01/07/2018 02/21/2018 documented in this encounter Discharge Disposition Disposition Code Departure Means Destination Home or Self Care documented in this encounter Progress Notes * BoJuana neves RN - 01/07/2018 1103 EST 01/07/18 Discharge Details for minor being D/Cd without parent present: Clarified w/ANC this AM, that this pt who is 17 yrs will need at least phone confirmation w/one of her parents that pt is minor of the parent, that the parent agrees to pt being discharged , and thatpt will be going to parents place of residence at time of discharge. At 1045 today, spoke w/pt's dad Loki Salazar at [phone], who lives in [facility] and heconfirmed that he is pt's parent. He stated he is in agreement to pt being discharged this AM, and that he expects pt to go to his residence, where pt also resides, immediately upon discharge. Pt will be driven home by one of her friends who is 17 yrs. * Sonia Ruth, RT - 01/07/2018 0855 EST Respiratory Consult/Progress Note Indications for Respiratory therapy: bronchospasm Data Vitals: Heart Rate: 75 BPM, Resp: 16, SpO2: 97 % FIO2/O2 Device: , , O2 Device: None, RT Orders: prn duoneb Prn albuterol Bid flovent Protocol Scoring: Bronchodilator/Inhalation Therapy Frequency Bronchodialator - Clinical Indications: History of bronchospasm Breath Sounds: Faint wheezing, decreased throughout Response: Mild response, increase subjective per FLOSSER Pulse: <100 Resp Rate: <18 SOB: None Total Score: 3 Comment:: change to prn Airway Clearance Therapy Frequency Airway Clearance - Clinical Indications: No clinical indications Breath Sounds: Rhonchi / crackles Sputum: Small (tsp) / None Consistency: None Cough Effort: Strong, non-productive Color: None Total Score: 1 Hyperinflation Therapy Frequency Hyperinflation - Clinical Indications: No clinical indications Breath Sounds: Diminished / crackles Surgery: No X-Ray / Atelectasis: No O2 Requirements: O2 at baseline Mobility Status: Mobile / at baseline Total: 2 Action/Events Respiratory events; Spoke with md about plan for pt. Saw pt this morning. Pt in good spirits and feels her breathing ismuch better. Breath sounds with few rales and occasional inspiratory wheeze. No distress. Gave duoneb with slight improvement. Pt felt the steroids helped the most. Nebs changed to prn per protocol. Pt aware. Went over education on mdi's and spacer usage. Pt has had albuterol in the past but no spacer. Pt states her son uses a spacer. Instructed pt on use of mdi's, spacer and starting flovent. Pthad appropriate questions and acknowledges that she understands. mdnatalie transferred to nursing. RT Mirna 01/07/18 * Batsheva Hurtado MD - 01/07/2018 0815 EST Gynecology Progress Note Service Date: 01/07/2018 Admit Date: 01/06/2018 13:20 ( LOS: 0 days ) POD: 1 (01/06/2018) Chief Complaint: Desired termination of 24 Hour Events: -Significant bronchospasm postoperatively with de sats to 70s. Given duo nebs and started on a solumedrol overnight. -Large gush of vaginal bleeding with no additional episodes to follow. Subjective/Objective Subjective Feeling well this morning. The steroids make her jittery. She denies SOB, CP. Reports that VB has improved with minimal cramping. Reports that she has had exercise induced asthma that has been worsening. She does not have an albuterol inhaler as it froze in the car. She was supposed to have PFTs with PCP but has not been called about an appointment time and is interested in obtaining a referral at [facility] Objective UOP: 450cc/6hr Vital Signs Temp: [35.6 ??C (96.1 ??F)-36.8 ??C (98.2 ??F)] (), Heart Rate: [78 BPM-109 BPM] (), Resp: [8-26] (), BP: (98-147)/(55-87) (), SpO2: [93 %-100 %] () Physical Exam Gen: NAD Resp: unlabored breathing, O2 sat 99% on RA, good air movement throughout, mild expiratory wheezingin the bases. CV: RRR Abdomen: Soft, non-tender. Ext: WWP Assessment/Plan Assessment Lisa Gabriel is a 17 y.o. F POD#1 s/p suction dilation and evacuation, admitted for bronchospasm in setting of of worsening exercise induced asthma and recovery from influenza. Marked improvement in exam this AM with appropriate oxygenation. Plan PAIN: Well controlled on current regimen. CV: Stable, no active issues. RESP: Bronchospasm post-operatively. Treated with solumedrol and duo-nebs with improvement. RT to assess again this AM and complete inhaler/ spacer teaching. After discussion with pulm, perform a steroid taper, stated flovent and continue prn albuterol. Peds pulm referral to be placed on dc. GI: Regular diet as tolerated. Phenergan, zofran prn for nausea. : Voiding independently, no active issues. FEN: Change to SLIV ENDO: No active issues. HEME: No active issues. ID: Afebrile, no active issues. PPX: Ambulation, IS, SCDs D/C: DC home this AM. Batsheva Hurtado MD 01/07/2018 8:15 * Candice Gotti MD - 01/06/2018 5807 EST Post-op Check S: Doing well, pain well controlled. Surprised that she is feeling minimal cramping. Vaginal bleeding like a period, no clots. Tolerating PO, no nausea or vomiting. Has ambulated to bathroom, voidingspontaneously. The patient denies CP/SOB/N/V/HERNANDEZ/Dizziness/F/C/LE pain. O: BP 110/55 (BP Cuff Location: Right arm, Patient Position: Semi fowlers) Pulse 74 Temp 36.1 ??C (97 ??F) (Tympanic) Resp 23 Ht 160 cm (63) Wt 59 kg (130 lb) SpO2 96% BMI 23.03 kg/m2 Intake/Output Summary (Last 24 hours) at 01/06/18 5769 Last data filed at 01/06/18 2223 Gross per 24 hour Intake 2080 ml Output 850 ml Net 1230 ml Gen: NAD Resp: CTAB CV: RRR Abd: soft, non-tender, fundus firm and low Ext: WWP, 2+DPs, no edema A/P: Lisa Gabriel is a 17 y.o. F POD#0 s/p suction dilation and evacuation, admitted for bronchospasm in setting of recent URI. Pt recovering well, AVSS and respiratory status greatly improved. PAIN: Well controlled on current regimen. CV: Stable, no active issues. RESP: Bronchospasm post-operatively. Treated with solumedrol and duo-nebs with improvement. Admitted for monitoring and continued treatment overnight. Continue solumedrol 60 q6, duonebs q4. GI: Regular diet as tolerated. Phenergan, zofran prn for nausea. : Voiding independently, no active issues. FEN: LR @ 75 cc/hr, will saline lock IV now as tolerating adequate po (>500cc/shift). ENDO: No active issues. HEME: No active issues. ID: Afebrile, no active issues. PPX: Ambulation, IS, SCDs D/C: Once tolerating po, pain well controlled, ambulating and voiding independently, with improved respiratory status Candice Gotti MD 01/06/2018 23:34 * Anamaria Hopson RN - 01/06/20181931 EST 1930: Pt was admitted to PACU, drowsy, interactive, coughing intractably, simple mask in place. PerAnesthesia Fox Ya MD, patient had bronchospasm during procedure. Albuterol neb administered with minimal effect. Ongoing inspiratory and expiratory wheezing with desats to 70's. Duoneb administeredwith improvement in symptoms, distress level. Solu-medrol administered as ordered. Pt denies abdominal pain or cramping, moderate vaginal bleeding, annabel-pad in place. Awaiting [facility] blood bank. * Domingo Dawn, RT - 01/06/2018 191 EST Respiratory Consult/Progress Note Indications for Respiratory therapy: Reactive airway Data Vitals: Heart Rate: 85 BPM, Resp: 26, SpO2: 95 % FIO2/O2 Device: O2 Flow Rate (L/min): 0 l/min, , O2 Device: None, FIO2 %: 50 % RT Orders: Q4 1 UD Duoneb Q2 prn Albuterol Protocol Scoring: Bronchodilator/Inhalation Therapy Frequency Bronchodialator - Clinical Indications: Bronchospasm Breath Sounds: Faint wheezing, decreased throughout Response: No change / no treatment Pulse: <100 Resp Rate: 26-32 SOB: None Total Score: 4 Comment:: (Nursing just gave treatment) Airway Clearance Therapy Frequency Airway Clearance - Clinical Indications: No clinical indications Breath Sounds: Rhonchi / crackles Sputum: Small (tsp) / None Consistency: None Cough Effort: Strong, non-productive Color: None Total Score: 1 Hyperinflation Therapy Frequency Hyperinflation - Clinical Indications: No clinical indications Breath Sounds: Other Surgery: No X-Ray / Atelectasis: No O2 Requirements: O2 at baseline Mobility Status: Mobile / at baseline Total: 1 Action/Events Respiratory events; Patient had the flu for the last month and had a severe reaction during her surgical procedure. When I assessed nursing had just given a neb 30 min prior but she was still fairly tight and course with wheezes bilat. Response/Results Weaning and Toleration of treatments; Plan: Q4 nebs through the night. MD staff has ordered solumedrol. Continue to monitor per protocol. RT DREW 01/06/18 documented in this encounter H&P Notes * Corina Rodriguez MD - 01/06/2018 4979 EST Department of Gynecology History & Physical CC: Pt is a 17 y.o. y/o admitted due to bronchospasm during dilation and evacuation procedure under general anesthesia and prolonged dyspnea and cough in PACU Subjective: Lisa is now immediately s/p D&E at 21 wga and IUD placement. During the case she was notedto have bronchospasm and required bronchodilators intra-op. The case was able to be completed in the usual fashion. In PACU, she developed a severe persistent cough, dyspnea, and did have a desaturation to the 70s during a coughing spell. She was started on a nebulizer treatment in PACU. Due to ongo ing symptoms, she was started on solumedrol and the Anesthesia team recommended overnight admission. Of note, she had influenza a month ago and did report recent URI symptoms. She did use an albuterol inhaler during this illness though had not been formally diagnosed with asthma or reactive airwaysprior to that. She is currently feeling better and she has no there symptoms. No f/c/n/v. No abdominal pain. Moderate vaginal bleeding (within normal limits s/p D&E). Feels hungry. Past OBHx: G2 P 1011 S/p 1x 9lb at term S/p 1x D&E at 21 wga Past GynHx: Mirena IUD placed intra-op today Too young for Paps Denies h/o STIs PMedHx: Past Medical History: Diagnosis Date ??? Nephrolithiasis PSurgHx: Past Surgical History: Procedure Laterality Date ??? LITHOTRIPSY Meds: None Allergies: No Known Allergies Social Hx: Never smoker, no other drug or alcohol use Currently enrolled in high school, plans to graduate this spring. Cares for her 2 year old son at home. Family Hx: Maternal aunt with breast cancer Objective: Vitals: 01/06/18 1435 BP: 98/66 Resp: 16 Temp: 36.8 ??C (98.2 ??F) TempSrc: Oral SpO2: 96% There is no height or weight on file to calculate BMI. Gen: Sitting upright, talkative and interactive but coughing continuously Psych: AAOx3, somewhat sleepy from anesthesai CV: RRR Lungs: CTAB Abd: soft, NT, ND, fundus at appropriate height and firm Ext: NT, WWP, no edema Labs: None Imaging: none Assessment: Pt is a 17 y.o. y/o with admitted due to bronchospasm during dilation and evacuation procedure under general anesthesia and prolonged dyspnea and cough in PACU. She reports illness with influenza a month ago and required albuterol during the illness despite not having been diagnosed with asthma or reactive airway disease in the past. She requires inpatient admission overnight for monitoring and ongoing respiratory treatments. If she continues to respond well to nebs and steroids, she may be admitted to the inpatient floor for observation. If she requires continuous albuterol, this would potentially require MICU admission. From a FLOOR HAND perspective, the procedure was uncomlicated and she Plan: Pain: Well controlled on current regimen. Continue tylenol and ibuprofen. CV: Stable, no active issues. Resp: Bronchospasm with dyspnea and desaturation intra-op and in PACU. Currently responding to nebulizer and solumedrol. Respiratory Care consulted, will assess in PACU and then assist with further recommendations regarding admission destination and treatments overnight. Most likely will be scheduled nebs q6h and solumedrol q6h. If worsens overnight or requires continuous albuterol treatment, could potentially require admission to ICU with Pulmonology involvement. GI: NPO currently but will write for Regular diet as tolerated upon reaching floor of admission. Will back off to NPO overnight if respiratory status decompensates. : Voiding independently F/E/N: LR @ 75 cc/hr, will saline lock IV if diet is advanced and tolerates po intake. Endo: No active issues. Heme: Requires Rhogam prior to discharge. Informed CONTROL OFFICER that Rhogam needs to be administered in PACU and in agreement. EBL during procedure about 150cc, mild to moderate vaginal bleeding consistent with post-op status after D&E procedure. Fundal tone excellent. No need for CBC unless increased or brisk bleeding overnight. ID: Afebrile, no active issues. Prophylaxis: Ambulation, IS, SCD's Disposition: D/C home likely in the morning, so long as respiratory status is stable. Seen and discussed with Dr. Jose Daniel Hermosillo MD 01/06/2018 18:25 Attestation statement: I saw and examined the patient and was present throughout her entire procedure and immediate post-op course. I agree with the resident's/fellow's findings and plans as documented above. Corina Rodriguez MD * Khadra Hermosillo MD - 01/06/2018 1614 EST The preoperative history and physical which was performed within 30 days of this procedure has been reviewed and the clinically appropriate elements of the physical examination have been repeated. There are no changes to the documented history and physical or if so such changes are documented below Khadra Hermosillo MD 01/06/2018 16:14 Source Note - Corina Rodriguez MD - 01/05/2018 14:00 EST CC: Elective HPI: Lisa Gabriel is a 17 y.o. who presents for desired termination of . She realized she was about a month ago and it has taken some time to decide how to proceed. She knows from her last experience (when she planned to carry her son to term and give him up for adoption but changed her mind and decided to keep him on the day of delivery) that she cannot go through another and continue to care well for her 2 year old son and be able to graduate high school this coming spring with plans to go on to more training afterward. She presents with her motherand feels confident in her decision. She states she has not been coerced and feels safe at home. She would like to try the Mirena IUD for contraception. ROS: A complete 10 point ROS was performed and pertinent positive and negative findings listed in HPI, otherwise negative. Past Medical History Past Surgical History Past Medical History: Diagnosis Date ??? Nephrolithiasis Past Surgical History: Procedure Laterality Date ??? LITHOTRIPSY Obstetric History Gynecologic History OB History Para Term AB Living 2 1 1 0 0 1 SAB TAB Ectopic Multiple Live Births 0 0 0 0 1 # Outcome Date GA Lbr Bro/2nd Weight Sex Delivery Anes PTL Lv 2 Current 1 Term 2016 40w0d 4082 g (9 lb) M Vag-Spont JORGITO No complications in or delivery Cervical cancer screening: too young for Pap STI's: never Sexual activity: yes, with male partner Contraception: desires Mirena IUD Social History Family History Social History Substance Use Topics ??? Smoking status: Never Smoker ??? Smokeless tobacco: Never Used ??? Alcohol use None Currently enrolled in high school, plans to graduate this spring. Cares for her 2 year old son at home. Maternal aunt has breast cancer. No other significant family history. Medications Allergies Current Outpatient Prescriptions: ondansetron (ZOFRAN) 4 mg tablet No current facility-administered medications for this visit. No Known Allergies Objective: BP 104/68 (BP Cuff Location: Left arm, Patient Position: Sitting, BP Cuff Sizes: Adult, regular) Ht 161.3 cm (63.5) Wt 59.6 kg (131 lb 8 oz) BMI 22.93 kg/m2 GEN: No acute distress Psych: Appropriate affect, alert and oriented to person, place and time Skin: Normal temperature and texture, no rashes or lesions HEENT: Normocephalic, atraumatic, sclera anicteric CV: Regular rate and rhythm, no murmurs/rubs/gallops PULM: Clear to auscultation bilaterally, normal respiratory effort ABD: Soft, non-tender, non-distended, no masses or hepatosplenomegaly Pelvic exam: Normal appearing external genitalia without masses, tenderness or lesions. Normal appearing urethral meatus without masses or prolapse. Speculum exam reveals normal appearing vagina withnormal color and discharge, no lesions. Normal appearing cervix without discharge or lesions. On bimanual exam, uterus is anteverted and consistent with 21 wga. Adnexa are nontender and no masses are palpated. Bladder is nontender without masses. Exam chaperoned. EXT: Warm, well perfused, no edema Imaging: US reviewed from outside provider, consistent with GA of 21+2 today. Lab: Blood type O neg per outside provider report. Assessment/Plan: Lisa Gabriel is a 17 y.o. who presents at 21+2 wga with desire for termination of . We plan a two day procedure with cervical prep to start today and D&E with Mirena IUD insertion tomorrow. Please see below for description of decision making process. 1. Encounter for elective termination of The patient and I first discussed her options related to this including continuing the and parenting or adoption versus terminating the . The patient understands her options and would like to proceed with termination of . She is safe and sure of her decision and has support from her partner and family and is free from coercion. ?? Next, we discussed that given her gestational age, she is eligible only for a surgical termination of via dilation and extraction. We discussed the basics of the procedure as well as the need for cervical preparation given her gestational age. We discussed the risks of the procedure including infection, bleeding requiring uterotonics, blood transfusion and/or life-saving hysterectomy, retained products and uterine perforation. A written consent was signed after discussion of the procedure and associated risks. Next, we discussed the rationale and need for cervical preparation and that at her gestational age this is best accomplished with medications (mifepristone today) and with osmotic dilators (i.e. Laminaria). We discussed mifepristone in detail including that it is FDA approved for first-trimester medication , however we also have good evidence for use prior to 2nd trimester surgical termination of and while this is considered an off-label use, I feel it is very safe and the benefits outweight any potential risks. She understands and agrees to use of mifepristone which was provided to her today, please the MAR for documentation. She was provided with the Medication Guide and signed the FDA consent prior to administration. The patient knows her blood type is O negative, so we will plan to administer Rhogam tomorrow perioperatively. Finally, we discussed post-operative expectations with regards to bleeding and pain. We discussed that most women do well with heat pads and ibuprofen only and she declines any narcotics at this time. Additionally we reviewed bleeding expectations and that bleeding can last for up to 2 weeks. I told her that I expect that both the pain and bleeding to improve over time. She was instructed to callwith any concerning symptoms such as fevers >100.4, severe pain, heavy bleeding (soaking through1 pad/hour for more than 2 hours) or any other concerns. She was provided with our nursing line andafter-hours numbers. The patient was comfortable with the plan and understood the process and had no further questions or concerns. Checklist: Gestational age - 21 weeks Rh status - neg, Rhogam indicated Hgb - will determine tomorrow Antibiotic - Doxycycline 200 mg PO in pre-op Cervical preparation - Laminaria, dilapan placed today in clinic (4 of each, for total of 8 were placed). Mifepristone given today in clinic. Will hold on misoprostal pre-op due to cervical softness and multiparity. Surgical consent signed Clinic numbers provided Follow-up Plan - Needs IUD string check with home provider Contraception - Mirena IUD to be placed at conclusion of procedure tomorrow. Seen and discussed with Dr. Rodriguez. Please see procedure note for description of laminaria/dilapanplacement. Khadra Hermosillo MD 01/05/2018 23:55 Obstetrics & Gynecology, PGY-3 Pager [phone] Attestation statement: I saw and examined the patient. I agree with the resident's/fellow's findings and plans as documented above. Corina Rodriguez MD documented in this encounter Procedure Notes * Corina Rodriguez MD - 01/06/2018 1628 EST Name: Lisa Gabriel : 2000 Date of Service: 01/06/2018 Surgeon: Corina Rodriguez MD Procedure: Ultrasound-guided dilation and evacuation, Mirena IUD insertion Anesthesia: TIVA General Preoperative Diagnosis: 1. Intrauterine at 21+3 wga, desires termination 2. Desires long acting reversible contraception Postoperative Diagnosis: Same Indications: This is a 17 y.o. at 21+3 wga who desires termination of and LARC. The patient was counseled on the risks, benefits and alternatives to the procedure and a written consent was signed prior to the start of the procedure. The day prior, she received Mifepristone, ibuprofen, and doxycycline followed by placement of 4 laminaria and 4 dilapan for cervical preparation. Overnight she did well and then presented on the day of the procedure as planned. She received doxycycline in pre-op. Findings: 1. EUA revealed 21 week sized uterus, cervix 3cm dilated after removal of laminaria 2. All products of conception accounted for 3. Thin endometrial stripe noted on ultrasound at completion of case 4. IUD placed at fundus and confirmed on US Narrative: The pt was taken to the operating room with an IV in place where TIVA anesthesia was found to be adequate. She was placed in the lithotomy position and an exam under anesthesia was performed with theabove findings and the gauze and laminaria/dilapan were removed with her cervix noted to be 3 cm dilated. She was prepped and draped in the normal fashion. A klopfer speculum was then placed in the vagina and a maurice tenaculum was used to grasp the anterior lip of the cervix. A 12 mm curved suction cannula was then inserted into the uterine cavity and suction was applied with artificial rupture ofmembranes. Sopher and Burlison forceps were then used in multiple passes to remove the fetus and placenta under direct ultrasound-guidance. The fetus was examined upon completion of the procedure and 4 extremities, calvarium, thorax, spine and placenta were all accounted for. At this time the Mirena IUD was inserted under direct ultrasound visualization per earth science technician's instructions. The strings were cut to 3 cm. The speculum and ring forceps were removed from the vagina with good hemostasis noted. The patient tolerated the procedure well. Sponge, lap and needle counts were correct times two. Doxycycline was given in pre-operative holding prior to the procedure. The patient was taken to the recovery room in stable condition. Dr. Rodriguez was present throughout the entire procedure. The patient had significant bronchospasm at the time of intubation and required persistent oxygen therapy and bronchodilator treatment upon extubation. Please refer to anesthesia notes for additionaldocumentation. Estimated blood loss: 150cc IV fluids: 800cc LR Urine Output: 100cc drained via in-and-out catheter Specimens Sent: POC's Retained Materials: Mirena IUD, Lot # [id number], Exp 06/2020 Complications: None Disposition: PACU then home Khadra Hermosillo MD 01/06/2018 16:28 Attending attestation: I was present during the entire procedure. I saw and examined the patient 01/06/2018. I agree with the findings and plan of care documented in the resident's/fellow's note. Corina Rodriguez MD documented in this encounter Miscellaneous Notes * Plan of Care - Juana Mayers RN - 01/07/2018 1430 EST Problem: Daily Care Plan Goals Goal: Care Plan Documentation Outcome: Met This Shift 01/07/18 Status at d/c: nursing note Data: This AM, pt indicates her parents may not be able to come and sign her d/c papers. However, pt was eventually able to arrange for her father to come and sign the d/c papers and rock picker pt to bring her home. Pt reported minimal pain, at midday stated pain = 4/10 low abd. Tylenol was given and then pain wasreduced to 1/10 less than 2 hours later. Pt 's vitals are wnl, pt remained a and O X3. Noted sl inspir wheezing in all resp. Iqbal, however, pt had no respiratory discomfort or distress what so everthis AM. Pt was voiding w/o difficulty. Pt reported minimal vaginal drng on this shift without any gushes ofbloody drng. Pt walked around in her room independently and without problem. At midday, pt ate large caesar salad and drank soda, which she tolerated well. Pt was tearful at several points this AM, however, she was able to eventually stop crying . She appeared to have the support of her father and her friends. Action: Provided pt w/her scripts; reviewed AVS instructions w/pt; provided pt w/her copy of the AVS. Encouraged pt to continue tylenol and ibuprofen alternating system for the next 24-48 hrs and to continuestool softeners. Response: pt left in WC headed for her home where she lives w/her parents and her 2 y.o. son with the assist of her father at 1430. Her father signed the discharge papers. Juana Mayers RN 01/07/2018 14:34 * Plan of Care - Jessika Bejarano RN - 01/07/2018 0628 EST Problem: Daily Care Plan Goals Goal: Care Plan Documentation Outcome: Met This Shift 01/06/18 2225 Care Plan Focus Area of Focus Respiratory Goal This Shift pt will maintain SpO2 > 92% Data: Pt admitted d/t bronchospasm after Dilation and evacuation procedure. Pt A/O x 3, pt denies pain. Pt reports bleeding like a period Denies SOB, strong cough that has subsided t/o night. SpO2 97% on room air. At 0215, pt reports a gush of blood and blood all over the sheets. Action: Monitored respiratory status. RT following with nebs. IV Solumedrol given (See MAR). Notified Dr. Gotti of pt's report of gush of blood. VSS. Response: aware, Pt resting in bed, no distress, voiding adequately, SpO2 97% on room air, no respiratory distress. Will continue to monitor. Jessika Bejarano RN 01/07/2018 6:24 * Anesthesia Post-Eval - Irineo Jenkins - 01/06/2018 1840 EST Anesthesia Post op Note Lisa Gabriel [id number] Anesthesia received: General; Vital Signs: Temp: (P) 35.9 ??C (96.6 ??F), Heart Rate: 91 BPM, BP: 147/87, Resp: 21, SpO2: 100 % Vital signs Stable: Yes Consciousness: Recovered to baseline Patient's participation in evaluation:Able to participate Temperature Status: Normothermic Respiratory Status: Airway patent Supplemental O2: Nasal cannula Oxygen Saturation: Within patient's normal range Cardiovascular Status: Within patient's normal range Post-op Hydration: Adequate Nausea / Vomiting: None Pain Control: Adequate Current Pain Score: Numeric Pain Level (Scale 1-10): 0 Post-op Assessment: Tolerated procedure well Disposition: Inpatient Complications: Yes Perioperative Events Respiratory Event: Other (Comment) (bronchospasm in PACU, respiratory consult by primary team and pt kept as inpatient) Irineo Jenkins 01/06/2018 18:40 documented in this encounter Plan of Treatment Scheduled Referrals Name Type Priority Associated Diagnoses Order Schedule PROVIDER FOLLOW-UP INSTRUCTIONS Outpatient Referral Routine Ordered: 01/06/2018 PROVIDER FOLLOW-UP INSTRUCTIONS Outpatient Referral Routine Ordered: 01/06/2018 AMB CONS/FOLLOW UP PEDIATRIC PULMONOLOGY Outpatient Referral Routine Bronchospasm, acute Ordered: 01/07/2018 documented as of this encounter Procedures Procedure Name Priority Date/Time Associated Diagnosis Comments ECG REPORT - SCANNED 01/11/2018 14:43 EST NEBULIZER TX INTERMITTENT Routine 01/07/2018 0:05 EST ADMINISTER RHOGAM (RHIG) 300 MCG IM Routine 01/06/2018 19:41 EST RH IMMUNE GLOBULIN (300UG) Routine 01/06/2018 19:29 EST NEBULIZER TX INTERMITTENT Routine 01/06/2018 19:16 EST NEBULIZER TX INTERMITTENT Routine 01/06/2018 19:16 EST documented in this encounter Results * ECG REPORT - SCANNED (01/11/2018 14:43 EST) 01/11/2018 14:4 3 EST Scan 2 Siding Mechanic PROCEDURE/MINOR CHANEL GICAL ORDERABLES * RH IMMUNE GLOBULIN (300UG) (01/06/2018 19:29 EST) Derivative Code [facility] Lot Number [id number] [facility] Unit Status TR^Transfu se [facility] Coding System ANJE075 [facility] Blood specimen (specimen) 01/06/2018 19:29 EST Candice Gotti MD BLOOD BANK ORDERABLE S [facility] documented in this encounter Visit Diagnoses Diagnosis Encounter for elective termination of - Primary Unspecified legally induced without mention of complication Encounter for elective termination of Unspecified legally induced without mention of complication Bronchospasm, acute Acute bronchospasm Bronchospasm, acute Acute bronchospasm documented in this encounter Administered Medications Inactive Administered Medications - up to 3 most recent administrations Medication Order MAR Action Action Date Dose Rate Site acetaminophen (TYLENOL) tablet 650 mg 650 mg, oral, EVERY 4 HOURS, First dose on 01/07/18 at 0000, Until Discontinued, Routine Given 01/07/2018 13:08 EST 650 mg Given 01/07/2018 4:30 EST 650 mg Given 01/07/2018 0:11 EST 650 mg albuterol (ACCUNEB) 2.5 mg /3 mL (0.083 %) nebulizer solution 1 dose, Starting on Tue01/06/18 at 1746, Until Tue01/06/18 at 1750 albuterol (ACCUNEB) nebulizer solution 2.5 mg 2.5 mg, nebulization, EVERY 2 HOURS PRN, Starting on Tue01/06/18 at 1915, Until 01/07/18 at 1636, Wheezing, Routine Given by Other 01/06/2018 17:50 EST 2.5 mg diphenhydrAMINE (BENADRYL) capsule 25 mg 25 mg, oral, EVERY 6 HOURS PRN, Starting on Tue01/06/18 at 2203, Until 01/07/18 at 1636, Itching, Routine, On Unit diphenhydrAMINE (BENADRYL) injection 25 mg 25 mg, intravenous, EVERY 6 HOURS PRN, Starting on Tue01/06/18 at 2203, Until 01/07/18 at 1636, Itching, Routine, On Unit docusate sodium (COLACE) capsule 100 mg 100 mg, oral, 2 TIMES DAILY, First dose on Tue01/06/18 at 2230, Until Discontinued, Routine, On Unit Given 01/07/2018 11:42 EST 100 mg Given 01/06/2018 22:40 EST 100 mg doxycycline (VIBRA-TABS) tablet 200 mg 200 mg, oral, PRE-OP ONCE, 1 dose, On Tue01/06/18 at 1415, Routine, Pre-Op DOS Rx Approved Given 01/06/2018 14:42 EST 200 mg fluticasone (FLOVENT) 110 mcg/actuation inhaler 2 Puff 2 Puff, inhalation, 2 TIMES DAILY, First dose on Tue01/07/18 at 0900, Until Discontinued, Routine influenza vaccine (3 yr+)(PF) (FLUZONE) IM injection-syringe 0.5 mL 0.5 mL, intramuscular, Once (Without Time Specified), 1 dose, Starting on Tue01/06/18 at 2232, Until 01/07/18 at 1636, Routine ipratropium-albuterol (DUONEB) 0.5 mg-3 mg(2.5 mg base)/3 mL nebulizer solution 3 mL 3 mL, nebulization, EVERY 30 MINUTES PRN, 3 doses, Starting on Tue01/06/18 at 1801, Until 01/07/18 at 0641, Wheezing, STAT Given 01/06/2018 18:00 EST 3 mL ipratropium-albuterol (DUONEB) 0.5 mg-3 mg(2.5 mg base)/3 mL nebulizer solution 3 mL 3 mL, nebulization, EVERY 4 HOURS, First dose on Tue01/06/18 at 2000, Until Discontinued, Routine Given 01/07/2018 0:55 EST 3 mL ipratropium-albuterol (DUONEB) 0.5 mg-3 mg(2.5 mg base)/3 mL nebulizer solution 3 mL 3 mL, nebulization, 4 TIMES DAILY, First dose (after last modification) on 01/07/18 at 0800, Until Discontinued, Routine Given 01/07/2018 8:44 EST 3 mL ipratropium-albuterol (DUONEB) 0.5 mg-3 mg(2.5 mg base)/3 mL nebulizer solution 3 mL 3 mL, nebulization, EVERY 4 HOURS PRN, Starting on 01/07/18 at 0645, Until 01/07/18 at 1636, Wheezing, Routine ipratropium-albuterol (DUONEB) 0.5 mg-3 mg(2.5 mg base)/3 mL nebulizer solution 1 dose, Starting on Tue01/06/18 at 1759, Until Tue01/06/18 at 1800 lactated ringers (LR) infusion at 25 mL/hr, intravenous, CONTINUOUS, Starting on Tue01/06/18 at 1415, Until Tue01/06/18 at 2203, Routine, Pre-Op DOS Rx Approved Rate Documented 01/06/2018 17:48 EST 25 mL/h r New Bag 01/06/2018 14:32 EST 25 mL/hr lactated ringers (LR) infusion at 75 mL/hr, intravenous, CONTINUOUS, Starting on Tue01/06/18 at 1915, Until Tue01/06/18 at 2157, Routine, Recovery (only) New Bag 01/06/2018 19:15 EST 75 mL/hr lactated ringers (LR) infusion at 75 mL/hr, intravenous, CONTINUOUS, Starting on Tue01/06/18 at 2230, Until Tue01/06/18 at 2343, Routine, On Unit New Bag 01/06/2018 22:40 EST 75 mL/hr levonorgestrel (MIRENA) 20 mcg/24 hr (5 years) IUD 1 Each 1 Each, intrauterine, NOW X1, 1 dose, On Tue01/06/18 at 1630, Per [facility] P &T Committee, use is restricted to outpatient clinics and the OR. LARC approved for inpatient use includes Mirena, Nexplanon, and Paragard only for patients covered by [facility]., Routine, Pre-Op DOS Rx Approved Given by Other 01/06/2018 17:30 EST 1 Each methylPREDNISolone (MEDROL) tablet 32 mg 32 mg, oral, EVERY 6 HOURS, First dose (after last modification) on 01/07/18 at 1200, Until Discontinued, Routine Given 01/07/2018 11:42 EST 32 mg methylPREDNISolone (MEDROL) tablet 64 mg 64 mg, oral, EVERY 6 HOURS, First dose on 01/07/18 at 0600, Until Discontinued, Routine Given 01/07/2018 7:04 EST 64 mg methylPREDNISolone sod suc(PF) (SOLU-MEDROL) injection 60 mg 60 mg, intravenous, EVERY 6 HOURS, First dose on Tue01/06/18 at 1830, Until Discontinued, Routine Given 01/07/2018 0:11 EST 60 mg Given 01/06/2018 19:21 EST 60 mg ondansetron (PF) (ZOFRAN) injection 4 mg 4 mg, intravenous, EVERY 6 HOURS PRN, Starting on Tue01/06/18 at 2203, Until 01/07/18 at 1636, Nausea, Vomiting, Routine, On Unit ondansetron (ZOFRAN-ODT) disintegrating tablet 4 mg 4 mg, oral, EVERY 6 HOURS PRN, Starting on Tue01/06/18 at 2203, Until 01/07/18 at 1636, Nausea, Routine, On Unit sodium chloride 0.9 % flush 3 mL 3 mL, intravenous, EVERY 8 HOURS, First dose on 01/07/18 at 0000, Until Discontinued, Routine Given 01/07/2018 0:11 EST 3 mL sodium chloride 0.9 % flush 3 mL 3 mL, intravenous, EVERY 8 HOURS, First dose on Tue01/07/18 at 0900, Until Discontinued, Routine Additional Administered Medications Medication Order MAR Action Action Date Dose Rate Site Rho(D) Immune Globulin IM Intramuscular Given 01/06/2018 20:09 EST 300 mcg Right Ar m documented in this encounter Active and Recently Administered Medications Times are shown in EST. Scheduled Medication Order 01/05/2018 01/06/2018 01/07/2018 acetaminophen (TYLENOL) tablet 650 mg 650 mg, oral, EVERY 4 HOURS, First dose on 01/07/18 at 0000, Until Discontinued, Routine 0011 (Given - Provid er: Jessika Bejarano RN)0430 (Given - Provider: Jessika Bejarano RN)4106 (Not Given - Provider: Juana Mayers RN - Reason: Patient/family refused)1308 (Given - Provider: Juana Mayers, CRISTINO) docusate sodium (COLACE) capsule 100 mg 100 mg, oral, 2 TIMES DAILY, First dose on Tue01/06/18 at 2230, Until Discontinued, Routine, On Unit 2240 (Given - Provider: Jessika Bejarano RN) 1142 (Given - Provider: Juana Mayers, CRISTINO) doxycycline (VIBRA-TABS) tablet 200 mg (COMPLETED) 200 mg, oral, PRE-OP ONCE, 1 dose, On Tue01/06/18 at 1415, Routine, Pre-Op DOS Rx Approved 1442 (Given - Provider: Cande Bejarano, CRISTINO) fluticasone (FLOVENT) 110 mcg/actuation inhaler 2 Puff 2 Puff, inhalation, 2 TIMES DAILY, First dose on 01/07/18 at 0900, Until Discontinued, Routine 0846 (Hold - Provide r: RT Mirna - Reason: Medication not available) influenza vaccine (3 yr+)(PF) (FLUZONE) IM injection-syringe 0.5 mL 0.5 mL, intramuscular, Once (Without Time Specified), 1 dose, Starting on Tue01/06/18 at 2232, Until 01/07/18 at 1636, Routine ipratropium-albuterol (DUONEB) 0.5 mg-3 mg(2.5 mg base)/3 mL nebulizer solution 3 mL (CANCELED) 3 mL, nebulization, EVERY 4 HOURS, First dose on Tue01/06/18 at 2000, Until Discontinued, Routine 1999 (Due) 0055 (Given - Provider: Darrel Culver, RT) ipratropium-albuterol (DUONEB) 0.5 mg-3 mg(2.5 mg base)/3 mL nebulizer solution 3 mL (CANCELED) 3 mL, nebulization, 4 TIMES DAILY, First dose (after last modification) on 01/07/18 at 0800, Until Discontinued, Routine 0844 (Given - Provid er: Sonia Ruth, RT) levonorgestrel (MIRENA) 20 mcg/24 hr (5 years) IUD 1 Each 1 Each, intrauterine, NOW X1, 1 dose, On Tue01/06/18 at 1630, Per [facility] P &T Committee, use is restricted to outpatient clinics and the OR. LARC approved for inpatient use includes Mirena, Nexplanon, and Paragard only for patients covered by [facility]., Routine, Pre-Op DOS Rx Approved 1730 (Given by Other - Provider: Anamaria Hopson RN - Comment: Placed in OR. See op notes) methylPREDNISolone (MEDROL) tablet 32 mg 32 mg, oral, EVERY 6 HOURS, First dose (after last modification) on 01/07/18 at 1200, Until Discontinued, Routine 1142 (Given - Provid er: Juana Mayers RN) methylPREDNISolone (MEDROL) tablet 64 mg (CANCELED) 64 mg, oral, EVERY 6 HOURS, First dose on 01/07/18 at 0600, Until Discontinued, Routine 0704 (Given - Provid er: Jessika Bejarano RN) methylPREDNISolone sod suc(PF) (SOLU-MEDROL) injection 60 mg (CANCELED) 60 mg, intravenous, EVERY 6 HOURS, First dose on Tue01/06/18 at 1830, Until Discontinued, Routine 1921 (Given - Provider: Anamaria Hopson RN) 0011 (Given - Provider: Jessika Bejarano RN) sodium chloride 0.9 % flush 3 mL(Linked Group 1) 3 mL, intravenous, EVERY 8 HOURS, First dose on 01/07/18 at 0000, Until Discontinued, Routine 0011 (Given - Provid er: Jessika Bejarano RN)0800 (Canceled Entry - Provider: Batch Job User Admin - Comment: Automatically canceled at discontinue of medication order) sodium chloride 0.9 % flush 3 mL(Linked Group 2) 3 mL, intravenous, EVERY 8 HOURS, First dose on 01/07/18 at 0900, Until Discontinued, Routine 0900 (Canceled Entry - Provider: Batch Job User Admin - Comment: Automatically canceled at discontinue of medication order) Continuous Medication Order 01/05/2018 01/06/2018 01/07/2018 lactated ringers (LR) infusion (CANCELED) at 25 mL/hr, intravenous, CONTINUOUS, Starting on Tue01/06/18 at 1415, Until Tue01/06/18 at 2203, Routine, Pre-Op DOS Rx Approved 1432 (New Bag - Provider: Cande Bejarano RN)1748 (Rate Documented - Provider: Anamaria Hopson RN)191 (Completed - Provider: Anamaria Hopson, CRISTINO) lactated ringers (LR) infusion (CANCELED) at 75 mL/hr, intravenous, CONTINUOUS, Starting on Tue01/06/18 at 1915, Until Tue01/06/18 at 2157, Routine, Recovery (only) 191 (New Bag - Provider: Anamaria Hopson RN)2139 (Completed - Provider: Jane Key RN) lactated ringers (LR) infusion (CANCELED) at 75 mL/hr, intravenous, CONTINUOUS, Starting on Tue01/06/18 at 2230, Until Tue01/06/18 at 2343, Routine, On Unit 2240 (New Bag - Provider: Jessika Bejarano RN) 001 (Completed - Provider: Jessika Bejarano RN) PRN Medication Order 01/05/2018 01/06/2018 01/07/2018 albuterol (ACCUNEB) nebulizer solution 2.5 mg 2.5 mg, nebulization, EVERY 2 HOURS PRN, Starting on Tue01/06/18 at 1915, Until 01/07/18 at 1636, Wheezing, Routine 1750 (Given by Other - Provider: Anamaria Hopson RN) diphenhydrAMINE (BENADRYL) capsule 25 mg(Linked Group 3) 25 mg, oral, EVERY 6 HOURS PRN, Starting on Tue01/06/18 at 2203, Until 01/07/18 at 1636, Itching, Routine, On Unit diphenhydrAMINE (BENADRYL) injection 25 mg(Linked Group 3) 25 mg, intravenous, EVERY 6 HOURS PRN, Starting on Tue01/06/18 at 2203, Until 01/07/18 at 1636, Itching, Routine, On Unit ibuprofen (MOTRIN) tablet 600 mg 600 mg, oral, EVERY 6 HOURS PRN, Starting on Tue01/06/18 at 2203, Until 01/07/18 at 1636, Pain, Routine ipratropium-albuterol (DUONEB) 0.5 mg-3 mg(2.5 mg base)/3 mL nebulizer solution 3 mL (CANCELED) 3 mL, nebulization, EVERY 30 MINUTES PRN, 3 doses, Starting on Tue01/06/18 at 1801, Until 01/07/18 at 0641, Wheezing, STAT 1800 (Given - Provider: Anamaria Hopson RN) ipratropium-albuterol (DUONEB) 0.5 mg-3 mg(2.5 mg base)/3 mL nebulizer solution 3 mL 3 mL, nebulization, EVERY 4 HOURS PRN, Starting on 01/07/18 at 0645, Until 01/07/18 at 1636, Wheezing, Routine ondansetron (PF) (ZOFRAN) injection 4 mg(Linked Group 4) 4 mg, intravenous, EVERY 6 HOURS PRN, Starting on Tue01/06/18 at 2203, Until 01/07/18 at 1636, Nausea, Vomiting, Routine, On Unit ondansetron (ZOFRAN-ODT) disintegrating tablet 4 mg(Linked Group 4) 4 mg, oral, EVERY 6 HOURS PRN, Starting on Tue01/06/18 at 2203, Until 01/07/18 at 1636, Nausea, Routine, On Unit Linked Groups Order Group 1: Change IV to Saline Lock (CANCELED) Routine, ONE TIME, On Tue01/06/18 at 2345, For 1 occurrence And sodium chloride 0.9 % flush 3 mLJump to med 3 mL, intravenous, EVERY 8 HOURS, First dose on 01/07/18 at 0000, Until Discontinued, Routine Group 2: Change IV to Saline Lock (CANCELED) Routine, ONE TIME, On Tue01/07/18 at 0835, For 1 occurrence And sodium chloride 0.9 % flush 3 mLJump to med 3 mL, intravenous, EVERY 8 HOURS, First dose on 01/07/18 at 0900, Until Discontinued, Routine Group 3: diphenhydrAMINE (BENADRYL) capsule 25 mgJump to med 25 mg, oral, EVERY 6 HOURS PRN, Starting on Tue01/06/18 at 2203, Until 01/07/18 at 1636, Itching, Routine, On Unit Or diphenhydrAMINE (BENADRYL) injection 25 mgJump to med 25 mg, intravenous, EVERY 6 HOURS PRN, Starting on Tue01/06/18 at 2203, Until 01/07/18 at 1636, Itching, Routine, On Unit Group 4: ondansetron (PF) (ZOFRAN) injection 4 mgJump to med 4 mg, intravenous, EVERY 6 HOURS PRN, Starting on Tue01/06/18 at 2203, Until 01/07/18 at 1636, Nausea, Vomiting, Routine, On Unit Or ondansetron (ZOFRAN-ODT) disintegrating tablet 4 mgJump to med 4 mg, oral, EVERY 6 HOURS PRN, Starting on Tue01/06/18 at 2203, Until 01/07/18 at 1636, Nausea, Routine, On Unit documented in this encounter Orders Medications Ordered That Agapito ht Not Have Been Administered Count Last Ordered Date First Ordered Date fluticasone (FLOVENT) 110 mc g/actuation inhaler 2 Puff 1 01/07/2018 ipratropium-albuterol (DUONE B) 0.5 mg-3 mg(2.5 mg base)/3 mL nebulizer solution 3 mL 1 01/07/2018 sodium chloride 0.9 % flush 3 mL 1 01/08/20 18 acetaminophen (TYLENOL) solu tion unit dose cup 995 mg 1 01/06/2018 acetaminophen (TYLENOL) tablet 1,000 mg 1 0 01/06/2018 atropine 0.1 mg/mL syringe 0.5 mg 1 018 diphenhydrAMINE (BENADRYL) capsule 25 mg 1 01/06/2018 diphenhydrAMINE (BENADRYL) injection 25 mg 1 01/06/2018 diphenhydrAMINE (BENADRYL) i njection 6.25-12.5 mg 1 01/06/2018 fentaNYL citrate (PF) 50 mcg /mL injection 25-50 mcg 1 01/06/2018 ibuprofen (MOTRIN) tablet 600 mg 1 01/07/20 18 immune globulin Rho D (Rhoga m) injection 300 mcg 1 01/06/2018 influenza vaccine 2017- (3 yr+)(PF) (FLUZONE) IM injection-syringe 0.5 mL 1 01/06/2018 metoCLOPramide (REGLAN) injection 10 mg 1 0 01/06/2018 midazolam (PF) (VERSED) 1 mg /mL injection 1 mg 1 01/06/2018 naloxone (NARCAN) injection 0.2 mg 1 2017 ondansetron (PF) (ZOFRAN) injection 4 mg 2 01/06/2018 ondansetron (PF) (ZOFRAN) injection 4-8 mg 1 01/06/2018 ondansetron (ZOFRAN-ODT) dis integrating tablet 4 mg 1 01/06/2018 oxyCODONE (ROXICODONE) immed iate release tablet 5-10 mg 1 01/06/2018 Diet Count Last Ordered Date First Orde red Date DISCHARGE DIET 1 01/06/2018 Nursing Count Last Ordered Date First Orde red Date ACTIVITY INSTRUCTIONS 1 01/06/2018 APPLY WARMING BLANKET 1 01/06/2018 BATHING INSTRUCTIONS 1 01/06/2018 PATIENT AT LOW RISK FOR VTE: RISK OF PHARMACOLOGIC PROPHYLAXIS OUTWEIG 1 01/06/[address] PL[address] SEQUENTIAL COMPRESSION DEVICE 1 01/06 Respiratory Care Count Last Ordered Date First Ordered Date NEBULIZER TX INTERMITTENT 3 01/07/2018 Admission Count Last Ordered Date First Orde red Date STATUS: OUTPATIENT OBSERVATION SERVICES 1 0 01/06/2018 STATUS: OUTPATIENT SURGICAL OP BED/SERVICES 1 01/06/2018 Transfer Count Last Ordered Date First Orde red Date NOTIFY PPS OF DISCHARGE COMPLETE 1 01/08/20 18 NOTIFY PPS PATIENT ARRIVAL IN PACU 1 2017 NOTIFY PPS PATIENT TRANSFERRED OUT OF PACU 1 01/06/2018 PPS NOTIFICATION OF PATIENT ARRIVAL ON UNIT 1 01/06/2018 UR PATIENT STATUS CHANGE 1 01/06/2018 Discharge Count Last Ordered Date First Orde red Date DISCHARGE PATIENT 1 01/07/2018 Legal Count Last Ordered Date First Orde red Date MISCELLANEOUS DISCHARGE INSTRUCTIONS 1 12/2017 Transfuse Count Last Ordered Date First Orde red Date ADMINISTER RHOGAM (RHIG) 300 MCG IM 1 01/06 documented in this encounter Care Teams Supervisor [employer] Relationship Specialty Start Date End Date Monica Vuong APRN [address] [place] [address] PCP - General 01/06/18 02/20/18 documented as of this encounter
--- OUTSIDE RECORDS SUMMARY | 2024-08-26 12:51 | XMS_ITS | Encounter Summary ---
Author Organization [facility] [place] [address] Care Team Providers Care Platform Attendant Name Role Phone None Primary Care Provider Unavailabl e Reason for Visit * Reason Comments Vaginal Bleeding Encounter Details Date Type Department Care Team (Late st Contact Info) Description 08/29/2018 11:53 AM EDT - 08/29/2018 4:14 PM EDT [place] [address] Tea Rodriguez MD [facility] [place] [address] Vaginal bleeding; Acute pelvic pain, female Discharge Disposition: Home Social History Tobacco Use Types Packs/Day Years Used Date Smoking Tobacco: Never Sex and Gender Information Value Date Recorded Sex Assigned at Not on file Gender Identity Not on file Sexual Orientation Not on file documented as of this encounter Last Filed Vital Signs Vital Sign Reading Time Taken Comments Blood Pressure 137/64 08/29/2018 11:41 AM EDT Pulse 71 08/29/2018 11:41 AM EDT Temperature 36.9 ??C (98.4 ??F) 08/29/2018 11:41 AM E DT Respiratory Rate 16 08/29/2018 11:41 AM EDT Oxygen Saturation 100% 08/29/2018 11:41 AM EDT Inhaled Oxygen Concentration - - Weight - - Height - - Body Mass Index - - documented in this encounter Discharge Instructions * Discharge Instructions* Kurtis Miguel - 08/29/2018 4:04 PM EDT Please return to the ED if you develop: - worsening vaginal bleeding to the point you are soaking one pad per hour - markedly worsening pelvic pain - persistent fevers - any other new, concerning symptoms Please follow-up with your curator herbarium or primary care doctor in the next 2-3 days if you continueto have symptoms. You will be contacted only if your STD testing is positive. documented in this encounter Medications at Time [...] as of this encounter ED Notes * Jane Hall RN - 08/29/2018 4:02 PM EDT Pt witnessed walking out by RN on floor. Room check done and no pt belongings are in room at this time. * Jane Hall RN - 08/29/2018 3:50 PM EDT Pt back from US c/o pain at IV site worse than the pain of my vaginal pain, I want it out now. IVremoved. Pt sitting up in chair not wanting to be in stretcher or on monitor. * Jane Hall RN - 08/29/2018 3:03 PM EDT Pt to ultrasound via stretcher * Kurtis Miguel - 08/29/2018 2:22 PM EDT Chief Complaint Patient presents with ??? Vaginal Bleeding HPI 18 yo F presenting with non- vaginal bleeding and BL pelvic pain for the last threedays. Patient has Mirena in place since June 2017 at the time of a D&C . Has had no bleeding or spotting since then. Then, starting three days ago, she developed vaginal spotting as well as bilateral pelvic pain R>L. Denies vaginal discharge, vaginal pain, trauma to the vagina, fevers, sweats, chills, irritative voiding symptoms, lighteadedness and SOB. Has had vaginal intercourse recently which has been unprotected. No Known Allergies Review of Systems Constitutional: Negative for appetite change and fever. HENT: Negative for rhinorrhea and sore throat. Eyes: Negative for visual disturbance. Respiratory: Negative for cough and shortness of breath. Cardiovascular: Negative for chest pain. Gastrointestinal: Positive for abdominal pain. Negative for nausea and vomiting. Genitourinary: Positive for vaginal bleeding. Negative for dysuria and frequency. Skin: Negative for rash. Neurological: Negative for light-headedness and headaches. Psychiatric/Behavioral: Negative for confusion. Physical Exam BP 137/64 (Patient Position: Sitting) Pulse 71 Temp 36.9 ??C (98.4 ??F) (Oral) Resp 16 [id number]% GEN: awake, alert; appears well and in NAD HEENT: MMM, PERRL; oropharynx clear NECK: supple CV: RRR w/o MRG PULM: normal WOB on RA; CTAB ABD: soft, ND, moderately TTP in the BL pelvis, L>R without guarding or rebound EXT: WWP NEURO: grossly intact DERM: no rash or other lesion PSYCH: appropriate behavior and speech Procedures MDM and ED Course: Patient presents with three days of VB with Mirena IUD in place along with BL pelvic pain, currently not by UPT. DDX is broad. Given pain with VB we opted for TVUS which did not show any pathology and showed IUD in normal position. UA was without evidence of UTI, did show RBCs. GC/chlamydia sent, pending. Patient left prior to my discussing her US results with her. She was offered a course of oral contraceptives to help stop vaginal bleeding but declined. She was counseled about returnprecautions prior to leaving as she had mentioned she might be leaving early. I attempted to call the patient by her home phone number listed in [employer] and the number is disconnected. Kurtis Miguel MD Resident 08/30/18 1126 Associated attestation - Tea Rodriguez MD - 08/31/2018 3:46 PM EDT ED ATTENDING ATTESTATION The patient was seen [...] unless stated otherwise in my separate note. * Yue Pham RN - 08/29/2018 1:44 PM EDT Pt requesting to leave stating since the nurse was in here an hour ago no one else has come in Donya'm just sitting here so I'd like to leave. No MD assigned to pt at this time. This nurse notified Dr. Abdul of pt's statements. CBC and u-preg completed per order. documented in this encounter Plan of Treatment Pending Results Name Type Priority Associated Diagnoses Date /Time GC/Chlamydia (Leb/CGP) Urine Microbiology STAT 08/29/2018 4:14 PM EDT documented as of this encounter Procedures Procedure Name Priority Date/Time Associated Diagnosis Comments URINALYSIS MICROSCOPIC EXAM STAT 08/29/2018 4:14 PM EDT URINALYSIS WITH REFLEX CULTURE STAT 08/29/2018 4:14 PM EDT US TRANSVAGINAL NON OB STAT 08/29/2018 3:14 PM EDT HEMOGRAM STAT 08/29/2018 12:45 PM EDT DIFFERENTIAL, AUTOMATED STAT 08/29/2018 12:45 PM EDT BLUE TUBE HOLD STAT 08/29/2018 12:45 PM EDT GREEN TUBE HOLD STAT 08/29/2018 12:45 PM EDT CBC (WITH DIFF) STAT 08/29/2018 12:45 PM EDT POCT URINE STAT 08/29/2018 12:00 PM EDT documented in this encounter Results * (ABNORMAL) Urinalysis Microscopic Exam (08/29/2018 4:14 PM EDT) RBC, Urine 14(H) 0 - 4 /HPF [facility] WBC, Urine 1 0 - 5 /HPF [facility] Squamous Epithelial Cells Raw Data, Urine <1 <=4 /HPF [facility] Urine specimen (specimen) 08/29/2018 4:14 PM EDT 08/29/2018 4:48 PM EDT Narrative Resulting Agency Comment Spec In Lab Kurtis Miguel MD URINE ORDERABLES [facility] [place] [address] * (ABNORMAL) Urinalysis with reflex Culture (08/29/2018 4:14 PM EDT) Glucose, Urine Dipstick Negative Negative mg/dL [facility] Protein, Urine Dipstick Negative Negative mg/dL [facility] Bilirubin, Urine Dipstick Negative Negative mg/dL [facility] Comment: Clinical correlation required for positive Urine Bilirubin results as false positive may occur with some drugs and drug related products. If a false positive is suspected a serum total bilirubin should be considered if clinically indicated. Urobilinogen, Urine Dipstick Normal Normal mg/dL [facility] pH, Urn (dipstick) 6.0 5.0 - 8.0 [facility] Blood, Urine Dipstick Moderate(A) Negative mg/dL [facility] Ketone, Urine Dipstick Negative Negative mg/dL [facility] Nitrite, Urine Dipstick Negative Negative [facility] Leukocytes, Urine Dipstick Negative Negative [facility] Appearance, Urine Dipstick Clear Clear [facility] Specific Monon Urine Automated 1.017 1.002 - 1.030 [facility] Color, Urine Dipstick Yellow Yellow [facility] Reflex to Culture No [facility] Urine specimen (specimen) 08/29/2018 4:14 PM EDT 08/29/2018 4:48 PM EDT Narrative Resulting Agency Comment Spec In Lab Pepper Kimbrough MD URINE ORDERABLES Performing Organization Address City/State/[facility] Co de Phone Number [facility] [place] [address] * US Transvaginal Non OB (08/29/2018 3:14 PM EDT) Anatomical Region Laterality Modality Ultrasound 08/29/2018 3:15 PM EDT Impressions 08/29/2018 3:27 PM EDT ??Normal transvaginal ultrasound. IUD is appropriately situated in the uterus. ?Maria Ines Gannon MD Electronically Signed Final Report ?? 08/29/2018 03:27 pm Narrative 08/29/2018 3:27 PM EDT Gynecological Report ? (Signed Final 08/29/2018 03:27 pm) PATIENT INFO: ID #: ? [id number] ?: ??[birth year] (18 yrs) Name: ? LISA Eric ?Visit Date: 08/29/2018 03:15 pm ? KATHERINE PERFORMED BY: Performed By: ? Yessica Ramos RDMS Attending: ?Jagdeep GONZALEZ, Maria Ines Franco Referred By: ?PEPPER KIMBROUGH Location: ? [place] SERVICE(S) PROVIDED: ??UTV - Transvaginal - [id number] ?[id number] ??U3D - ??3D rendering with interpretation - [id number] ? [id number] INDICATIONS: ??vaginal bleeding x3 days with bilateral pelvic ??pain; assess for structural abnormalities ??such as polyps and fibroids; assess for ??Mirena location TECHNIQUE/SCAN QUALITY: Technique: ?Transducer ID#:[id number] -------- HISTORY: -------- Age: ?? 18 ------- UTERUS: ------- Uterus: ? Visualized Position: ?? Anteverted Size (cm) ?L: ??6.2 ? W: ?? 4.3 ?H: ??3.2 ENDOMETRIUM: Endometrium: ?Normal Thickness(mm): ?4.0 Comment: ? 3D rendering with interpretation was performed ?for IUD placement RIGHT OVARY: Status: ?? Visualized Size (cm) ?L: ??3.5 ? W: ?? 2.8 ?H: ??1.5 Vol (ml): ?7.7 Morphology: ?Normal appearance LEFT OVARY: Status: ?? Visualized Size (cm) ?L: ??3.1 ? W: ?? 1.7 ?H: ??1.2 Vol (ml): ?3.3 Morphology: ?Normal appearance Procedure Note Maria Ines aGnnon MD - 08/29/2018 Gynecological Report (Signed Final 08/29/2018 03:27 pm) PATIENT INFO: ID #: [id number] : [birth year] (18 yrs) Name: LISA Reyes Visit Date: 08/29/2018 03:15 pm KATHERINE PERFORMED BY: Performed By: Yessica Ramos RDMS Attending: Maria Ines Gannon MD Referred By: PEPPER KIMBROUGH Location: [place] SERVICE(S) PROVIDED: UTV - Transvaginal - [id number] U3D - 3D rendering with interpretation - [id number] INDICATIONS: vaginal bleeding x3 days with bilateral pelvic pain; assess for structural abnormalities such as polyps and fibroids; assess for Mirena location TECHNIQUE/SCAN QUALITY: Technique: Transducer ID#:[id number] -------- HISTORY: -------- Age: 18 ------- UTERUS: ------- Uterus: Visualized Position: Anteverted Size (cm) L: 6.2 W: 4.3 H: 3.2 ENDOMETRIUM: Endometrium: Normal Thickness(mm): 4.0 Comment: 3D rendering with interpretation was performed for IUD placement RIGHT OVARY: Status: Visualized Size (cm) L: 3.5 W: 2.8 H: 1.5 Vol (ml): 7.7 Morphology: Normal appearance LEFT OVARY: Status: Visualized Size (cm) L: 3.1 W: 1.7 H: 1.2 Vol (ml): 3.3 Morphology: Normal appearance IMPRESSION Normal transvaginal ultrasound. IUD is appropriately situated in the uterus. Maria Ines Gannon MD Electronically Signed Final Report 08/29/2018 03:27 pm Pepper Kimbrough MD IMG US PELVIC ORDERA BLES * Green Tube HOLD (08/29/2018 12:45 PM EDT) Green Hold Sample in lab. [facility] Blood specimen (specimen) Venous Draw / Unknown 08/29/2018 12:45 PM EDT 08/29/2018 1:03 PM EDT Pepper Kimbrough MD CHEMISTRY ORDERABLES [facility] [place] [address] * Blue Tube HOLD (08/29/2018 12:45 PM EDT) Blue Hold Sample in lab. [facility] Blood specimen (specimen) Venous Draw / Unknown 08/29/2018 12:45 PM EDT 08/29/2018 1:03 PM EDT Pepper Kimbrough MD HEMATOLOGY ORDERABLE S [facility] [place] [address] * Differential, Automated (08/29/2018 12:45 PM EDT) Neutrophil % 44.2 % [facility] Neutrophil Absolute 3.02 1.70 - 6.10 x10(3)/[facility] Lymph % 40.0 % [facility] Lymphocytes Abs 2.7 0.9 - 3.2 x10(3)/[facility] Monocyte % 8.8 % [facility] Monocyte Abs 0.6 0.3 - 0.9 x10(3)/[facility] Eos % 6.0 % [facility] Eosinophils Abs 0.4 0.0 - 0.4 x10(3)/[facility] Basophil % 0.7 % [facility] Baso Absolute 0.0 0.0 - 0.1 x10(3)/[facility] Immature Gran % 0.30 % [facility] Comment: Immature granulocytes(IG's)percentage and absolute count will include metamyelocytes, myelocytes, and promyelocytes. Blood smears from CBCs yielding IG's will be scanned manually for concordance. If this scan disagrees with the automated IG or if promyelocytes are noted, a manual differential will be performed. Immature Gran Absolute 0.02 0.00 - 0.04 x10(3)/[facility] Blood specimen (specimen) 08/29/2018 12:45 PM EDT 08/29/2018 1:02 PM EDT Narrative Resulting Agency Comment Spec In Lab Pepper Kimbrough MD HEMATOLOGY ORDERABLE S [facility] [place] [address] * Hemogram (08/29/2018 12:45 PM EDT) White Blood Cell 6.8 4.0 - 9.5 x10(3)/[facility] Red Blood Cell 4.67 4.00 - 5.21 x10(6)/[facility] Hemoglobin 14.0 11.7 - 15.5 gm/dL [facility] Hematocrit 41.5 35.7 - 45.8 % [facility] Mean Cell Volume 88.9 82.6 - 94.4 fL [facility] Mean Cell Hemoglobin 30.0 27.1 - 32.0 pg [facility] Mean Cell Hemoglobin Concentration 33.7 31.7 - 35.0 gm/dL [facility] Platelet 308 145 - 357 x10(3)/[facility] RDW Standard Deviation 45.2 37.0 - 46.0 fL [facility] RDW coefficient of variation 13.9 11.5 - 14.1 % [facility] Mean Platelet Volume 10.9 7.6 - 12.9 fL [facility] NRBC% auto 0.0 % [facility] NRBC Absolute 0.000 0.000 - 0.000 x10(3)/mcL [facility] Blood specimen (specimen) 08/29/2018 12:45 PM EDT 08/29/2018 1:02 PM EDT Narrative Resulting Agency Comment Spec In Lab Pepper Kimbrough MD HEMATOLOGY ORDERABLE S [facility] [place] [address] * POCT urine (08/29/2018 12:00 PM EDT) POC Urine HCG Negative Negative - Negative POC Control Internal Controls Acceptable 08/29/2018 12:0 0 PM EDT Pepper Kimbrough MD POINT OF CARE TEST O RDERABLES documented in this encounter Visit Diagnoses Diagnosis Vaginal bleeding Other specified noninflammatory disorder of vagina Acute pelvic pain, female Unspecified symptom associated with female genital organs documented in this encounter Administered Medications Inactive Administered Medications - up to 3 most recent administrations Medication Order MAR Action Action Date Dose Rate Site flu vacc (6 mos-64 yrs)(PF) (Flulaval Quad) IM injection 0.5 mL 0.5 mL, Intramuscular, PRIOR TO DISCHARGE, 1 dose, Starting on Tue08/29/18 at 1145, Until Tue08/29/18 at 1815, Per Protocol, Routine documented in this encounter Active and Recently Administered Medications Times are shown in EDT. PRN Medication Order 08/27/2018 08/28/2018 08/29/2018 flu vacc (6 mos-64 yrs)(PF) (Flulaval Quad) IM injection 0.5 mL 0.5 mL, Intramuscular, PRIOR TO DISCHARGE, 1 dose, Starting on Tue08/29/18 at 1145, Until Tue08/29/18 at 1815, Per Protocol, Routine documented in this encounter Care Teams Platform Attendant Relationship Specialty Start Date End Date None None PCP - General 08/29/18 09/19/18 documented as of this encounter
--- OUTSIDE RECORDS SUMMARY | 2024-08-26 12:51 | XMS_ITS | Encounter Summary ---
Author Organization [facility] Address [address] [place] [address] Care Team Providers Care Associate Professor Of Surgery Name Role Phone Unknown, Provider Primary Care Provider [phone] Encounter Details Date Type Department Care Team (Late st Contact Info) Description 02/13/2016 Results Only [facility] [phone] Solitario Maldonado CNM [address] [place], [place] [address] Social History Tobacco Use Types Packs/Day Years Used Date Smoking Tobacco: Never Assessed Sex and Gender Information Value Date Recorded Sex Assigned at Not on file Gender Identity Female 01/02/2024 21:03 EST Sexual Orientation Not on file documented as of this encounter Plan of Treatment Not on file documented as of this encounter Procedures Procedure Name Priority Date/Time Associated Diagnosis Comments SCREEN TEST Routine 02/13/2016 18: 10 EDT documented in this encounter Results * SCREEN TEST (02/13/2016 18:10 EDT) Screen Test NEGATIVE [facility] 02/13/2016 18:1 0 EDT Solitario Maldonado [facility] TESTS [facility] documented in this encounter Visit Diagnoses Not on filedocumented in this encounter Care Teams Associate Professor Of Surgery Relationship Specialty Start Date End Date Unknown, Provider, PCP - General 02/13/16 01/05/18 documented as of this encounter
--- OUTSIDE RECORDS SUMMARY | 2024-08-26 12:51 | XMS_ITS | Encounter Summary ---
Author Organization [facility] [place] [address] Care Team Providers Care Window Shade Cloth Sewer Name Role Phone Carolyn Obrien APRN Primary Care Provider [phone] Encounter Details Date Type Department Care Team (Late st Contact Info) Description 11/11/2019 4:05 PM EST Ancillary Procedure Radiology Library at [facility] [place] [address] Social History Tobacco Use Types Packs/Day Years Used Date Smoking Tobacco: Never Sex and Gender Information Value Date Recorded Sex Assigned at Not on file Gender Identity Not on file Sexual Orientation Not on file documented as of this encounter Plan of Treatment Not on file documented as of this encounter Procedures Procedure Name Priority Date/Time Associated Diagnosis Comments FILM LIBRARY STORAGE ONLY CT HEAD AND SPINE STAT 11/11/2019 3:58 PM EST documented in this encounter Results * Film Library- Storage Only CT Head And Spine (11/11/2019 3:58 PM EST) Narrative RAD - 11/11/2019 3:58 PM EST This exam is auto-finalizing. It's purpose is for storage only. Clara Herzog MD IMG FILM LIBRARY ORD ERABLES [place] documented in this encounter Visit Diagnoses Not on filedocumented in this encounter Care Teams [employer] Cl[employer] Sewer Relationship Specialty Start Date End Date Carolyn Obrien APRN PCP - General Family Medicine 09/20/18 documented as of this encounter
--- OUTSIDE RECORDS SUMMARY | 2024-08-26 12:51 | XMS_ITS | Encounter Summary ---
Author Organization [facility] Address [address] [place] [address] Care Team Providers Care Pump House Engineer Name Role Phone Unknown, Provider Primary Care Provider Reason for Visit * Reason Comments Elective Encounter Details Date Type Department Care Team (Late st Contact Info) Description 01/05/2018 14:00 EST Initial consult [facility] - [address] [id number] Corina Sky MD [address] [place] [address] [address] [place] [address] Encounter for elective termination of (Primary Dx) Social History Tobacco Use Types Packs/Day Years Used Date Smoking Tobacco: Never Smokeless Tobacco: Never Comments Yes Sex and Gender Information Value Date Recorded Sex Assigned at Not on file Gender Identity Female 01/02/2024 21:03 EST Sexual Orientation Not on file documented as of this encounter Last Filed Vital Signs Vital Sign Reading Time Taken Comments Blood Pressure 104/68 01/05/2018 1340 EST Pulse - - Temperature - - Respiratory Rate - - Oxygen Saturation - - Inhaled Oxygen Concentration - - Weight 59.6 kg (131 lb 8 oz) 01/05/2018 1340 EST Height 161.3 cm (5' 3.5) 01/05/2018 1340 EST Body Mass Index 22.93 01/05/2018 1340 EST Body Mass Index Percentile 69.32% 01/05/2018 134 0 EST Growth Chart: [facility] (Girls, 2- 20 Years) documented in this encounter Ordered Prescriptions Prescription Sig Dispensed Refills Start Date End Da te ondansetron (ZOFRAN) 4 mg tablet Take 1 Tab by mouth every 4 hours as needed for Nausea. 6 Tab 01/05/2018 02/21/2018 documented in this encounter Progress Notes * Corina Sky MD - 01/05/2018 1400 EST CC: Elective HPI: Lisa Gabriel is [...] procedure tomorrow. Seen and discussed with Dr. Sky. Please see procedure note for description of laminaria/dilapanplacement. Khadra Hermosillo MD 01/05/2018 23:55 Obstetrics & Gynecology, PGY-3 Pager [phone] Attestation statement: I saw and examined the patient. I agree with the resident's/fellow's findings and plans as documented above. Corina Sky MD documented in this encounter Procedure Notes * Corina Sky MD - 01/05/2018 1400 EST Procedure: Procedures Laminaria insertion ?? Written surgical consent obtained after risks/benefits discussed with patient. Bimanual exam performed, revealed anteverted 21 week sized uterus. Speculum inserted. Cervix cleansed 3 times with betadine. 2 cc of 1% lidocaine injected into the anterior lip of the cervix Single tooth tenaculum placed on anterior lip of cervix. Laminaria inserted without difficulty - a total of 4 dilapan and 4 laminaria and 1 gauze in the vagina Patient tolerated well. Corina Sky MD documented in this encounter Plan of Treatment Not on file documented as of this encounter Visit Diagnoses Diagnosis Encounter for elective termination of - Primary Unspecified legally induced without mention of complication documented in this encounter Administered Medications Inactive Administered Medications - up to 3 most recent administrations Medication Order MAR Action Action Date Dose Rate Site MiFEPRIStone (MIFEPREX) tablet 200 mg 200 mg, oral, NOW X1, 1 dose, On Nichelel 01/05/18 at 1545, What is the indication for use? Adjunct cervical preparation for second trimester via D&E, Are you a MiFEPRIStone [employer]S certified prescriber? Yes, Has the Patient Agreement Form been completed? Yes, Has the Medication Guide been provided to the patient? Yes, What is the serial number for the miFEPRIStone dose provided to the patient? [id number], Routine Given 01/05/2018 15:26 EST 200 mg documented in this encounter Care Teams Pump House Engineer Relationship Specialty Start Date End Date Unknown, Provider, PCP - General 02/13/16 01/05/18 documented as of this encounter
--- OUTSIDE RECORDS SUMMARY | 2024-08-26 12:51 | XMS_ITS | Encounter Summary ---
Author Organization [facility] [place] [address] Care Team Providers Care Section Leader Name Role Phone Greer Burton MD Primary Care Provider [phone] Reason for Visit * Reason Comments Follow-up Encounter Details Date Type Department Care Team (Late st Contact Info) Description 03/21/2015 8:15 AM EDT Office Visit Dermatology at [address] [place] [address] Bao Smart MD [address] [facility], [place] [address] Verruca vulgaris Discharge Disposition: Home Social History Tobacco Use Types Packs/Day Years Used Date Smoking Tobacco: Never Sex and Gender Information Value Date Recorded Sex Assigned at Not on file Gender Identity Not on file Sexual Orientation Not on file documented as of this encounter Patient Instructions * Patient Instructions* Judi Waite LPN - 03/21/2015 8:11 AM EDT Images from the original note were not included. [facility] Warts: After Your Visit Your Care Instructions A wart is a harmless skin growth caused by a virus. The virus makes the top layer of skin grow quickly, causing a wart. Warts usually go away on their own in months or years. There are several types of warts. Common warts appear most often on the hands, but they may be anywhere on the body. Plantarwarts occur on the soles of the feet and may cause pain when you walk. Warts spread easily. You can reinfect yourself by touching the wart and then touching another part of your body. You can infect others by sharing towels, razors, or other personal items. Most warts do not need treatment and go away on their own. But if warts cause pain or spread, your doctor may recommend that you use an vuzu-yoe-dmuzmka treatment. These include salicylic acid or duct tape. Or your doctor may prescribe a stronger medicine to put on warts or may inject them with medicine. The doctor also can remove warts through surgery or by freezing them. Follow-up care is a larios part of your treatment and safety. Be sure to make and go to all appointments, and call your doctor if you are having problems. It???s also a good idea to know your test results and keep a list of the medicines you take. How can you care for yourself at home? For common warts ?? Use salicylic acid or duct tape as your doctor directs. You put the medicine or the tape on a wart for several days and then file down the skin on the wart. You use the salicylic acid treatment for 2 to 3 months or the tape for 1 to 2 months. ?? If your doctor prescribes medicine to put on warts, use it exactly as directed. Call your doctorif you think you are having a problem with your medicine. For plantar (foot) warts ?? Wear comfortable shoes and socks. Avoid high heels and shoes that put a lot of pressure on your foot. ?? Pad the wart with doughnut-shaped felt or a moleskin patch. You can buy these at a [employer]. Put the pad around the plantar wart so that it relieves pressure on the wart. You also can place pads or cushions in your shoes to make walking more comfortable. ?? Take an iaws-dfh-jugnygo pain medicine, such as acetaminophen (Tylenol), ibuprofen (Advil, Motrin), or naproxen (Aleve). Read and follow all instructions on the label. ?? Do not take two or more pain medicines at the same time unless the doctor told you to. Many painmedicines have acetaminophen, which is Tylenol. Too much acetaminophen (Tylenol) can be harmful. To avoid spreading warts ?? Keep warts covered with a bandage or athletic tape. ?? Do not bite your nails or cuticles. This may spread warts from one finger to another. When should you call for help? Call your doctor now or seek immediate medical care if: ?? You have signs of infection, such as: ?? Increased pain, swelling, warmth, or redness. ?? Red streaks leading from a wart. ?? Pus draining from a wart. ?? A fever. Watch closely for changes in your health, and be sure to contact your doctor if: ?? You have a new growth and you are not sure it is a wart. ?? You still have warts after 2 to 3 months of cbpr-nry-xlhkozj treatment. ?? Your warts are growing or spreading quickly, even with treatment. ?? You cannot walk without pain because of a plantar wart. ?? You do not get better as expected. Where can you learn more? Visit our health information library at [email or web address] You can also view health information on [employer], your personal patient account. Log in or sign up today. Enter K886 in the search box to learn more about Warts: After Your Visit. ?? [phone] [employer]. Care instructions adapted under license by [facility]. This care instruction is for use with your licensed healthcare professional. If you have questions about a medical condition or this instruction, always ask your healthcare professional. [employer] disclaims any warranty or liability for your use of this information. Content Version: 10.4.965485; Current as of: January 16, 2014 documented in this encounter Progress Notes * Bao Smart MD - 03/21/2015 8:44 AM EDT Problem: Followup verrucae vulgaris, visit number two for LN2Aly Gonzalez follows up and states that she has had some improvement but still has warts present at the sites noted on the flow sheet from 03/03/2015. She had a pustular inflammatory reaction at the left thumb site with some erythema and lymphangitis extending up from that up her arm. There is no overlying dermatitis today, and the pustular reaction and drainage from the actual treatment site has stopped. Lisa's father has tried Freeze Away without success. I had previously treated her with oral vitamin A, cimetidine, Aldara cream, and Canthacur PS. Physical examination reveals three verrucae vulgaris present on the right hand and one on the left thumb. Assessment and Plan: Verrucae vulgaris. a. LN2 times three applied to each of the three sites on her right hand. b. I recommended that I see her again in another two weeks for repeat check. c. We could consider electrodesiccation if two or three treatments do not bring resolution of these lesions. COPY: Greer Burton M.D. documented in this encounter Plan of Treatment Not on file documented as of this encounter Visit Diagnoses Diagnosis Verruca vulgaris Viral warts, unspecified documented in this encounter Care Teams Section Leader Relationship Specialty Start Date End Date Greer Burton MD [facility] [place] [address] PCP - General 09/29/10 03/31/15 documented as of this encounter
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
--- OUTSIDE RECORDS SUMMARY | 2024-08-26 12:51 | XMS_ITS | Encounter Summary ---
Author Organization [facility] [place] [address] Care Team Providers Care Technical Sales Director Name Role Phone Carolyn Obrien APRN Primary Care Provider [phone] Encounter Details Date Type Department Care Team (Late st Contact Info) Description 11/11/2019 4:15 PM EST Ancillary Procedure Radiology Library at [facility] [place] [address] Social History Tobacco Use Types Packs/Day Years [...] Diagnosis Comments FILM LIBRARY STORAGE ONLY DX CHEST STAT 11/11/2019 3:59 PM EST documented in this encounter Results * Film Library- Storage Only DX Chest (11/11/2019 3:59 PM EST) Narrative RAD - 11/11/2019 3:59 PM EST This exam is auto-finalizing. It's purpose is for storage only. Clara Herzog MD IMG FILM LIBRARY ORD ERABLES [place] documented in this encounter Visit Diagnoses Not on filedocumented in this encounter Care Teams Technical Sales Director Relationship Specialty Start Date End Date Carolyn Obrien APRN PCP - General Family Medicine 09/20/18 documented as of this encounter
--- OUTSIDE RECORDS SUMMARY | 2024-08-26 12:51 | XMS_ITS | Encounter Summary ---
Author Organization [facility] [address] Care Team Providers Care Rn Outpatient Surgery Name Role Phone Greer Burton MD Primary Care Provider [phone] Reason for Visit * Reason Comments Verrucous Vulgaris Encounter Details Date Type Department Care Team (Late st Contact Info) Description 04/28/2015 8:30 AM EDT Office Visit Dermatology at [address] [place] [address] Bao Smart MD [address] [place] [address], [place] [address] Verruca vulgaris Discharge Disposition: Home Social History Tobacco Use Types Packs/Day Years Used Date Smoking Tobacco: Never Sex and Gender Information Value Date Recorded Sex Assigned at Not on file Gender Identity Not on file Sexual Orientation Not on file documented as of this encounter Patient Instructions * Patient Instructions* Judi Waite LPN - 04/28/2015 8:20 AM EDT Images from the original note were not included. [facility] Warts: After Your Visit Your Care Instructions [...] doctor may recommend that you use an kvmf-oxf-omixhga treatment. These include salicylic acid or duct [...] patch. You can buy these at a [employer]. Put the pad around the plantar wart so that it relieves pressure on the wart. You also can place pads or cushions in your shoes to make walking more comfortable. ?? Take an kjsx-kng-jnivshg pain medicine, such as acetaminophen (Tylenol), ibuprofen [...] warts after 2 to 3 months of vbtw-vjw-phxzoww treatment. ?? Your warts are growing or spreading quickly, even with treatment. ?? You cannot walk without pain because of a plantar wart. ?? You do not get better as expected. Where can you learn more? Visit our health information library at [email or web address] You can also view health information on [employer], your personal patient account. Log in or sign up today. Enter K886 in the search box to learn more about Warts: After Your Visit. ?? [phone] [employer]. Care instructions adapted under license by [facility]. This care instruction is for use with your licensed healthcare professional. If you have questions about a medical condition or this instruction, always ask your healthcare professional. [employer] disclaims any warranty or liability for your use of this information. Content Version: 10.4.373130; Current as of: January 16, 2014 documented in this encounter Progress Notes * Bao Smart MD - 04/28/2015 8:18 AM EDT Problem: Followup verruca vulgaris, visit number three for LN2. Lisa follows up with her friend, Saskia. Unfortunately, she still has two warts left. These are two on her right hand, present on the right second and third fingers. Physical examination confirms this. Assessment and Plan: Verruca vulgaris. a. LN2 times three applied to the two remaining sites. b. All other wart sites have resolved. c. Recommend that I see her again in another two to three weeks. We will consider electrodesiccation at that time if warts are still present. documented in this encounter Plan of Treatment Not on file documented as of this encounter Visit Diagnoses Diagnosis Verruca vulgaris Viral warts, unspecified documented in this encounter Care Teams Rn Outpatient Surgery Relationship Specialty Start Date End Date Greer Burton MD [address] [place] [address] PCP - General 04/01/15 08/28/18 documented as of this encounter
--- OUTSIDE RECORDS SUMMARY | 2024-08-26 12:51 | XMS_ITS | Encounter Summary ---
Author Organization [facility] [place] [address] Care Team Providers Care Mechanical Artist Name Role Phone Greer Burton MD Primary Care Provider [phone] Reason for Visit * Reason Comments Verrucous Vulgaris Encounter Details Date Type Department Care Team (Late st Contact Info) Description 05/22/2015 2:30 PM EDT Office Visit Dermatology at [address] [place] [address] Bao Smart MD [address] [place] [address], [place] [address] Verruca vulgaris Discharge Disposition: Home Social History Tobacco Use Types Packs/Day Years Used Date Smoking Tobacco: Never Sex and Gender Information Value Date Recorded Sex Assigned at Not on file Gender Identity Not on file Sexual Orientation Not on file documented as of this encounter Patient Instructions * Patient Instructions* Judi Waite LPN - 05/22/2015 2:46 PM EDT Images from the original note were not included. [facility] Warts: After Your Visit Your Care [...] doctor may recommend that you use an qgad-nuj-jdmluyg treatment. These include salicylic acid or duct [...] patch. You can buy these at a [employer]. Put the pad around the plantar wart so that it relieves pressure on the wart. You also can place pads or cushions in your shoes to make walking more comfortable. ?? Take an rcve-cpx-wfncvhw pain medicine, such as acetaminophen (Tylenol), ibuprofen [...] warts after 2 to 3 months of zxhn-ljy-gxvxofq treatment. ?? Your warts are growing or spreading quickly, even with treatment. ?? You cannot walk without pain because of a plantar wart. ?? You do not get better as expected. Where can you learn more? Visit our health information library at [email or web address] You can also view health information on [employer], your personal patient account. Log in or sign up today. Enter K886 in the search box to learn more about Warts: After Your Visit. ?? [phone] [employer]. Care instructions adapted under license by [facility]. This care instruction is for use with your licensed healthcare professional. If you have questions about a medical condition or this instruction, always ask your healthcare professional. [employer] disclaims any warranty or liability for your use of this information. Content Version: 10.4.832558; Current as of: January 16, 2014 documented in this encounter Progress Notes * Bao Smart MD - 05/22/2015 2:53 PM EDT Problem: Followup verruca vulgaris. Lisa follows up today alone and has three warts remaining on her right hand. She states that they actually did seem to resolve but then have grown back. Physical examination reveals three verruca on her thumb, on her right second and third fingers, and also on the dorsal fourth finger. Assessment and Plan: Verruca vulgaris. a. LN2 times three applied to each of three sites. b. Recommend return to clinic if this does not bring resolution. Could consider bleomycin versus electrodesiccation. documented in this encounter Plan of Treatment Not on file documented as of this encounter Visit Diagnoses Diagnosis Verruca vulgaris Viral warts, unspecified documented in this encounter Care Teams Mechanical Artist Relationship Specialty Start Date End Date Greer Burton MD [address] [place] [address] PCP - General 04/01/15 08/28/18 documented as of this encounter
--- OUTSIDE RECORDS SUMMARY | 2024-08-26 12:51 | XMS_ITS | Encounter Summary ---
Author Organization [facility], [facility] [place] [address] Care Team Providers Care Facilities Locator Name Role Phone Carolyn Obrien APRN Primary Care Provider [phone] Encounter Details Date Type Department Care Team (Late st Contact Info) Description 11/11/2019 4:00 PM EST Ancillary Procedure Radiology Library at [facility] [place] [address] Social History Tobacco Use Types Packs/Day Years [...] Diagnosis Comments FILM LIBRARY STORAGE ONLY DX PELVIS STAT 11/11/2019 3:57 PM EST documented in this encounter Results * Film Library- Storage Only DX Pelvis (11/11/2019 3:57 PM EST) Narrative RAD - 11/11/2019 3:57 PM EST This exam is auto-finalizing. It's purpose is for storage only. Clara Herzog MD IMG FILM LIBRARY ORD ERABLES ROHIT Huffman ND documented in this encounter Visit Diagnoses Not on filedocumented in this encounter Care Teams Facilities Locator Relationship Specialty Start Date End Date Carolyn Obrien APRN PCP - General Family Medicine 09/20/18 documented as of this encounter
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
--- OUTSIDE RECORDS SUMMARY | 2024-08-26 12:51 | XMS_ITS | Encounter Summary ---
Author Organization [facility] Address [address] [place] [address] Care Team Providers Care Therapeutic Mentor Name Role Phone Unknown, Provider Primary Care Provider Reason for Visit * Reason Onset Date Comments Appointment Related 01/02/2018 Encounter Details Date Type Department Care Team ([facility] st Contact Info) Description 01/02/2018 Telephone [facility] OBGYN Services - [address] [address] Corina Sky MD [address] [place] [address], [address] [place] [address] Appointment Related Social History Tobacco Use Types Packs/Day Years Used Date Smoking Tobacco: Never Assessed Sex and Gender Information Value Date Recorded Sex Assigned at Not on file Gender Identity Female 01/02/2024 21:03 EST Sexual Orientation Not on file documented as of this encounter Miscellaneous Notes * Telephone Encounter - Aarti Sin - 01/02/2018 1346 EST Termination of Intake Best contact number: [phone] Detailed Message OK? Yes Referring Provider: Has an ultrasound been performed for this ? Yes If so, Where? [facility] - Report received LMP: Unknown EGA: Will be 21+1 when in office 01/06 Type of termination desired: OR D&E Prior Obstetrical History: I prior Rh Status: Negative, per [facility] Significant Medical Conditions: None Any Prior Surgeries: None Patient is scheduled for , 01/05 in clinic for her consultation then in the OR on Tuesday, 01/06 at 3:40 PM. documented in this encounter Plan of Treatment Not on file documented as of this encounter Visit Diagnoses Not on filedocumented in this encounter Care Teams Therapeutic Mentor Relationship Specialty Start Date End Date Unknown, Provider, PCP - General 02/13/16 01/05/18 documented as of this encounter
--- OUTSIDE RECORDS SUMMARY | 2024-08-26 12:51 | XMS_ITS | Encounter Summary ---
Author Organization [facility] Address [address] [place] [address] Care Team Providers Care Fisher Sponge Hooking Name Role Phone Unknown, Provider Primary Care Provider Monica Vuong APRN Primary Care Provider [phone] None, Provider Primary Care Provider Unavailabl e Encounter Details Date Type Department Care Team (Late st Contact Info) Description 01/05/2018 Pre-Procedure Orders Encounter [facility] OBGYN Services - Main [place] [address] [place] [address] Khadra Hermosillo MD [address] [address] Encounter for elective termination of (Primary Dx) [...] mention of complication documented in this encounter Care Teams Fisher Sponge Hooking Relationship Specialty Start Date End Date Unknown, Provider, PCP - General 02/13/16 01/05/18 Monica Vuong APRN [address] [place] [address] PCP - General 01/06/18 02/20/18 None, Provider PCP - General 02/21/18 documented as of this encounter
--- OUTSIDE RECORDS SUMMARY | 2024-08-26 12:51 | XMS_ITS | Encounter Summary ---
Author Organization [facility] Address [address] [place] [address] Care Team Providers Care Juke Box Servicer Name Role Phone Monica Vuong APRN Primary Care Provider [phone] None, Provider Primary Care Provider Unavailabl e Reason for Visit * Reason Onset Date Comments New Patient Visit 01/11/2018 Encounter Details Date Type Department Care Team (Late st Contact Info) Description 01/11/2018 Telephone [facility] - Main [place] [address] [place], [place] [address] Monica Vuong APRN [address] [place], [place] [id number] New Patient Visit Social History Tobacco Use Types Packs/Day Years [...] encounter Miscellaneous Notes * Telephone Encounter - Sylvie Wiley - 01/11/2018 1052 EST Called spoke with dad. Will call back to schedule NPV. documented in this encounter Plan of Treatment Not on file documented as of this encounter Visit Diagnoses Not on filedocumented in this encounter Care Teams Juke Box Servicer Relationship Specialty Start Date End Date Monica Vuong APRN [address] [place] [address] PCP - General 01/06/18 02/20/18 None, Provider PCP - General 02/21/18 documented as of this encounter
[2024-08-26 13:10] VITALS: BP 136/84; PULSE 82; RESP 12; TEMP 36.8; O2SAT 97
== END 2024-08-26 15:52 | disposition left against medical advice (07) ==
PROVIDERS: PCP Physician Assistant
DX: Z53.21 Procedure and treatment not carried out due to patient leaving prior to being seen by health care provider (principal)

== ENCOUNTER 2024-10-10 17:48 | Outpatient (REF) | payer MEDICAID, SELFPAY | END 2024-10-10 17:49 | disposition home or self-care (01) | LOC: LBN 17:48 | PROVIDERS: PCP Physician Assistant; Visit Provider Physician Assistant Medical | DX: J02.9 Acute pharyngitis, unspecified (principal) | CPT/HCPCS: 87070 ==

== ENCOUNTER 2025-04-19 15:48 | Outpatient (CLI) | payer MEDICAID, SELFPAY ==
[2025-04-19 17:12] LABS: HCG Quant, Pregnancy 285 mIU/mL (1-3)
== END 2025-04-19 15:49 | disposition home or self-care (01) ==
LOC: LBO 15:49
PROVIDERS: Advanced Practice Midwife; PCP Physician Assistant; Visit Provider Advanced Practice Midwife
DX: Z34.91 Encounter for supervision of normal pregnancy, unspecified, first trimester
CPT/HCPCS: 36415; 84702

== ENCOUNTER 2025-05-10 18:54 | Emergency (ER) | payer MEDICAID, SELFPAY ==
[2025-05-10 18:56] VITALS: BP 125/85; PULSE 90; RESP 16; TEMP 36.6; O2SAT 99
[2025-05-10 19:47] LABS: Abs Immature Grans 0.01 10^3/uL (0.0-0.06); HCT 35.2 % (36.0-46.0); HGB 12.2 g/dL (11.2-15.7); Immature Grans % 0.1 %; MCH 30.4 pg (27.0-33.0); MCHC 34.7 % (32.0-36.0); MCV 88 fL (80-95); MPV 10.2 fL (8.0-11.0); Platelet Count 279 10^3/uL (130-400); RBC 4.01 10^6/uL (3.93-5.22); RDW 13.4 % (11.7-14.6); RDW-SD 43.3 fL; WBC 9.74 10^3/uL (4.4-10.8)
[2025-05-10 20:22] LABS: ALT 37 U/L (14-59); AST 24 U/L (15-37); Albumin 3.6 g/dL (3.4-5.0); Alkaline Phosphatase 76 U/L (46-116); Anion Gap 12.0 mmol/L (3-11); BUN 14 mg/dL (7-18); Bilirubin, Total 0.2 mg/dL (0.2-1.0); CO2 24.0 mmol/L (21.0-32.0); Calcium 9.1 mg/dL (8.5-10.1); Chloride 103 mmol/L (98-107); Estimated GFR 134.23 (mL/min/1.73m2); Glucose 90 mg/dL (74-106); Potassium 3.8 mmol/L (3.5-5.1); Sodium 139 mmol/L (136-145); Total Protein 7.2 g/dL (6.4-8.2)
--- NOTE | 2025-05-10 20:31 | ED.GENADUL_ITS ---
Discharge Plan Disposition Patient Disposition: Home Condition: Stable Discharge Details Clinical Impression: Abdominal pain during intrauterine Primary Care Provider: Kalpesh Gusman ED Provider: Sita Navarro Home Meds and New Rx's Prescriptions: Continued M-Adama Plus 27 mg iron- 1 mg tablet 1 tab PO DAILY Qty: 90 4RF budesonide-formoterol [Symbicort] 80-4.5 mcg/actuation HFA aerosol inhaler 2 inh inhalation BID PRN nitrofurantoin monohyd/m-cryst 100 mg capsule 100 mg PO ONCE Patient Comments: TAKE ONE CAPSULE BY MOUTH TWICE A DAY FOR 5 DAYS albuterol sulfate 90 mcg/actuation HFA aerosol inhaler 1 inh inhalation ONCE Qty: 6.7 0RF Discharge Instructions Instructions: Round Ligament Pain, Stomach Pain in Early , Abdominal Pain, Adult ED Additional Instructions: At this time it has been determined that you do have any intrauterine . Continue to take the antibiotics as previously prescribed. Please keep your previously scheduled OB appointments. Follow up with primary care provider in 3-5 days. Return to ED sooner if any worsening or concerns. Thank you for allowing us to care for you today. Referrals: Kalpesh Gusman [Primary Care Provider, Medicine] - Return if symptoms worsen Paulina Ramachandran [[facility] NURSE TONGUE AND GROOVE MACHINE OPERATOR, Obstetrics] Referral Note: As previously scheduled HPI General Mode of arrival: ambulatory . Date/Time Provider Initiated Documentation: 05/10/25 19:00 . Limitations to Documentation: no limitations . Information obtained by: patient, RN notes reviewed and old records reviewed . HPI Narrative: 24-year-old female presents to the ER with a chief complaint of right lower quadrant cramping. She reports that it is gotten worse and over the last 24 hours. She reports that initially it was bilateral cramping and now has increased in intensity. To the right lower quadrant. Denies any spotting or vaginal bleeding. She does report some yellow discharge. Denies any fever or chills. Abdomen is soft nontender with palpation on examination. This is G2, P1 she does have a 9-year-old at home. She has had her first visit. She does have an upcoming appointment for ultrasound on May 17. Related Data Home Medications ?Medication ?Instructions ?Recorded ?Confirmed albuterol sulfate 90 mcg/actuation 1 inh inhalation ON CE #6.7 grams 12/01/21 05/10/25 aerosol inhaler budesonide-formoterol HFA 80 2 inh inhalation BID PRN 12/17/23 05/10/25 mcg-4.5 mcg/actuation aerosol inhaler (Symbicort) vitamins with calcium 1 tab PO DAILY #90 tabs 04/22/25 05/10/25 no.72-iron 27 mg-folic acid 1 mg tablet (M- Plus) nitrofurantoin 100 mg PO ONCE 05/10/2503/01 monohydrate/macrocrystals 100 mg capsule Previous Rx's ?Medication ?Instructions ?Recorded albuterol sulfate 90 mcg/actuation 1 inh inhalation ON CE #6.7 grams 12/01/21 aerosol inhaler vitamins with calcium 1 tab PO DAILY #90 tabs 04/22/25 no.72-iron 27 mg-folic acid 1 mg tablet (M- Plus) Allergies Allergy/AdvReac Type Severity Reaction Status Date / Time varenicline (From Chantix) AdvReac Intermediate Other (See Verified 04/19/25 15:16 Comment) General Stated Complaint: JAVASCRIPT ENGINEER SHEEBA: 3 Review of Systems All systems reviewed & are unremarkable except as noted in HPI and below Gastrointestinal Gastrointestinal: Reports as per HPI, Reports abdominal pain, Denies melena, Denies hematochezia, Reports cramping, Denies diarrhea, Denies nausea and Denies vomiting Genitourinary Genitourinary: Reports as per HPI and Reports flank pain Exam Narrative Exam Narrative: Constitutional: Alert and oriented x3. Appears stated age. Normal body habitus. Head: Normocephalic, no trauma. Chest: RRR, Normal S1, S2, distal pulses intact. Resp: Lungs clear to auscultation bilaterally, no wheezes, rales, or rhonchi. Abdomen: Soft, non-distended, Normoactive bowel sounds all 4 quads. Mild tenderness with palpation to left lower suprapubic abdomen. No guarding no masses. Musculoskeletal: Normal gait, Moves all 4 extremities without difficulty. Skin: No suspicious rashes or lesions. Capillary refill less than 2 sec. General: deferred Course Vital Signs Vital signs: Vital Signs Temperature 36.6 C 05/10/25 18:56 Pulse 90 05/10/25 18:56 Respiratory Rate 16 05/10/25 18:56 Blood Pressure 125/85 05/10/25 18:56 Pulse Oximetry 99 05/10/25 18:56 Temperature 36.6 C 05/10/25 18:56 Pulse 90 05/10/25 18:56 Respiratory Rate 16 05/10/25 18:56 Blood Pressure 125/85 05/10/25 18:56 Pulse Oximetry 99 05/10/25 18:56 Pain Level 8 05/10/25 18:56 Lab/Test Results Lab/Test Results: Laboratory Tests Range/Units 05/10/25 19:36 WBC (4.4-10.8) 10^3/uL 9.74 RBC (3.93-5.22) 10^6/uL 4.01 Hgb (11.2-15.7) g/dL 12.2 Hct (36.0-46.0) % 35.2 L MCV (80-95) fL 88 MCH (27.0-33.0) pg 30.4 MCHC (32.0-36.0) % 34.7 RDW (11.7-14.6) % 13.4 Plt Count (130-400) 10^3/uL 279 MPV (8.0-11.0) fL 10.2 Immature Gran % % 0.1 Neutrophils % % 54.0 Lymphocytes % % 33.9 Monocytes % % 8.4 Eosinophils % % 3.0 Basophils % % 0.6 Nucleated RBC % (0.0-0.3) % 0.0 Absolute Neutrophils (1.2-6.7) 10^3/uL 5.26 Absolute Lymphocytes (1.2-3.4) 10^3/uL 3.30 Absolute Monocytes (0.1-0.8) 10^3/uL 0.82 H Absolute Eosinophils (0.0-0.7) 10^3/uL 0.29 Absolute Basophils (0.0-0.2) 10^3/uL 0.06 Sodium (136-145) mmol/L 139 Potassium (3.5-5.1) mmol/L 3.8 Chloride (98-107) mmol/L 103 Carbon Dioxide (21.0-32.0) mmol/L 24.0 Anion Gap (3-11) mmol/L 12.0 H BUN (7-18) mg/dL 14 Creatinine (0.55-1.02) mg/dL 0.5 L Est GFR (CKD-EPI 2020) (mL/min/1.73m2) 134.23 Glucose (74-106) mg/dL 90 Calcium (8.5-10.1) mg/dL 9.1 Total Bilirubin (0.2-1.0) mg/dL 0.2 AST (15-37) U/L 24 ALT (14-59) U/L 37 Alkaline Phosphatase (46-116) U/L 76 Total Protein (6.4-8.2) g/dL 7.2 Albumin (3.4-5.0) g/dL 3.6 Beta HCG, Quant (1-3) mIU/mL 54787 H Medical Decision Making 24-year-old female presents to the ER with a chief complaint of right lower quadrant cramping. She reports that it is gotten worse and over the last 24 hours. She reports that initially it was bilateral cramping and now has increased in intensity. To the right lower quadrant. Denies any spotting or vaginal bleeding. She does report some yellow discharge. Denies any fever or chills. Abdomen is soft nontender with palpation on examination. This is G2, P1 she does have a 9-year-old at home. She has had her first visit. She does have an upcoming appointment for ultrasound on May 17. Workup ordered including CBC CMP hCG quant urinalysis and heart tones. CBC shows no leukocytosis hemoglobin 12.2 hematocrit 35.2, anion gap 12.0 creatinine 0.5 sodium potassium within normal limits, beta hCG quant is 66,814. 2155: JAVASCRIPT ENGINEER paged to assist with patient evaluation and bedside ultrasound. Patient Dr. Landry was able to identify an intrauterine on her POCUS. Dr. Beltran does not recommend reevaluation of her urinalysis, will continue the Macrodantin antibiotic as previously prescribed. And continue to follow-up with JAVASCRIPT ENGINEER as previously scheduled. Patient has remained hemodynamically stable throughout the remainder of her stay. This text was generated using [employer] system, please disregard any oddities of phrase or misspellings. Medical Records Medical records reviewed: Yes I reviewed the patient's medical records. Lab Data Lab results reviewed: Yes I reviewed the patient's lab results. Labs: Laboratory Tests Range/Units 05/10/25 19:36 WBC (4.4-10.8) 10^3/uL 9.74 RBC (3.93-5.22) 10^6/uL 4.01 Hgb (11.2-15.7) g/dL 12.2 Hct (36.0-46.0) % 35.2 L MCV (80-95) fL 88 MCH (27.0-33.0) pg 30.4 MCHC (32.0-36.0) % 34.7 RDW (11.7-14.6) % 13.4 Plt Count (130-400) 10^3/uL 279 MPV (8.0-11.0) fL 10.2 Immature Gran % % 0.1 Neutrophils % % 54.0 Lymphocytes % % 33.9 Monocytes % % 8.4 Eosinophils % % 3.0 Basophils % % 0.6 Nucleated RBC % (0.0-0.3) % 0.0 Absolute Neutrophils (1.2-6.7) 10^3/uL 5.26 Absolute Lymphocytes (1.2-3.4) 10^3/uL 3.30 Absolute Monocytes (0.1-0.8) 10^3/uL 0.82 H Absolute Eosinophils (0.0-0.7) 10^3/uL 0.29 Absolute Basophils (0.0-0.2) 10^3/uL 0.06 Sodium (136-145) mmol/L 139 Potassium (3.5-5.1) mmol/L 3.8 Chloride (98-107) mmol/L 103 Carbon Dioxide (21.0-32.0) mmol/L 24.0 Anion Gap (3-11) mmol/L 12.0 H BUN (7-18) mg/dL 14 Creatinine (0.55-1.02) mg/dL 0.5 L Est GFR (CKD-EPI 2020) (mL/min/1.73m2) 134.23 Glucose (74-106) mg/dL 90 Calcium (8.5-10.1) mg/dL 9.1 Total Bilirubin (0.2-1.0) mg/dL 0.2 AST (15-37) U/L 24 ALT (14-59) U/L 37 Alkaline Phosphatase (46-116) U/L 76 Total Protein (6.4-8.2) g/dL 7.2 Albumin (3.4-5.0) g/dL 3.6 Beta HCG, Quant (1-3) mIU/mL 70662 H PFSH All Active Problems (Updated 05/10/25 @ 22:04 by Sita Navarro NP) Abdominal pain during intrauterine (Acute) (Acute) IBS (irritable bowel syndrome) (Chronic) Pelvic pain (Acute) Medical History (Updated 05/10/25 @ 22:04 by Sita Navarro NP) COVID-19 Ureteral stone (04/09/16) Bronchitis Cough Tonsillitis Psychosocial stressors (01/17/17) Migraine headache (09/24/14) Depression (01/07/14) Suicide attempt Surgical History D&E Social History Smoking/Tobacco Use Status: Current every day Tobacco Type: e-cigarettes Smoking risk assessment performed?: Yes Alcohol Intake: current Alcohol Intake frequency: holidays/special occasions only Drug use: Daily Substance use type: marijuana Household members: family Housing: house Number of Children: 1 current occupation: [employer] Sexually active: Yes Do you think of yourself as: straight/heterosexual Current gender identity: female What type of physical activity do you participate in: none Do you feel safe at home: Yes Do you feel safe in your relationship?: Yes Female Reproductive History Menstrual Age of Menarche: 10 Duration of menses: >10 days control method: none and implanted History History 2 Para 1 Hx # Term Pregnancies Multiple births Hx # Pregnancies Ectopic pregnancies AB induced Hx Number of Living Children AB spontaneous Past Pregnancies Del. Date GA/Weeks # Preg Succ Route Wgt Sex Labor Lgth Anesth esia Location Prov Complic 02/12/16 40 No vaginal 4082.331 g Male [facility] Delivery Date: 02/12/16 Last Updated by: Gabi Salgado
--- NOTE | 2025-05-10 21:43 | W.GYNCONSULT ---
Date of service: 05/10/25 Time of Service: 21:43 Assessment and Plan Assessment and plan (1) : Status: Acute Assessment and plan: Viable IUP visualized on bedside sono. Pt felt reassured by this. She will f/u as scheduled for her official dating sono as an out-pt next week as I was not able to get clear enough images to do measurements for dating. (2) Pelvic pain: Status: Acute Assessment and plan: Pain sounds c/w musculoskeletal origins. She also feels this is compatible with her symptoms. She feels comfortable with discharge. This was d/w her ED provider. History of Present Illness Narrative: Pt c/o RLQ pain since last evening. She says it hurts mostly when she moves or coughs. She was dx'd with a UTI 5 days ago and was tx'd with an abx through [facility] because she works over there. She is 7.1wks based on her LMP of 03/21/25. She says her cycles were usually pretty regular. They were not trying to get but also were not preventing it. She denies any bleeding. No significant nausea. Consults Consult date: 05/10/25 Requesting physician: Sita Navarro Review of Systems Genitourinary Genitourinary: Reports system reviewed and no additional complaints, except as documented PFSH All Active Problems (Updated 05/10/25 @ 21:55 by Yessica Durand MD) (Acute) IBS (irritable bowel syndrome) (Chronic) Pelvic pain (Acute) Medical History (Updated 05/10/25 @ 21:55 by Yessica Durand MD) Ureteral stone (04/09/16) COVID-19 Bronchitis Cough Tonsillitis Psychosocial stressors (01/17/17) Migraine headache (09/24/14) Depression (01/07/14) Suicide attempt Surgical History D&E Social History Smoking/Tobacco Use Status: Current every day Tobacco Type: e-cigarettes Smoking risk assessment performed?: Yes Alcohol Intake: current Alcohol Intake frequency: holidays/special occasions only Drug use: Daily Substance use type: marijuana Household members: family Housing: house Number of Children: 1 current occupation: [employer] Sexually active: Yes Do you think of yourself as: straight/heterosexual Current gender identity: female What type of physical activity do you participate in: none Do you feel safe at home: Yes Do you feel safe in your relationship?: Yes Female Reproductive History Menstrual Age of Menarche: 10 Duration of menses: >10 days control method: none and implanted History History 2 Para 1 Hx # Term Pregnancies Multiple births Hx # Pregnancies Ectopic pregnancies AB induced Hx Number of Living Children AB spontaneous Past Pregnancies Del. Date GA/Weeks # Preg Succ Route Wgt Sex Labor Lgth Anesthesia Location Prov Complic 02/12/16 40 No vaginal 9 lb Male [facility] Delivery Date: 02/12/16 Last Updated by: Gabi Salgado Exam Const General: cooperative, healthy appearing and no acute distress HENMT Head: normocephalic and atraumatic Ears: hearing grossly normal bilaterally Resp Effort & Inspection: normal respiratory effort and able to speak in complete sentences GI Other: No significant tenderness to palpation. Neuro General: patient alert and patient awake Psych Appearance: grossly normal Mental Status: mental status grossly normal Speech and Movement: speech and movement normal Affect: normal affect Attitude: cooperative Thought Process: normal Thought Content: normal Results Last Vital Signs Temp 97.9 F 05/10/25 18:56 Pulse 90 05/10/25 18:56 Resp 16 05/10/25 18:56 BP 125/85 05/10/25 18:56 Pulse Ox 99 05/10/25 18:56 Labs 05/10/25 19:36 05/10/25 19:36 Labs: Laboratory Results - last 24 hr 05/10/25 19:36 WBC 9.74 RBC 4.01 Hgb 12.2 Hct 35.2 L MCV 88 MCH 30.4 MCHC 34.7 RDW 13.4 Plt Count 279 MPV 10.2 Immature Gran % 0.1 Neutrophils % 54.0 Lymphocytes % 33.9 Monocytes % 8.4 Eosinophils % 3.0 Basophils % 0.6 Nucleated RBC % 0.0 Absolute Neutrophils 5.26 Absolute Lymphocytes 3.30 Absolute Monocytes 0.82 H Absolute Eosinophils 0.29 Absolute Basophils 0.06 Sodium 139 Potassium 3.8 Chloride 103 Carbon Dioxide 24.0 Anion Gap 12.0 H BUN 14 Creatinine 0.5 L Est GFR (CKD-EPI 2020) 134.23 Glucose 90 Calcium 9.1 Total Bilirubin 0.2 AST 24 ALT 37 Alkaline Phosphatase 76 Total Protein 7.2 Albumin 3.6 Beta HCG, Quant 29014 H Imaging Imaging Studies: POCUS performed showing viable IUP. No other obvious abnormalities. WW Pocus Exam Exam testing Date/Time of Exam: Date of exam: 05/10/2025 Time of exam: 9:53 pm JEOVANNY Calculator Estimated Delivery Date Method Current WG Current Estimate 12/26/25 LMP (Certain) 7w 1d Dating/Viability Fetus A: Is this a repeat study?: No Location: Uterus Gestational age based on measurement: Unable to get clear measurement with machine heart rate: Present Viability: Viable Coding for Dating/Viability Coding for Transabdominal exam: Complete exam Gestational Age: < 14 weeks single fetus
== END 2025-05-10 22:08 | disposition home or self-care (01) ==
PROVIDERS: Emergency Provider Registered Nurse Emergency; PCP Physician Assistant
DX: R10.2 Pelvic and perineal pain; O26.891 Other specified pregnancy related conditions, first trimester; O99.331 Smoking (tobacco) complicating pregnancy, first trimester; F17.290 Nicotine dependence, other tobacco product, uncomplicated; Z3A.01 Less than 8 weeks gestation of pregnancy
CPT/HCPCS: 76801; 80053; 99284; 84702; 85025

== ENCOUNTER 2025-06-10 03:26 | Outpatient (CLI) | payer MEDICAID, SELFPAY ==
[2025-06-10 10:17] LABS: Abs Immature Grans 0.02 10^3/uL (0.0-0.06); HCT 35.3 % (36.0-46.0); HGB 12.0 g/dL (11.2-15.7); Immature Grans % 0.3 %; MCH 29.9 pg (27.0-33.0); MCHC 34.0 % (32.0-36.0); MCV 88 fL (80-95); MPV 10.3 fL (8.0-11.0); Platelet Count 259 10^3/uL (130-400); RBC 4.02 10^6/uL (3.93-5.22); RDW 13.2 % (11.7-14.6); RDW-SD 43.1 fL; WBC 6.90 10^3/uL (4.4-10.8)
[2025-06-10 10:38] LABS: Hemoglobin A1C 5.1 % (<5.7)
[2025-06-10 11:56] LABS: TSH (W/Ref FT4) 0.91 uIU/mL (0.36-3.74)
[2025-06-10 18:53] LABS: HIV-1/2 Ag & Ab Screen Negative (Negative)
[2025-06-10 18:54] LABS: Hepatitis C Ab w Rflx HCV PCR Negative (Negative)
[2025-06-11 11:06] LABS: Rubella IgG Ab (UVM) Positive (See Note)
[2025-06-13 14:47] LABS: Syphilis IgG w/Reflex Nonreactive (Nonreactive)
== END 2025-06-10 03:27 | disposition home or self-care (01) ==
LOC: LBO 03:26
PROVIDERS: PCP Physician Assistant; Visit Provider Advanced Practice Midwife
DX: Z34.91 Encounter for supervision of normal pregnancy, unspecified, first trimester (principal)
CPT/HCPCS: 36415; 86787; 86803; 86850; 86900; 86901; 87340; 87389; 83036; 84443; 85025; 86762; 86780

== ENCOUNTER 2025-06-10 10:08 | Outpatient (REF) | payer MEDICAID, SELFPAY ==
[2025-06-10 11:52] LABS: Cannabinoids THC Negative (Negative); METHADONE URINE SCREEN Negative (Negative)
[2025-06-11 12:02] LABS: Fentanyl Scr w/Rfx Confirm Negative ng/mL (<1)
[2025-06-11 12:54] LABS: Chlamydia Result Negative (Negative); GC Result Negative (Negative)
== END 2025-06-10 10:09 | disposition home or self-care (01) ==
LOC: LBN 10:08
PROVIDERS: PCP Physician Assistant; Visit Provider Advanced Practice Midwife
DX: Z34.91 Encounter for supervision of normal pregnancy, unspecified, first trimester
CPT/HCPCS: 80307; 80348; 87491; 87591; 87086

== ENCOUNTER 2025-07-09 15:57 | Outpatient (CLI) | payer MEDICAID, SELFPAY ==
[2025-07-11 12:53] LABS: AFP 23.3 ng/mL; Prev Pregnancy w/NTD No; RECOMMENDED FOLLOW UP None.
== END 2025-07-09 15:58 | disposition home or self-care (01) ==
LOC: LBO 15:57
PROVIDERS: PCP Physician Assistant; Visit Provider Advanced Practice Midwife
DX: Z34.91 Encounter for supervision of normal pregnancy, unspecified, first trimester (principal)
CPT/HCPCS: 36415; 82105

== ENCOUNTER 2025-08-07 14:44 | Outpatient (CLI) | payer MEDICAID, SELFPAY ==
--- NOTE | 2025-08-07 | DI.US_ITS ---
Exam(s) US OB 2-3 TRIMESTER EXAM: US OB 2-3 TRIMESTER CLINICAL HISTORY: anatomy scan,z34.90. TECHNIQUE: Transabdominal obstetrical ultrasound was performed. COMPARISON: US POCUS EXAM from 06/24/2025 FINDINGS: There is a single viable intrauterine gestation with cardiac activity identified-151 bpm. Amniotic fluid: There is a normal amount of amniotic fluid. Placental location: The placenta is anterior grade 1,with no evidence of placenta previa.The distance from the tip of the placenta to the internal cervical os is 4.1 cm. The distance from the edge of the placenta to the umbilical cord insertion into the placenta is 7 cm. ANATOMY: A 3 vessel umbilical cord is seen. A four-chamber cardiac view was obtained. Right and left ventricular outflow tracts were imaged. There are no obvious abnormalities of the spinal column evident. There is no obvious abnormality of the anterior abdominal wall. stomach and urinary bladder are identified and there is no evidence of hydronephrosis. No abnormalities of the upper lip region are identified. No evidence of choroid plexus cysts in the brain. Dating parameters place this at approximately 20 weeks and 4 days gestational age. BPD measures 20 weeks and 0 days HC measures 20 weeks and 2 days AC measures 20 weeks and 5 day FL measures 21 weeks and 2 days Estimated weight is 383 gm-0 pounds, 13 ounces Fetus is at the 93rd percentile on the Hadlock scale. IMPRESSION:: Single viable intrauterine gestation which is approximately 20 weeks and 4 days gestational age, implying an JEOVANNY of 12/21/2025. There are no obvious anomalies evident on today's study. The placenta is anterior with no evidence of placenta previa. There is a normal amount of amniotic fluid. DATA REPOSITORY:
== END 2025-08-07 15:04 ==
LOC: DI 14:44
PROVIDERS: PCP Physician Assistant; Visit Provider Advanced Practice Midwife
DX: Z3A.20 20 weeks gestation of pregnancy (principal); Z34.82 Encounter for supervision of other normal pregnancy, second trimester
CPT/HCPCS: 76805

== ENCOUNTER 2025-09-02 13:30 | Outpatient (REF) | payer MEDICAID, SELFPAY | END 2025-09-02 13:31 | disposition home or self-care (01) | LOC: LBN 13:30 | PROVIDERS: PCP Physician Assistant; Visit Provider Advanced Practice Midwife | DX: Z34.92 Encounter for supervision of normal pregnancy, unspecified, second trimester (principal); N76.0 Acute vaginitis; B96.89 Other specified bacterial agents as the cause of diseases classified elsewhere | CPT/HCPCS: 87086; 87480; 87510; 87660 ==

== ENCOUNTER 2025-09-18 17:19 | Emergency (ER) | payer MEDICAID, SELFPAY ==
[2025-09-18 17:23] VITALS: BP 127/89; PULSE 77; RESP 20; TEMP 36.9; O2SAT 98
--- NOTE | 2025-09-18 19:04 | ED.GENADUL_ITS ---
Discharge Plan Disposition Patient Disposition: Home Condition: Stable Discharge Details Clinical Impression: Back pain Primary Care Provider: Kalpesh Gusman ED Provider: Selvin Wilson Home Meds and New Rx's Prescriptions: Continued M-Adama Plus 27 mg iron- 1 mg tablet 1 tab PO DAILY Qty: 90 4RF budesonide-formoterol [Symbicort] 80-4.5 mcg/actuation HFA aerosol inhaler 2 inh inhalation BID PRN albuterol sulfate 90 mcg/actuation HFA aerosol inhaler 1 inh inhalation ONCE Qty: 6.7 0RF Discharge Instructions Additional Instructions: You had reassuring heart rates and your urine did not show signs of infection. Follow-up with your blemish remover team this week. If you feel significantly more ill or have new symptoms such as high fevers return to the emergency department for reevaluation Stand Alone Forms: Portal Information HPI General Mode of arrival: ambulatory . Date/Time Provider Initiated Documentation: 09/18/25 18:03 . Limitations to Documentation: no limitations . Information obtained by: patient . History of Present Illness 25 year old F presents to the emergency department with the chief complaint of lower back pain radiating to the lower abdomen , described as moderate, Quality is described as aching, Patient started experiencing this day(s) (2) and it has been constant. No relieving factors improve symptom(s), No exacerbating factors reported . Patient notes no other symptoms.. Patient did receive the following treatments prior to arrival, none Related Data Home Medications Medication Instructions Recorded Confirmed albuterol sulfate 90 mcg/actuation 1 inh inhalation ON CE #6.7 grams 12/01/21 09/18/25 aerosol inhaler budesonide-formoterol HFA 80 2 inh inhalation BID PRN 12/17/23 09/18/25 mcg-4.5 mcg/actuation aerosol inhaler (Symbicort) vitamins with calcium 1 tab PO DAILY #90 tabs 04/22/25 09/18/25 no.72-iron 27 mg-folic acid 1 mg tablet (M-Adama Plus) Previous Rx's Medication Instructions Recorded albuterol sulfate 90 mcg/actuation 1 inh inhalation ON CE #6.7 grams 12/01/21 aerosol inhaler vitamins with calcium 1 tab PO DAILY #90 tabs 04/22/25 no.72-iron 27 mg-folic acid 1 mg tablet (M- Plus) Allergies Allergy/AdvReac Type Severity Reaction Status Date / Time metronidazole Allergy Intermediate anxiety Verified 09/18/25 17:27 and panicy varenicline (From Chantix) AdvReac Intermediate Other (See Verified 09/18/25 17:27 Comment) General Stated Complaint: Nk/Back Pain SHEEBA: 3 Review of Systems All systems reviewed & are unremarkable except as noted in HPI and below Constitutional Constitutional: Denies chills, Denies fever(s) and Denies weakness Cardiovascular Cardiovascular: Denies chest pain and Denies dyspnea Respiratory Respiratory: Denies cough and Denies dyspnea Gastrointestinal Gastrointestinal: Denies abdominal pain, Denies nausea and Denies vomiting Musculoskeletal Musculoskeletal: Reports back pain Neurologic Neurologic: Denies weakness Exam Const General: no acute distress Orientation: alert HENMT Head: normal to inspection Ears: external ears normal General nose exam: external nose normal Mouth: moist mucous membranes Eyes General: appearance normal, both eyes and all related structures Neck Neck: normal visual inspection Resp Effort & Inspection: normal respiratory effort and able to speak in complete sentences Cardio Rate: regular rate Back/Spine/Pelvis Back: no CVA tenderness, No erythema and No warmth Skin General skin exam: no rashes or lesions noted Neuro General: patient alert and patient oriented x3 Extrem General: normal to inspection Psych Mental Status: mental status grossly normal Course Vital Signs Vital signs: Vital Signs Temperature 36.9 C 09/18/25 17:23 Pulse 77 09/18/25 17:23 Respiratory Rate 20 09/18/25 17:23 Blood Pressure 127/89 09/18/25 17:23 Pulse Oximetry 98 09/18/25 17:23 Temperature 36.9 C 09/18/25 17:23 Pulse 77 09/18/25 17:23 Respiratory Rate 20 09/18/25 17:23 Blood Pressure 127/89 09/18/25 17:23 Blood Pressure Position Sitting 09/18/25 17:23 Pulse Oximetry 98 09/18/25 17:23 Oxygen Delivery Method Room Air 09/18/25 17:23 Oxygen Flow Rate 0 09/18/25 17:23 Medical Decision Making 25-year-old female who states she is 26 weeks G2, P1 who comes in with lower back pain that intermittently radiates to the front abdomen. Denies any severe pain. Denies any vomiting or fevers. She has no current abdominal tenderness, she localizes the pain to the lower lumbar region. She has no saddle anesthesia. No IV drug use or fevers. She is no findings on exam or history to suggest cauda equina or spinal epidural abscess. She states that sometimes she will get UTIs that present this way so we will check a urine. Also nursing obtain heart rate. heart rate 128 and UA unremarkable. I did discuss the case with Dr. 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, return precautions given Differential Diagnosis Differential Diagnosis: back strain, uti PFSH All Active Problems (Updated 09/18/25 @ 21:09 by Selvin Wilson MD) Back pain (Acute) Bacterial vaginal infection (Acute) (Acute) Rh negative status during (Acute) BMI 34.0-34.9,adult (Acute) Pelvic pain (Acute) Medical History (Updated 09/18/25 @ 21:09 by Selvin Wilson MD) Encounter for follow-up ultrasound of anatomy Nexplanon in place History of ovarian cyst Asthma IBS (irritable bowel syndrome) Ureteral stone (04/09/16) Bronchitis Cough Tonsillitis Psychosocial stressors (01/17/17) Migraine headache (09/24/14) Depression (01/07/14) Suicide attempt Surgical History D&E Family History (Updated 06/10/25 @ 09:30 by Lyudmila Villeda CNM) Paternal Grandmother Diabetes Anxiety Thyroid disease Social History (Updated 06/11/25 @ 10:37 by Lyudmila Villeda CNM) Smoking/Tobacco Use Status: Former Tobacco Use tobacco type: e-cigarettes Smoking risk assessment performed?: Yes Alcohol Intake: current Alcohol Intake frequency: holidays/special occasions only Drug use: Current Sobriety Substance use type: former substance user Date of last use: marijuana Details: quit marijuana and tobacco with Household members: family Housing: house Number of Children: 1 current occupation: [employer] Sexually active: Yes Do you think of yourself as: straight/heterosexual Current gender identity: female What type of physical activity do you participate in: none Do you feel safe at home: Yes Do you feel safe in your relationship?: Yes Female Reproductive History Menstrual Age of Menarche: 10 Duration of menses: >10 days control method: none and implanted History History 2 Para 1 Hx # Term Pregnancies 1 Multiple births 0 Hx # Pregnancies 0 Ectopic pregnancies 0 AB induced 0 Hx Number of Living Children 1 AB spontaneous 0 Past Pregnancies Del. Date GA/Weeks # Preg Succ Route Wgt Sex Labor Lgth Anesth esia Location Prov Complic 02/12/16 40 No Yes vaginal 4082.331 g [facility] Delivery Date: 02/12/16 Last Updated by: Gabi Salgado
[2025-09-18 19:46] LABS: Glucose Negative (Negative)
[2025-09-18 20:30] VITALS: BP 105/54; PULSE 79; RESP 16; O2SAT 97
[2025-09-18 21:28] VITALS: BP 109/65; PULSE 86; RESP 16; O2SAT 99
== END 2025-09-18 21:59 | disposition home or self-care (01) ==
PROVIDERS: Emergency Provider Emergency Medicine; PCP Physician Assistant
DX: M54.50 Low back pain, unspecified (principal); O26.892 Other specified pregnancy related conditions, second trimester; Z3A.26 26 weeks gestation of pregnancy
CPT/HCPCS: 99283; 99282; 81003

== ENCOUNTER 2025-09-26 12:06 | Outpatient (CLI) | payer MEDICAID, SELFPAY ==
[2025-09-26 12:29] VITALS: BP 111/60; PULSE 83
[2025-09-26 13:10] VITALS: BP 111/60; PULSE 83; TEMP 36.6
--- NOTE | 2025-09-26 14:50 | W.OBNST ---
Date of service: 09/26/25 Time of Service: 14:54 NST Evaluation Reason for NST Reasons for Nonstress Test: OTHER, SEE COMMENT Reason for NST Other: Syncope epidsode / Orbital migraine Gestational Age Gestational Age in Weeks and Days: 27 Weeks and 0Days Test and Monitor Explained Test/Monitor Explained: Test Explained and Monitor Explained Vital Signs Blood Pressure: 111/60 Pulse: 83 Temperature: 97.9 F NST Information Date on Monitor: 09/26/25 Time on Monitor: 12:15 Date off Monitor: 09/26/25 Time off Monitor: 13:05 Total Time on Monitor: 50 NST Interventions: PO Hydration NST Evaluation Patient States Movement: Present FHR Baseline: 145 Variability: Moderate 6-25 bpm Accelerations: 15x15 Decelerations: None NST Results: Reactive Note Ultrasound Done: N/A. NST Note Note: Reshma called and reported an episode at work today of visual disurbances, dizziness and numbness in right hand as well as headache on the left side of her head. She went home to rest and reports occasional stars in her visual field but she denies dizziness. She has a mild headache. She took tylenol this morning for some jaw pain and has a tooth infection which has been causing discomfort. She has a history of migraine and takes imitrex PRN prior to . reactive NST and normal Vital signs. She was encouraged to repeat tylenol, rest , cool compresses, magnesium glycinate and resting her eyes. Call if no improvement. Will consider imitrex if no improvement. NST Reviewed and Verified by: Lyudmila Villeda
[2025-09-26 14:52] VITALS: BP 111/60; PULSE 83; TEMP 36.6
== END 2025-09-26 13:10 ==
LOC: BCD 12:07 → OBS 12:10
PROVIDERS: PCP Physician Assistant; Visit Provider Advanced Practice Midwife
DX: O99.891 Other specified diseases and conditions complicating pregnancy (principal); R42 Dizziness and giddiness; G43.119 Migraine with aura, intractable, without status migrainosus; Z3A.27 27 weeks gestation of pregnancy
CPT/HCPCS: 59025

== ENCOUNTER 2025-09-30 03:44 | Outpatient (CLI) | payer MEDICAID, SELFPAY ==
[2025-09-26 13:10] VITALS: BP 111/60; PULSE 83; TEMP 36.7
[2025-09-30 10:06] LABS: HCT 31.5 % (36.0-46.0); HGB 10.6 g/dL (11.2-15.7); MCH 29.3 pg (27.0-33.0); MCHC 33.7 % (32.0-36.0); MCV 87 fL (80-95); MPV 9.6 fL (8.0-11.0); Platelet Count 239 10^3/uL (130-400); RBC 3.62 10^6/uL (3.93-5.22); RDW 14.1 % (11.7-14.6); RDW-SD 44.5 fL; WBC 6.74 10^3/uL (4.4-10.8)
[2025-09-30 10:31] LABS: Glucose,1 Hr (Glucola) 116 mg/dL (80-140)
== END 2025-09-30 03:45 | disposition home or self-care (01) ==
LOC: LBO 03:46
PROVIDERS: PCP Physician Assistant; Visit Provider Advanced Practice Midwife
DX: Z34.92 Encounter for supervision of normal pregnancy, unspecified, second trimester (principal)
CPT/HCPCS: 36415; 82950; 85027

== ENCOUNTER 2025-09-30 09:27 | Outpatient (REF) | payer MEDICAID, SELFPAY ==
[2025-09-30 11:30] LABS: Cannabinoids THC Negative (Negative)
== END 2025-09-30 09:28 | disposition home or self-care (01) ==
LOC: LBN 09:27
PROVIDERS: PCP Physician Assistant; Visit Provider Advanced Practice Midwife
DX: Z34.92 Encounter for supervision of normal pregnancy, unspecified, second trimester (principal)
CPT/HCPCS: 80307

== ENCOUNTER 2025-11-03 20:01 | Emergency (ER) | payer MEDICAID, SELFPAY ==
[2025-11-03 20:05] VITALS: BP 123/81; PULSE 89; RESP 18; TEMP 36.9; O2SAT 95
--- NOTE | 2025-11-03 20:15 | RT.EKG_ITS ---
APPROVED REPORT Exam: Resting ECG Reason for Exam: R lower rib/RUQ pain Patient Location: E HR:90 bpm ECG Measurements Heart Rate 90 AXIS MA 149 P 24 QRSd 88 QRS 35 QT 366 T 11 QTc 449 Conclusion Sinus rhythm...normal P axis, V-rate 60- 99 No STEMI
--- NOTE | 2025-11-03 20:18 | W.ED.GENAD ---
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 HPI Narrative: 25 year-old female, G2PAL1, 32 weeks gestation presents to ED today by POV/ambulating with a chief complaint of RUQ/R lower rib pain, worse with breathing, sharp and intermittent with shortness of breath with onset tuesday. Quality described as sharp pain, no radiation to cough, hemoptysis, palpitations, nausea/vomiting, flank pain, dysuria, vaginal bleeding, dizziness, near syncope. Severity is described as 6-7/10. Palliating factors include nothing specific attempted. Provoking factors include intermittently worse with deep breaths, does resolve spontaneously then return. Events leading up to the incident/Associated Symptoms: Patient followed by [facility]. Patient not anticoagulated. Related Data Home Medications ?Medication ?Instructions ?Recorded ?Confirmed albuterol sulfate 90 mcg/actuation 1 inh inhalation ONCE #6.7 grams 12/01/21 11/03/25 aerosol inhaler budesonide-formoterol HFA 80 2 inh inhalation BID PRN 12/17/23 11/03/25 mcg-4.5 mcg/actuation aerosol inhaler (Symbicort) vitamins with calcium 1 tab PO DAILY #90 tabs 04/22/25 11/03/25 no.72-iron 27 mg-folic acid 1 mg tablet (M-Adama Plus) chlorhexidine gluconate 0.12 % 1 applic PO PRN 11/03/25 11/03/25 mouthwash Previous Rx's ?Medication ?Instructions ?Recorded albuterol sulfate 90 mcg/actuation 1 inh inhalation ONCE #6.7 grams 12/01/21 aerosol inhaler vitamins with calcium 1 tab PO DAILY #90 tabs 04/22/25 no.72-iron 27 mg-folic acid 1 mg tablet (M- Plus) Allergies Allergy/AdvReac Type Severity Reaction Status Date / Time metronidazole Allergy Intermediate anxiety Verified 11/03/25 20:10 and panicy varenicline (From Chantix) AdvReac Intermediate Other (See Verified 11/03/25 20:10 Comment) General Stated Complaint: 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 SKIN: Warm, pink, dry, intact, without rashes/lesions/ulcerations. HEAD: Normocephalic, atraumatic, normal hair distribution for gender/age. EYES: Normal conjunctiva, no exudates on lids/lashes. ENT: Nares patent, no circumoral cyanosis, no facial swelling NECK: Supple, trachea midline, painless cervical ROM. LUNGS/CHEST: Lungs CTA bilaterally-no rhonchi/rales/wheezes diffusely I do question a mild diminishment in the right base, non-labored respirations, normal A/P diameter, symmetrical expansion, no chest wall deformity, L lower rib tenderness without crepitus HEART (CV/PV): Regular rate and rhythm without murmur, no peripheral edema, no JVD. ABDOMEN: Soft, non-distended, no guarding, right upper quadrant without overt Salmon sign, no CVA tenderness percussion bilaterally. MSK: Normal ROM, no swelling/deformity to bilateral UEs or LEs, moving all extremities without weakness, no cyanosis, spine midline without tenderness, normal curvature. NEURO: Mental Status AAOx4 - alert to person, place, time, events No facial droop, no forehead involvement. Motor: No focal weakness Sensory: sensation intact to light touch globally. Gait normal: patient ambulated without ataxia into ED room. PSYCH: euthymic, cooperative, pleasant, appropriate speech Course Vital Signs Vital signs: Vital Signs Temperature 36.9 C 11/03/25 20:05 Pulse 89 11/03/25 20:05 Respiratory Rate 18 11/03/25 20:05 Blood Pressure 123/81 11/03/25 20:05 Pulse Oximetry 95 11/03/25 20:05 Temperature 36.9 C 11/03/25 20:05 Temperature Source Oral 11/03/25 20:05 Pulse 89 11/03/25 20:05 Respiratory Rate 18 11/03/25 20:05 Blood Pressure 123/81 11/03/25 20:05 Blood Pressure Position Sitting 11/03/25 20:05 Pulse Oximetry 95 11/03/25 20:05 Oxygen Delivery Method Room Air 11/03/25 20:05 Oxygen Flow Rate 0 11/03/25 20:05 End Tidal Co2 6 11/03/25 20:05 Medical Decision Making This dictation utilizes [id number] dictation software and may contain unedited grammatical errors. 25 year-old female, G2PAL1, 32 weeks gestation presents to ED today by POV/ambulating with a chief complaint of RUQ/R lower rib pain, worse with breathing, sharp and intermittent with shortness of breath with onset tuesday. Quality described as sharp pain, no radiation to cough, hemoptysis, palpitations, nausea/vomiting, flank pain, dysuria, vaginal bleeding, dizziness, near syncope. Severity is described as 6-7/10. Palliating factors include nothing specific attempted. Provoking factors include intermittently worse with deep breaths, does resolve spontaneously then return. Events leading up to the incident/Associated Symptoms: Patient followed by [facility]. Patients' medical history: History of ovarian cyst, asthma, migraine headache, Rh- status during - uncomplicated first and labor. Family and social history: Noncontributory. Pertinent exam findings / vital signs include right upper quadrant tenderness with no overt Salmon sign, right lower rib tenderness without crepitus, no labored respirations, lungs CTA, but question mildly diminished at R base, stable vitals without tachycardia. Differential / pathologies of concern include biliary colic, spontaneous pneumothorax, PE, abdominal pain, pain of , renal colic, gastritis. Diagnostic studies of: -CBC, CMP, lactate, lipase, urinalysis, troponin, BNP, EKG, magnesium, D-dimer. - EKG shows sinus rhythm 90 bpm, P waves followed by narrow complex QRS, normal axis, does have a Q wave and inverted T in lead III - this has been present in prior EKG 2023 but more flat, question lead placement - UA benign - CBC shows no leukocytosis, shows hemoglobin 10.6 completely stable from HgB - Lactate WNL Interventions of: -OBGYN Consult - paged out at 2024 - spoke with Dr. Oropeza @ 2106 - she is aware of the situation, happy to consult in department if patient needs further reassurance or help with decision regarding CTA. Regardless of ER disposition, patient will head up to [facility] for a quick checkup upon disposition.\ -Given 1000mg TUMS at 2130 for indigestion by patient request, consider gastritis with relief. ED Course/Assessment/Plan: 25-year-old female who is G2PAL1, 32 weeks gestation followed by [facility] women's wellness presents with right lower rib/right upper quadrant abdominal pain worse with certain breathing to his severe level of 6-7 out of 10 ongoing for the past few days since Tuesday, endorses shortness of breath, denies cough or hemoptysis, is not tachycardic. She denies any nausea or vomiting or any association with food with this pain. I am concern for biliary colic versus PE and her blood work is pending at time of shift change in signout. 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 Amaro is aware that the patient may need a CTA to definitively rule out PE, D-dimer is pending. Disposition of Chest Pain of Uncertain Etiology. Patient verbalized understanding of the plan and return to ED criteria and engaged in shared decision making. Medical Records Medical records reviewed: Yes I reviewed the patient's medical records. Lab Data Lab results reviewed: Yes I reviewed the patient's lab results. Labs: Laboratory Tests Range/Units 11/03/25 11/03/25 20:15 21:25 WBC (4.4-10.8) 10^3/uL 8.33 RBC (3.93-5.22) 10^6/uL 3.75 L Hgb (11.2-15.7) g/dL 10.6 L Hct (36.0-46.0) % 32.7 L MCV (80-95) fL 87 MCH (27.0-33.0) pg 28.3 MCHC (32.0-36.0) % 32.4 RDW (11.7-14.6) % 13.8 Plt Count (130-400) 10^3/uL 255 MPV (8.0-11.0) fL 10.3 Immature Gran % % 0.4 Neutrophils % % 60.5 Lymphocytes % % 28.0 Monocytes % % 8.9 Eosinophils % % 2.0 Basophils % % 0.2 Nucleated RBC % (0.0-0.3) % 0.0 Absolute Neutrophils (1.2-6.7) 10^3/uL 5.04 Absolute Lymphocytes (1.2-3.4) 10^3/uL 2.33 Absolute Monocytes (0.1-0.8) 10^3/uL 0.74 Absolute Eosinophils (0.0-0.7) 10^3/uL 0.17 Absolute Basophils (0.0-0.2) 10^3/uL 0.02 VBG Lactate (<or=2.0) mmol/L 0.7 Urine Color (Yellow) Yellow Urine Clarity (Clear) Clear Urine pH (5-8) 7.0 Ur Specific [place] (1.005-1.025) 1.020 Urine Protein (Neg-Trace) mg/dL Negative Urine Ketones (Negative) mg/dL Negative Urine Blood (Negative) Negative Urine Nitrite (Negative) Negative Urine Bilirubin (Negative) Negative Urine Urobilinogen (Up to 0.2) mg/dL 0.2 Ur Leukocyte Esterase (Negative) Negative Urine Glucose (Negative) mg/dL Negative PFSH All Active Problems (Updated 10/29/25 @ 15:49 by Paulina Ramachandran) Uterine size date discrepancy (Acute) Bacterial vaginal infection (Acute) (Acute) Rh negative status during (Acute) BMI 34.0-34.9,adult (Acute) Pelvic pain (Acute) Medical History (Updated 10/29/25 @ 15:49 by Paulina Ramachandran) Encounter for follow-up ultrasound of anatomy Nexplanon in place History of ovarian cyst Asthma IBS (irritable bowel syndrome) Ureteral stone (04/09/16) Bronchitis Cough Tonsillitis Psychosocial stressors (01/17/17) Migraine headache (09/24/14) Depression (01/07/14) Suicide attempt -2013 Surgical History D&E Family History (Updated 09/30/25 @ 09:31 by Lyudmila Villeda CNM) Paternal Grandmother Diabetes type 1 Anxiety Thyroid disease Sister , 14 Diabetes type 2, half sister Mother Diabetes type 2 diabetes Gestational diabetes Father Diabetes Social History (Updated 06/11/25 @ 10:37 by Lyudmila Villeda CNM) Smoking/Tobacco Use Status: Former Tobacco Use tobacco type: e-cigarettes Smoking risk assessment performed?: Yes Alcohol Intake: former Drug use: Current Sobriety Details: quit marijuana and tobacco with Household members: family Housing: house Number of Children: 1 current occupation: [employer] Sexually active: Yes Do you think of yourself as: straight/heterosexual Current gender identity: female What type of physical activity do you participate in: none Do you feel safe at home: Yes Do you feel safe in your relationship?: Yes Female Reproductive History Menstrual Age of Menarche: 10 Duration of menses: >10 days control method: none and implanted History History 2 Para 1 Hx # Term Pregnancies 1 Multiple births 0 Hx # Pregnancies 0 Ectopic pregnancies 0 AB induced 0 Hx Number of Living Children 1 AB spontaneous 0 Past Pregnancies Del. Date GA/Weeks # Preg Succ Route Wgt Sex Labor Lgth Anesthesia Location Prov Complic 02/12/16 40 No Yes vaginal 4082.331 g Male [facility], [place] Delivery Date: 02/12/16 Last Updated by: Gabi Salgado
[2025-11-03 21:16] LABS: Glucose Negative (Negative)
[2025-11-03] MEDS: Calcium Carbonate *TUMS* 500 MG CHEW 1000 MG PO (21:30)
[2025-11-03 21:39] LABS: Abs Immature Grans 0.03 10^3/uL (0.0-0.06); HCT 32.7 % (36.0-46.0); HGB 10.6 g/dL (11.2-15.7); Immature Grans % 0.4 %; MCH 28.3 pg (27.0-33.0); MCHC 32.4 % (32.0-36.0); MCV 87 fL (80-95); MPV 10.3 fL (8.0-11.0); Platelet Count 255 10^3/uL (130-400); RBC 3.75 10^6/uL (3.93-5.22); RDW 13.8 % (11.7-14.6); RDW-SD 43.5 fL; WBC 8.33 10^3/uL (4.4-10.8)
[2025-11-03 21:58] LABS: ALT 17 U/L (10-49); AST 20 U/L (<34); Albumin 3.7 g/dL (3.2-5.0); Alkaline Phosphatase 143 U/L (46-116); Anion Gap 8 mmol/L (3-11); BUN 7 mg/dL (9-23); Bilirubin, Total 0.3 mg/dL (0.2-1.2); CO2 23.0 mmol/L (20.0-31.0); Calcium 8.5 mg/dL (8.3-10.6); Chloride 109 mmol/L (98-107); Glucose 84 mg/dL (74-106); Lipase 32 U/L (<53); Potassium 3.6 mmol/L (3.5-5.1); Sodium 140 mmol/L (136-145); Total Protein 6.4 g/dL (5.7-8.2)
[2025-11-03 21:59] LABS: Magnesium 1.6 mg/dL (1.6-2.6)
[2025-11-03 22:02] LABS: Troponin I < 3 ng/L (<35)
[2025-11-03 22:04] LABS: D-Dimer 2206 ng/mlFEU (<500)
--- NOTE | 2025-11-03 22:45 | DI.CT_ITS ---
Exam(s) CT CHEST PE CTA EXAM: CT CHEST PE CTA CLINICAL HISTORY: right sided chest pain, ekg change, +D-dimer. TECHNIQUE: Imaging Protocol: Axial CT angiography was performed with multi- slice acquisition and multi-planar reconstructions as well as axial, coronal and sagittal MIP reconstructions. Computer aided detection (CAD) was utilized. CONTRAST MATERIAL: Intravenous: Omnipaque 350 Contrast volume:70 ml COMPARISON: CR XR PORTABLE CHEST AP from 11/24/2022 FINDINGS: Pulmonary Arteries: No evidence of filling defect to suggest pulmonary emboli. Mediastinum and Whit: No dominant adenopathy or fluid collection. Pulmonary parenchyma: Expiratory changes. No consolidation or dominant measurable mass. Pleura: No effusion or pneumothorax. Heart: The heart is not dilated. No coronary artery calcifications are seen. Aorta: Thoracic aorta non-dilated. No dissection. Upper abdomen: No acute findings. Bones: Unremarkable for age. Tubes, Catheters, and Lines: None Soft tissues: Unremarkable. IMPRESSION: No evidence of pulmonary embolism or other acute abnormality. The preliminary [facility] report was reviewed. RADIATION DOSE DELIVERED: Total DLP DATA REPOSITORY: All CT scans at this facility are submitted to the National Radiology Data Registry (NRDR) Dose Index Registry (DIR) with the [employer] (A[employer]). RADIATION OPTIMIZATION: All CT scans at this facility use at least one of these dose optimization techniques: automated exposure control; mA and/or kV adjustment per patient size (includes targeted exams where dose is matched to clinical indication); or iterative reconstruction.
[2025-11-03] MEDS: Omnipaque 350 MG/ML 100 ML BTL IJ (23:09)
[2025-11-03] MEDS: Normal Saline - Diluent 50 ML VIAL IJ (23:10)
[2025-11-03] MEDS: Normal Saline Flush 10 ML SYR IVP (23:10)
--- NOTE | 2025-11-04 00:14 | DI.[facility]_ITS ---
PROCEDURE INFORMATION: Exam: CTA Chest With Contrast Exam date and time: 11/03/2025 11:19 PM Age: 25 years old Clinical indication: Pain and abnormal findings; Abnormal diagnostic tests; Elevated d-dimer; Right-sided; Right sided chest pain, ekg change, +d-dimer TECHNIQUE: Imaging protocol: Computed tomographic angiography of the chest with contrast. Exam focused on the arteries. 3D rendering (Not supervised by radiologist): MIP and/or 3D reconstructed images were created by the technologist. Radiation optimization: All CT scans at this facility use at least one of these dose optimization techniques: automated exposure control; mA and/or kV adjustment per patient size (includes targeted exams where dose is matched to clinical indication); or iterative reconstruction. Contrast material: OMNIPAQUE 350; Contrast volume: 70 ml; Contrast route: INTRAVENOUS (IV); COMPARISON: CT CHEST WO CONTRAST 07/13/2022 9:12 AM FINDINGS: Pulmonary arteries: No evidence of pulmonary embolism. Aorta: Unremarkable. No aortic aneurysm. No aortic dissection. Thyroid: No thyroid lesions. No thyroid enlargement. Trachea: The central airways clear. Lungs: No focal consolidation or other acute appearing pulmonary opacity. Pleural spaces: Unremarkable. No pneumothorax. No pleural effusion. Heart: No cardiomegaly or pericardial effusion. Lymph nodes: No axillary adenopathy. Bones/joints: No acute osseous abnormality. Soft tissues: Soft tissues are unremarkable as visualized. IMPRESSION: No evidence of pulmonary embolism. Dictated and Authenticated by: Lexi Cortez MD. Orderin Donald Magana MD
--- NOTE | 2025-11-04 00:20 | ED.PROG_ITS ---
Date of service: 11/04/25 Time of Service: 00:21 Medical Decision Making Patient was signed out to me by Dr. Murray pending CTA. She is 32 weeks and presented with right sided pleuritic pain. Please see his initial ED note for presentation, exam and evaluation/plan. Patient CTA is negative for PE, pneumonia, or effusion. Case is discussed with OB, Dr. Oropeza, and patient will be transferred to L&D for monitoring and NST. Patient aware of results of CT and plan for monitoring in L&D. Lab Data Lab results reviewed: Yes I reviewed the patient's lab results. Discharge Plan Disposition Patient Disposition: Admit to [facility] Condition: Good Discharge Details Clinical Impression: Right-sided chest pain, Primary Care Provider: Kalpesh Gusman ED Provider: Bradley Duarte Causey [place] and New Rx's Prescriptions: No Action M-Adama Plus 27 mg iron- 1 mg tablet 1 tab PO DAILY Qty: 90 4RF budesonide-formoterol [Symbicort] 80-4.5 mcg/actuation HFA aerosol inhaler 2 inh inhalation BID PRN albuterol sulfate 90 mcg/actuation HFA aerosol inhaler 1 inh inhalation ONCE Qty: 6.7 0RF chlorhexidine gluconate 0.12 % mouthwash 1 applic PO PRN Patient Comments: SWISH AND SPIT 15ML BY MOUTH TWO TIMES A DAY
[2025-11-04 01:40] VITALS: BP 119/82; PULSE 74; RESP 19; TEMP 36.6; O2SAT 100
--- NOTE | 2025-11-04 03:06 | W.OBNST ---
Date of service: 11/04/25 Time of Service: 03:06 NST Evaluation Gestational Age Gestational Age in Weeks and Days: 32 Weeks and 4Days Vital Signs Weight: 216 lb Note Ultrasound Done: N/A. NST Note NST Reviewed and Verified by: Rosenda Oropeza
== END 2025-11-04 01:40 | disposition short-term general hospital (02) ==
PROVIDERS: Physician Assistant; Emergency Provider Emergency Medicine; PCP Physician Assistant
DX: R07.9 Chest pain, unspecified (principal); Z3A.32 32 weeks gestation of pregnancy
CPT/HCPCS: 00123; 71275; 80053; 83690; 93005; 99285; 81003; 83605; 83735; 83880; 84484; 85025; 85379; 93010; 99284; J3490

== ENCOUNTER 2025-11-04 01:52 | Outpatient (CLI) | payer MEDICAID, SELFPAY ==
[2025-11-04 02:07] VITALS: BP 107/71; PULSE 78
[2025-11-04 02:15] VITALS: BP 101/71; PULSE 78; RESP 18
--- NOTE | 2025-11-04 03:00 | W.OBNST ---
Date of service: 11/04/25 Time of Service: 03:00 NST Evaluation Reason for NST Reasons for Nonstress Test: OTHER, SEE COMMENT Reason for NST Other: reassurance Gestational Age Gestational Age in Weeks and Days: 33 Weeks and 1Days Test and Monitor Explained Test/Monitor Explained: Test Explained, Monitor Explained and Patient Verbalized Understanding NST Information NST Interventions: PO Hydration Note Ultrasound Done: N/A. NST Note Note: Patient seen in the emergency department for shortness of breath and pain; cleared from the ED. Sent to OB triage for assessment. Patient reports feeling modest improvement in her symptoms. Denies bleeding, leakage, contractions. NST reactive and reassuring. Follow-up as scheduled. NST Reviewed and Verified by: Rosenda Oropeza
== END 2025-11-04 03:00 ==
LOC: BCD 01:53 → OBS 01:56
PROVIDERS: PCP Physician Assistant; Visit Provider Obstetrics & Gynecology
DX: O99.891 Other specified diseases and conditions complicating pregnancy (principal); R00.2 Palpitations; R06.00 Dyspnea, unspecified; R11.0 Nausea; Z3A.33 33 weeks gestation of pregnancy
CPT/HCPCS: 59025